=== PATIENT | female | born 1960 | race Caucasian/White ===

== ENCOUNTER → 2018-01-24 10:42 | Outpatient (CLI) | payer OTHER, SELFPAY ==
--- NOTE | 2018-01-24 10:53 | XR_ITS ---
XR foot wt bearing LT 3V HISTORY: ITS.REASON: LT FOOT PAIN ORDERING PHYSICIAN: Ioana Browne PATIENT AGE: 57 years COMPARISON: None FINDINGS: Weightbearing views are obtained No fracture or dislocation. No lytic or blastic change. There is normal mineralization.. The joint spaces are well-preserved. No significant degenerative/arthritic changes. No erosive changes evident. There is a small calcaneal spur. There is normal alignment. IMPRESSION: Small calcaneal spur otherwise negative left foot
== END ==
PROVIDERS: PCP Nurse Practitioner Family; Visit Provider Nurse Practitioner Family
DX: M79.672 Pain in left foot (principal); M81.0 Age-related osteoporosis without current pathological fracture
CPT/HCPCS: 73630

== ENCOUNTER → 2018-05-16 07:36 | Outpatient (CLI) | payer OTHER, SELFPAY ==
[2018-05-16 08:35] LABS: Basophils % 0.3 % (0.1-2.0); Eosinophils # 0.3 K/mm3 (0.0-0.4); Eosinophils % 5.2 % (0.1-12.0); Hematocrit 38.8 % (37.0-47.0); Hemoglobin 12.4 g/dL (12.2-16.2); Lymphocytes # 1.8 K/mm3 (0.7-4.5); Lymphocytes % 32.4 K/mm3 (10-50); Mean Corpuscular HGB Conc 31.9 g/dL (31.8-35.4); Mean Corpuscular Hemoglobin 30.2 pg (27.0-31.2); Mean Corpuscular Volume 94.7 fl (81-99); Mean Platelet Volume 7.5 fl (7.4-10.4); Monocytes # 0.3 K/mm3 (0.1-1.0); Monocytes % 5.7 % (1.7-9.3); Neutrophils # 3.1 K/mm3 (1.8-7.8); Neutrophils % 56.3 % (37.0-80.0); Platelet Count 933 K/mm3 (142-424); Red Cell Distribution Width 13.7 % (11.5-17.5); White Blood Count 5.5 K/mm3 (4.8-10.8)
[2018-05-16 11:01] LABS: Ferritin 58 ng/mL (8-388); Free T4 (Free Thyroxine) 0.98 ng/dl (0.76-1.46); Thyroid Stimulating Hormone 0.86 uIU/ml (0.358-3.740)
[2018-05-17 19:09] LABS: Vitamin B12 721 pg/mL (232-1245)
== END ==
PROVIDERS: PCP Internal Medicine Adolescent Medicine; Visit Provider Nurse Practitioner Family
DX: R00.2 Palpitations (principal); R53.81 Other malaise
CPT/HCPCS: 36415; 82607; 82728; 84439; 84443; 85025

== ENCOUNTER → 2018-12-14 10:36 | Outpatient (CLI) | payer OTHER, SELFPAY | PROVIDERS: Visit Provider Internal Medicine Nephrology | DX: M81.0 Age-related osteoporosis without current pathological fracture (principal) | CPT/HCPCS: 36415; 80069; 82523; 82652; 83937; 84080 ==

== ENCOUNTER → 2018-12-14 10:53 | Outpatient (CLI) | payer OTHER, SELFPAY ==
--- NOTE | 2018-12-14 10:59 | XR_ITS ---
XR DEXA axial skeleton COMPARISON: DEXA scan 09/21/2013 HISTORY: Patient postmenopausal and currently taking Fosamax TECHNIQUE: DEXA scanning lumbar spine and bilateral hips FINDINGS: Lumbar spine: The average BMD L1-L4 is 0.878 g centimeters square with T score -2.5. This is a 4.1% interval decline in BMD from the previous study 2013 Right hip: The total BMD right hip is 0.732 g centimeters square with T score -2.2 and the right femoral neck is 0.815 g centimeters square the T score -1.6. The total BMD left hip is 0.697 g centimeters square the T score -2.5 and left femoral neck is 0.731 g centimeters square with T score -2.2. The mean BMD for both hips represents a 11.8% interval decline in BMD from the previous study. IMPRESSION: T score is in the osteoporosis range for lumbar spine and bilateral hips, suggest a follow-up study in 2 years
[2018-12-14 11:44] LABS: Albumin Level 4.2 gm/dL (3.4-5.0); Anion Gap 13.9 mEq/L (5-15); Blood Urea Nitrogen 10 mg/dL (7-18); Carbon Dioxide 29 mmol/L (21.0-32.0); Chloride 105 mmol/L (98-107); Creatinine,Serum 0.64 mg/dL (0.55-1.02); Estimated Glomerular Filt Rate 95 ml/min (>60); GFR (African American) 115 ML/MIN (>60); Glucose 71 mg/dL (74-106); Phosphorous 5.2 mg/dL (2.4-4.9); Potassium 3.9 mmoL/L (3.5-5.1); Sodium 144 mmol/L (136-145)
[2018-12-15 07:02] LABS: Vitamin D 25 Hydroxy 34.1 ng/mL (30.0-100.0)
== END ==
PROVIDERS: PCP Internal Medicine Adolescent Medicine; Visit Provider Internal Medicine Nephrology
DX: M81.0 Age-related osteoporosis without current pathological fracture (principal)
CPT/HCPCS: 36415; 77080; 80069; 82523; 82652; 83937; 84080

== ENCOUNTER → 2018-12-28 15:27 | Outpatient (POV) | payer OTHER, SELFPAY | PROVIDERS: Visit Provider Internal Medicine Nephrology | DX: Z00.00 Encounter for general adult medical examination without abnormal findings (principal) ==

== ENCOUNTER → 2019-07-17 07:04 | Outpatient (CLI) | payer BC, SELFPAY ==
[2019-07-17 08:37] LABS: Albumin Level 3.8 gm/dL (3.4-5.0); Anion Gap 10.1 mEq/L (5-15); Blood Urea Nitrogen 14 mg/dL (7-18); Calcium 8.5 mg/dL (8.5-10.1); Carbon Dioxide 29 mmol/L (21.0-32.0); Chloride 107 mmol/L (98-107); Creatinine,Serum 0.59 mg/dL (0.55-1.02); Estimated Glomerular Filt Rate 104 ml/min (>60); GFR (African American) 126 ML/MIN (>60); Glucose 76 mg/dL (74-106); Phosphorous 3.5 mg/dL (2.4-4.9); Potassium 4.1 mmoL/L (3.5-5.1); Sodium 142 mmol/L (136-145)
[2019-07-20 09:27] LABS: Vitamin D 25 Hydroxy 42.2 ng/mL (30.0-100.0)
[2019-07-22 12:03] LABS: Tandem-R Ostase 7.8 ug/L (.)
== END ==
PROVIDERS: Visit Provider Internal Medicine Nephrology
DX: M81.0 Age-related osteoporosis without current pathological fracture (principal)
CPT/HCPCS: 36415; 80069; 82523; 82652; 84080

== ENCOUNTER → 2019-11-05 13:20 | Outpatient (CLI) | payer BC, SELFPAY ==
--- NOTE | 2019-11-05 13:26 | XR_ITS ---
PROCEDURE: XR FOOT LT MIN 3V CLINICAL INDICATION: LT FOOT PAIN COMPARISON: [id number] XR foot wt bearing LT 3V from 01/24/2018 FINDINGS: There is no acute fracture or dislocation. There is diffuse demineralization. 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 Degenerative plantar calcaneal spurring is noted. . IMPRESSION: No acute findings. Dictated by: Nael Hernandez 11/05/2019 13:54 Electronically signed by Nael Hernandez in [facility] 11/05/2019 13:54
== END ==
PROVIDERS: PCP Internal Medicine Adolescent Medicine; Visit Provider Nurse Practitioner Family
DX: M79.672 Pain in left foot (principal)
CPT/HCPCS: 73630

== ENCOUNTER → 2020-07-17 14:51 | Outpatient (CLI) | payer BC, SELFPAY ==
--- NOTE | 2020-07-17 14:54 | XR_ITS ---
PROCEDURE: XR DEXA AXIAL SKELETON CLINICAL HISTORY: OSTEOPOROSIS COMPARISON: CR DEXAAX XR DEXA axial skeleton from 12/14/2018 FINDINGS: The right hip BMD is 0.699 with a T-score of -2.0. The left hip BMD is 0.679 with a T-score of -2.2. The lumbar spine BMD is 0.745 with a T-score of -2.7. Previously the lowest bone density was in the spine with T-score -2.5. IMPRESSION: This patient is considered osteoporotic according to the World Health Organization criteria. Fracture risk is high. Treatment is advised. Based on these results a follow-up exam is recommended in 1 year. Dictated by: Amauri Ayon MD 07/18/2020 07:14 Amauri Ayon MD in [facility] 07/18/2020 07:14
[2020-07-17 16:23] LABS: Chloride 104 mmol/L (98-107); Sodium 139 mmol/L (136-145)
[2020-07-17 16:24] LABS: Albumin Level 4.1 g/dl (3.5-5.0); Potassium 4.3 mmoL/L (3.5-5.1)
[2020-07-17 16:26] LABS: Anion Gap 12.3 mEq/L (5-15); Blood Urea Nitrogen 13 mg/dl (7-17); Carbon Dioxide 27 mmol/L (22.0-30.0); Estimated Glomerular Filt Rate 85 ml/min (>60); GFR (African American) 103 ML/MIN (>60)
[2020-07-17 16:27] LABS: Calcium 9.2 mg/dl (8.4-10.2); Glucose 95 mg/dl (74-100); Phosphorous 4.1 mg/dl (2.5-4.5)
[2020-07-21 10:21] LABS: N-Telopeptide Cross-linked 14.5 nmol BCE/L (6.2-19.0)
[2020-07-21 15:20] LABS: Tandem-R Ostase 11.5 ug/L (.)
== END ==
PROVIDERS: PCP Internal Medicine Adolescent Medicine; Visit Provider Internal Medicine Nephrology
DX: M81.0 Age-related osteoporosis without current pathological fracture (principal); Z00.00 Encounter for general adult medical examination without abnormal findings; Z13.820 Encounter for screening for osteoporosis; Z78.0 Asymptomatic menopausal state
CPT/HCPCS: 36415; 77080; 80069; 82523; 84080

== ENCOUNTER → 2021-08-22 08:22 | Outpatient (CLI) | payer BC, SELFPAY ==
--- NOTE | 2021-08-22 08:35 | XR_ITS ---
PROCEDURE: XR DEXA AXIAL SKELETON CLINICAL HISTORY: OSTEOPOROSIS COMPARISON: CR DEXAAX XR DEXA axial skeleton from 12/14/2018 FINDINGS: The right hip BMD is 0.641 with a T-score of -1.9. The left hip BMD is 0.592 with a T-score of -2.3. The lumbar spine BMD is 0.836 with a T-score of -1.9. Previously the lowest density was in the lumbar spine with a T-score of -2.5 IMPRESSION: This patient is considered osteopenic according to the World Health Organization criteria. Bone density is between 10 and 25 percent below young normal. Fracture risk is moderate. Treatment is advised. Based on these results a follow-up exam is recommended in 2 year. Dictated by: Amauri Ayon MD 08/22/2021 16:32 Amauri Ayon MD in [facility] 08/22/2021 16:32
[2021-08-22 10:05] LABS: 25-OH Vitamin D, Total 51.2 ng/mL (30-100)
[2021-08-22 10:08] LABS: Albumin Level 3.9 g/dl (3.5-5.0); Anion Gap 8.3 mEq/L (5-15); Blood Urea Nitrogen 15 mg/dl (7-17); Calcium 8.7 mg/dl (8.4-10.2); Carbon Dioxide 29 mmol/L (22.0-30.0); Chloride 105 mmol/L (98-107); Estimated Glomerular Filt Rate 102 ml/min (>60); GFR (African American) 123 ML/MIN (>60); Glucose 69 mg/dl (74-100); Phosphorous 4.3 mg/dl (2.5-4.5); Potassium 4.3 mmoL/L (3.5-5.1); Sodium 138 mmol/L (136-145)
[2021-08-25 00:08] LABS: Tandem-R Ostase 8.8 ug/L (.)
[2021-08-26 14:08] LABS: C-Telopeptide Serum 92 pg/mL (.)
== END ==
PROVIDERS: PCP Internal Medicine Adolescent Medicine; Visit Provider Internal Medicine Nephrology
DX: M81.0 Age-related osteoporosis without current pathological fracture (principal); Z00.00 Encounter for general adult medical examination without abnormal findings; Z13.220 Encounter for screening for lipoid disorders; Z78.0 Asymptomatic menopausal state
CPT/HCPCS: 36415; 77080; 80069; 82306; 82523; 84080

== ENCOUNTER → 2021-09-17 12:56 | Outpatient (POV) | payer BC, SELFPAY | PROVIDERS: Visit Provider Internal Medicine Nephrology | DX: Z00.00 Encounter for general adult medical examination without abnormal findings (principal) ==

== ENCOUNTER 2021-12-19 19:45 | Emergency (ER) | payer BC, SELFPAY ==
[2021-12-19 19:47] VITALS: BP 160/99; PULSE 82; RESP 18; TEMP 36.7; O2SAT 98; BMI 25.8
[2021-12-19 19:54] VITALS: BP 167/99; PULSE 83; O2SAT 97
[2021-12-19 20:00] VITALS: BP 138/80; PULSE 78; O2SAT 98
[2021-12-19 20:30] VITALS: BP 132/73; PULSE 73; O2SAT 97
--- NOTE | 2021-12-19 20:55 | CT_ITS ---
PROCEDURE INFORMATION: Exam: CT Cervical Spine Without Contrast Exam date and time: 12/19/2021 9:08 PM Age: 61 years old Clinical indication: Neck pain; Additional info: Pain post chiro visit TECHNIQUE: Imaging protocol: Computed tomography images of the cervical spine without contrast. Radiation optimization: All CT scans at this facility use at least one of these dose optimization techniques: automated exposure control; mA and/or kV adjustment per patient size (includes targeted exams where dose is matched to clinical indication); or iterative reconstruction. COMPARISON: No relevant prior studies available. FINDINGS: Bones/joints: No acute fracture. Normal alignment. The spinolaminar line is intact. Discs/Spinal canal/Neural foramina: No significant disc protrusion. No spinal canal stenosis. No significant neural foraminal narrowing. Mild narrowing and hypertrophic changes noted between the anterior arch of C1 and the dens of C2. Lungs: Lung apices are normal. Soft tissues: Unremarkable. IMPRESSION: Mild degenerative changes between C1 and C2. No evidence of acute fracture or malalignment.
--- NOTE | 2021-12-19 20:55 | CT_ITS ---
PROCEDURE INFORMATION: Exam: CT Thoracic Spine Without Contrast Exam date and time: 12/19/2021 9:12 PM Age: 61 years old Clinical indication: Pain in thoracic spine; Additional info: Pain post chiro visit TECHNIQUE: Imaging protocol: Computed tomography images of the thoracic spine without contrast. Radiation optimization: All CT scans at this facility use at least one of these dose optimization techniques: automated exposure control; mA and/or kV adjustment per patient size (includes targeted exams where dose is matched to clinical indication); or iterative reconstruction. COMPARISON: CT CERVICAL SPINE WO CON 12/19/2021 9:08 PM FINDINGS: Vertebrae: No acute fracture. Normal alignment. Discs/Spinal canal/Neural foramina: No significant disc protrusion. Mild diffuse degenerative changes are noted within the thoracic spine. Prominent anterior osteophyte formation noted at T9-T10. No spinal canal stenosis. No significant neural foraminal narrowing. Soft tissues: There is a hiatal hernia above the gastroesophageal junction. There is a well-circumscribed 2.9 cm low-attenuation lesion present within the central liver. Hounsfield unit attenuation is compatible with water. It is felt to represent a hepatic cyst. This could be further evaluated with ultrasound. IMPRESSION: 1. There are degenerative changes noted within the thoracic spine. No evidence of acute fracture or malalignment. 2. There is a hiatal hernia above the gastroesophageal junction. 3. 2.9 cm well-circumscribed low-attenuation lesion within the central liver compatible with a cyst. This could be further evaluated with ultrasound.
--- NOTE | 2021-12-19 20:55 | CT_ITS ---
PROCEDURE INFORMATION: Exam: CT Chest Without Contrast; Diagnostic Exam date and time: 12/19/2021 9:15 PM Age: 61 years old Clinical indication: Pain; Right-sided; Additional info: Pain post chiro visit TECHNIQUE: Imaging protocol: Diagnostic computed tomography of the chest without contrast. Radiation optimization: All CT scans at this facility use at least one of these dose optimization techniques: automated exposure control; mA and/or kV adjustment per patient size (includes targeted exams where dose is matched to clinical indication); or iterative reconstruction. COMPARISON: CT THORACIC SPINE WO CON 12/19/2021 9:12 PM FINDINGS: Lungs: There is a calcified granuloma within the right upper lobe. Linear zones of scarring or atelectasis at the lung bases. No consolidation. No masses. Pleural spaces: Unremarkable. No pneumothorax. No pleural effusion. Heart: Unremarkable. No cardiomegaly. No pericardial effusion. Coronary arteries: No evidence of coronary artery calcification. Mediastinal space: No evidence of mediastinal or hilar mass. Calcifications, likely representing granulomatous calcifications, noted within the left hilus, right hilus, precarinal and subcarinal regions, and within the right paratracheal region. Aorta: Unremarkable. No aortic aneurysm. Lymph nodes: Unremarkable. No enlarged lymph nodes. Bones/joints: Degenerative changes are noted within the thoracic spine. No acute fracture. Soft tissues: There is a small hiatal hernia above the gastroesophageal junction. There is a 3.1 cm well-circumscribed low-attenuation lesion present within the central aspect of the right hepatic lobe. Findings are compatible with a benign hepatic cysts. This could be further evaluated with ultrasound. IMPRESSION: 1. There is no evidence of acute process within the chest. 2. Small hiatal hernia above the gastroesophageal junction. 3. There is a 3.1 cm well-circumscribed low-attenuation lesion within the central liver, compatible with a hepatic cyst. This could be further evaluated with ultrasound.
[2021-12-19 21:00] VITALS: BP 130/82; PULSE 70; O2SAT 96
--- NOTE | 2021-12-19 21:01 | ECG_ITS ---
APPROVED REPORT Exam: Resting ECG HR:69 bpm ECG Measurements Heart Rate 69 AXES KS 144 P 40 QRSd 84 QRS 47 QT 389 T 15 QTc 408 Conclusion SINUS RHYTHM NORMAL ECG UNCONFIRMED REPORT Electronically signed by : Dima Giles MD 12/21/2021 14:52:49
--- NOTE | 2021-12-19 21:21 | PC.NURSE ---
Pt back from RAD
--- NOTE | 2021-12-19 21:56 | [facility].EDGENADL ---
ED Disposition Clinical Impression: Muscle strain Disposition: Home, Self-Care Condition on Discharge: Good Prescriptions: Cyclobenzaprine HCl [Cyclobenzaprine 10mg Tab*] 10 mg PO PM PRN 5 Days #5 tab PRN Reason: Muscle Pain Transmission Status: Pending to [facility][id number] Referrals: Dima Giles MD [Primary Care Provider] - - Critical Care Critical Care Time: No Attestation: On 12/19/21, the high probability of a clinically significant, sudden or life threatening deterioration of the following system(s) required my full and direct attention, intervention and personal management. The time I documented below is in addition to time spent performing reported procedures but includes the following listed in this critical care notation. Medical Decision Making - Doc Inquiry Pt receiving controlled substance: No Vital Signs: 12/19/21 19:47 12/19/21 19:54 12/19/21 20:00 Temperature 98.0 F Temperature Source Oral Pulse Rate 83 78 Pulse Rate [Right] 82 Respiratory Rate 18 Blood Pressure 167/99 H 138/80 Blood Pressure [Right Arm] 160/99 H Blood Pressure Mean 118 102 Blood Pressure Mean [Right Arm] 119 02 Sat by Pulse Oximetry 98 97 98 Oxygen Delivery Method Room Air Room Air Room Air 12/19/21 20:30 12/19/21 21:00 Temperature Temperature Source Pulse Rate 73 70 Pulse Rate [Right] Respiratory Rate Blood Pressure 132/73 130/82 Blood Pressure [Right Arm] Blood Pressure Mean 98 94 Blood Pressure Mean [Right Arm] 02 Sat by Pulse Oximetry 97 96 Oxygen Delivery Method Room Air Room Air Medical Decision Narrative: 61-year-old female presents emergency department after thoracic and lateral right-sided neck pain after chiropractic manipulation yesterday. Patient has right anterior thoracic tenderness to palpation inferior and superior to the right breast as well as lateral thoracic pain that is precipitated with right arm abduction, though right upper extremity strength and range of motion are intact, with no neurovascular abnormalities. No C-spine or T-spine tenderness to palpation step-offs or deformities on physical examination, C-spine range of motion was intact. CTs of C and T-spine showed degenerative changes without any obvious fracture or dislocation. Liver lesion which radiology stated was compatible with hepatic cyst was identified on CT imaging, this was communicated to patient as well as need to follow-up. ECG performed in the emergency department which showed normal sinus rhythm without any ST changes or concern for acute coronary syndrome. Chest CT performed in the emergency department and showed no acute findings in the chest, without any evidence of rib fracture remarked upon. No hernia was also noted in CT imaging and this was verbalized to patient. Patient ultimately able to be discharged home with return precautions and instructions to follow-up with primary care physician for potential need for physical therapy and potential need for MRI imaging with etiology of pain likely muscle strain. Patient amenable to this plan. Given prescription for Flexeril. General Adult HPI - General Chief complaint: PAIN Stated complaint: LEFT RIBS, BACK AND NECK Time Seen by Provider: 12/19/21 20:05 Mode of Arrival: Family Vehicle Limitations: No Limitations Description of Symptoms (Recalled from ER Triage Doc. by RN): Pt c/o pain to R side of neck, under R breast, and R axilla. States she went to the Chiropractor yesterday and usually he uses his elevator adjuster but this time he actually adjusted me and right away I was in severe pain . She also reports He did xrays and thinks he tore cartilage . Pt has been taking Tylenol, Aleve, and heat to the painful areas but is concerned there is something else wrong. States she was in the shower when she felt something move from under my right arm . Denies any radiating pain down arms. Denies SOA. - History of Present Illness HPI gloria
[2021-12-19 22:17] VITALS: BP 126/76; PULSE 80; RESP 18; TEMP 36.7; O2SAT 18
== END 2021-12-19 22:24 | disposition home or self-care (01) ==
PROVIDERS: Emergency Provider Student in an Organized Health Care Education/Training Program; PCP Internal Medicine Adolescent Medicine
DX: M54.6 Pain in thoracic spine (principal); M54.2 Cervicalgia; R07.81 Pleurodynia; M79.621 Pain in right upper arm; K76.89 Other specified diseases of liver; K76.9 Liver disease, unspecified; M81.0 Age-related osteoporosis without current pathological fracture; F32.A Depression, unspecified; F41.9 Anxiety disorder, unspecified; Z88.0 Allergy status to penicillin; Z82.49 Family history of ischemic heart disease and other diseases of the circulatory system; Z83.49 Family history of other endocrine, nutritional and metabolic diseases
CPT/HCPCS: 71250; 72125; 72128; 93005; 99285

== ENCOUNTER → 2022-09-26 07:59 | Outpatient (CLI) | payer OTHER, SELFPAY ==
--- NOTE | 2022-09-26 08:17 | XR_ITS ---
FINAL REPORT TECHNIQUE: Bone densitometry calculations of the lumbar spine and left hip were obtained. CLINICAL HISTORY: screening FINDINGS: DEXA BONE DENSITY AXIAL SKELETON Using L1-4, the bone mineral density of the spine is 0.825 g/cm2, corresponding to T-score of -2.0. Using the left hip, the bone mineral density of the femoral neck is 0.575 g/cm2, corresponding to a T-score of -2.5. NOTE: T-score: Standard deviation compared with peak bone mass of young adult mean. *Following the recommendations of the International Society of Bone Densitometry, classification of hip BMD is based on the lower of two T-scores; total hip or femoral neck. IMPRESSION: Osteoporosis: Lowest T-score is at or below -2.5. This patient's T-score meets the World Health Organization criteria for osteoporosis. FRAX not reported because: Some T-score for Spine Total or hip Total or femoral neck at or below -2.5. Patient being treated for osteoporosis. Reviewed, Interpreted and Dictated by Giovanny Estrella III, MD Transcribed by Whitney Woodruff Authenticated and [facility]
[2022-09-26 09:52] LABS: Albumin Level 3.9 g/dl (3.5-5.0); Chloride 107 mmol/L (98-107); Potassium 4.4 mmoL/L (3.5-5.1); Sodium 140 mmol/L (136-145)
[2022-09-26 09:54] LABS: Blood Urea Nitrogen 14 mg/dl (7-17); Estimated Glomerular Filt Rate 85 ml/min (>60); GFR (African American) 103 ML/MIN (>60)
[2022-09-26 09:55] LABS: Anion Gap 10.4 mEq/L (5-15); Calcium 8.5 mg/dl (8.4-10.2); Carbon Dioxide 27 mmol/L (22.0-30.0); Glucose 73 mg/dl (74-100); Phosphorous 4.2 mg/dl (2.5-4.5)
[2022-09-30 00:05] LABS: C-Telopeptide Serum 284 pg/mL (.)
[2022-10-01 00:07] LABS: Tandem-R Ostase 11.2 ug/L (.)
== END ==
PROVIDERS: PCP Internal Medicine Adolescent Medicine; Visit Provider Internal Medicine Nephrology
DX: M81.0 Age-related osteoporosis without current pathological fracture (principal); Z13.820 Encounter for screening for osteoporosis
CPT/HCPCS: 36415; 77080; 80069; 82306; 82523; 84080

== ENCOUNTER → 2022-10-21 09:23 | Outpatient (POV) | payer OTHER, SELFPAY | PROVIDERS: Visit Provider Internal Medicine Nephrology | DX: Z00.00 Encounter for general adult medical examination without abnormal findings (principal) ==

== ENCOUNTER 2023-10-20 08:52 | Outpatient (CLI) | payer OTHER, SELFPAY ==
--- NOTE | 2023-10-20 08:57 | XR_ITS ---
FINAL REPORT CLINICAL HISTORY: Osteoporosis screening COMPARISON: 09/26/2022 FINDINGS: Using L1-4, the bone mineral density of the spine is 0.810 g/cm2, corresponding to T-score of -2.2 which is consistent with low bone density. Previously was 0.825 with a T-score of -2.0. Using the left hip, the bone mineral density of the femoral neck is 0.676 g/cm2, corresponding to a T-score of -2.2 which is consistent with low bone density. Previously was 0.575 with T-score of -2.5. Using the right hip, the bone mineral density of the femoral neck is 0.614 g/cm2, corresponding to a T-score of -2.1 which is consistent with low bone density. Previously 0.726 with a T-score of -1.8. FRAX not reported because patient being treated for osteoporosis NOTE: T-score: Standard deviation compared with peak bone mass of young adult mean. *Following the recommendations of the International Society of Bone densitometry, classification of hip BMD is based on the lower of two T-scores; total hip or femoral neck. IMPRESSION: Diminished bone mineral density consistent with low bone density. Reviewed, Interpreted and Dictated by Giovanny Estrella III, MD Transcribed by Edna Paz Authenticated and [facility]
[2023-10-20 10:35] LABS: Chloride 107 mmol/L (98-107)
[2023-10-20 10:36] LABS: Potassium 4.4 mmoL/L (3.5-5.1); Sodium 139 mmol/L (136-145)
[2023-10-20 10:38] LABS: Blood Urea Nitrogen 14 mg/dl (7-17); Estimated Glomerular Filt Rate 84 ml/min (>60); GFR (African American) 102 ML/MIN (>60)
[2023-10-20 10:39] LABS: Anion Gap 7.4 mEq/L (5-15); Calcium 8.8 mg/dl (8.4-10.2); Carbon Dioxide 29 mmol/L (22.0-30.0); Glucose 89 mg/dl (74-100)
[2023-10-20 10:58] LABS: 25-OH Vitamin D, Total 67.1 ng/mL (30-100)
[2023-10-22 21:06] LABS: C-Telopeptide Serum 76 pg/mL (.)
[2023-10-23 06:14] LABS: Tandem-R Ostase 8.2 ug/L (.)
[2023-10-24 10:50] LABS: Serial Monitoring PDF SCANNED IMAGE
== END 2023-10-20 23:59 ==
PROVIDERS: PCP Internal Medicine Adolescent Medicine; Visit Provider Internal Medicine Nephrology
DX: Z78.0 Asymptomatic menopausal state (principal); Z13.820 Encounter for screening for osteoporosis; M81.0 Age-related osteoporosis without current pathological fracture
CPT/HCPCS: 36415; 77080; 80069; 82306; 82523; 84080

== ENCOUNTER 2023-11-07 11:19 | Outpatient (POV) | payer OTHER, SELFPAY | END 2023-11-07 23:59 | disposition home or self-care (01) | LOC: SC 11:19 | PROVIDERS: Visit Provider Nurse Practitioner | DX: Z00.00 Encounter for general adult medical examination without abnormal findings (principal) ==

== ENCOUNTER 2024-05-25 07:53 | Outpatient (CLI) | payer OTHER, SELFPAY ==
[2024-05-25 08:14] LABS: Eosinophils # 0.1 K/mm3 (0.0-0.4); Hematocrit 41.4 % (37.0-47.0); Hemoglobin 13.4 g/dL (12.2-16.2); Lymphocytes # 1.6 K/mm3 (0.7-4.5); Lymphocytes % 41.1 % (10-50); Mean Corpuscular HGB Conc 32.4 g/dL (31.8-35.4); Mean Corpuscular Hemoglobin 31.6 pg (27.0-31.2); Mean Corpuscular Volume 97.7 fl (81-99); Mean Platelet Volume 8.8 fl (7.4-10.4); Monocytes # 0.4 K/mm3 (0.1-1.0); Monocytes % 9.1 % (1.7-9.3); Neutrophils # 1.9 K/mm3 (1.8-7.8); Platelet Count 332 K/mm3 (142-424); Red Blood Count 4.24 M/mm3 (4.20-5.40); Red Cell Distribution Width 13.9 % (11.5-17.5)
[2024-05-25 09:16] LABS: Alanine Aminotransferase 20 U/L (12-78); Albumin Level 3.9 g/dl (3.5-5.0); Albumin/Globulin Ratio 1.3 (1.1-1.8); Alkaline Phosphatase 73 U/L (38-126); Anion Gap 10.4 mEq/L (5-15); Aspartate Amino Transferase 27 U/L (14-36); Bilirubin,Total 0.5 mg/dl (0.2-1.3); Blood Urea Nitrogen 14 mg/dl (7-17); Calcium 9.3 mg/dl (8.4-10.2); Carbon Dioxide 28 mmol/L (22.0-30.0); Chloride 106 mmol/L (98-107); Chol/HDL Ratio 4.8 (1-3.5); Cholesterol 227 mg/dl (140-200); Estimated Glomerular Filt Rate 84 ml/min (>60); GFR (African American) 102 ML/MIN (>60); Globulin 2.9 g/dL (1.3-3.2); Glucose 88 mg/dl (74-100); HDL Cholesterol 47 mg/dl (40-60); Potassium 4.4 mmoL/L (3.5-5.1); Sodium 140 mmol/L (136-145); Total Protein,Serum 6.8 g/dl (6.3-8.2); Triglycerides 125 mg/dl (30-150); VLDL Cholesterol 25 mg/dL (0-40)
[2024-05-25 09:17] LABS: Albumin Level 3.8 g/dl (3.5-5.0); Anion Gap 8.4 mEq/L (5-15); Blood Urea Nitrogen 14 mg/dl (7-17); Calcium 9.3 mg/dl (8.4-10.2); Carbon Dioxide 29 mmol/L (22.0-30.0); Chloride 106 mmol/L (98-107); Estimated Glomerular Filt Rate 84 ml/min (>60); GFR (African American) 102 ML/MIN (>60); Glucose 90 mg/dl (74-100); Phosphorous 4.9 mg/dl (2.5-4.5); Potassium 4.4 mmoL/L (3.5-5.1); Sodium 139 mmol/L (136-145)
[2024-05-25 09:27] LABS: Direct LDL Cholesterol 133.76 mg/dL (100-129)
[2024-05-28 13:21] LABS: Tandem-R Ostase 10.5 ug/L (.)
[2024-06-03 16:11] LABS: Serial Monitoring PDF SCANNED IMAGE
[2024-06-04 21:12] LABS: C-Telopeptide Serum 156 pg/mL (.)
== END 2024-05-25 23:59 | disposition home or self-care (01) ==
LOC: LAB 07:55
PROVIDERS: PCP Internal Medicine Adolescent Medicine; Referring Provider Nurse Practitioner; Visit Provider Nurse Practitioner Family
DX: Z00.00 Encounter for general adult medical examination without abnormal findings (principal); Z29.9 Encounter for prophylactic measures, unspecified
CPT/HCPCS: 36415; 80053; 80061; 80069; 82523; 84080; 84100; 85025

== ENCOUNTER 2024-06-11 10:56 | Outpatient (POV) | payer OTHER, SELFPAY | END 2024-06-11 23:59 | disposition home or self-care (01) | LOC: SC 10:56 | PROVIDERS: Visit Provider Nurse Practitioner | DX: Z00.00 Encounter for general adult medical examination without abnormal findings (principal) ==

== ENCOUNTER 2024-11-22 08:19 | Outpatient (CLI) | payer MEDICARE, SELFPAY ==
--- NOTE | 2024-11-22 08:44 | XR_ITS ---
FINAL REPORT TECHNIQUE: Bone mineral density was calculated of the lumbar spine and hip. CLINICAL HISTORY: SCREENING COMPARISON: 10/20/2023 FINDINGS: Using L1-4, the bone mineral density of the spine is 0.8-6 g/cm2, corresponding to T-score of -2.0. Using the left hip, the bone mineral density of the femoral neck is 0.676 g/cm2, corresponding to a T-score of -2.2. Using the right hip, the bone mineral density of the femoral neck is 0.716 g/cm?, corresponding to a T-score of -1.8. NOTE: T-score: Standard deviation compared with peak bone mass of young adult mean. *Following the recommendations of the International Society of Bone densitometry, classification of hip BMD is based on the lower of two T-scores; total hip or femoral neck. IMPRESSION: Diminished bone mineral density of the lumbar spine and bilateral hips consistent with osteopenia. Reviewed, Interpreted and Dictated by Neville Honeycutt MD Transcribed by Daniela Tobar Authenticated and [facility]
[2024-11-22 09:12] LABS: Blood Urea Nitrogen 11 mg/dl (7-17); Estimated Glomerular Filt Rate 100 ml/min (>60); GFR (African American) 121 ML/MIN (>60)
[2024-11-22 09:38] LABS: Albumin Level 3.8 g/dl (3.5-5.0); Chloride 107 mmol/L (98-107); Potassium 4.6 mmoL/L (3.5-5.1); Sodium 140 mmol/L (136-145)
[2024-11-22 09:41] LABS: Anion Gap 9.6 mEq/L (5-15); Blood Urea Nitrogen 12 mg/dl (7-17); Carbon Dioxide 28 mmol/L (22.0-30.0); Estimated Glomerular Filt Rate 100 ml/min (>60); GFR (African American) 121 ML/MIN (>60)
[2024-11-22 09:42] LABS: Calcium 8.9 mg/dl (8.4-10.2); Glucose 88 mg/dl (74-100); Phosphorous 3.9 mg/dl (2.5-4.5)
[2024-11-25 23:22] LABS: C-Telopeptide Serum 84 pg/mL (.)
[2024-11-26 07:14] LABS: Osteocalcin 6.1 ng/mL (5.0-29.5)
[2024-11-26 17:14] LABS: Creatinine, Urine 116.2 mg/dL (Not Estab.); N-Telo/Creat. Ratio 19 (0-89); N-Telopeptide 196 nmol BCE (Not Estab.)
== END 2024-11-22 23:59 | disposition home or self-care (01) ==
LOC: RAD 08:23
PROVIDERS: Nurse Practitioner Family; PCP Internal Medicine Adolescent Medicine; Visit Provider Nurse Practitioner
DX: M81.0 Age-related osteoporosis without current pathological fracture (principal); Z13.820 Encounter for screening for osteoporosis
CPT/HCPCS: 36415; 77080; 80069; 82306; 82523; 82565; 82570; 83937; 84520

== ENCOUNTER 2024-11-25 01:25 | Emergency (ER) | payer MEDICARE, SELFPAY ==
[2024-11-25] VITALS (10 sets, daily range): BP systolic 142–165; BP diastolic 80–86; PULSE 101–121; RESP 16–24; TEMP 36.9–37.7; O2SAT 93–97; BMI 27.1
--- NOTE | 2024-11-25 03:22 | ED_ITS ---
Discharge Plan Disposition Patient Disposition: Xfer Short-Term Hosp Condition: Critical Prescriptions Prescriptions: No Action buspirone 5 mg tablet 5 mg PO BID cyclobenzaprine 10 MG tablet 10 mg PO PM PRN (Reason: Muscle Pain) 5 Days Qty: 5 0RF Rx Instructions: Take 1 tablet by mouth as needed at night for muscle pain Referrals Follow up/Referrals: Dima Giles MD [Primary Care Provider] - See instructions Clinical Impressions Clinical Impression: Acute cholangitis, Pancreatitis, Transaminitis, Hyperbilirubinemia Stand Alone Forms Stand Alone Forms: Transfer Record - ED Instructions Patient Instructions: DI for Acute Abdominal Pain Print Language Print Language: Bangladeshi Discharge ED Provider: Jordan Porras General Adult HPI General Chief complaint: Abdominal Pain Stated complaint: seen for liver, abd pain, shaky Time Seen by Provider: 11/25/24 01:25 Mode of Arrival: Wheelchair Source of Information: Patient Description of Symptoms (Recalled from ER Triage Doc. by RN): Patient complains of right lower quadrant pain ongoing for a few weeks but worsening tonight. Patient states she has had a CT at [facility], and it showed a spot on her liver. Patient is supposed to have a MRI in the morning. States she took tylenol at 10 pm History of Present Illness HPI narrative: 64-year-old female who has a known spot on the liver presents to the ER with shaking and abdominal pain.? Patient reports she has been having abdominal pain for more than a month.? She had a CT done at [facility] which reportedly showed a spot on the liver .? She reports she is supposed to have an MRI for this done this morning at 8:15 AM.? She reports her pain last night around bedtime was a little worse than normal so she took Tylenol.? She reports she woke up shaking but did not take her temperature.? She states her did not think she felt warm so she assumed she did not have a fever.? She states her pain has improved since earlier but she was worried about the shaking because her family member has seizures.? She was awake and is able to tell me what the shaking look like and felt like.? She had no episode of unconsciousness, no postictal period, she has no history of seizures.? On arrival in the ER she is borderline febrile.? She denies chest pain or difficulty breathing, she states she feels foggy but is not dizzy, no headaches, no vomiting or diarrhea, no constipation, cough, congestion, sore throat, dysuria, hematuria, or other associated symptoms. Related Data Home Medications ?Medication ?Instructions ?Recorded ?Confirmed buspirone 5 mg tablet 5 mg PO BID . 08/24/21 11/25/24 Previous Rx's ?Medication ?Instructions ?Recorded cyclobenzaprine 10 mg tablet 10 mg PO PM PRN Muscle Pain 5 days 12/19/21 #5 tabs Allergies Allergy/AdvReac Type Severity Reaction Status Date / Time Penicillins Allergy Mild Verified 08/24/21 09:00 [facility] Disclaimer: The information contained in this section may have been updated after the patient was seen, as this information can be updated by other users. Social History Smoking Status: Never smoker alcohol intake: never substance use type: denies use current occupational status: employed Travel in the last 8 weeks: None Have you lived/traveled outside US in past 30 days?: No Contact w/someone who lives/traveled outside US past 30 days?: No Exposure to someone with infectious disease in past 14 days?: No Do you have a fever (greater than 100.4 F or 38 C)?: No Have you tested positive for COVID-19: No Exposed to someone with COVID-19 in past 14 days?: No Do you have a sore throat?: No Do you have a cough?: No Do you have any weakness?: No Do you have any diarrhea?: No Are you experiencing any unusual bleeding?: No Do you have any muscle aches/pain?: No Do you have any abdominal pain?: Yes Are you experiencing loss of taste or smell?: No Other Medical History Have you received the Flu Vaccine for this season: No Have you received the Pneumonia Vaccine: No ROS Obtained: Yes Systems reviewed as appropriate & no additional complaints except as documented per HPI Physical Exam General General appearance: alert Comment: Ill-appearing but not in extremis, she is not actively diaphoretic but does appear as though she had been sweaty previously Head Head exam: atraumatic and normocephalic Eye Eye exam: Present PERRL and EOMI ENT ENT exam: Present mucous membranes moist Neck Neck exam: Present normal inspection and full ROM Chest Chest inspection: Present symmetric chest wall rise Respiratory Respiratory exam: Present normal lung sounds bilaterally; Absent respiratory distress, wheezes or stridor Cardiovascular Cardiovascular exam: Present normal rhythm and tachycardia Abdominal Exam Abdominal exam: Present soft, tenderness (Moderate right upper quadrant) and guarding (Voluntary); Absent distention or rebound Extremities Exam Extremities exam: Present full ROM and edema (Trace bilateral lower extremity) Neurological Exam Neurological exam: Present alert and oriented X3; Absent motor sensory deficit Psychiatric Psychiatric exam: Present normal affect and normal mood Skin Skin exam: Present warm, dry and other (Mild jaundice) Medical Decision Making Medical Records Medical records reviewed: Yes I reviewed the patient's medical records. Screening: Per USPSTF and CDC recommendations, given the prevalence of disease in our region, it is our hospital?s policy to screen for HIV and viral Hepatitis for all patients aged 18 and over and those with ongoing risk factors. MR Comment: Patient does not have significant records within our system recently. Labs from May demonstrate patient had no transaminitis at that time. Doc Inquiry Pt receiving controlled substance: No Vital Signs: 11/25/24 01:30 11/25/24 02:00 11/25/24 03:07 Temperature 100 F H Temperature Source Oral Pulse Rate 109 H 101 H Pulse Rate [Right Radial] 121 H Respiratory Rate 16 16 Blood Pressure 142/86 H Blood Pressure [Right Arm] 165/85 H Blood Pressure Mean [Right Arm] 111 Blood Pressure Source [Right Arm] Automatic Cuff Blood Pressure Position [Right Arm] Supine 02 Sat by Pulse Oximetry 94 L 93 L 95 Oxygen Delivery Method Room Air Room Air 11/25/24 03:16 11/25/24 03:30 11/25/24 04:11 Temperature 98.4 F Temperature Source Pulse Rate 110 H 116 H 105 H Pulse Rate [Right Radial] Respiratory Rate Blood Pressure 151/80 H Blood Pressure [Right Arm] Blood Pressure Mean [Right Arm] Blood Pressure Source [Right Arm] Blood Pressure Position [Right Arm] 02 Sat by Pulse Oximetry 96 96 94 L Oxygen Delivery Method 11/25/24 04:30 11/25/24 04:45 11/25/24 04:56 Temperature 98.6 F Temperature Source Pulse Rate 103 H 102 H 101 H Pulse Rate [Right Radial] Respiratory Rate 24 Blood Pressure 155/83 H 155/83 H 150/83 H Blood Pressure [Right Arm] Blood Pressure Mean [Right Arm] Blood Pressure Source [Right Arm] Blood Pressure Position [Right Arm] 02 Sat by Pulse Oximetry 95 97 Oxygen Delivery Method Room Air 03/13/25 05:00 Temperature Temperature Source Pulse Rate 104 H Pulse Rate [Right Radial] Respiratory Rate Blood Pressure 158/82 H Blood Pressure [Right Arm] Blood Pressure Mean [Right Arm] Blood Pressure Source [Right Arm] Blood Pressure Position [Right Arm] 02 Sat by Pulse Oximetry 97 Oxygen Delivery Method Lab Data Lab Results 11/25/24 01:45: WBC 6.8, RBC 4.24, Hgb 12.8, Hct 37.4, MCV 88.2, MCH 30.2, MCHC 34.2, RDW 13.2, Plt Count 366, MPV 10.5 H, Neut % (Auto) 90.3 H, Lymph % (Auto) 8.0 L, Parke % (Auto) 1.3 L, Eos % (Auto) 0.0 L, Baso % (Auto) 0.3, Neut # (Auto) 6.1, Lymph # (Auto) 0.5 L, Parke # (Auto) 0.1, Eos # (Auto) 0.0, Baso # (Auto) 0.0, Total Counted 100, Neutrophils % (Manual) 88 H, Lymphocytes % (Manual) 11, Basophils % (Manual) 1.0, Platelet Estimate Normal, RBC Morphology Normal, PT 10.7, INR 0.95, Sodium 136, Potassium 3.7, Chloride 105, Carbon Dioxide 25, Anion Gap 9.7, BUN 12, Creatinine 0.60, Estimated Creat Clear 67, Estimated GFR 100, Est GFR ( Amer) 121, Glucose 120 H, Lactate 1.5, Calcium 8.8, Total Bilirubin 2.8 H, AST 1332 H*, ALT 1064 H*, Alkaline Phosphatase 310 H, Total Protein 7.2, Albumin 4.2, Globulin 3.0, Albumin/Globulin Ratio 1.4, Lipase 65334 H, Urine Color Yellow, Urine Appearance Clear, Urine pH 7.0, Ur Specific [place] 1.015, Urine Protein Negative, Urine Glucose (UA) Negative, Urine Ketones Negative, Urine Blood Trace A, Urine Nitrate Negative, Urine Bilirubin Negative, Urine Urobilinogen 0.2, Ur Leukocyte Esterase Negative, Urine RBC Occasional, Urine WBC None, Ur Squamous Epith Cells Occasional, Urine Bacteria Trace, SARS-CoV-2 (PCR) Not detected, Influenza A Untype (PCR) Not detected, Influenza Type B (PCR) Not detected 11/25/24 01:45 11/25/24 01:45 Orders (Tests/Meds): ED MEDICATIONS Discontinued Medications Generic Name Dose Route Start Last Admin Trade Name Serge PRN Reason Stop Dose Admin Piperacillin Sod/Tazobactam 100 mls @ 200 mls/hr 11/25/24 03:15 11/25/24 03:37 Sod 4.5 gm/ Sodium Chloride IV 12/05/24 03:14 200 mls/hr Q8H EFREM Administration Lactated Ringer's 1,000 mls @ 999 mls/hr 11/25/24 03:31 11/25/24 03:33 Lactated Ringer's 1000 Ml Bag IV 11/25/24 04:31 999 mls/hr .Q1H1M ONE Administration Lactated Ringer's 1,000 mls @ 999 mls/hr 11/25/24 04:17 11/25/24 04:26 Lactated Ringer's 1000 Ml Bag IV 11/25/24 05:17 999 mls/hr .Q1H1M ONE Administration Ondansetron HCl 4 mg 11/25/24 04:38 11/25/24 05:11 Ondansetron 4mg/2ml Vial IV 11/25/24 04:39 4 mg ONCE ONE Administration ORDERS Category Date Time Status CT angio abdomen pelvis Stat Cat Scan 11/25/24 03:27 Ordered Complete Blood Count Auto Diff Stat Lab 11/25/24 01:45 Completed Comprehensive Metabolic Panel Stat Lab 11/25/24 01:45 Completed Lactic Acid Stat Lab 11/25/24 01:45 Completed Lipase Stat Lab 11/25/24 01:45 Completed Prothrombin Time INR Stat Lab 11/25/24 01:45 Completed Rapid PCR Covid and Flu A/B Stat Lab 11/25/24 01:45 Completed UA/RFX Microscopic Stat Lab 11/25/24 01:45 Completed Urine Microscopic Stat Lab 11/25/24 01:45 Completed Blood Culture Stat Micro 11/25/24 03:28 Received Medical Decision Narrative: In summary, this 64-year-old female with comorbidities described in the HPI not at goal therapy presents to the emergency department today with abdominal pain and tremulousness both of which have improved upon arrival to the ER. On initial evaluation patient is hemodynamically stable, borderline febrile, patient has tenderness to palpation of the right upper quadrant of the abdomen but no peritonitic findings, trace peripheral edema, mild jaundice, remainder of exam benign. Differential diagnosis includes but is not limited to viral syndrome, malignancy, vascular malformation, mesenteric ischemia, intra-abdominal infection, cholecystitis, cholelithiasis, choledocholithiasis, pancreatitis, cholangitis, urinary tract infection, among others. Based on these concerns, I ordered serum labs, CT imaging including angiography of the abdomen pelvis, urine studies, viral swab. Patient received IV fluids initially for treatment.? She refused pain medication at this time.? Labs personally reviewed demonstrate COVID and flu negative, CMP resulted with significant transaminitis, AST and ALT greater than 1000, alkaline phosphatase 310, lipase so elevated that is unable to be read on our machine at this time.? Lactic at 1.5.? CBC with WBC 6.7, hemoglobin 12.8, patient does have neutrophil predominance despite not having a leukocytosis.? Her bilirubin is elevated at 2.8.. Lipase eventually resulted at 30,109 U/L CT abdomen pelvis personally interpreted demonstrate inflammatory changes of the pancreas, gallbladder wall appears thickened, pericholecystic fluid present, I do not appreciate an obvious stone.? See radiology read for final interpretation, this is pending at this time. Radiology read in agreement. It does comment on 11 mm segment 8 hepatic hypodensity. Remainder of read in agreement with my interpretation. See read for full interpretation. Based on patient's labs and imaging findings, I immediately administered Zosyn after collecting blood cultures.? Also immediately reached out to [facility] for transfer for concerns of cholangitis. Awaiting callback at this time ([phone]). Patient has been made aware of findings and is agreeable to transfer. While awaiting a callback, we reached out to [employer] for weather check since all ambulances are occupied at this time and another transfer is pending. Patient has significant pathology that could be immediately life-threatening so I believe she is appropriate for flight transfer. [email or web address] has agreed and is on standby. 336 called back and I was supposed to speak with Dr. Valenzuela at that time but apparently as soon as I was on the phone she decided to take a different call instead and I have been unable to reach her since. [address] Valenzuela at . We reviewed labs and imaging for this patient as well as clinical status. She gave pushback on the patient asking us to get ultrasound and MRI which are not available at this facility overnight. I advocated for the patient explaining my significant concerns for her status regarding patient's labs, clinical findings, progressive tachycardia, and my concern that patient requires GI and surgery evaluation at a facility with liver center capabilities and if she continues to worsen she will likely require a closed ICU. After extensive conversation, Dr. Valenzuela eventually reached out to general surgery and I spoke with Dr. Schulz who after reviewing the case recommended the patient for ED to ED transfer at [facility]. Accepting physician is Dr. Valenzuela. [employer] contacted again and are having to recheck the weather due to the delay in transfer. [employer] [facility] accepted the patient. Her heart rate has improved since receiving an additional 1 L of IV fluids. She was transferred in serious but currently stable condition. Critical Care Critical Care Time Critical Care Time: Yes Attestation: On 11/25/24, the high probability of a clinically significant, sudden or life threatening deterioration of the following system(s) (GI, hemodynamic) required my full and direct attention, intervention and personal management. The time I documented below is in addition to time spent performing reported procedures but includes the following listed in this critical care notation. Total Time Total Critical Care Time: 35
--- NOTE | 2024-11-25 03:26 | PC.NURSE ---
Called [facility] for a transfer on pt
[2024-11-25] MEDS: IOPAMIDOL-370 (76%);100ML BOTTLE 80 ML IV (03:30)
[2024-11-25] MEDS: SODIUM CHLORIDE 0.9% 10ML SYR (RAD ONLY) 10 ML IV (03:30)
[2024-11-25] MEDS: 0.9 % SODIUM CHLORIDE 50 ML VIAL IV (03:30)
--- NOTE | 2024-11-25 03:30 | CT_ITS ---
PROCEDURE INFORMATION: Exam: CTA Abdomen and Pelvis With Contrast Exam date and time: 11/25/2024 2:49 AM Age: 64 years old Clinical indication: Abdominal pain; Other: Ruq pain; Additional info: Ruq pain, fever, known liver spot TECHNIQUE: Imaging protocol: Computed tomographic angiography of the abdomen and pelvis with contrast. Exam focused on the arteries. 3D rendering (Not supervised by radiologist): MIP and/or 3D reconstructed images were created by the technologist. Radiation optimization: All CT scans at this facility use at least one of these dose optimization techniques: automated exposure control; mA and/or kV adjustment per patient size (includes targeted exams where dose is matched to clinical indication); or iterative reconstruction. Contrast material: ISOVUE; Contrast volume: 80 ml; Contrast route: INTRAVENOUS (IV); COMPARISON: No relevant prior studies available. FINDINGS: Aorta: No aortic aneurysm. No aortic dissection. There are mild calcific atherosclerotic disease. Celiac trunk and mesenteric arteries: No occlusion or significant stenosis. Renal arteries: No occlusion or significant stenosis. Right iliac arteries: No occlusion or significant stenosis. Left iliac arteries: No occlusion or significant stenosis. Liver: There is an 11 mm circumscribed hypodensity within segment 8 with Hounsfield units less than 10. Gallbladder and biliary ducts: There is pericholecystic fluid present. No calcified gallstones. No biliary ductal dilation. Pancreas: There is stranding of the peripancreatic fat. No intrinsic pancreatic abnormality. No pancreatic ductal dilation. No surrounding fluid collection. Spleen: Unremarkable. No splenomegaly. Adrenal glands: Unremarkable. No mass. Kidneys and ureters: Unremarkable. No solid mass. No hydronephrosis. Stomach and bowel: There is a small diverticulum of the 2nd portion of the duodenum. No obstruction. No mucosal thickening. Appendix: No evidence of appendicitis. The appendix is not identified as a discrete structure however, there is no inflammatory process in the region of the cecum. Intraperitoneal space: Unremarkable. No free air. No significant fluid collection. Lymph nodes: Unremarkable. No enlarged lymph nodes. Urinary bladder: Unremarkable. No mass. Reproductive: Unremarkable as visualized. Bones/joints: There is a [id number] superior endplate compression deformity of L5 which is age indeterminate. Soft tissues: Unremarkable. Other findings: There is a small diverticulum 2nd portion of the. IMPRESSION: 1. Unremarkable CTA. 2. Findings consistent with pancreatitis. 3. Pericholecystic fluid may be related to the pancreatitis. Further evaluation with right upper quadrant ultrasound is recommended. 4. 11 mm segment 8 hepatic hypodensity. No further follow-up is recommended. (Reference: Fabio) REFERENCES: Fabio MOLINA, et al. Management of Incidental Liver Lesions on CT: A White Paper of the ACR Incidental Findings Committee. J Am Jose Radiol. 2017;14(11):9240-6847.
[2024-11-25 03:31] LABS: Coronavirus 19, PCR Not Detected (NotDetected); Influenza A, PCR Not Detected (NotDetected); Influenza B, PCR Not Detected (NotDetected)
[2024-11-25] MEDS: LACTATED RINGERS 1000ML 1,000 ML 999 ML IV ×2 (03:33→04:26)
[2024-11-25 03:35] LABS: Basophils % 0.3 % (0.1-2.0); Hematocrit 37.4 % (37.0-47.0); Hemoglobin 12.8 g/dL (12.2-16.2); INR 0.95 (0.9-1.1); Lymphocytes # 0.5 K/mm3 (0.7-4.5); MANUAL DIFFERENTIAL MANUAL DIFFERENTIAL (MANUAL DIFF); Mean Corpuscular HGB Conc 34.2 g/dL (31.8-35.4); Mean Corpuscular Hemoglobin 30.2 pg (27.0-31.2); Mean Corpuscular Volume 88.2 fl (81-99); Mean Platelet Volume 10.5 fl (7.4-10.4); Monocytes # 0.1 K/mm3 (0.1-1.0); Monocytes % 1.3 % (1.7-9.3); Neutrophils # 6.1 K/mm3 (1.8-7.8); Neutrophils % 90.3 % (37.0-80.0); Platelet Count 366 K/mm3 (142-424); Prothrombin Time 10.7 seconds (10.1-12.5); Red Blood Count 4.24 M/mm3 (4.20-5.40); Red Cell Distribution Width 13.2 % (11.5-17.5); White Blood Count 6.8 K/mm3 (4.8-10.8)
[2024-11-25 03:36] LABS: Albumin Level 4.2 g/dl (3.5-5.0); Albumin/Globulin Ratio 1.4 (1.1-1.8); Alkaline Phosphatase 310 U/L (38-126); Anion Gap 9.7 mEq/L (5-15); Bilirubin,Total 2.8 mg/dl (0.2-1.3); Blood Urea Nitrogen 12 mg/dl (7-17); Calcium 8.8 mg/dl (8.4-10.2); Carbon Dioxide 25 mmol/L (22.0-30.0); Chloride 105 mmol/L (98-107); Creatinine Clearance Estimated 67 mL/min (50-200); Estimated Glomerular Filt Rate 100 ml/min (>60); GFR (African American) 121 ML/MIN (>60); Glucose 120 mg/dl (74-100); Lactic Acid 1.5 mmol/L (0.7-2.1); Potassium 3.7 mmoL/L (3.5-5.1); Sodium 136 mmol/L (136-145); Total Protein,Serum 7.2 g/dl (6.3-8.2)
[2024-11-25 03:37] LABS: Alanine Aminotransferase 1064 U/L (12-78); Aspartate Amino Transferase 1332 U/L (14-36)
[2024-11-25] MEDS: PIPERACILLIN/TAZO 4.5 GM in 0.9 % SODIUM CHLORIDE 100 ML IV (03:37)
[2024-11-25 03:55] LABS: Appearance,Urine Clear (Clear); Bilirubin,Urine Negative (Negative); Blood, Urine Trace (Negative); Color,Urine Yellow (Yellow); Glucose,Urine (UA) Negative (Negative); Ketones,Urine Negative (Negative); Leukocyte Esterase,Urine Negative (Negative); Nitrate,Urine Negative (Negative); Protein,Urine Negative (Negative); Specific Gravity, Urine 1.015 (1.005-1.030); Urobilinogen,Urine 0.2 EU/dl (0.2)
[2024-11-25 03:56] LABS: Microscopic, Urine URINE MICROSCOPIC (MICROSCOPIC)
[2024-11-25 03:57] LABS: Bacteria,Urine Trace /lpf; RBC,Urine Occasional #/hpf (0-3); Squamous Epithelial Cell,Urine Occasional #/hpf (0-5)
[2024-11-25 04:47] LABS: Lymphocytes % 11 % (10-50); Neutrophils % 88 % (42-76); Platelet Estimate Normal; RBC Morphology Normal; Total Cells Counted 100
--- NOTE | 2024-11-25 05:10 | PC.NURSE ---
Helicopter arrived at hospital to transport patient
[2024-11-25] MEDS: ONDANSETRON 4MG/2ML VIAL 4 MG IV (05:11)
== END 2024-11-25 05:24 | disposition short-term general hospital (02) ==
PROVIDERS: Emergency Provider Emergency Medicine; PCP Internal Medicine Adolescent Medicine
DX: K83.09 Other cholangitis (principal); K85.90 Acute pancreatitis without necrosis or infection, unspecified; R74.01 Elevation of levels of liver transaminase levels; E80.6 Other disorders of bilirubin metabolism; R10.31 Right lower quadrant pain; K76.9 Liver disease, unspecified; R25.1 Tremor, unspecified
CPT/HCPCS: 74174; 80053; 81003; 81015; 83605; 83690; 85007; 85025; 85027; 85610; 87040; 87636; 96360; 96361; 96365; 96374; 99291; J2405; J2543; J7120; Q9967

== ENCOUNTER 2024-12-04 09:56 | Outpatient (CLI) | payer MEDICARE, SELFPAY ==
[2024-12-04 10:19] LABS: Basophils % 0.3 % (0.1-2.0); Eosinophils % 0.1 % (0.1-12.0); Hematocrit 38.8 % (37.0-47.0); Hemoglobin 12.7 g/dL (12.2-16.2); Lymphocytes # 1.4 K/mm3 (0.7-4.5); Lymphocytes % 14.6 % (10-50); Mean Corpuscular HGB Conc 32.7 g/dL (31.8-35.4); Mean Corpuscular Hemoglobin 29.5 pg (27.0-31.2); Mean Platelet Volume 9.8 fl (7.4-10.4); Monocytes # 0.7 K/mm3 (0.1-1.0); Monocytes % 7.4 % (1.7-9.3); Neutrophils # 7.2 K/mm3 (1.8-7.8); Neutrophils % 76.6 % (37.0-80.0); Platelet Count 533 K/mm3 (142-424); Red Blood Count 4.31 M/mm3 (4.20-5.40); Red Cell Distribution Width 13.3 % (11.5-17.5); White Blood Count 9.4 K/mm3 (4.8-10.8)
[2024-12-04 10:43] LABS: Erythrocyte Sedimentation Rate 69 mm/hr (0-30)
[2024-12-04 11:00] LABS: Alanine Aminotransferase 63 U/L (12-78); Albumin Level 4.1 g/dl (3.5-5.0); Albumin/Globulin Ratio 1.4 (1.1-1.8); Alkaline Phosphatase 138 U/L (38-126); Anion Gap 13.9 mEq/L (5-15); Aspartate Amino Transferase 26 U/L (14-36); Bilirubin,Total 0.6 mg/dl (0.2-1.3); Blood Urea Nitrogen 11 mg/dl (7-17); Calcium 9.2 mg/dl (8.4-10.2); Carbon Dioxide 26 mmol/L (22.0-30.0); Chloride 104 mmol/L (98-107); Estimated Glomerular Filt Rate 84 ml/min (>60); GFR (African American) 102 ML/MIN (>60); Globulin 2.9 g/dL (1.3-3.2); Glucose 105 mg/dl (74-100); Magnesium 2.2 mg/dl (1.6-2.3); Potassium 4.9 mmoL/L (3.5-5.1); Sodium 139 mmol/L (136-145); Uric Acid 3.1 mg/dl (2.5-6.2)
[2024-12-04 11:05] LABS: C-Reactive Protein 96.4 mg/L (0-4)
[2024-12-04 11:30] LABS: Thyroid Stimulating Hormone 0.57 uIU/mL (0.465-4.68)
[2024-12-05 10:36] LABS: RA Latex Turbid. 17.1 IU/mL (<14.0)
[2024-12-06 15:10] LABS: Antinuclear Antibodies, IFA Positive (.)
[2024-12-09 19:16] LABS: Anti-CCP Abs,IgG and IgA (RDL) < 20 Units (<20)
== END 2024-12-04 23:59 | disposition home or self-care (01) ==
LOC: LAB 09:58
PROVIDERS: PCP Nurse Practitioner Family; Visit Provider Nurse Practitioner Family
DX: R76.8 Other specified abnormal immunological findings in serum (principal); M25.50 Pain in unspecified joint
CPT/HCPCS: 36415; 80053; 83735; 84443; 84550; 85025; 85651; 86038; 86140; 86200; 86431

== ENCOUNTER 2025-03-28 07:05 | Outpatient (CLI) | payer MEDICARE, SELFPAY ==
--- OUTSIDE RECORDS SUMMARY | 2025-03-28 07:10 | XMS_ITS | Encounter Summary ---
Author Organization Healthcare Address [address] [place] [address] Care Team Providers Care Four Horse Hitch Driver Name Role Phone Dima Giles MD Primary Care Provider Reason for Visit * Reason Comments Med Refill Encounter Details Date Type Department Care Team (Late st Contact Info) Description 07/16/2021 Refill [facility] [id number] [place] [address] Tarik Early MD [address] [address] Social History Tobacco Use Types Packs/Day Years Used Date Smoking Tobacco: Never Alcohol Use Standard Drinks/Week Comments No 0 (1 standard drink = 0.6 oz pur e alcohol) Comments Unknown Sex and Gender Information Value Date Recorded Sex Assigned at Female 11/25/2024 7:17 AM EDT Legal Sex Female 6:28 PM EDT Gender Identity Not on file Sexual Orientation Not on file documented as of this encounter Plan of Treatment Upcoming Encounters Date Type Department Care Team (Late st Contact Info) Description 06/30/2025 9:00 AM EDT Office Visit [facility] [address] [place] [address] Alisson Zavala, TOM [address] [place] [address] documented as of this encounter Visit Diagnoses Not on filedocumented in this encounter Care Teams Four Horse Hitch Driver Relationship Specialty Start Date End Date Dima Giles MD [address] [place] [id number] PCP - General 01/26/21 documented as of this encounter
--- OUTSIDE RECORDS SUMMARY | 2025-03-28 07:10 | XMS_ITS | Encounter Summary ---
Author Organization Healthcare Address [address] [place] [address] Care Team Providers Care Whistle Punk Name Role Phone Dima Giles MD Primary Care Provider [phone] Encounter Details Date Type Department Care Team (Late st Contact Info) Description 12/28/2024 Telephone [facility] [address] [place] [address] Milla Godfrey, PharmD Social History Tobacco Use Types Packs/Day Years Used Date Smoking Tobacco: Never Smokeless Tobacco: Never Alcohol Use Standard Drinks/Week Comments No 0 (1 standard drink = 0.6 oz pur e alcohol) Humiliation, Afraid, Rape, and Kick questionnair e Answer Date Recorded Within the last year, have y ou been afraid of your partner or ex-partner? No 11/26/2024 Within the last year, have y ou been humiliated or emotionally abused in other ways by your partner or ex-partner? No Within the last year, have y ou been kicked, hit, slapped, or otherwise physically hurt by your partner or ex-partner? No 11/26/2024 Within the last year, have y ou been raped or forced to have any kind of sexual activity by your partner or ex-partner? No 11/26/2024 PHQ-2 Answer Date Recorded Patient Health Questionnaire-2 Score 0 01/05/2025 Hunger Vital Sign Answer Date Recorded Within the past 12 months, y ou worried that your food would run out before you got the money to buy more. Never true 11/27/19 25 Within the past 12 months, t he food you bought just didn't last and you didn't have money to get more. Never true 11/26/2024 PRAPARE - Transportation Answer Date Re corded In the past 12 months, has l ack of transportation kept you from medical appointments or from getting medications? No 11/13 In the past 12 months, has l ack of transportation kept you from meetings, work, or from getting things needed for daily living? No 11/26/2024 PHQ-9 Answer Date Recorded Patient Health Questionnaire-9 Score 2 01/05/2025 Housing Stability Vital Sign Answer Eulogio e Recorded In the last 12 months, was t here a time when you were not able to pay the mortgage or rent on time? No 11/26/2024 In the past 12 months, how m any times have you moved where you were living? 0 11/26/2024 At any time in the past 12 m [facility], were you homeless or living in a correction (including now)? No 11/26/2024 Utilities Answer Date Recorded In the past 12 months has th e [employer], gas, oil, or water company threatened to shut off services in your home? No 11/26/2024 Comments No Sex and Gender Information Value Date Recorded Sex Assigned at Female 11/25/2024 7:17 AM EDT Legal Sex Female 6:28 PM EDT Gender Identity Not on file Sexual Orientation Not on file documented as of this encounter Functional Status * Over the past 2 weeks, how often have you been bothered by any of the following problems? Question Answer Date of Assessment Author Little interest or pleasure in doing things Not at all 01/05/2025 7:13 AM Shirley Wright Feeling down, depressed, or hopeless Not at all 01/05/2025 7:13 AM EDT Shirley Hawkins Patient Health Questionnaire -2 Score 0 01/05/2025 7:13 AM Shirley Wright * Question Answer Date of Assessment Author Trouble falling or staying asleep, or sleeping too much Not at all 01/05/2025 7:13 AM MCKAYT Fadia Hubbard Feeling tired or having little energy Several days 01/05/2025 7:13 AM EDShirley Taylor Poor appetite or overeating Several days 01/05/2025 7: 13 AM MCKAYT Fadia Hawkins Feeling bad about yourself - or that you are a failure or have let yourself or your family down Not at all 01/05/2025 7:13 AM MCKAYT Shirley Hawkins Trouble concentrating on things, such as reading the newspaper or watching television Not at all 01/05/2025 7:13 AM EDT Shirley Hawkins Moving or speaking so slowly that other people could have noticed? Or the opposite - being so fidgety or restless that you have been moving around a lot more than usual. Not at all 01/05/2025 7:13 AM Shirley Wright Thoughts that you would be better off or hurting yourself in some way Not at all 01/05/2025 7:13 AM MCKAYT Barbara Hawkins R Patient Health Questionnaire-9 Score 2 01/05/2025 7:13 AM MCKAYT Katharine Hawkins * Calculated C-SSRS Risk Score (Lifetime/Recent) Answer Date of Assessment Author No Risk Indicated 01/04/2025 8:15 PM EDT Félix Franklin RN * If you checked off any problems on this questionnaire so far, Question Answer Date of Assessment Author How difficult have these problems made it for you to do your work, take care of things at home, or get along with other people? Not difficult at all 01/05/2025 7:13 AM EDT Barbara Hawkins R * Question Answer Date of Assessment Author 1. Wish to be (Past 1 Month) No 025 8:15 PM EDT Félix Salazar, RN 2. Non-Specific Active Suici magalis Thoughts (Past 1 Month) No 01/04/2025 8:15 PM EDT Lexi Salazar RN 6. Suicidal Behavior (Lifetime) No 8:15 PM EDT Félix Salazar, RN documented as of this encounter Miscellaneous Notes * Telephone Encounter - Milla Godfrey, PharmD - 03/22/2025 11:52 AM EDT Patient has been approved to receive infusion treatment at outside facility. [facility] will follow up with facility to make sure patient has been scheduled and received first dose. Specialty Medication: Prolia Filling Pharmacy/SOC: [facility] * Telephone Encounter - Milla Padilla CPhT - 03/21/2025 3:16 PM EDT Medicare B/Advantage Plan Authorization Information Specialty Medication: Prolia Diagnosis Code: M81.0 J-code/CPT code/S code: J0897 Covered by Medicare B: Yes Does the diagnosis, dose, and frequency match an FDA approved dosing schedule? Yes, list prescribeddose/frequency: every 180 days Site of Care: [facility] Does patient have an Advantage Plan? No. Will review in 12 months. * Telephone Encounter - Milla Godfrey PharmD - 12/28/2024 1:27 PM EDT [facility] has received therapy plan for medication Prolia. [facility] has contacted the patient and is initiating authorization for preferred site of care. [facility] Specialty Education Summary Patient was assessed via phone for initiation of drug therapy Prolia for diagnosis Osteoporosis. Plan for administration of therapy in infusion center and planned date of initiation: ~04/15/25. Anticipated filling pharmacy is [facility]. Education and Counseling Medication specific education provided: Patient was offered counseling of their specialty medication and declined education. Patient specific/therapeutic goal(s) of therapy: Tolerate therapy and prevent fractures. Summary/Plan Pharmacist reviewed patient chart for allergies and current medication list, comorbidities, relevant medical history, potential barriers to care and mitigation of those barriers, if applicable. Therapy is clinically appropriate given patient's condition. Any available financial resources were discussed with patient and utilized if appropriate. Patient has no other identified problems or needs at this time as it pertains to this specialty medication. Milla Godfrey PharmD 12/28/24 1:28 PM documented in this encounter Plan of Treatment Upcoming Encounters Date Type Department Care Team (Late st Contact Info) Description 06/30/2025 9:00 AM EDT Office Visit [facility] [address], [address] [place] [address] Alisson Zavala, MBBS [address] [place] [address] documented as of this encounter Visit Diagnoses Not on filedocumented in this encounter Additional Health Concerns Assessment Noted Time A fall risk assessment has been complete d for the patient 11/07/2023 11:33 AM EST A Body Mass Index follow-up plan has been documented for the patient 12/10/2024 11:39 AM EDT documented as of this encounter Care Teams Whistle Punk Relationship Specialty Start Date End Date Dima Giles MD [address] [place] [address] PCP - General 01/26/21 documented as of this encounter
--- OUTSIDE RECORDS SUMMARY | 2025-03-28 07:10 | XMS_ITS | Encounter Summary ---
Author Organization Healthcare Address [address] [place] [address] Care Team Providers Care Telecommunications Project Manager Name Role Phone Dima Giles MD Primary Care Provider [phone] Encounter Details Date Type Department Care Team (Late st Contact Info) Description 12/30/2024 Results Follow-Up [facility] Medicine Specialties [address] [place] [id number] Tanja Boss MD [address] [phone] Social History Tobacco Use Types Packs/Day Years [...] any time in the past 12 m [facility], were you homeless or living in a alf (including now)? No 11/26/2024 Utilities Answer Date Recorded In the past 12 months has th e electric, gas, oil, or water company threatened to [...] things Not at all 01/05/2025 7:13 AM EDT Shirley Hawkins Feeling down, depressed, or hopeless Not at all 01/05/2025 7:13 AM EDT Shirley Hawkins Patient Health Questionnaire -2 Score 0 01/05/2025 7:13 AM EDT Shirley Hawkins * Question Answer Date of Assessment Author Trouble falling or staying asleep, or sleeping too much Not at all 01/05/2025 7:13 AM Fadia Foster Feeling tired or having little energy Several days 01/05/2025 7:13 AM Shirley Wright Poor appetite or overeating Several days 01/05/2025 7: 13 AM Fadia Wright Feeling bad about yourself - or that you are a failure or have let yourself or your family down Not at all 01/05/2025 7:13 AM MCKAYT Shirley Hawkins Trouble concentrating on things, such as reading the newspaper or watching television Not at all 01/05/2025 7:13 AM MCKAYT Shirley Hawkins Moving or speaking so slowly that other people could have noticed? Or the opposite - being so fidgety or restless that you have been moving around a lot more than usual. Not at all 01/05/2025 7:13 AM Shirley Wright Thoughts that you would be better off or hurting yourself in some way Not at all 01/05/2025 7:13 AM Barbara Wright R Patient Health Questionnaire-9 Score 2 01/05/2025 7:13 AM Katharine Wright * Calculated C-SSRS Risk Score (Lifetime/Recent) Answer [...] Not difficult at all 01/05/2025 7:13 AM Barbara Wright R * Question Answer Date of Assessment Author 1. Wish to be (Past 1 Month) No 025 8:15 PM EDT Félix Salazar RN 2. Non-Specific Active Suici magalis Thoughts (Past 1 Month) No 01/04/2025 8:15 PM EDT Lexi Salazar RN 6. Suicidal Behavior (Lifetime) No 8:15 PM EDT Félix Salazar, RN documented as of this encounter Plan of Treatment Upcoming Encounters Date Type Department Care Team (Late st Contact Info) Description 06/30/2025 9:00 AM EDT Office Visit [facility] [address] [place] [address] Alisson Zavala, MBBS [address] [place], [place] [phone] documented as of this encounter Visit Diagnoses Not on filedocumented in this encounter Additional Health Concerns Assessment Noted Time A fall risk assessment has been complete d for the patient 12/30/2024 9:45 AM EDT A Body Mass Index follow-up plan has been documented for the patient 01/04/2025 2:50 PM EDT documented as of this encounter Care Teams Telecommunications Project Manager Relationship Specialty Start Date End Date Dima Giles MD [address] [place] [address] PCP - General 01/26/21 documented as of this encounter
--- OUTSIDE RECORDS SUMMARY | 2025-03-28 07:10 | XMS_ITS | Encounter Summary ---
Author Organization Healthcare Address [address] [place] [address] Care Team Providers Care Visual Coordinator Name Role Phone Dima Giles MD Primary Care Provider [phone] Encounter Details Date Type Department Care Team (Late st Contact Info) Description 01/10/2025 Results Follow-Up [facility] Medicine Specialties [address], [address] [place] [address] Alisson Zavala, [facility] [address] [id number] Social History Tobacco Use Types Packs/Day Years [...] money to buy more. Never true 11/27/19 Within the past 12 months, t he [...] any time in the past 12 m [facility], were you homeless or living in a intermediate (including now)? No 11/26/2024 Utilities Answer Date [...] Description 06/30/2025 9:00 AM EDT Office Visit [facility] Medicine Specialties [address] [place] [address] Alisson Zavala, TOM [address] [place] [address] documented as of this encounter Visit Diagnoses Not on filedocumented in this encounter Additional Health Concerns Assessment Noted Time PHQ-9 Depression Total Score: 2 01/06/20 7:13 AM EDT A fall risk assessment has been complete d for the patient 01/05/2025 7:13 AM EDT A Body Mass Index follow-up plan has been documented for the patient 01/05/2025 8:42 AM EDT documented as of this encounter Care Teams Visual Coordinator Relationship Specialty Start Date End Date Dima Giles MD [address] [place] [address] PCP - General 01/26/21 documented as of this encounter
--- OUTSIDE RECORDS SUMMARY | 2025-03-28 07:10 | XMS_ITS | Encounter Summary ---
Author Organization [facility] Address [address] [place] [address] Care Team Providers Care Accredited Legal Secretary Name Role Phone Dima Giles MD Primary Care Provider [phone] Reason for Referral * Consultation (Routine) - Closed Specialty Diagnoses / Procedures Referred By Contsegun t Referred To Contact Rheumatology Diagnoses Positive SERINA (antinuclear antibody) Elevated sed rate Elevated C-reactive protein (CRP) Ioana Browne APRN [address] [address] Phone: tel: fax: Referral ID Status Reason Start Date Expiration Date V isits Requested Visits Authorized [id number] Closed Specialty Services Required 12/07/2024 06/08/2026 1 1 Encounter Details Date Type Department Care Team (Late st Contact Info) Description 12/07/2024 Community [facility] [address] [place] [address] Ioana Browne APRN [address] [address] Positive SERINA (antinuclear antibody) (Primary Dx); Elevated sed rate; Elevated C-reactive protein (CRP) Social History Tobacco Use Types Packs/Day Years [...] by your partner or ex-partner? No 11/26/2024 Hunger Vital Sign Answer Date Recorded Within [...] things needed for daily living? No 11/26/2024 Housing Stability Vital Sign Answer Eulogio e Recorded In the last 12 months, was t here a time when you were not able to pay the mortgage or rent on time? No 11/26/2024 In the past 12 months, how m any times have you moved where you were living? 0 11/26/2024 At any time in the past 12 m [facility], were you homeless or living in a care home (including now)? No 11/26/2024 Utilities Answer Date [...] Description 06/30/2025 9:00 AM EDT Office Visit [facility] Medicine Specialties [address] [place] [address] Alisson Zavala MBBS [address] [place] [address] Scheduled Referrals Name Type Priority Associated Diagnoses Order Schedule Ambulatory referral to Rheumatology Outpatient Referral Routine Positive SERINA (antinuclear antibody) Elevated sed rate Elevated C-reactive protein (CRP) Ordered: 12/07/2024 documented as of this encounter Visit Diagnoses Diagnosis Positive SERINA (antinuclear antibody)- Primary Other and unspecified nonspecific immunological findings Elevated sed rate Elevated sedimentation rate Elevated C-reactive protein (CRP) documented in this encounter Additional Health Concerns Assessment Noted Time A fall risk assessment has been complete d for the patient 11/07/2023 11:33 AM EST A Body Mass Index follow-up plan has been documented for the patient 11/29/2024 1:40 PM EDT documented as of this encounter Care Teams Accredited Legal Secretary Relationship Specialty Start Date End Date Dima Giles MD [address] [place] [address] PCP - General 01/26/21 documented as of this encounter
--- OUTSIDE RECORDS SUMMARY | 2025-03-28 07:10 | XMS_ITS | Encounter Summary ---
Author Organization Healthcare Address [address] [place] [address] Care Team Providers Care Inspector Balance Bridge Name Role Phone Dima Giles MD Primary Care Provider Reason for Visit * Reason Comments Med Refill Encounter Details Date Type Department Care Team (Late st Contact Info) Description 07/10/2021 [address] [address] [place] [address] Tarik Early MD [address] [address] Social History Tobacco Use Types [...] Description 06/30/2025 9:00 AM EDT Office Visit [facility] [address] [place] [address] Alisson Zavala, TOM [address] [place] [address] documented as of this encounter Visit Diagnoses Not on filedocumented in this encounter Care Teams Inspector Balance Bridge Relationship Specialty Start Date End Date Dima Giles MD [address] [place] [address] PCP - General 01/26/21 documented as of this encounter
--- OUTSIDE RECORDS SUMMARY | 2025-03-28 07:10 | XMS_ITS | Encounter Summary ---
Author Organization Healthcare Address [address] [place] [address] Care Team Providers Care Redevelopment Specialist Name Role Phone Dima Giles MD Primary Care Provider [phone] Encounter Details Date Type Department Care Team (Late st Contact Info) Description 01/17/2025 Results Follow-Up [facility] Medicine Specialties [address] [place] [address] Alisson Zavala, [facility] [address] [place] [address] Social History Tobacco Use Types Packs/Day Years [...] any time in the past 12 m [facility], were you homeless or living in a senior living (including now)? No 11/26/2024 Utilities Answer Date [...] Description 06/30/2025 9:00 AM EDT Office Visit [facility] Medicine Specialties [address] [place] [address] Alisson Zavala, TOM [address] [place] [address] documented as of this encounter [...] documented as of this encounter Care Teams Redevelopment Specialist Relationship Specialty Start Date End Date Dima Giles MD [address] [place] [address] PCP - General 01/26/21 documented as of this encounter
--- OUTSIDE RECORDS SUMMARY | 2025-03-28 07:10 | XMS_ITS | Clinical Summary ---
Author Organization [facility] Address [address] [place] [address] Care Team Providers Care Critical Care Cns Name Role Phone Dima Giles MD Primary Care Provider [phone] Allergies Active Allergy Reactions Criticality Noted Date Comments Penicillins Hives Medium 11/16/2013 Medications Multiple Vitamin (MULTI-VITAMIN DAILY PO) 12/12/19 16 Active busPIRone (Buspar) 5 MG tablet Take 2 tablets (10 mg) by mouth in the morning and 2 tablets (10 mg) before bedtime. 07/10/20 21 Active CALCIUM-VITAMIN D-VITAMIN K PO Take 1 tablet by mouth daily. 12/27/19 17 Active Cholecalciferol 25 MCG (1000 UT) chewable tablet Chew 1 tablet daily. 09/03/20 18 Active omeprazole (PriLOSEC) [address] capsule Take 1 capsule (20 mg) by mouth in the morning and 1 capsule (20 mg) before bedtime. 10/19/19 24 Active alendronate (Fosamax) 70 MG tabletIndications: Age related osteoporosis, unspecified pathological fracture presence Take 1 tablet (70 mg) by mouth every 7 (seven) days. Take in the morning with a full glass of water, on an empty stomach, and do not take anything else by mouth or lie down for the next 30 min. 13 tablet 3 10/18/19 25 026 Active Additional Information Patient not taking.Reported on 01/05/2025 polyethylene glycol (Miralax) 17 GM/SCOOP powder Take 17 g by mouth daily. Active senna-docusate (Maddie-Colace) 8.6-50 MG tablet Take 1 tablet by mouth in the morning and 1 tablet before bedtime. 20 tablet 11/30/19 25 Active Additional Information Patient not taking.Reported on 01/05/2025 ondansetron ODT (Zofran-ODT) 4 MG disintegrating tablet Dissolve 1 tablet on the tongue every 8 hours as needed for nausea or vomiting. 20 tablet 12/15/19 25 Active fexofenadine (Candis) 60 MG tablet Take 1 tablet by mouth daily. Active Active Problems Problem Noted Date Diagnosed Date Acute pancreatitis, unspecif ied complication status, unspecified pancreatitis type 11/25/2024 Cholecystitis 11/25/2024 Age related osteoporosis 10/21/2022 Osteoporosis 11/16/2013 Encounters Date Type Department Care Team Description 01/17/2025 Results Follow-Up [facility] Medicine [facility]ties [address] [place] [address] Alisson Zavala MBBS 01/12/2025 Travel 01/11/2025 Orders Only [facility] [address] [place] [address] Alisson Zavala MBBS Elevated liver enzymes (Primary Dx) 01/10/2025 Results Follow-Up [facility] [address], [address] [place] [phone] Alisson Zavala MBBS 01/05/2025 9:02 AM EDT - 01/05/2025 11:59 PM EDT Hospital Encounter [facility] Radiology [address] [place] [address] Inflammatory arthritis Discharge Disposition: Home or Self Care 01/05/2025 7:40 AM EDT Consult [facility] [address] [place] [address] Alisson Zavala MBBS Inflammatory arthritis (Primary Dx); Elevated C-reactive protein (CRP); Elevated erythrocyte sedimentation rate; Rheumatoid factor positive 01/05/2025 Travel 01/04/2025 8:11 PM EDT - 01/04/2025 10:42 PM EDT Emergency [facility] [address] [place] [address] Beni Diaz MD Abdominal pain, generalized (Primary Dx); Constipation, unspecified constipation type Discharge Disposition: Home or Self Care 01/04/2025 Travel 01/04/2025 Telephone [facility] [address] [facility] [place] [phone] Adriana Narvaez Abdominal Pain; Nausea; Returning call (Returning call about pain and nausea ) 01/03/2025 Telephone [facility] SCH[facility] [address] [place] [address] Meera Butt APRN 12/30/2024 9:20 AM EDT Office Visit [facility] [address] [place] [address], [address] [place] [phone] Tanja Boss MD Acute pancreatitis, unspecified complication status, unspecified pancreatitis type 12/30/2024 Results Follow-Up [facility] [address] [place] [address], [address] [place] [phone] Tanja Boss MD 12/30/2024 Travel 12/28/2024 Telephone [facility] [address] [place] [address] Milla Godfrey, PharmD from Last 3 Months Immunizations Immunization Administration Dates Next Due Hep A, Adult 01/05/2019 Influenza, injectable, MDCK, preservative free, quadrivalent 06/02/2023,06/06/2022 Influenza, injectable, quadrivalent 08/15/2016 Influenza, injectable, quadr ivalent, preservative free 05/13/2020,05/21/2019,06/29/2017 Influenza, seasonal, injectable 06/02/2021 Influenza, seasonal, injecta ble, preservative free 06/23/2024 Moderna COVID-19 Vaccine Bivalent 6months+ 07/14 Rsvpref, Recombinant, Protei n Subunit, Adjuvent 06/02/2023 Zoster, Recombinant 05/21/2019,01/05/2019 Family History Medical History Relation Name Comments Stroke Brother 1 Hypertension Brother 2 Chester santacruz Cardiac disorder Father Hip fracture Father Osteoporosis Father Stroke Father Hip fracture Maternal Grandmother Osteoporosis Maternal Grandmother Hyperlipidemia Mother Paz santacruz Hypertension Mother Paz santacruz Osteoporosis Mother Paz santacruz Stroke Mother Paz santacruz Stroke Sister 1 Hypertension Sister 2 Lynette cornejo Relation Name Status Comments Brother 1 Brother 2 Chester santacruz Father Maternal Grandmother Mother Paz santacruz Sister 1 Sister 2 Lynette cornejo Social History Tobacco Use Types Packs/Day Years Used Date Smoking Tobacco: Never Smokeless Tobacco: Never Tobacco Cessation:Counseling Given: Not Answered Alcohol Use Standard Drinks/Week Comments No 0 [...] in the past 12 m [facility], were you homeless or living in a prison (including now)? No 11/26/2024 Utilities Answer Date Recorded In the past 12 months has [employer], gas, oil, or water [employer] threatened to shut off services in your home? No 11/26/2024 Comments No Sex and Gender Information Value Date Recorded Sex Assigned at Female 11/25/2024 7:17 AM EDT Legal Sex Female 6:28 PM EDT Gender Identity Not on file Sexual Orientation Not on file Last Filed Vital Signs Vital Sign Reading Time Taken Comments Blood Pressure 101/64 01/05/2025 7:09 AM EDT Pulse 72 01/05/2025 7:09 AM EDT Temperature 36.8 C (98.2 F) 01/04/2025 10:27 PM EDT Respiratory Rate 14 01/04/2025 10:27 PM EDT Oxygen Saturation 98% 01/05/2025 7:09 AM EDT Inhaled Oxygen Concentration - - Weight 73.1 kg (161 lb 2.5 oz) 01/05/2025 7:09 A M EDT Height 167.6 cm (5' 6 ) 01/05/2025 7:09 AM EDT Body Mass Index 26.01 01/05/2025 7:09 AM EDT Plan of Treatment Upcoming Encounters Date Type Department Care Team (Late st Contact Info) Description 06/30/2025 9:00 AM EDT Office Visit [facility] [address] [place] [phone] Alisson Zavala, TOM [address] [place] [address] Health Maintenance Due Date Last Done Comments [facility]-Bone Density Scan 1959 [facility]-Medicare Annual Wellness (AWV) 1959 [facility]-Infant/Child/Adol SDOH Screenings 1959 [facility]-DTaP,Tdap,and Td Vaccines (1 - Tdap) 1978 [facility]-Pap Smear 1980 [facility]-Cervical Cancer Screening 1989 [facility]-HPV/Cotest 1989 CT Colonography 2004 Colonoscopy 2004 FIT-DNA 2004 FIT 2004 FOBT 2004 Sigmoidoscopy 2004 [facility]-Colorectal Cancer Screening 2004 [facility]-Breast Cancer Screening 2009 [facility]-Pneumococcal Vaccine: 50+ Years (1 of 1 - PCV) 2009 [facility]-Hepatitis A Vaccines (2 of 2 - Risk 2-dose series) 07/07/2019 01/05/2019 [id number] Vaccine ( season) 2025 07/10/2024, 05/31/2023, 07/14/2022, Additional history exists [facility]-Influenza Vaccine (#1) 05/16/202506/23, 06/02/2023, 06/06/2022, Additional history exists [facility]- SDOH Screenings 05/29/2025 [facility]-Adult SDOH Screenings 05/29/2025 11/26/2024 [facility]-Depression Screening 01/05/2026 01/05/2025, 12/15 [facility]-Zoster Vaccines Completed 05/21/2019, 9 [facility]-RSV Vaccine: 60+ Years or Completed 06/02/2023 [facility]-Hepatitis C Screening Completed 01/05/2025, [facility]-Obesity Intervention Completed 025, 12/30/2024, 12/10/2024, Additional history exists HPV Vaccines Aged Out No longer eligi ble based on patient's age to complete this topic [facility]-HIB Vaccines Aged Out No longer e ligible based on patient's age to complete this topic [facility]-IPV Vaccines Aged Out No longer e ligible based on patient's age to complete this topic [facility]-Rotavirus Vaccines Aged Out No lo nger eligible based on patient's age to complete this topic Procedures Procedure Name Priority Date/Time Associated Diagnosis Comments SMOOTH MUSCLE ANTIBODY, IGG TITER (SO) Routine 01/12/2025 8:10 AM EDT Elevated liver enzymes LIVER-KIDNEY MICROSOME ANTIBODY, IGG (SO) Routine 01/12/2025 8:10 AM EDT Elevated liver enzymes MITOCHONDRIAL M2 ANTIBODY, IGG (GANESH)(SO) Routine 01/12/2025 8:10 AM EDT Elevated liver enzymes SOLUBLE LIVER ANTIGEN ANTIBODY, IGG (SO) Routine 01/12/2025 8:10 AM EDT Elevated liver enzymes XR FOOT LEFT 3+ VIEWS Routine 01/05/2025 9:21 AM EDT Inflammatory arthritis XR HAND WRIST BILATERAL 2 VIEWS Routine 01/05/2025 9:21 AM EDT Inflammatory arthritis XR FOOT RIGHT 3+ VIEWS Routine 9:21 AM EDT Inflammatory arthritis SERINA SINGLE PATTERN (REFLEX ONLY) (SO) Routine 01/05/2025 9:00 AM EDT Inflammatory arthritis HEPATITIS B CORE TOTAL AB (IGG AND IGM) Routine 01/05/2025 9:00 AM EDT Inflammatory arthritis HEPATITIS B SURFACE ANTIGEN Routine 01/05/2025 9:00 AM EDT Inflammatory arthritis HEPATITIS C ANTIBODY W/REFLEX TO HCV QUANT PCR Routine 01/05/2025 9:00 AM EDT Inflammatory arthritis QUANTIFERON TB GOLD PLUS Routine 01/05/2025 9:00 AM EDT Inflammatory arthritis IMMUNOGLOBULIN G SUBCLASS 4 (SO) Routine 01/05/2025 9:00 AM EDT Inflammatory arthritis C-REACTIVE PROTEIN, PLASMA Routine 01/05/2025 9:00 AM EDT Inflammatory arthritis SEDIMENTATION RATE, AUTOMATED Routine 01/05/2025 9:00 AM EDT Inflammatory arthritis DOUBLE-STRANDED DNA (DSDNA) ANTIBODY, IGG BY IFA (SO) Routine 01/05/2025 9:00 AM EDT Inflammatory arthritis EXTRACTABLE NUCLEAR ANTIGEN ANTIBODIES (SSA 52, SSA 60, AND SSB) (SO) Routine 01/05/2025 9:00 AM EDT Inflammatory arthritis CARDONA/DEMO SPECIALIST (ONEYDA) ANTIBODY, IGG (SO) Routine 01/05/2025 9:00 AM EDT Inflammatory arthritis ANTINUCLEAR ANTIBODY (SERINA) WITH HEP-2 SUBSTRATE, IGG BY IFA (SO) Routine 01/05/2025 9:00 AM EDT Inflammatory arthritis CYCLIC CITRUL PEPTIDE ANTIBODY IGG Routine 01/05/2025 9:00 AM EDT Inflammatory arthritis RHEUMATOID FACTOR, PLASMA Routine 01/05/2025 9:00 AM EDT Inflammatory arthritis URINALYSIS MICROSCOPIC FOR UA REFLEX STAT 01/04/2025 9:25 PM EDT URINALYSIS WITH REFLEX MICROSCOPIC STAT 01/04/2025 9:25 PM EDT URINE REBOLLEDO PANEL STAT 01/04/2025 9:10 PM EDT URINALYSIS WITH REFLEX MICROSCOPIC AND CULTURE STAT 01/04/2025 9:[address] ABDOMEN PELVIS W IV CONTRAST STAT 01/04/2025 9:06 PM EDT CBC WITH AUTO DIFFERENTIAL STAT 01/04/2025 7:38 PM EDT LIPASE, PLASMA STAT 01/04/2025 7:38 PM EDT COMPREHENSIVE METABOLIC PANEL, PLASMA STAT 01/04/2025 7:38 PM EDT PHOSPHORUS, PLASMA Routine 12/30/2024 10 :27 AM EDT Osteoporosis screening OSTEOCALCIN BY ECIA (SO) Routine 12/30/2024 10:27 AM EDT Age related osteoporosis, unspecified pathological fracture presence VITAMIN D 25 HYDROXY Routine 12/30/2024 10:27 AM EDT Age related osteoporosis, unspecified pathological fracture presence COMPREHENSIVE METABOLIC PANEL, PLASMA Routine 12/30/2024 10:27 AM EDT Acute pancreatitis, unspecified complication status, unspecified pancreatitis type CBC WITH AUTO DIFFERENTIAL Routine 12/30/2024 10:27 AM EDT Acute pancreatitis, unspecified complication status, unspecified pancreatitis type BONE SPECIFIC ALKALINE PHOSPHATASE Routine 12/30/2024 10:27 AM EDT Age related osteoporosis, unspecified pathological fracture presence C-TELOPEPTIDE Routine 12/30/2024 10:27 AM EDT Age related osteoporosis, unspecified pathological fracture presence N TELOPEPTIDE, CROSS-LINKED, SERUM (SO) Routine 12/30/2024 10:27 AM EDT Age related osteoporosis, unspecified pathological fracture presence from Last 3 Months Results * Soluble Liver Antigen Antibody (01/12/2025 8:10 AM EDT) Soluble Liver Antigen Antibody, IgG 1.6 0.0 - 24.9 U 01/14/2025 7:39 PM EDT [employer] Blood Venous blood specimen / Unknown Venipuncture / Unknown 01/12/2025 8:10 AM EDT 01/12/2025 8:10 AM EDT Narrative [employer] - 01/14/2025 7:39 PM EDT REFERENCE INTERVAL: Soluble Liver Antigen Antibody, IgG 0.0 - 20.0 U ........... Negative 20.1 - 24.9 U ........... Equivocal 25.0 U or greater ....... Positive The presence of SLA antibodies has almost 100% specificity for autoimmune hepatitis, although only 12-30% have these antibodies. Thus, a negative SLA IgG test does not rule out autoimmune hepatitis. Performed By: [facility] [address] [place] [address] Countersinker: Tarik Ball MD, PhD CLIA Number: [id number] Adriana Mueller MD LAB BLOOD ORDERABLES Final Re sult [facility] [address] [place] [address] * Liver Kidney Microsome Antibodies (01/12/2025 8:10 AM EDT) Crlwd-Srlzjz-C icrosome Abs, IgG by IFA <1:20 <1:20 01/14/2025 12:08 PM EDT [facility] Blood Venous blood specimen / Unknown Venipuncture / Unknown 01/12/2025 8:10 AM EDT 01/12/2025 8:10 AM EDT Narrative [facility] - 01/14/2025 12:08 PM EDT INTERPRETIVE INFORMATION: Comjr-Mnhxds-Rehnwrrbp Abs, IgG Liver-Kidney Microsome IgG antibody (anti-LKM), as detected by indirect immunofluorescent antibody (IFA) techniques, may be observed in patients with autoimmune hepatitis type 2 (AIH-2), AIH-2 associated with autoimmune uaopucljetjgsswqlt-xegbgcjqhzh-jzscoptnge dystrophy (APECED), viral hepatitis C or D, and some forms of drug-induced hepatitis. This IFA does not differentiate among the four types of LKM antibodies (LKM-1, LKM-2, LKM-3, and a fourth type that recognizes CY and CY antigens). Of these, anti-LKM-1 (cytochrome [id number]) IgG antibodies are considered specific for AIH-2. This test was developed and its performance characteristics determined by [facility]. It has not been cleared or approved by the [place] Food and Drug Administration. This test was performed in a CLIA certified laboratory and is intended for clinical purposes. Performed By: [facility] [address] [place] [address] Countersinker: Tarik Ball MD, PhD CLIA Number: [id number] Adriana Mueller MD LAB BLOOD ORDERABLES Final Re sult Performing Organization Address [facility] Co de Phone Number [employer] [address] [place] [phone] * Anti-smooth muscle antibody, IgG (01/12/2025 8:10 AM EDT) Smooth Muscle Ab, IgG Titer <1:20 <1:20 01/14/2025 10:38 PM EDT [employer] Blood Venous blood specimen / Unknown Venipuncture / Unknown 01/12/2025 8:10 AM EDT 01/12/2025 8:10 AM EDT Narrative [employer]) - 01/14/2025 10:38 PM EDT INTERPRETIVE INFORMATION: Smooth Muscle Ab, IgG Titer Less than 1:20 ........ Negative - No antibody detected. 1:20 - 1:80 .......... Weak Positive - Suggest repeat in two to three weeks with fresh specimen. 1:160 or greater ...... Positive - Suggestive of autoimmune hepatitis or chronic active hepatitis. Performed By: [facility] [address] [place], [place] [id number] Countersinker: Tarik Ball MD, PhD CLIA Number: [id number] Adriana Mueller MD LAB BLOOD ORDERABLES Final Re sult Performing Organization Address [facility] Co de Phone Number [employer] [address] [place] [address] * Mitochondrial antibodies, M2 (01/12/2025 8:10 AM EDT) MITOCHONDRIA M2 AB IGG 9.3 0.0 - 24.9 Units 01/14/2025 4:57 PM EDT [employer] Serum Venous blood specimen / Unknown 01/12/2025 8:10 AM EDT 01/12/2025 8:10 AM EDT Narrative [employer]) - 01/14/2025 4:57 PM EDT REFERENCE INTERVAL: Mitochondrial (M2) Antibody, IgG 20.0 Units or less ......... Negative 20.1 - 24.9 Units........... Equivocal 25.0 Units or greater....... Positive Anti-mitochondrial antibodies (AMA) are thought to be present in 90-95% of patients with primary biliary cholangitis (PBC). However, the frequency of detected antibodies may be cohort or assay dependent, as lower sensitivities have been reported. Not all PBC patients are positive for AMA; some patients may be positive for SP100 and/or GP210 antibodies. A negative result does not rule out PBC. Performed By: [facility] [address] [place] [address] Countersinker: Tarik Ball MD, PhD CLIA Number: [id number] us Adriana Mueller MD LAB BLOOD ORDERABLES Final Re sult [facility] [address] [place] [address] * XR Hand and Wrist Bilateral 2 Views (01/05/2025 9:21 AM EDT) Anatomical Region Laterality Modality Hand, Wrist Bilateral Digital Radiogra phy Impressions 01/05/2025 9:39 AM EDT No erosive changes. Mild first MTP joint degenerative changes bilaterally. CRITICAL RESULT: No. COMMUNICATION: Per this written report. Drafted by Tyler Cardona MD on 01/05/2025 9:37 AM Final report signed by Tyler Cardona MD on 01/05/2025 9:39 AM Narrative 01/05/2025 9:39 AM EDT CLINICAL INDICATION: erosions? TECHNIQUE: XR HAND WRIST BILATERAL 2 VIEWS, XR FOOT LEFT 3+ VIEWS, XR FOOT RIGHT 3+ VIEWS COMPARISON: None. FINDINGS: Right hand and wrist: Distal radius and ulna and the carpal bones are unremarkable. No metacarpal erosions. No erosive changes involving the phalanges. Left hand and wrist: No fracture or dislocation. Distal radius and ulna are intact. No carpal or metacarpal bone erosions. No phalangeal erosions. Right foot: Small calcaneal enthesophytes. Osseous mineralization of the foot is appropriate. Os peroneum. Fifth metatarsal base enthesopathy. No acute fracture or dislocation. Mild degenerative changes of the first MTP joint. Accessory navicular. No erosive changes. Left foot: Calcaneal enthesopathy. Accessory navicular. Mild first MTP joint space narrowing with osteophytosis. No erosive changes. Os peroneum. Procedure Note Tyler Cardona MD - 01/05/2025 CLINICAL INDICATION: erosions? TECHNIQUE: XR HAND WRIST BILATERAL 2 VIEWS, XR FOOT LEFT 3+ VIEWS, XR FOOT RIGHT 3+VIEWS COMPARISON: None. FINDINGS: Right hand and wrist: Distal radius and ulna and the carpal bones areunremarkable. No metacarpal erosions. No erosive changes involving thephalanges. Left hand and wrist: No fracture or dislocation. Distal radius and ulnaare intact. No carpal or metacarpal bone erosions. No phalangealerosions. Right foot: Small calcaneal enthesophytes. Osseous mineralization of thefoot is appropriate. Os peroneum. Fifth metatarsal base enthesopathy. Noacute fracture or dislocation. Mild degenerative changes of the first MTPjoint. Accessory navicular. No erosive changes. Left foot: Calcaneal enthesopathy. Accessory navicular. Mild first MTPjoint space narrowing with osteophytosis. No erosive changes. Osperoneum. IMPRESSION: No erosive changes. Mild first MTP joint degenerative changes bilaterally. CRITICAL RESULT: No. COMMUNICATION: Per this written report. Drafted by Tyler Cardona MD on 01/05/2025 9:37 AM Final report signed by Tyler Cardona MD on 01/05/2025 9:39 AM us Adriana Mueller MD IMG XR PROCEDURES Final Resul t * XR Foot Right 3+ Views (01/05/2025 9:21 AM EDT) Anatomical Region Laterality Modality Lower Extremities, Foot Right Digital Radiography Impressions 01/05/2025 9:39 AM EDT No erosive changes. Mild first MTP joint degenerative changes bilaterally. CRITICAL RESULT: No. COMMUNICATION: Per this written report. Drafted by Tyler Cardona MD on 01/05/2025 9:37 AM Final report signed by Tyler Cardona MD on 01/05/2025 9:39 AM Narrative 01/05/2025 9:39 AM EDT CLINICAL INDICATION: erosions? TECHNIQUE: XR HAND WRIST BILATERAL 2 VIEWS, XR FOOT LEFT 3+ VIEWS, XR FOOT RIGHT 3+ VIEWS COMPARISON: None. FINDINGS: Right hand and wrist: Distal radius and ulna and the carpal bones are unremarkable. No metacarpal erosions. No erosive changes involving the phalanges. Left hand and wrist: No fracture or dislocation. Distal radius and ulna are intact. No carpal or metacarpal bone erosions. No phalangeal erosions. Right foot: Small calcaneal enthesophytes. Osseous mineralization of the foot is appropriate. Os peroneum. Fifth metatarsal base enthesopathy. No acute fracture or dislocation. Mild degenerative changes of the first MTP joint. Accessory navicular. No erosive changes. Left foot: Calcaneal enthesopathy. Accessory navicular. Mild first MTP joint space narrowing with osteophytosis. No erosive changes. Os peroneum. Procedure Note Tyler Cardona MD - 01/05/2025 CLINICAL INDICATION: erosions? TECHNIQUE: XR HAND WRIST BILATERAL 2 VIEWS, XR FOOT LEFT 3+ VIEWS, XR FOOT RIGHT 3+VIEWS COMPARISON: None. FINDINGS: Right hand and wrist: Distal radius and ulna and the carpal bones areunremarkable. No metacarpal erosions. No erosive changes involving thephalanges. Left hand and wrist: No fracture or dislocation. Distal radius and ulnaare intact. No carpal or metacarpal bone erosions. No phalangealerosions. Right foot: Small calcaneal enthesophytes. Osseous mineralization of thefoot is appropriate. Os peroneum. Fifth metatarsal base enthesopathy. Noacute fracture or dislocation. Mild degenerative changes of the first MTPjoint. Accessory navicular. No erosive changes. Left foot: Calcaneal enthesopathy. Accessory navicular. Mild first MTPjoint space narrowing with osteophytosis. No erosive changes. Osperoneum. IMPRESSION: No erosive changes. Mild first MTP joint degenerative changes bilaterally. CRITICAL RESULT: No. COMMUNICATION: Per this written report. Drafted by Tyler Cardona MD on 01/05/2025 9:37 AM Final report signed by Tyler Cardona MD on 01/05/2025 9:39 AM us Adriana Mueller MD IMG XR PROCEDURES Final Resul t * XR Foot Left 3+ Views (01/05/2025 9:21 AM EDT) Anatomical Region Laterality Modality Lower Extremities, Foot Left Digital Radiography Impressions 01/05/2025 9:39 AM EDT No erosive changes. Mild first MTP joint degenerative changes bilaterally. CRITICAL RESULT: No. COMMUNICATION: Per this written report. Drafted by Tyler Cardona MD on 01/05/2025 9:37 AM Final report signed by Tyler Cardona MD on 01/05/2025 9:39 AM Narrative 01/05/2025 9:39 AM EDT CLINICAL INDICATION: erosions? TECHNIQUE: XR HAND WRIST BILATERAL 2 VIEWS, XR FOOT LEFT 3+ VIEWS, XR FOOT RIGHT 3+ VIEWS COMPARISON: None. FINDINGS: Right hand and wrist: Distal radius and ulna and the carpal bones are unremarkable. No metacarpal erosions. No erosive changes involving the phalanges. Left hand and wrist: No fracture or dislocation. Distal radius and ulna are intact. No carpal or metacarpal bone erosions. No phalangeal erosions. Right foot: Small calcaneal enthesophytes. Osseous mineralization of the foot is appropriate. Os peroneum. Fifth metatarsal base enthesopathy. No acute fracture or dislocation. Mild degenerative changes of the first MTP joint. Accessory navicular. No erosive changes. Left foot: Calcaneal enthesopathy. Accessory navicular. Mild first MTP joint space narrowing with osteophytosis. No erosive changes. Os peroneum. Procedure Note Tyler Cardona MD - 01/05/2025 CLINICAL INDICATION: erosions? TECHNIQUE: XR HAND WRIST BILATERAL 2 VIEWS, XR FOOT LEFT 3+ VIEWS, XR FOOT RIGHT 3+VIEWS COMPARISON: None. FINDINGS: Right hand and wrist: Distal radius and ulna and the carpal bones areunremarkable. No metacarpal erosions. No erosive changes involving thephalanges. Left hand and wrist: No fracture or dislocation. Distal radius and ulnaare intact. No carpal or metacarpal bone erosions. No phalangealerosions. Right foot: Small calcaneal enthesophytes. Osseous mineralization of thefoot is appropriate. Os peroneum. Fifth metatarsal base enthesopathy. Noacute fracture or dislocation. Mild degenerative changes of the first MTPjoint. Accessory navicular. No erosive changes. Left foot: Calcaneal enthesopathy. Accessory navicular. Mild first MTPjoint space narrowing with osteophytosis. No erosive changes. Osperoneum. IMPRESSION: No erosive changes. Mild first MTP joint degenerative changes bilaterally. CRITICAL RESULT: No. COMMUNICATION: Per this written report. Drafted by Tyler Cardona MD on 01/05/2025 9:37 AM Final report signed by Tyler Cardona MD on 01/05/2025 9:39 AM Adriana Mueller MD IMG XR PROCEDURES Final Resul t * Immunoglobulin G Subclass 4 (SO) (01/05/2025 9:00 AM EDT) IMMUNOGLOBULIN G SUBCLASS 4 7 1 - 123 mg/dL 01/06/2025 11:05 PM EDT [facility] [employer] [facility] ([employer]) Blood Venous blood specimen / Unknown Venipuncture / Unknown 01/05/2025 9:00 AM EDT 01/05/2025 9:01 AM EDT Narrative [employer] [facility] ([facility]) - 01/06/2025 11:05 PM EDT REFERENCE INTERVAL: Immunoglobulin G Subclass 4 Access complete set of age- and/or gender-specific reference intervals for this test in the [facility] ([employer]). Performed By: [facility] [address] [place] [id number] Countersinker: Tarik Ball MD, PhD CLIA Number: [id number] us Adriana Mueller MD LAB REF LAB BLOOD AND FLUID O RD Final Result [facility] ([employer] [address] [place] [address] * (ABNORMAL) SERINA Single Pattern (Reflex only) (01/05/2025 9:00 AM EDT) SERINA Pattern Homogeneou s(A) 01/07/2025 3:18 PM EDT [facility] ([employer] SERINA Titer 1:80(A) 01/07/2025 3:18 PM EDT [facility] ([employer] Blood Venous blood specimen / Unknown Venipuncture / Unknown 01/05/2025 9:00 AM EDT 01/05/2025 9:01 AM EDT Narrative [facility] ([employer] - 01/07/2025 3:18 PM EDT Performed By: [facility] [address] [place] [address] Countersinker: Tarik Ball MD, PhD CLIA Number: [id number] Adriana Mueller MD LAB BLOOD ORDERABLES Final Re sult Performing Organization Address City/[facility] Co de Phone Number [facility] ([facility] [address] [place] [address] * ENAII (01/05/2025 9:00 AM EDT) SSA-52 (RO52) (ONEYDA) Antibody, IgG 4 0 - 40 AU/mL 01/06/2025 11:20 PM EDT [facility] ([employer] SSA-60 (RO60) (ONEYDA) Antibody, IgG 1 0 - 40 AU/mL 01/06/2025 11:20 PM EDT [facility] ([employer] SSB (LA) (ONEYDA) Antibody, IgG 1 0 - 40 AU/mL 01/06/2025 11:20 PM EDT [facility] ([employer] Blood Venous blood specimen / Unknown Venipuncture / Unknown 01/05/2025 9:00 AM EDT 01/05/2025 9:01 AM EDT Narrative [facility] ([employer] - 01/06/2025 11:20 PM EDT INTERPRETIVE INFORMATION: SSA-52 (Ro52) (ONEYDA) Antibody, IgG 29 AU/mL or Less ............. Negative 30 - 40 AU/mL ................ Equivocal 41 AU/mL or Greater .......... Positive SSA-52 (Ro52) and/or SSA-60 (Ro60) antibodies are associated with a diagnosis of Sjogren syndrome, systemic lupus erythematosus (SLE), and systemic sclerosis. SSA-52 antibody overlaps significantly with the major SSc-related antibodies. SSA-52 (Ro52) antibody occurs frequently in patients with inflammatory myopathies, often in the presence of interstitial lung disease. REFERENCE INTERVAL: SSA-60 (Ro60) (ONEYDA) Antibody, IgG 29 AU/mL or Less ............. Negative 30 - 40 AU/mL ................ Equivocal 41 AU/mL or Greater .......... Positive INTERPRETIVE INFORMATION: SSB (La) (ONEYDA) Ab, IgG 29 AU/mL or Less ............. Negative 30 - 40 AU/mL ................ Equivocal 41 AU/mL or Greater .......... Positive SSB (La) antibody is seen in 50-60% of Sjogren syndrome cases and is specific if it is the only ONEYDA antibody present. 15-25% of patients with systemic lupus erythematosus (SLE) and 5-10% of patients with progressive systemic sclerosis (PSS) also have this antibody. Performed By: [facility] [address] [place] [address] Countersinker: Tarik Ball MD, PhD CLIA Number: [id number] Adriana Mueller MD LAB BLOOD ORDERABLES Final Re sult [facility] [employer] [facility] ([employer] [address] [place] [id number] * ENAI (01/05/2025 9:00 AM EDT) Cardona/DEMO SPECIALIST (ONEYDA) Ab, IgG 19 0 - 19 Units 01/06/2025 11:55 PM EDT [facility] ([facility]) Blood Venous blood specimen / Unknown Venipuncture / Unknown 01/05/2025 9:00 AM EDT 01/05/2025 9:01 AM EDT Narrative [facility] CATIA TRUONG) - 01/06/2025 11:55 PM EDT INTERPRETIVE INFORMATION: Cardona/DEMO SPECIALIST (ONEYDA) Antibody, IgG 19 Units or Less ............. Negative 20 to 39 Units ............... Weak Positive 40 to 80 Units ............... Moderate Positive 81 Units or greater .......... Strong Positive Cardona/DEMO SPECIALIST antibodies are frequently seen in patients with mixed connective tissue disease (MCTD) and are also associated with other systemic autoimmune rheumatic diseases (SARDs) such as systemic lupus erythematosus (SLE), systemic sclerosis, and myositis. Antibodies targeting the Cardona/DEMO SPECIALIST antigenic complex also recognize Cardona antigens, therefore, the Cardona antibody response must be considered when interpreting these results. Performed By: [facility] [address] [place] [address] Countersinker: Tarik Ball MD, PhD CLIA Number: [id number] Adriana Mueller MD LAB BLOOD ORDERABLES Final Re sult Performing Organization Address City/[facility]/ZIP Co de Phone Number [facility] ([facility]) [address] [place] [address] * Hepatitis C Antibody (01/05/2025 9:00 AM EDT) Hepatitis C Antibody Negative Negative 01/05/2025 11:[address] [facility] Blood Venous blood specimen / Unknown Venipuncture / Unknown 01/05/2025 9:00 AM EDT 01/05/2025 9:01 AM EDT Adriana Mueller MD LAB BLOOD ORDERABLES Final Re sult [facility] [address] [place] [address] * Cyclic Citrul Peptide Antibody IgG (01/05/2025 9:00 AM EDT) Pathologist [facility] Cyclic Citrul Peptide Antibody IgG <5.0 <=5.0 U/mL 01/05/2025 12:[address] [facility] Blood Venous blood specimen / Unknown Venipuncture / Unknown 01/05/2025 9:00 AM EDT 01/05/2025 9:01 AM EDT us Adriana Mueller MD LAB BLOOD ORDERABLES Final Re sult [facility] [address] [place] [address] * (ABNORMAL) Anti-DNA antibody, double-stranded (01/05/2025 9:00 AM EDT) Pathologist [facility] Double-Strande d DNA (dsDNA) Ab IgG IFA 1:80(H) <1:10 01/08/2025 9:45 PM EDT [facility] ([facility]) Blood Venous blood specimen / Unknown Venipuncture / Unknown 01/05/2025 9:00 AM EDT 01/05/2025 9:01 AM EDT Narrative [facility] ([facility]) - 01/08/2025 9:45 PM EDT INTERPRETIVE INFORMATION: Double-Stranded DNA (dsDNA) Antibody, IgG by IFA (using Crithidia luciliae) Positivity for anti-double stranded DNA (anti-dsDNA) IgG antibody is a diagnostic criterion of systemic lupus erythematosus (SLE). The presence of the anti-dsDNA IgG antibody is identified by IFA titer (Crithidia luciliae indirect fluorescent test [CLAUDIA]). CLAUDIA is highly specific for SLE with a sensitivity of 50-60 percent. Some patients with early or inactive SLE may be positive for anti-dsDNA IgG by GANESH but negative by CLAUDIA. If the CLAUDIA result is negative but the patient has a positive GANESH and clinical suspicion remains, consider antinuclear antibody (SERINA) testing by IFA. Additional information and recommendations for testing may be found at [email or web address]. Performed By: [facility] [address] [place] [address] Countersinker: Tarik Ball MD, PhD CLIA Number: [id number] us Adriana Mueller MD LAB BLOOD ORDERABLES Final Re sult Performing Organization Address [facility]/ZIP Co de Phone Number [facility] ([facility]) [address] [place] [address] * Hepatitis B Core Total Antibody IgG,IgM (01/05/2025 9:00 AM EDT) Hepatitis B Core Total Antibody IgG,IgM Negative Negative 01/05/2025 12:54 PM EDT [facility] Blood Venous blood specimen / Unknown Venipuncture / Unknown 01/05/2025 9:00 AM EDT 01/05/2025 9:01 AM EDT us Adriana Mueller MD LAB BLOOD ORDERABLES Final Re sult Performing Organization Address City/[facility]/ZIP Co de Phone Number [facility] [address] [place] [address] * Quantiferon TB Gold (01/05/2025 9:00 AM EDT) Pathologist [facility] Quantiferon TB Gold Plus Result Negative Negative 01/06/2025 5:38 PM EDT [facility] TB Nill Value 0.0673 IU/mL 01/06/2025 5:38 PM EDT [facility] TB Antigen 1 -0.0178 IU/mL 01/06/2025 5:38 PM EDT [facility] TB Antigen 2 -0.0088 IU/mL 01/06/2025 5:38 PM EDT [facility] TB Mitogen 9.9327 IU/mL 01/06/2025 5:38 PM EDT [facility] Blood Venous blood specimen / Unknown Venipuncture / Unknown 01/05/2025 9:00 AM EDT 01/05/2025 9:01 AM EDT Narrative [facility] - 01/06/2025 5:38 PM EDT Responses to the Mitogen positive control and occasionally to TB antigen can be above the assay range. For calculation purposes: IFN-gamma values > 10 IU/mL are handled as 10 IU/mL. us Adriana Mueller MD LAB BLOOD ORDERABLES Final Re sult Performing Organization Address [facility] [place] [address] * Hepatitis B Surface Antigen (01/05/2025 9:00 AM EDT) Pathologist [facility] Hepatitis B Surf Antigen Negative Negative 01/05/2025 12:54 PM EDT [facility] Blood Venous blood specimen / Unknown Venipuncture / Unknown 01/05/2025 9:00 AM EDT 01/05/2025 9:01 AM EDT us Adriana Mueller MD LAB BLOOD ORDERABLES Final Re sult Performing Organization Address [facility] [place] [address] * (ABNORMAL) Sedimentation Rate, Automated (01/05/2025 9:00 AM EDT) [facility] Sedimentation Rate 79(H) <30 mm/hr 2024 10:19 AM EDT [facility] Blood Venous blood specimen / Unknown Venipuncture / Unknown 01/05/2025 9:00 AM EDT 01/05/2025 9:01 AM EDT us Adriana Mueller MD LAB BLOOD ORDERABLES Final Re sult Performing Organization Address [facility] Co de Phone Number [facility] [address] [place] [address] * (ABNORMAL) Rheumatoid Factor, Plasma (01/05/2025 9:00 AM EDT) [facility] Rheumatoid Factor, Plasma 19(H) <14 IU/mL 01/05/2025 10:31 AM EDT [facility] Blood Venous blood specimen / Unknown Venipuncture / Unknown 01/05/2025 9:00 AM EDT 01/05/2025 9:01 AM EDT us Adriana Mueller MD LAB BLOOD ORDERABLES Final Re sult Performing Organization Address [facility]/ZIP Co de Phone Number [facility] [address] [place] [address] * (ABNORMAL) C-reactive protein (01/05/2025 9:00 AM EDT) Pathologist [facility] CRP, Plasma 33.5(H) <=8.0 mg/L 01/05/2025 10:31 AM EDT [facility] Blood Venous blood specimen / Unknown Venipuncture / Unknown 01/05/2025 9:00 AM EDT 01/05/2025 9:01 AM EDT Narrative [facility] - 01/05/2025 10:31 AM EDT This CRP test is appropriate for assessment of infection, systemic inflammation and/or tissue injury. To assess cardiovascular disease risk order high sensitivity CRP (CRPH). us Adriana Mueller MD LAB BLOOD ORDERABLES Final Re sult Performing Organization Address [facility] Co de Phone Number [facility] [address] [place] [address] * (ABNORMAL) ANTI NUCLEAR AB (01/05/2025 9:00 AM EDT) [facility] SERINA INTERPRETIVE COMMENT See Note 01/07/2025 3:18 PM EDT [facility] ([employer] Anti Nuc Ab Screen Detected( H) <1:80 01/07/2025 3:18 PM EDT [facility] ([employer] Blood Venous blood specimen / Unknown Venipuncture / Unknown 01/05/2025 9:00 AM EDT 01/05/2025 9:01 AM EDT Narrative [facility] ([employer] - 01/07/2025 3:18 PM EDT Homogeneous Pattern Clinical associations: SLE, drug-induced SLE or ELO. Main autoantibodies: Anti-dsDNA, anti-histones or anti-chromatin (anti-nucleosome) List of Abbreviations Antimitochondrial antibodies (AMA), Antisynthetase syndrome (ARS), chronic active hepatitis (CAH), inflammatory myopathies (IM) [dermatomyositis (DM), polymyositis (PM), necrotizing autoimmune myopathy (NAM)], interstitial lung disease (ILD), juvenile idiopathic arthritis (ELO), mixed connective tissue disease (MCTD), primary biliary cholangitis (PBC), rheumatoid arthritis (RA), systemic autoimmune rheumatic diseases (SARD), Sjogren syndrome (SjS), systemic lupus erythematosus (SLE), systemic sclerosis (SSc), undifferentiated connective tissue disease (UCTD). INTERPRETIVE INFORMATION: SERINA Interpretive Comment Presence of antinuclear antibodies (SERINA) is a hallmark feature of systemic autoimmune rheumatic diseases (SARD). However, SERINA lacks diagnostic specificity and is associated with a variety of diseases (cancers, autoimmune, infectious, and inflammatory conditions) and may also occur in healthy individuals in varying prevalence. The lack of diagnostic specificity requires confirmation of positive SERINA by more specific serologic tests. SERINA (nuclear reactivity) positive patterns reported include centromere, homogeneous, nuclear dots, nucleolar, or speckled. SERINA (cytoplasmic reactivity) positive patterns reported include reticular/AMA, discrete/GW body-like, polar/golgi-like, cytoplasmic speckled or rods and rings. All positive patterns are reported to endpoint titers (1:2560). Reported patterns may help guide differential diagnosis, although they may not be specific for individual antibodies or diseases. Mitotic staining patterns not reported. Negative results do not necessarily rule out SARD. Performed By: [facility] [address] [place] [address] Countersinker: Tarik Ball MD, PhD CLIA Number: [id number] us Adriana Mueller MD LAB BLOOD ORDERABLES Final Re sult [facility] [employer] [facility] ([employer] [address] [place] [address] * Urinalysis Microscopic Examination (01/04/2025 9:25 PM EDT) Urine Urine specimen obtained by clean catch procedure / Unknown Non-blood Collection / Unknown 01/04/2025 9:25 PM EDT 01/04/2025 9:25 PM EDT Beni Diaz MD LAB URINE ORDERABLES Final Result [facility] [address] [place] [address] * (ABNORMAL) Urinalysis with reflex microscopic (Culture NOT Included) (01/04/2025 9:25 PM EDT) Color, Urine Dark Yellow LAB URINALYSIS - AUTOMATED METHOD 01/04/2025 9:51 PM EDT [facility] Clarity, Urine Clear LAB URINALYSIS - AUTOMATED METHOD 01/04/2025 9:51 PM EDT [facility] Spec [place], Urine >1.030(H) 1.005 - 1.030 LAB URINALYSIS - AUTOMATED METHOD 01/04/2025 9:51 PM EDT [facility] pH, Urine 5.5 5.0 - 8.0 LAB URINALYSIS - AUTOMATED METHOD 01/04/2025 9:51 PM EDT [facility] Protein, Urine Trace(A) Negative mg/dL LAB URINALYSIS - AUTOMATED METHOD 01/04/2025 9:51 PM EDT [facility] Glucose, Urine Negative Negative mg/dL LAB URINALYSIS - AUTOMATED METHOD 01/04/2025 9:51 PM EDT [facility] Ketones, Urine Trace(A) Negative mg/dL LAB URINALYSIS - AUTOMATED METHOD 01/04/2025 9:51 PM EDT [facility] Blood, Urine Negative Negative LAB URINALYSIS - AUTOMATED METHOD 01/04/2025 9:51 PM EDT [facility] Bilirubin, Urine Negative Negative LAB URINALYSIS - AUTOMATED METHOD 01/04/2025 9:51 PM EDT [facility] Urobilinogen, Urine 1.0 0.2 to 1.0 mg/dL LAB URINALYSIS - AUTOMATED METHOD 01/04/2025 9:51 PM EDT [facility] Leukocytes, Urine Trace(A) Negative LAB URINALYSIS - AUTOMATED METHOD 01/04/2025 9:51 PM EDT [facility] Nitrite, Urine Negative Negative LAB URINALYSIS - AUTOMATED METHOD 01/04/2025 9:51 PM EDT [facility] RBC, Urine 2 0 to 3 /HPF LAB URINALYSIS - AUTOMATED METHOD 01/04/2025 9:51 PM EDT [facility] Comment:This result was prev iously suppressed from the chart. WBC, Urine 0 - 5 0 to 5 /HPF LAB URINALYSIS - AUTOMATED METHOD 01/04/2025 9:51 PM EDT [facility] Comment:This result was prev iously suppressed from the chart. Squamous Epithelial Cells 0 - 2 0 to 5 /HPF LAB URINALYSIS - AUTOMATED METHOD 01/04/2025 9:51 PM EDT [facility] Comment:This result was prev iously suppressed from the chart. Hyaline Casts 0 - 2 0 to 5 /LPF LAB URINALYSIS - AUTOMATED METHOD 01/04/2025 9:51 PM EDT [facility] Comment:This result was prev iously suppressed from the chart. Bacteria, Urine Negative Negative LAB URINALYSIS - AUTOMATED METHOD 01/04/2025 9:51 PM EDT [facility] Comment:This result was prev iously suppressed from the chart. Urine Urine specimen obtained by clean catch procedure / Unknown Non-blood Collection / Unknown 01/04/2025 9:25 PM EDT 01/04/2025 9:25 PM EDT us Beni Diaz MD LAB URINE ORDERABLES Final Result Performing Organization Address City/[facility]/ZIP Co de Phone Number [facility] [address] [place] [address] * Urine Rebolledo Panel (01/04/2025 9:10 PM EDT) Extra Reflex urine culture not indicated 01/04/2025 11:02 PM EDT [facility] Urine Urine specimen obtained by clean catch procedure / Unknown Non-blood Collection / Unknown 01/04/2025 9:10 PM EDT 01/04/2025 9:35 PM EDT Beni Diaz MD LAB URINE ORDERABLES Final Result Performing Organization Address City/[facility]/ZIP Co de Phone Number [facility] [address] [place] [address] * CT Abdomen Pelvis w IV Contrast (01/04/2025 9:06 PM EDT) Anatomical Region Laterality Modality Abdomen, Pelvis Computed Tomogra phy Impressions 01/04/2025 10:16 PM EDT 1. Interval cholecystectomy. Small amount fluid in the gallbladder fossa may be postsurgical. No biliary dilatation. No acute abdominal or pelvic findings. 2. Moderate amount retained colonic feces CRITICAL RESULT: No. COMMUNICATION: Per this written report. Drafted by Amauri Ayon MD on 01/04/2025 10:06 PM Final report signed by Amauri Ayon MD on 01/04/2025 10:16 PM Narrative 01/04/2025 10:16 PM EDT CLINICAL INDICATION: Abdominal pain, post-op TECHNIQUE: Imaging of the abdomen and pelvis was performed, from lung bases through pubic symphysis, using spiral technique, following administration of IV contrast, Omnipaque 300, 100 mL. Delayed (excretory phase) images were performed through the kidneys. Reformatted images in the coronal and sagittal planes were generated from the axial data set to facilitate diagnostic accuracy. Total DLP (Dose-Length Product): 528.20 mGy.cm. Please note: The reported value represents the total of one or more individual components during the CT acquisition on this date and at this time, and as such, the same value may appear in more than one CT report depending on the interpreting/reporting physicians. COMPARISON: 11/25/2024 FINDINGS: Lung Bases: The lung bases are clear. Liver/Gallbladder/Biliary system: Small hypodensity once again noted in the central aspect of the liver. Interval cholecystectomy. Small fluid collection in the gallbladder fossa at approximately 1.9 cm. No biliary dilatation. Spleen: The spleen enhances homogeneously. Pancreas: The pancreas enhances homogeneously. Adrenals: The adrenals are morphologically unremarkable. Kidneys: The kidneys demonstrate symmetric nephrogram and excretion. No renal or ureteral calculi. No hydronephrosis. Bowel/Mesentery: The small bowel loops are not dilated. Mild amount retained colonic feces throughout the colon . Nonvisualization of the appendix. Small hiatal hernia. Small duodenal diverticula along the descending portion of the duodenum as before Vessels/Lymph Nodes: The abdominal aorta is unremarkable. No lymphadenopathy within the abdomen or pelvis. Fluid Survey: No free fluid in the abdomen. No free fluid in the pelvis. Pelvis: The pelvic viscera are unremarkable. Body Wall: Normal. Bones: No acute fracture. Procedure Note Amauri Ayon MD - 01/04/2025 CLINICAL INDICATION: Abdominal pain, post-op TECHNIQUE: Imaging of the abdomen and pelvis was performed, from lung bases throughpubic symphysis, using spiral technique, following administration of IVcontrast, Omnipaque 300, 100 mL. Delayed (excretory phase) images wereperformed through the kidneys. Reformatted images in the coronal andsagittal planes were generated from the axial data set to facilitatediagnostic accuracy. Total DLP (Dose-Length Product): 528.20 mGy.cm. Please note: The reportedvalue represents the total of one or more individual components during theCT acquisition on this date and at this time, and as such, the same valuemay appear in more than one CT report depending on theinterpreting/reporting physicians. COMPARISON: 11/25/2024 FINDINGS: Lung Bases: The lung bases are clear. Liver/Gallbladder/Biliary system: Small hypodensity once again noted inthe central aspect of the liver. Interval cholecystectomy. Small fluidcollection in the gallbladder fossa at approximately 1.9 cm. No biliarydilatation. Spleen: The spleen enhances homogeneously. Pancreas: The pancreas enhances homogeneously. Adrenals: The adrenals are morphologically unremarkable. Kidneys: The kidneys demonstrate symmetric nephrogram and excretion. Norenal or ureteral calculi. No hydronephrosis. Bowel/Mesentery: The small bowel loops are not dilated. Mild amountretained colonic feces throughout the colon . Nonvisualization of theappendix. Small hiatal hernia. Small duodenal diverticula along thedescending portion of the duodenum as before Vessels/Lymph Nodes: The abdominal aorta is unremarkable. Nolymphadenopathy within the abdomen or pelvis. Fluid Survey: No free fluid in the abdomen. No free fluid in the pelvis. Pelvis: The pelvic viscera are unremarkable. Body Wall: Normal. Bones: No acute fracture. IMPRESSION: 1. Interval cholecystectomy. Small amount fluid in the gallbladder fossamay be postsurgical. No biliary dilatation. No acute abdominal or pelvicfindings. 2. Moderate amount retained colonic feces CRITICAL RESULT: No. COMMUNICATION: Per this written report. Drafted by Amauri Ayon MD on 01/04/2025 10:06 PM Final report signed by Amauri Ayon MD on 01/04/2025 10:16 PM us Tony Stahl MD IMG CT PROCEDURES Final Result * (ABNORMAL) CBC w/diff (01/04/2025 7:38 PM EDT) Only the most recent of2 resultswithin the time period is included. [facility] WBC Count 5.83 3.70 - 10.30 10*3/uL LAB HEMATOLOGY METHOD 01/04/2025 7:45 PM EDT [facility] RBC Count 4.23 3.90 - 5.20 10*6/uL LAB HEMATOLOGY METHOD 01/04/2025 7:45 PM EDT [facility] HGB 12.0 11.2 - 15.7 g/dL LAB HEMATOLOGY METHOD 01/04/2025 7:45 PM EDT [facility] HCT 36.2 34.0 - 45.0 % LAB HEMATOLOGY METHOD 01/04/2025 7:45 PM EDT [facility] Platelet Count 517(H) 155 - 369 10*3/uL LAB HEMATOLOGY METHOD 01/04/2025 7:45 PM EDT [facility] MCV 86 79 - 98 fL LAB HEMATOLOGY METHOD 01/04/2025 7:45 PM EDT [facility] MCH 28.4 26.0 - 32.0 pg LAB HEMATOLOGY METHOD 01/04/2025 7:45 PM EDT [facility] MCHC 33.1 30.7 - 35.5 g/dL LAB HEMATOLOGY METHOD 01/04/2025 7:45 PM EDT [facility] RDW 13.5 11.5 - 14.5 % LAB HEMATOLOGY METHOD 01/04/2025 7:45 PM EDT [facility] MPV 10.0 8.8 - 12.5 fL LAB HEMATOLOGY METHOD 01/04/2025 7:45 PM EDT [facility] nRBC 0.0 <=0.0 per 100 WBCs LAB HEMATOLOGY METHOD 01/04/2025 7:45 PM EDT [facility] Differential Type Automated LAB HEMATOLOGY METHOD 01/04/2025 7:45 PM EDT [facility] Neutrophils % 57 % LAB HEMATOLOGY METHOD 01/04/2025 7:45 PM EDT [facility] Lymphocytes % 33 % LAB HEMATOLOGY METHOD 01/04/2025 7:45 PM EDT [facility] Monocytes % 9 % LAB HEMATOLOGY METHOD 01/04/2025 7:45 PM EDT [facility] Eosinophils % 0 % LAB HEMATOLOGY METHOD 01/04/2025 7:45 PM EDT [facility] Basophils % 1 % LAB HEMATOLOGY METHOD 01/04/2025 7:45 PM EDT [facility] Immature Granulocytes % 0 % LAB HEMATOLOGY METHOD 01/04/2025 7:45 PM EDT [facility] Neutrophils Absolute 3.32 1.60 - 6.10 10*3/uL LAB HEMATOLOGY METHOD 01/04/2025 7:45 PM EDT [facility] Lymphocytes Absolute 1.94 1.20 - 3.90 10*3/uL LAB HEMATOLOGY METHOD 01/04/2025 7:45 PM EDT [facility] Monocytes Absolute 0.50 0.30 - 0.90 10*3/uL LAB HEMATOLOGY METHOD 01/04/2025 7:45 PM EDT [facility] Eosinophils Absolute 0.02 0.00 - 0.50 10*3/uL LAB HEMATOLOGY METHOD 01/04/2025 7:45 PM EDT [facility] Basophils Absolute 0.03 0.00 - 0.10 10*3/uL LAB HEMATOLOGY METHOD 01/04/2025 7:45 PM EDT [facility] Immature Granulocytes Absolute 0.02 0.00 - 0.06 10*3/uL LAB HEMATOLOGY METHOD 01/04/2025 7:45 PM EDT [facility] Blood Venous blood specimen / Unknown Venipuncture / Unknown 01/04/2025 7:38 PM EDT 01/04/2025 7:43 PM EDT Narrative [facility] - 01/04/2025 7:45 PM EDT Therapeutic decision making should be based on absolute values, rather than percentages. us Tony Stahl MD LAB BLOOD ORDERABLES Fin al Result [facility] [address] [place] [address] * Lipase (01/04/2025 7:38 PM EDT) Lipase, Plasma 28 19 - 63 U/L 01/04/2025 8:08 PM EDT [facility] Blood Venous blood specimen / Unknown Venipuncture / Unknown 01/04/2025 7:38 PM EDT 01/04/2025 7:43 PM EDT us Tony Stahl MD LAB BLOOD ORDERABLES Fin al Result [facility] [address] [place] [address] * (ABNORMAL) CMP (01/04/2025 7:38 PM EDT) Only the most recent of2 resultswithin the time period is included. Glucose, Plasma 100(H) 74 - 99 mg/dL 01/04/2025 8:08 PM EDT [facility] BUN, Plasma 15 8 - 23 mg/dL 01/04/2025 8:08 PM EDT [facility] Creatinine, Plasma 0.62 0.60 - 1.10 mg/dL 01/04/2025 8:08 PM EDT [facility] BUN/Creatinine Ratio 24 01/04/2025 8:08 PM EDT [facility] Sodium, Plasma 140 136 - 145 mmol/L 01/04/2025 8:08 PM EDT [facility] Potassium, Plasma 4.3 3.6 - 4.9 mmol/L 01/04/2025 8:08 PM EDT [facility] Chloride, Plasma 103 97 - 107 mmol/L 01/04/2025 8:08 PM EDT [facility] CO2, Plasma 24 22 - 29 mmol/L 01/04/2025 8:08 PM EDT [facility] Anion Gap 13 6 - 16 mmol/L 01/04/2025 8:08 PM EDT [facility] Total Calcium, Plasma 9.4 8.9 - 10.2 mg/dL 01/04/2025 8:08 PM EDT [facility] Total Protein 7.4 6.3 - 7.9 g/dL 01/04/2025 8:08 PM EDT [facility] Albumin, Plasma 3.9 3.5 - 5.2 g/dL 01/04/2025 8:08 PM EDT [facility] AST, Plasma 19 10 - 35 U/L 01/04/2025 8:08 PM EDT [facility] ALT, Plasma 14 10 - 35 U/L 01/04/2025 8:08 PM EDT [facility] Alkaline Phosphatase, Plasma 110 46 - 142 U/L 01/04/2025 8:08 PM EDT [facility] Total Bilirubin, Plasma 0.2 0.2 - 1.1 mg/dL 01/04/2025 8:08 PM EDT [facility] eGFRcr 99.0 mL/min/1.7 3m*2 01/04/2025 8:08 PM EDT [facility] Comment:Reported eGFRcr in m L/min/1.73m2 is based the CKD-EPI 2020 equation that does not use a race coefficient. Blood Venous blood specimen / Unknown Venipuncture / Unknown 01/04/2025 7:38 PM EDT 01/04/2025 7:43 PM EDT Tony Stahl MD LAB BLOOD ORDERABLES Fin al Result Performing Organization Address City/[facility]/ZIP Co de Phone Number [facility] [address] [place] [address] * Bone Specific Alkaline Phosphatase (12/30/2024 10:27 AM EDT) Bone Specific Alkaline Phosphatase 6.9 ug/L 12/30/2024 12:34 PM EDT [facility] Comment: BSAP (Ostase) Reference Values, Female, age 18 years and up: Premenopausal: 4.5 to 16.9 ug/L Postmenopausal: 7.0 to 22.4 ug/L Blood Venous blood specimen / Unknown Venipuncture / Unknown 12/30/2024 10:27 AM EDT 12/30/2024 10:27 AM EDT Meera Butt APRN LAB REF LAB BLOOD AND FLUID ORD Final Result [facility] [address] [address] * C-Telopeptide (12/30/2024 10:27 AM EDT) Pathologist [facility] C Telopeptide Beta Cross Linked Serum Result 151 pg/mL 01/01/2025 4:48 PM EDT [email or web address] Blood Venous blood specimen / Unknown Venipuncture / Unknown 12/30/2024 10:27 AM EDT 12/30/2024 10:27 AM EDT Narrative [email or web address]) - 01/01/2025 4:48 PM EDT Premenopausal Females: 136-689 pg/mL Postmenopausal Females: 177-1015 pg/mL REFERENCE INTERVAL: C-Telopeptide, Krfq-Zntix-Omluxv, Serum Access complete set of age- and/or gender-specific reference intervals for this test in the [facility] Test Directory (Links[employer]). Performed By: [facility] [address] [place] [id number] Countersinker: Tarki Ball MD, PhD CLIA Number: [id number] Meera Butt TACK WELDER LAB BLOOD ORDERABLES Final R esult [email or web address]) [address] [place] [address] * N telopeptide, cross-linked, serum (12/30/2024 10:27 AM EDT) Pathologist [facility] N-Telopeptide, Cross-Linked, Serum 11.6 nM BCE 01/07/2025 5:21 PM EDT [facility]) Blood Venous blood specimen / Unknown Venipuncture / Unknown 12/30/2024 10:27 AM EDT 12/30/2024 10:27 AM EDT Narrative [facility]) - 01/07/2025 5:21 PM EDT INTERPRETIVE INFORMATION: N-Telopeptide, Cross-Linked, Serum Adult Male.......................5.4 - 24.2 nM BCE Premenopausal Adult Female.......6.2 - 19.0 nM BCE The target value for treated post-menopausal adult females is the same as the premenopausal reference interval. BCE = Bone Collagen Equivalent Performed By: [facility] [address] [place] [address] Countersinker: Tarik Ball MD, PhD CLIA Number: [id number] Meeraleigh ann Btut TACK WELDER LAB BLOOD ORDERABLES Final R esult Performing Organization Address City/[facility]/ZIP Co de Phone Number [email or web address]) [address] [place] [address] * (ABNORMAL) Osteocalcin by ECIA (12/30/2024 10:27 AM EDT) OSTEOCALCIN BY ECIA 7(L) 8 - 36 ng/mL 01/01/2025 4:25 PM EDT [facility] Harir (AIDAN) Blood Venous blood specimen / Unknown Venipuncture / Unknown 12/30/2024 10:27 AM EDT 12/30/2024 10:27 AM EDT Narrative [facility]) - 01/01/2025 4:25 PM EDT INTERPRETIVE INFORMATION: Osteocalcin by ECIA In patients with renal failure, the osteocalcin result may be directly elevated, due to impaired clearance, and/or indirectly elevated due to renal osteodystrophy. Access complete set of age- and/or gender-specific reference intervals for this test in the [facility] Test Directory (Links[employer]). Performed By: [facility] [address] [place] [address] Countersinker: Tarik Ball MD, PhD CLIA Number: [id number] Meera uBtt TACK WELDER LAB BLOOD ORDERABLES Final R esult Performing Organization Address City/[facility] Co de Phone Number [facility] Tel[facility]AN) [address] [place] [address] * (ABNORMAL) Vitamin D 25 Hydroxy (12/30/2024 10:27 AM EDT) Vitamin D 25 Hydroxy 88.9(H) 20.0 - 80.0 ng/mL 12/30/2024 12:41 PM EDT [facility] Blood Venous blood specimen / Unknown Venipuncture / Unknown 12/30/2024 10:27 AM EDT 12/30/2024 10:27 AM EDT Narrative [facility] - 12/30/2024 12:41 PM EDT Testing performed on [employer], standardized against NIST SRM 2972. When testing samples from patients whose predominant form of vitamin D is vitamin D2, such as patients receiving vitamin D2 supplementation, results that are subtherapeutic should be confirmed with another method, such as LC-MS/MS, before being used for patient management. Vitamin D, 25-Hydroxy reference range, age 18 years and up: Deficiency: <12 ng/mL Insufficiency: 12 to 19 ng/mL Sufficiency: 20 to 80 ng/mL Possible toxicity: >100 ng/mL Meera Butt TACK WELDER LAB BLOOD ORDERABLES Final R esult Performing Organization Address City/[facility]/ZIP Co de Phone Number [facility] [address] [place] [address] * Phosphorus, Plasma (12/30/2024 10:27 AM EDT) Phosphorus, Plasma 3.9 2.5 - 4.5 mg/dL 12/30/2024 11:59 AM EDT [facility] Blood Venous blood specimen / Unknown Venipuncture / Unknown 12/30/2024 10:27 AM EDT 12/30/2024 10:27 AM EDT Meera Butt TACK WELDER LAB BLOOD ORDERABLES Final R esult [facility] [address] [place] [address] from Last 3 Months [place] [address] A[employer] Advance Directives * Full Code (Latest Code Status on File) Date Activated Date Inactivated Comments 11/25/2024 11:42 AM 11/29/2024 4:20 PM Care Teams Critical Care Cns Relationship Specialty Start Date End Date Dima Giles MD [address] [place] [address] PCP - General 01/26/21
[2025-03-28 08:46] LABS: Albumin Level 4.2 g/dl (3.5-5.0); Anion Gap 16.7 mEq/L (5-15); Blood Urea Nitrogen 15 mg/dl (7-17); Calcium 9.5 mg/dl (8.4-10.2); Carbon Dioxide 26 mmol/L (22.0-30.0); Chloride 102 mmol/L (98-107); Creatinine,Serum 0.60 mg/dl (0.52-1.04); Estimated Glomerular Filt Rate 100 ml/min (>60); GFR (African American) 121 ML/MIN (>60); Glucose 124 mg/dl (74-100); Phosphorous 3.8 mg/dl (2.5-4.5); Potassium 4.7 mmoL/L (3.5-5.1); Sodium 140 mmol/L (136-145)
== END 2025-03-28 23:59 | disposition home or self-care (01) ==
LOC: LAB 07:08
PROVIDERS: PCP Internal Medicine Adolescent Medicine; Visit Provider Nurse Practitioner
DX: M81.0 Age-related osteoporosis without current pathological fracture (principal)
CPT/HCPCS: 36415; 80069

== ENCOUNTER 2025-04-12 12:13 | Outpatient (CLI) | payer MEDICARE, SELFPAY ==
--- OUTSIDE RECORDS SUMMARY | 2025-04-12 12:16 | XMS_ITS | Encounter Summary ---
Author Organization Healthcare Address [address] [id number] Care Team Providers Care Machine Heddle Cleaner Name Role Phone Dima Giles MD Primary Care Provider [phone] Encounter Details Date Type Department Care Team (Late st Contact Info) Description 04/11/2025 Telephone [facility] [address], [address] [place] [address] Alisson Zavala, [facility] [address] [id number] Social History Tobacco Use Types Packs/Day Years [...] time in the past 12 m [facility], were you homeless or living in [...] on file documented as of this encounter Miscellaneous Notes * Telephone Encounter - Phuong Og - 04/11/2025 10:59 AM EDT Clinical Concern/Question Reason for Call: Pt has increase in symptoms, asking for sooner apt. Please call. Best contact number: [phone] (mobile) Optimal time of day to reach caller: ANYTIME Additional comments/information from caller: None Note: Please do not reply to this message. Follow-up communication and further actions as a result of this message need to be communicated with the patient directly, if the patient is not active onMyChart. If the patient is active on MyChart, they will receive notification of the communication/outcome via MyChart. documented in this encounter Plan of Treatment Upcoming Encounters Date Type Department Care Team (Late st Contact Info) Description 04/13/2025 10:10 AM EDT Office Visit [facility] Medicine Specialties [address] [place] [address] Brock Chilel, [facility] [address] [place] [address] 06/30/2025 9:00 AM EDT Office Visit [facility] Medicine Specialties [address] [place] [address] Alisson Zavala, [facility] [address] [place], [place] [id number] documented as of this encounter Visit Diagnoses Not on filedocumented in this encounter Additional Health Concerns Assessment Noted Time PHQ-9 Depression Total Score: 2 01/06/20 25 7:13 AM EDT A fall risk assessment has been complete d for the patient 01/05/2025 7:13 AM EDT A Body Mass Index follow-up plan has been documented for the patient 01/05/2025 8:42 AM EDT documented as of this encounter Care Teams Machine Heddle Cleaner Relationship Specialty Start Date End Date Dima Giles MD [address] [place] [address] PCP - General 01/26/21 documented as of this encounter
--- OUTSIDE RECORDS SUMMARY | 2025-04-12 12:16 | XMS_ITS | Encounter Summary ---
Author Organization Healthcare Address [address] [place] [address] Care Team Providers Care Tool Machinist Name Role Phone Dima Giles MD Primary Care Provider Reason for Visit * Reason Comments Med Refill Encounter Details Date Type Department Care Team (Late st Contact Info) Description 07/16/2021 Refill [id number] [place] [address] Tarik Early MD [address] [address] Social History Tobacco Use Types [...] Description 04/13/2025 10:10 AM EDT Office Visit [facility] Medicine Specialties [address] [place] [address] Brock Chilel, TOM [address] [place] [address] 06/30/2025 9:00 AM EDT Office Visit [facility]ties [address] [place] [address] Alisson Zavala, TOM [address] [place] [address] documented as of this encounter Visit Diagnoses Not on filedocumented in this encounter Care Teams Tool Machinist Relationship Specialty Start Date End Date Dima Giles MD [address] [place] [address] PCP - General 01/26/21 documented as of this encounter
--- OUTSIDE RECORDS SUMMARY | 2025-04-12 12:16 | XMS_ITS | Encounter Summary ---
Author Organization Healthcare Address [address] [place] [address] Care Team Providers Care Industrial Sales Engineer Name Role Phone Dmia Giles MD Primary Care Provider [phone] Encounter Details Date Type Department Care Team (Late st Contact Info) Description 01/17/2025 Results Follow-Up [facility] Medicine Specialties [address], [address] [place] [address] Alisson Zavala, [facility] [address] [place] [address] Social History Tobacco Use Types Packs/Day Years [...] any time in the past 12 m [facility], were you homeless or living in a fdc (including now)? No 11/26/2024 Utilities Answer Date [...] Description 04/13/2025 10:10 AM EDT Office Visit [facility] Medicine Specialties [address] [place] [address] Brock Chilel, TOM [address] [place] [address] 06/30/2025 9:00 AM EDT Office Visit [facility] Medicine Specialties [address] [place] [address] Alisson Zavala, TOM [address] [place] [address] documented as of this encounter Visit Diagnoses [...] documented as of this encounter Care Teams Industrial Sales Engineer Relationship Specialty Start Date End Date Dima Giles MD [address] [facility] [address] [place] [address] PCP - General 01/26/21 documented as of this encounter
--- OUTSIDE RECORDS SUMMARY | 2025-04-12 12:16 | XMS_ITS | Encounter Summary ---
Author Organization Healthcare Address [address] [place] [address] Care Team Providers Care Software Design Analyst Name Role Phone Dima Giles MD Primary Care Provider [phone] Reason for Visit * Reason Comments Med Refill Encounter Details Date Type Department Care Team (Late st Contact Info) Description 07/10/2021 [address] [place] [address] Tarik Early MD [address] [address] Social History Tobacco Use Types [...] Description 04/13/2025 10:10 AM EDT Office Visit [facility] Medicine Specialties [address] [place] [address] Brock Chilel, TOM [address] [place] [address] 06/30/2025 9:00 AM EDT Office Visit [facility] Medicine Specialties [address] [place] [address] Alisson Zavala, TOM [address] [place] [address] documented as of this encounter Visit Diagnoses Not on filedocumented in this encounter Care Teams Software Design Analyst Relationship Specialty Start Date End Date Dima Giles MD [address] [place] [address] PCP - General 01/26/21 documented as of this encounter
--- OUTSIDE RECORDS SUMMARY | 2025-04-12 12:16 | XMS_ITS | Clinical Summary ---
Author Organization [facility] Address [address] [place] [address] Care Team Providers Care Uppers Edge Burnisher Name Role Phone Dima Giles MD Primary Care Provider [phone] Allergies Active Allergy Reactions Criticality Noted Date Comments Penicillins Hives 05/14/2016 Medications fexofenadine (MARTÍN) 180 MG tablet Take 180 mg by mouth daily. Active Multiple Vitamins-Minera ls (CENTRUM ADULTS PO) Take 1 tablet by mouth Daily. Active Calcium-Vitamin D-Vitamin K (VIACTIV PO) Take 1 tablet by mouth Daily. Active Homeopathic Products (ZICAM COLD REMEDY PO) Take 1 tablet by mouth As Needed (congestion). Active Cholecalciferol (VITAMIN D) 1000 units tablet Take 1,000 Units by mouth Daily. Active alendronate (FOSAMAX) 70 MG tablet TAKE 1 TABLET BY MOUTH EVERY WEEK 30-60 MINS PRIOR TO BREAKFAST ON AN EMPTY STOMACH DONT LIE DOWN AFTER TAKING MEDICATION 1 Active busPIRone (BUSPAR) 5 MG tablet Take 5 mg by mouth 2 (Two) Times a Day As Needed. for anxiety 1 Active Active Problems Problem Noted Date Diagnosed Date Sesamoiditis 08/24/2018 Tachycardia 08/19/2018 Palpitations 08/19/2018 SVT (supraventricular tachycardia) 10/15/2016 Paroxysmal SVT (supraventricular tachycardia) Family History Medical History Relation Name Comments Supraventricular tachycardia Mother Coronary artery disease Neg Hx Relation Name Status Comments Mother Social History Tobacco Use Types Packs/Day Years Used Date Smoking Tobacco: Never Smokeless Tobacco: Never Alcohol Use Standard Drinks/Week Comments No 0 (1 standard drink = 0.6 oz pur e alcohol) Abuse Screen Answer Date Recorded Unsafe at Home or Work/School Not on file Feels Threatened by Someone? Not on file 07/2023 Does Anyone Keep You from Co ntacting Others or Doint Things Outside the Home? Not on file 06/25/2023 Physical Sign of Abuse Present Not on file 1 Housing Stability Answer Date Recorded Current Living Arrangements Not on file 06/15 Potentially Unsafe Housing Conditions Not on tone e 06/25/2023 Family and Community Support Answer Eulogio e Recorded Help with Day-to-Day Activities Not on file 06/25/2023 Lonely or Isolated Not on file 06/25/2023 Employment Answer Date Recorded Do you want help finding or keeping work or a kayla b? Not on file 06/25/2023 Disabilities Answer Date Recorded Concentrating, Remembering, or Making Decisions Difficulty Not on file 06/25/2023 Doing Errands Independently Difficulty Not on fi le 06/25/2023 Education Answer Date Recorded Help with school or training? Not on file Preferred Language Not on file 06/25/2023 Comments Unknown Sex and Gender Information Value Date Recorded Sex Assigned at Not on file Legal Sex Female 9:05 AM EDT Gender Identity Not on file Sexual Orientation Not on file Last Filed Vital Signs Vital Sign Reading Time Taken Comments Blood Pressure 125/70 12/15/2020 8:29 AM EDT Pulse 98 04/05/2020 3:50 PM EDT Temperature 37.1 C (98.8 F) 10/15/2016 9:00 PM EST Respiratory Rate 11 10/15/2016 3:35 PM EST Oxygen Saturation 98% 04/05/2020 3:50 PM EDT Inhaled Oxygen Concentration - - Weight 77.6 kg (171 lb) 12/15/2020 8:29 AM EDT Height 167.6 cm (5' 5.98 ) 12/15/2020 8:29 AM ED T Body Mass Index 27.61 12/15/2020 8:29 AM EDT Plan of Treatment Health Maintenance Due Date Last Done Comments DXA SCAN 1959 TDAP/TD VACCINES (1 - Tdap) 1978 MAMMOGRAM 1999 COLOGUARD 2004 COLON CANCER SCREENING 5 YEA R SIGMOIDOSCOPY 2004 COLONOSCOPY 2004 [address] CANCER SCREENING 2004 CT COLONOGRAPHY 2004 FECAL OCCULT BLOOD TEST 2004 FIT Testing (1 year) 2004 Pneumococcal Vaccine 50+ (1 of 1 - PCV) 2009 ANNUAL PHYSICAL 01/27/2017 COVID-19 Vaccine ( season) 2024, 09/18/2020 INFLUENZA VACCINE 06/15/2025 ZOSTER VACCINE Completed 05/21/2019, 01/05/2019 HEPATITIS C SCREENING Completed 11/25/2024 [place] [address] [facility] PPO Member Subscriber Plan / Payer (Ef fective 2019-Present) Name:Brittany Hayes Relation to Subscriber:Self Name:Brittany Hayes Payer ID:[id number] (IC) Type:Not on file Address: [facility] [id number] [id number] Care Teams Uppers Edge Burnisher Relationship Specialty Start Date End Date Dima Giles MD [address] [facility] [address] [place] [address] PCP - General Adolescent Medicine 05/13/16
--- OUTSIDE RECORDS SUMMARY | 2025-04-12 12:16 | XMS_ITS | Encounter Summary ---
Author Organization [facility] Address [address] [place] [address] Care Team Providers Care Vending Technician Name Role Phone Dima Giles MD Primary Care Provider [phone] Reason for Referral * Consultation (Routine) - Closed Specialty Diagnoses / Procedures Referred By Contsegun t Referred To Contact Rheumatology Diagnoses Positive SERINA (antinuclear antibody) Elevated sed rate Elevated C-reactive protein (CRP) Ioana Browne APRN [address] [address] Phone: tel: fax: Referral ID Status Reason Start Date Expiration Date V isits Requested Visits Authorized [id number] Closed Specialty Services Required 12/07/2024 06/08/2026 1 1 Encounter Details Date Type Department Care Team (Late st Contact Info) Description 12/07/2024 Community [facility] [address] [place] [address] Ioana Browne APRN [address] [address] Positive SERINA (antinuclear antibody) (Primary [...] any time in the past 12 m [facility], were you homeless or living in a jail (including now)? No 11/26/2024 Utilities Answer Date [...] Description 04/13/2025 10:10 AM EDT Office Visit [facility] Medicine Specialties [address] [place] [address] Brock Chilel, MB [address] [place] [address] 06/30/2025 9:00 AM EDT Office Visit [facility] Medicine Specialties [address], [address] [place] [address] Alisson Zavala, TOM [address] [place], [place] [id number] Scheduled Referrals Name Type Priority Associated Diagnoses [...] documented as of this encounter Care Teams Vending Technician Relationship Specialty Start Date End Date Dima Giles MD [address] [place] [address] PCP - General 01/26/21 documented as of this encounter
--- OUTSIDE RECORDS SUMMARY | 2025-04-12 12:16 | XMS_ITS | Clinical Summary ---
Author Organization [facility] Address [address] [place] [address] Care Team Providers Care Material Handler Floorperson Name Role Phone Dima Giles MD Primary Care Provider [phone] Allergies Active Allergy Reactions Criticality Noted Date [...] Encounters Date Type Department Care Team Description 04/12/2025 Telephone [facility] Medicine Specialties [address], [address]nd [place] [phone] Ailyn Romero RN 04/11/2025 Telephone [facility] Medicine Specialties [address], [facility] [place] [phone] Alisson Zavala MBBS 01/17/2025 Results Follow-Up [facility] Medicine Specialties [address], [address] [place] [phone] Alisson Zavala MBBS 01/12/2025 Travel 01/11/2025 Orders Only [facility] Medicine Specialties [address], [address] [place] [phone] Alisson Zavala MBBS Elevated liver enzymes (Primary Dx) from Last 3 Months Immunizations Immunization Administration [...] Name Status Comments Brother 1 Brother 2 hCester santacruz Father Maternal Grandmother Mother Paz santacruz [...] Visit [facility] [address], [address]nd [place] [address] Brock Chilel, TOM [address] [place] [address] 06/30/2025 9:00 AM EDT Office [facility] [address], [address]nd [place] [address] Alisson Zavala, TOM [address] [place] [address] Health Maintenance Due Date Last Done Comments [facility]-Bone Density Scan 1959 [facility]-Medicare Annual Wellness (AWV) 1959 [facility]-/Child/Adol SDOH Screenings 1959 [facility]-DTaP,Tdap,and Td Vaccines (1 - Tdap) 1978 [facility]-Pap Smear 1980 [facility]-Cervical Cancer Screening 1989 [facility]-HPV/Cotest 1989 CT Colonography 2004 Colonoscopy 2004 FIT-DNA 2004 FIT 2004 FOBT 2004 Sigmoidoscopy 2004 [facility]-Colorectal Cancer Screening 2004 [facility]-Breast Cancer Screening 2009 [facility]-Pneumococcal Vaccine: 50+ Years (1 of 1 - PCV) 2009 [facility]-Hepatitis A Vaccines (2 of 2 - Risk 2-dose series) 07/07/2019 01/05/2019 [id number] Vaccine (2023- season) 2025 07/10/2024, 05/31/2023, 07/14/2022, Additional history [...] 01/12/2025 8:10 AM EDT Elevated liver enzymes HEPATITIS C ANTIBODY W/REFLEX TO HCV QUANT PCR Routine 01/05/2025 9:00 AM EDT Inflammatory arthritis from Last 3 Months or Most Recently Relevant to Health Maintenance Results * Soluble Liver Antigen Antibody (01/12/2025 8:10 AM EDT) Soluble Liver Antigen Antibody, IgG 1.6 0.0 - 24.9 U 01/14/2025 7:39 PM EDT [facility] ([facility]) Blood Venous blood specimen / Unknown Venipuncture / Unknown 01/12/2025 8:10 AM EDT 01/12/2025 8:10 AM EDT Narrative [facility] ([facility]) - 01/14/2025 7:39 PM EDT REFERENCE INTERVAL: Soluble Liver Antigen Antibody, IgG 0.0 - 20.0 U ........... Negative 20.1 - 24.9 U ........... Equivocal 25.0 U or greater ....... Positive The presence of SLA antibodies has almost 100% specificity for autoimmune hepatitis, although only 12-30% have these antibodies. Thus, a negative SLA IgG test does not rule out autoimmune hepatitis. Performed By: [facility] [address] [place] [address] Provider Relations Manager: Tarik Ball MD, PhD CLIA Number: [id number] Adriana Mueller MD LAB BLOOD ORDERABLES Final Re sult [facility] ([facility]) [address] [place] [address] * Liver Kidney Microsome Antibodies (01/12/2025 8:10 AM EDT) Mzcsb-Vkedno-O icrosome Abs, IgG by IFA <1:20 <1:20 01/14/2025 12:08 PM EDT [facility] ([facility]) Blood Venous blood specimen / Unknown Venipuncture / Unknown 01/12/2025 8:10 AM EDT 01/12/2025 8:10 AM EDT Narrative [facility] ([facility]) - 01/14/2025 12:08 PM EDT INTERPRETIVE INFORMATION: Adiod-Gdbqbd-Kqafteake Abs, IgG Liver-Kidney Microsome IgG antibody (anti-LKM), as detected by indirect immunofluorescent antibody (IFA) techniques, may be observed in patients with autoimmune hepatitis type 2 (AIH-2), AIH-2 associated with autoimmune nmlqzujjjmbghciiry-yhcmgncigwh-chpubcmpps dystrophy (APECED), viral hepatitis C or D, and some forms of drug-induced hepatitis. This IFA does not differentiate among the four types of LKM antibodies (LKM-1, LKM-2, LKM-3, and a fourth type that recognizes CY and CY antigens). Of these, anti-LKM-1 (cytochrome [id number]) IgG antibodies are considered specific for AIH-2. This test was developed and its performance characteristics determined by [facility]. It has not been cleared or approved by the [place] Food and Drug Administration. This test was performed in a CLIA certified laboratory and is intended for clinical purposes. Performed By: [facility] [address] [place] [address] Provider Relations Manager: Tarik Ball MD, PhD CLIA Number: [id number] Adriana Mueller MD LAB BLOOD ORDERABLES Final Re sult Performing Organization Address [facility] de Phone Number [address] [address] * Anti-smooth muscle antibody, IgG (01/12/2025 8:10 AM EDT) Smooth Muscle Ab, IgG Titer <1:20 <1:20 01/14/2025 10:38 PM EDT [facility] Blood Venous blood specimen / Unknown Venipuncture / Unknown 01/12/2025 8:10 AM EDT 01/12/2025 8:10 AM EDT Narrative [facility] - 01/14/2025 10:38 PM EDT INTERPRETIVE INFORMATION: Smooth Muscle Ab, IgG Titer Less than 1:20 ........ Negative - No antibody detected. 1:20 - 1:80 .......... Weak Positive - Suggest repeat in two to three weeks with fresh specimen. 1:160 or greater ...... Positive - Suggestive of autoimmune hepatitis or chronic active hepatitis. Performed By: [facility] [address] [place] [address] Provider Relations Manager: Tarik Ball MD, PhD CLIA Number: [id number] Adriana Mueller MD LAB BLOOD ORDERABLES Final Re sult Performing Organization Address [facility] Co de Phone Number [facility] ([facility]) [address] [place] [address] * Mitochondrial antibodies, M2 (01/12/2025 8:10 AM EDT) MITOCHONDRIA M2 AB IGG 9.3 0.0 - 24.9 Units 01/14/2025 4:57 PM EDT [facility] ([facility]) Serum Venous blood specimen / Unknown 01/12/2025 8:10 AM EDT 01/12/2025 8:10 AM EDT Narrative [facility] ([facility]) - 01/14/2025 4:57 PM EDT REFERENCE INTERVAL: [...] does not rule out PBC. Performed By: [facility] [address] [place] [address] Provider Relations Manager: Tarik Ball MD, PhD CLIA Number: [id number] Adriana Mueller MD LAB BLOOD ORDERABLES Final Re sult Performing Organization Address City/[facility]/ZIP Co de Phone Number [facility] ([facility]) [address] [place] [address] * Hepatitis C Antibody (01/05/2025 9:00 AM EDT) Hepatitis C Antibody Negative Negative 01/05/2025 11:05 AM EDT [facility] Blood Venous blood specimen / Unknown Venipuncture / Unknown 01/05/2025 9:00 AM EDT 01/05/2025 9:01 AM EDT Adriana Mueller MD LAB BLOOD ORDERABLES Final Re sult [facility] [address] [place] [address] from Last 3 Months or Most Recently Relevant to Health Maintenance Insurance MEDICARE [facility] Advance Directives * Full Code (Latest Code Status on File) Date Activated Date Inactivated Comments 11/25/2024 11:42 AM 11/29/2024 4:20 PM Care Teams Material Handler Floorperson Relationship Specialty Start Date End Date Dima Giles MD [address] [place] [address] PCP - General 01/26/21
--- OUTSIDE RECORDS SUMMARY | 2025-04-12 12:16 | XMS_ITS | Encounter Summary ---
Author Organization Healthcare Address [address] [place] [address] Care Team Providers Care Crab Catcher Name Role Phone Dima Giles MD Primary Care Provider [phone] Encounter Details Date Type Department Care Team (Late st Contact Info) Description 12/28/2024 Telephone [facility] [address] [place] [address] Milla Godfrey, PharmD Social History [...] you homeless or living in a senior care (including now)? No 11/26/2024 Utilities Answer Date Recorded In the past 12 months has th e [employer], gas, oil, or water company threatened to [...] to receive infusion treatment at outside facility. [facility] will follow up with facility to make sure patient has been scheduled and received first dose. Specialty Medication: Prolia Filling Pharmacy/SOC: [facility] * Telephone Encounter - Milla Padilla CPhT - 03/21/2025 3:16 PM EDT Medicare B/Advantage Plan Authorization Information Specialty Medication: Prolia Diagnosis Code: M81.0 J-code/CPT code/S code: J0897 Covered by Medicare B: Yes Does the diagnosis, dose, and frequency match an FDA approved dosing schedule? Yes, list prescribeddose/frequency: every 180 days Site of Care: [facility] Does patient have an Advantage Plan? No. Will review in 12 months. * Telephone Encounter - Milla Godfrey PharmD - 12/28/2024 1:27 PM EDT [facility] has received therapy plan for medication Prolia. [facility] has contacted the patient and is initiating authorization for preferred site of care. [facility] Specialty Education Summary Patient was assessed via phone for initiation of drug therapy Prolia for diagnosis Osteoporosis. Plan for administration of therapy in infusion center and planned date of initiation: ~04/15/25. Anticipated filling pharmacy is [facility]. Education and Counseling Medication specific education provided: [...] Description 04/13/2025 10:10 AM EDT Office Visit [facility] Medicine Specialties [address], [address]nd [place] [address] Brock Chilel, [facility] [address] [place] [address] 06/30/2025 9:00 AM EDT Office Visit [facility] Medicine Specialties [address], [address]nd [place] [address] Alisson Zavala, [facility] [address] [place] [address] documented as of this encounter Visit Diagnoses Not on filedocumented in this encounter Additional Health Concerns Assessment Noted Time A fall risk assessment has been complete d for the patient 11/07/2023 11:33 AM EST A Body Mass Index follow-up plan has been documented for the patient 12/10/2024 11:39 AM EDT documented as of this encounter Care Teams Crab Catcher Relationship Specialty Start Date End Date Dima Giles MD [address] [place] [address] PCP - General 01/26/21 documented as of this encounter
--- OUTSIDE RECORDS SUMMARY | 2025-04-12 12:17 | XMS_ITS | Encounter Summary ---
Author Organization Healthcare Address [address] [place] [address] Care Team Providers Care Lead Cook Name Role Phone Dima Giles MD Primary Care Provider [phone] Encounter Details Date Type Department Care Team (Late st Contact Info) Description 04/12/2025 Telephone [facility] Medicine Specialties [address], [address] [place] [address] Ailyn Romero RN [facility] Social History Tobacco Use Types Packs/Day Years [...] any time in the past 12 m onths, were you homeless or living in a [place] care facility (including now)? No 11/26/2024 Utilities Answer Date Recorded In the past 12 months has th e [employer], gas, oil, or water company threatened to shut off services in your home? No 11/26/2024 Comments No Sex and Gender Information Value Date Recorded Sex Assigned at Female 11/25/2024 7:17 AM EDT Legal Sex Female 6:28 PM EDT Gender Identity Not on file Sexual Orientation Not on file documented as of this encounter Miscellaneous Notes * Telephone Encounter - Ailyn Romero RN - 04/12/2025 9:38 AM EDT I spoke with the patient and scheduled a sooner appointment for her. documented in this encounter Plan of Treatment Upcoming Encounters Date Type Department Care Team (Late st Contact Info) Description 04/13/2025 10:10 AM EDT Office Visit [facility] Medicine Specialties [address], [address] [place] [address] Brock Chilel, TOM [address] [place] [address] 06/30/2025 9:00 AM EDT Office Visit [facility] [address], [address] [place] [address] Alisson Zavala, MBBS [address] [place] [address] documented as of this encounter [...] documented as of this encounter Care Teams Lead Cook Relationship Specialty Start Date End Date Dima Giles MD [address] [place] [address] PCP - General 01/26/21 documented as of this encounter
--- OUTSIDE RECORDS SUMMARY | 2025-04-12 12:17 | XMS_ITS | Encounter Summary ---
Author Organization Healthcare Address [address] [place] [address] Care Team Providers Care Pediatric Clinical Dietician Name Role Phone Dima Giles MD Primary Care Provider [phone] Encounter Details Date Type Department Care Team (Late st Contact Info) Description 12/30/2024 Results Follow-Up [facility] Medicine Specialties [address], [address] [place] [phone] Tanja Boss MD [address] [phone] Social History Tobacco Use Types Packs/Day Years [...] any time in the past 12 m [facility], were you homeless or living in [...] Behavior (Lifetime) No 8:15 PM EDT Félix Salazar RN documented as of this encounter Plan of Treatment Upcoming Encounters Date Type Department Care Team (Late st Contact Info) Description 04/13/2025 10:10 AM EDT Office Visit [facility] Medicine Specialties [address], [address]nd [place] [address] Brock Chilel, [facility] [address] [place] [address] 06/30/2025 9:00 AM EDT Office Visit [facility] Medicine Specialties [address], [address] [place] [address] Alisson Zavala, [facility] [address] [place], [place] [phone] documented as of this encounter Visit Diagnoses Not on filedocumented in this encounter Additional Health Concerns Assessment Noted Time A fall risk assessment has been complete d for the patient 12/30/2024 9:45 AM EDT A Body Mass Index follow-up plan has been documented for the patient 01/04/2025 2:50 PM EDT documented as of this encounter Care Teams Pediatric Clinical Dietician Relationship Specialty Start Date End Date Dima Giles MD [address] [place] [address] PCP - General 01/26/21 documented as of this encounter
--- OUTSIDE RECORDS SUMMARY | 2025-04-12 12:17 | XMS_ITS | Data Portability ---
Author Organization [facility],, Main Office Address [address] [place] [address] Assessment Encounter Date Assessment Date Assessment LastModified by Organization Details LastModified Time 05/13/2017 05/13/2017 Patient evaluated for sexual dysfunction. History and exam indicate: INSERT TEXT HERE. Patient educated on treatment and goals of therapy. Discussed follow up and orders indicated below. [email or web address] Not available 05/13/2017 09:41:13 04/21/2020 04/21/2020 Annual gynecological exam performed. Patient will come back in a year unless there are new symptoms. [email or web address] Not available 04/21/2020 08:39:37 Plan of Treatment Reminders Order Date Submit Date Provider Last Modified By Organization Details Last Modified Time Details Appointments None recorded. Lab urinalysis , dipstick 2016 017 clifford Main Office, [address], [place], [address], 7 08:05:14 pap, LB + HR HPV 2016 017 GALILEO Not available 7 14:18:23 fecal occult blood, stool 2016 017 GALILEO Main Office, [address], [place], [address], 7 10:00:40 Referral None recorded. Procedures None recorded. Surgeries None recorded. Imaging MAMMO, screening, bilateral 2016 017 [facility] (Radiology), [address] , [place], [address], 7 12:55:27 Medication Orders clotrimazo le-betamet hasone 1 %-0.05 % topical cream 2019 020 [id number], [address] [place], [place], [id number], 0 10:19:51 Osphena 60 mg tablet 2016 017 [email or web address] Not available 0 08:40:14 clotrimazo le-betamet hasone 1 %-0.05 % topical cream 2016 017 [email or web address] 4 [id number] [address] [place] [place], [id number], 0 08:40:10 Patient TargetsNo targets recorded. Patient Instructions Encounter Date Encounter Id Patient Instructions Last Modified By Organization Details Last Modified Time 05/13/2017 [id number] atrophic vaginitis: care instructions [email or web address] Not available 05/13/2017 13:08:12 lichen sclerosus : care instructions [email or web address] Not available 05/13/2017 13:08:39 04/21/2020 [id number] Distinct and separate issues addressed beyond annual gynecology exam. Added 35-45 minutes on to visit. Patient's questions answered, concerns addressed. [email or web address] Not available 07/12/2020 10:37:49 Reason for Referral None Reported. Results Created Date Observation Date Name Description Value Unit Range Abnormal Flag Note LastModifiedBy Organization Detail LastModifiedTime 05/13/2005/13/2017 urina lysis , dipst ick Leukocytes - Not Available Main Of fice [address], [place], [address], 05/13/2017 09:59:30 05/13/20 17 05/13/2017 urina lysis , dipst ick Nitrite negati ve Not Available Main Office [address], [place], [address], 05/13/2017 09:59:30 05/13/20 17 05/13/2017 urina lysis , dipst ick Urobilinogen - Not Available Main Office [address], [place], [address], 05/13/2017 09:59:30 05/13/20 17 05/13/2017 urina lysis , dipst ick Protein - Not Available Main Offic e [address], [place], [address], 05/13/2017 09:59:30 05/13/20 17 05/13/2017 urina lysis , dipst ick pH 7.5 Not Available Main Offic e [address], [place], [address], 05/13/2017 09:59:30 05/13/20 17 05/13/2017 urina lysis , dipst ick Blood - Not Available Main Offic e [address], [place], [address], 05/13/2017 09:59:30 05/13/20 17 05/13/2017 urina lysis , dipst ick Specific Jones 1.010 Not Available Main O ffice [address], [place], [address], 05/13/2017 09:59:30 05/13/20 17 05/13/2017 urina lysis , dipst ick Ketone - Not Available Main Offic e [address], [place], [address], 05/13/2017 09:59:30 05/13/20 17 05/13/2017 urina lysis , dipst ick Bilirubin - Not Available Main Off ice [address], [place], [address], 05/13/2017 09:59:30 05/13/20 17 05/13/2017 urina lysis , dipst ick Glucose - Not Available Main Offic e [address], [place], [address], 05/13/2017 09:59:30 05/13/20 17 05/13/2017 fecal occul t blood , stool Occult Blood negati ve Not Available Main Office [address], [place], [address], 05/13/2017 09:45:43 05/13/20 17 05/14/2017 pap, LB Pap test thin prep Negati ve for Intrae pithel ial Lesion or Malign josh normal ACCES BETTINA #: [id number] Sourc e: Cervi radha/E ndoce rvica l LMP: ablat ion Date Taken : 05/13 Speci men Type: ThinP rep Vial Date Repor zulay: 05/14 Clini radha Data: LMP: ablat ion Hormo emma: osphe na Last Pap: wnl (310 2014) Cytot ech: Lia Gaxiola CT( CP) Speci men Adequ acy: Satis facto ry for evalu ation Gener al Categ oriza tion: NEGAT KRYSTINA FOR INTRA EPITH ELIAL LESIO N OR MALIG EWA Inter preta tion/ Resul t: Atrop hy Study for HPV testi ng not indic ated. This speci men has been artur zed by the ThinP rep Imagi ng Syste m, an inter activ e compu ter syste m which anisha ts the lab in the scree nanette of ThinP rep Pap Test slide s. Follo wing imagi ng, the slide was revie wed by a Cytot echno logis t and/o r Patho logis t. Techn ical servi lyndon provi ded by: Assoc iated Patho logis ts, [facility] d/b/a PathG roup [address], [address] [place] [address] [place] gray M.D., [facility] Case revie wed and diagn osis rende red at: Assoc iated Patho logis ts [address], [address] [place] [address] Brooklyn gray M.D., [facility] ----- ----- ----- ----- ----- ----- ----- ----- ----- ----- ----- ----- Not Available [facility]) [address], [place], [address], 05/14/2017 14:18:23 04/21/20 20 04/24/2020 pap, LB Pap test thin prep Negati ve for Intrae pithel ial Lesion or Malign josh normal ACCES BETTINA #: [id number] Sourc e: Cervi radha/E ndoce rvica l LMP: menop ausal Date Taken : 04/21 Speci men Type: ThinP rep Vial Date Repor zulay: 2019 Clini radha Data: Last Pap: wnl (05/17 017) Cytot ech: Anna romano CT( CP) Date Repor zulay: 2019 Speci men Adequ acy: Satis facto ry for evalu ation Gener al Categ oriza tion: NEGAT KRYSTINA FOR INTRA EPITH ELIAL LESIO N OR MALIG EWA Inter preta tion/ Resul t: Atrop hy This speci men has been artur zed by the ThinP rep Imagi ng Syste m, an inter activ e compu ter syste m which anisha ts the lab in the scree nan[place] of ThinP rep Pap Test slide s. Follo wing imagi ng, the slide was revie wed by a Cytot echno logis t and/o r Patho logis t. End of Repor t Techn ical servi lyndon provi ded by [facility] [email or web address] Patho logis [employer], d/b/a Avel chester, [address] [place] [address] Damien Weinstein MD, Labor atory [facility]. Case revie wed and diagn osis rende red at [facility] iated Patho logis [employer], d/b/a Avel chester, [address] [place] [address] Damien Weinstein MD, Labor [facility] tor. CONFI DENTI AL Not Available [facility] ([facility]) [address], [place], [address], 04/24/2020 19:52:58 06/13/20 17 06/12/2017 MAMMO , scree nanette, bilat eral No observ ation record ed. [facility] (Radiology) [address] [place] [address] , [place], [address], 06/14/2017 12:34:15 Result Notes None recorded. Problems No Known Problems Procedures Surgical History Date Name Laterality Status Provider Name and Address Organization Details Recorded Time 0 Date of Last Pap Smear completed Crys Bah [facility], 04/21/2020 08:41:21 7 Most Recent Bone Density completed Crys Bah [facility], 05/13/2017 09:34:06 5 Most Recent Mammogram completed Crys Bah [facility], 05/13/2017 09:33:14 5 Date of Last Mammogram completed Crys Bah [facility], 05/13/2017 09:33:50 Endometrial Ablation completed Crys [facility], 05/13/2017 09:36:32 Tubal Ligation completed Crys Bah [facility], 05/13/2017 09:36:44 Unlisted px cardiac surgery completed Crys Bah [facility], 05/13/2017 09:37:00 Imaging Results None recorded. Procedure Notes None recorded. Medical Equipment None Reported. Allergies Allergen ID Allergen Name Allergen Category Reaction Reaction Severity Criticality Documentation Date Start Date Code Code System Note Provider Name and Address Organization Details Recorded Time 365 penicilli n G Not available Not available Not available Not available 05/13/2017 7980 RxNorm Crys Bah [facility], 7 09:31:19 Medications Name Sig Start Date Stop Date Status Note LastModified by Organization Details LastModified Time buspirone 5 mg tablet 2019 active Not Available Not Available Not Avai lable alendronate 35 mg tablet 04/21 completed Not Available Not Available Not Available clotrimazol e-betametha sone 1 %-0.05 % topical cream APPLY EXTERNALL Y TO THE AFFECTED AND SURROUNDI NG AREAS TWICE DAILY IN THE MORNING AND IN THE EVENING FOR 2 WEEKS active Not Available Not Available No t Available Vitamin D2 active Not Available Not Av ailable Not Available Osphena 60 mg tablet Take 1 tablet every day by oral route in the morning. 04/21 completed Not Available Not Available Not Available Vitals Date Recorded Body height Body mass index (BMI) Body weight Respiratory rate Heart rate Body temperature Systolic And Diastolic Provider Name and Address Organization Details Last Updated DateTime 0 167.64 cm 27.1 kg/m2 63103.5 2 g 16 /min 74 /min 98 [degF] 126/78 mm[Hg] Crys [facility], 0 08:39:57 Date Recorded Body height Body mass index (BMI) Body weight Heart rate Systolic And Diastolic Provider Name and Address Organization Details Last Updated DateTime 05/13/2017 167.64 cm 25 kg/m2 60993.82 g 75 /min 128/82 mm[Hg] Crys [facility], 05/13/2017 09:30:56 Social History Question Answer Notes LastModified by Organizat ion Details LastModified Time Tobacco Smoking Status Never Smoker Not Available [facility] 07/11/2020 03:20:23 Do You Have An Advance Directive? No [id number] Information not available 07/11/2020 Are You Blind Or Do You Have Difficulty Seeing? No [id number] Information not available 07/11/2020 What Is Your Level Of Caffeine Consumption? None [id number] Information not available 07/11/2020 Are You Deaf Or Do You Have Serious Difficulty Hearing? No [id number] Information not available 07/11/2020 What Type Of Diet Are You Following? REGULAR [id number] Information not available 07/11/2020 Education 12 [email or web address] Information n ot available 05/13/2017 Are There Any Guns Present In Your Home? No [id number] Information not available 07/11/2020 Hard Of Hearing Or Deaf In One Or Both Ears? No Information not available 05/13/2017 Legally Blind In One Or Both Eyes? No [email or web address] Information not available 05/13/2017 Live Alone Or With Others? With Others [email or web address] Information not available 05/13/2017 What Was The Date Of Your Most Recent Tobacco Screening? 05/13/2017 [id number] Information not available 07/11/2020 How Many Children Do You Have? 2 [id number] Information not available 07/11/2020 Performs Monthly Self-breast Exam? No [email or web address] Information not available 05/13/2017 Seat Belts Used Routinely Yes [email or web address] Information not available 05/13/2017 Are You Sexually Active? Yes [id number] Information not available 07/11/2020 Smoke Alarm In Home Yes [email or web address] Information not available 05/13/2017 Are You Passively Exposed To Smoke? No [email or web address] Information not available 05/13/2017 General Stress Level Medium [email or web address] Information not available 05/13/2017 Do You Use Sunscreen Routinely? Yes [id number] Information not available 07/11/2020 Do You Have Difficulty Walking Or Climbing Stairs? No [id number] Information not available 07/11/2020 Sex: Unknown Functional Status Question Answer Note LastModified by Organizat ion Details LastModified Time What is your level of alcohol consumption? None [id number] Information not available 07/11/2020 Are you currently employed? Yes [id number] Information not available 07/11/2020 Are you able to walk? YESWOREST [id number] Information not available 07/11/2020 Do you have difficulty doing errands alone? No [id number] Information not available 07/11/2020 Are you able to care for yourself independently? 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 No [id number] Information not available 07/11/2020 What is your exercise level? Moderate [id number] Information not available 07/11/2020 Mental Status Question Answer Note LastModified by Organization D etails LastModified Time Do you have difficulty concentrating, remembering or making decisions? No [id number] Information no t available 07/11/2020 Family History Relationship Description Onset Age of this Age Resolved Age Notes LastModified by Organization Details LastModified Time Father No current problems or disability [email or web address] Not available 09:35:08 Mother No current problems or disability [email or web address] Not available 09:35:08 Medical History Condition Response Coronary Artery Disease N Other N Gout N Kidney Stones N Blood Diseases N Hyperthyroidism N Enlarged Prostate N Blood Transfusion N COPD N Depression N Dermatologic Disorders N Gestational Diabetes N Anxiety Disorder N Autoimmune disease N Muscle, Joint, or Bone Problems N Obesity N Vision or Eye Problems N Arthritis N Infertility N Polyps N Mental Disorder N Cancer N Stroke N Varicosities N Neurologic/Epilepsy N Fibromyalgia N Headaches N Kidney Disease N Heart Problems Y Ear or Hearing Problems N Hospitalizations N Acne N Skin Problems N Eating Disorder N MRSA exposure N Heartburn N Constipation N Art (IVF or FET) N Bladder Problems N Bleeding Disorder N Tuberculosis N AIDS/HIV N G.E.R.D N Asthma N Trauma/Violence N Hepatitis N Pulmonary Embolism N Chronic Ear Infections N Chicken Pox Y Autism Spectrum Disorder (ASD) N Thrombophilias N Allergies (Food, seasonal, environmental ) N Colon Cancer N Breast Cancer N Drug/Latex Allergies/Reactions N Hypothyroidism N Lung Disease N Defects or Inherited Disease N Developmental or Behavioral Disorders N Breast Problem N Difficulty Swallowing N Hematologic disorders N Anesthesia Complications N History of STI N Deep Vein Thrombosis N Polycystic ovary syndrome N Meniere's disease N History of abnormal pap N Endometriosis N High Cholesterol N Liver Disease N Allergies/Hayfever N Kidney Problems N Thyroid Problems N GI Problems N ADD/ADHD N Anemia N Mental Illness N Psychiatric Illness N Diabetes N Ovarian Cancer N Pulmonary (TB, Asthma) N Seizures/Epilepsy N Congestive Heart Failure (CHF) N Hyperlipidemia N Eczema N Abuse/Domestic Violence N Diverticulitis N Depression/ depression N Heart Disease N Pre-Eclampsia N Hypertension N Osteoporosis Y Gynecological History Statement/Question Response Abnormal Pap N Date of Last Mammogram 11/23/2014 On BCP's at Conception? N STIs/STDs N HPV Vaccine N Most Recent Mammogram 11/23/2014 Age at Menarche 15 Age at First Child 16 If Post Menopausal, Age at Menopause 47 Most Recent Bone Density 11/23/2016 Sexually Active? Y Menses Monthly N Date of Last Pap Smear 04/21/2020 Sexual Problems? N Obstetrics History GPAL:G 2 P 2 0 0 2 Type Value Full Term 2 Living 2 Total 2 Immunizations Vaccine Type Date Status Note Provider Nam e and Address Organization Details Recorded Time Influenza, split virus, quadrivalent, preservative 6 completed Crys wagner [place] [facility], 05/13/2017 09:31:55 Past Encounters Encounter ID Performer Location Encounter Start Date Encounter Closed Date Diagnosis/Indication Diagnosis SNOMED-CT Code Diagnosis ICD10 Code Diagnosis Note [id number] Noé Torres DO Main Office [address] [place] [address] 05/13/2017 08:50:30 05/13/2017 13:09:36 Atrophic vaginitis 29090786 N95.2 Gynecologi c examination 31361926 Z01.411 Screening for malignant neoplasm of colon 750619851 Z12.11 Screening mammography 24 730281 Z12.31 Osteopenia 391662532 M85 .80 Dyspareunia 80269805 N94 .10 [id number] Noé Torres DO Main Office [address] [place] [address] 04/21/2020 08:31:51 04/21/2020 11:12:43 Gynecologic examination 80094897 Z01.411 pap. given phone number to schedule mammogram. will order cologuard Atrophic vaginitis 73240 000 N95.2 controlled Menopausal symptom 70231 002 N95.1 Health Concerns Section Related Observation LastModified by Organization Detai ls LastModified Time None Recorded Concern Status LastModified by Organization Details LastModified Time None Recorded Advance Directives Directive N: Payers Insurance Date Sequence Insurance Name Policy Number Policy Charles Covered Member ID Charles Member ID Guarantor Name 04/21/2020 1 [place] [id number] Brittany Hayes [id number] 23 04/21/2020 1 [employer] (PPO) [id number] Brittany [place] [id number] OBGyn Episode Ob Episode Information Episode Created Date Number of Fetuses Patient Bloodtype Patient rh Status Prepregnancy Weight lbs Domestic Partner Domestic Partner Phone Father Name Remote Advisor Status 05/13/20 17 1 CLOSED Fetus Data First Name Last Name Admitted to NICU Weight (g) Sex Living Outcome Pediatric Complications Fetus ID Race Codes Race Delivery Type F Full Term 743 vaginal Willis Calculation Initial Willis Date Initial Exam Date Initial Exam Provider Initial Ultrasound Date Last Menstrual Period Date Ultra Sound Weeks Gestation 0 Eighteen To Twenty Week Willis Update Ultra Sound Date Fundal Height At Umbil Quickening Date Ultra Sound Latest Weeks Gestation Final Willis Confirmed By Final Willis Confirmed Date Final Willis Date Ultra Sound Latest Days Gestation 0 0 Menstrual History Last Menstrual Date Menses Monthly On Bcp Conception Prior Menses Frequency Hcg Plus Date Menarche Onset Age Delivery Information Delivery Date Delivery Type Labor Anesthesia Weeks Gestation Incision Type Labor Labor Length Hrs Delivered By Post Complications Tubal Sterilization Discharge Date Comments 7 Discharge Information Feeding Method Contraceptive Method Maternal HG B and HCT Levels Ob Episode Information Episode Created Date Number of Fetuses Patient Bloodtype Patient rh Status Prepregnancy Weight lbs Domestic Partner Domestic Partner Phone Father Name Remote Advisor Status 05/13/20 17 1 CLOSED Fetus Data First Name Last Name Admitted to NICU Weight (g) Sex Living Outcome Pediatric Complications Fetus ID Race Codes Race Delivery Type M Full Term 744 vaginal Willis Calculation Initial Willis Date Initial Exam Date Initial Exam Provider Initial Ultrasound Date Last Menstrual Period Date Ultra Sound Weeks Gestation 0 Eighteen To Twenty Week Willis Update Ultra Sound Date Fundal Height At Umbil Quickening Date Ultra Sound Latest Weeks Gestation Final Willis Confirmed By Final Willis Confirmed Date Final Willis Date Ultra Sound Latest Days Gestation 0 0 Menstrual History Last Menstrual Date Menses Monthly On Bcp Conception Prior Menses Frequency Hcg Plus Date Menarche Onset Age Delivery Information Delivery Date Delivery Type Labor Anesthesia Weeks Gestation Incision Type Labor Labor Length Hrs Delivered By Post Complications Tubal Sterilization Discharge Date Comments 1 Discharge Information Feeding Method Contraceptive Method Maternal HG B and HCT Levels
--- OUTSIDE RECORDS SUMMARY | 2025-04-12 12:17 | XMS_ITS | Encounter Summary ---
Author Organization Healthcare Address [address] [place] [address] Care Team Providers Care Cafeteria Clerk Name Role Phone Dima Giles MD Primary Care Provider [phone] Encounter Details Date Type Department Care Team (Late st Contact Info) Description 01/10/2025 Results Follow-Up [facility] Medicine Specialties [address] [place] [address] Alisson Zavala, [facility] [address] [place] [address] Social History Tobacco Use Types Packs/Day Years [...] any time in the past 12 m [facility], were you homeless or living in a custodial (including now)? No 11/26/2024 Utilities Answer Date [...] Description 04/13/2025 10:10 AM EDT Office Visit [facility] [address] [place] [address] Brock Chilel, TOM [address] [place] [address] 06/30/2025 9:00 AM EDT Office Visit [facility] Medicine Specialties [address] [place] [address] Alisson Zavala, TOM [address] [place] [address] documented as of this encounter Visit Diagnoses [...] documented as of this encounter Care Teams Cafeteria Clerk Relationship Specialty Start Date End Date Dima Giles MD [address] [facility] [address] [place] [address] PCP - General 01/26/21 documented as of this encounter
--- NOTE | 2025-04-12 12:18 | XR_ITS ---
FINAL REPORT CLINICAL HISTORY: PAIN IN NECK, RT UPPER ARM/RT ARM PARESTHESIA FINDINGS: RIGHT SHOULDER Three views were obtained. There is no fracture or dislocation. There is degenerative joint disease. No soft tissue abnormality is identified. IMPRESSION: No acute process. Reviewed, Interpreted and Dictated by Odessa Campbell MD Transcribed by Lisha Miller Authenticated and [facility]
--- NOTE | 2025-04-12 12:18 | XR_ITS ---
FINAL REPORT CLINICAL HISTORY: .neck pain FINDINGS: CERVICAL SPINE Six views were obtained. There is no acute fracture. The disc spaces are well-preserved. There is no malalignment. The precervical soft tissues are unremarkable. IMPRESSION: No acute process. Reviewed, Interpreted and Dictated by Odessa Campbell MD Transcribed by Lisha Miller Authenticated and [facility]
--- NOTE | 2025-04-12 12:18 | XR_ITS ---
FINAL REPORT CLINICAL HISTORY: .shoulder pain FINDINGS: LEFT SHOULDER Three views were obtained. There is no fracture or dislocation. There is degenerative joint disease. There is a nodule in the left midlung measuring 13 mm which is not calcified. No soft tissue abnormality is identified. IMPRESSION: Left mid lung nodule. Recommend chest CT. Reviewed, Interpreted and Dictated by Odessa Campbell MD Transcribed by Lisha Miller Authenticated and [facility]
== END 2025-04-12 23:59 | disposition home or self-care (01) ==
LOC: RAD 12:15
PROVIDERS: PCP Nurse Practitioner Family; Visit Provider Nurse Practitioner Family
DX: R91.1 Solitary pulmonary nodule (principal); M79.601 Pain in right arm; M54.2 Cervicalgia; R20.2 Paresthesia of skin
CPT/HCPCS: 72050; 73030

== ENCOUNTER 2025-04-21 08:45 | Outpatient (CLI) | payer MEDICARE, SELFPAY ==
--- OUTSIDE RECORDS SUMMARY | 2025-04-13 10:10 | XMS_ITS | Encounter Summary ---
Author Organization [facility] Address [address] [place] [address] Care Team Providers Care Semi Driver Name Role Phone Dima Giles MD Primary Care Provider [phone] Reason for Referral * Consultation (Routine) - Authorized Specialty Diagnoses / Procedures Referred By Contsegun t Referred To Contact Ophthalmology Diagnoses Inflammatory arthropathy High risk medication use Jane Chávez MD [address] [facility] [address] [place] [address] Phone: tel: fax: [facility] [address] [place] [address] Phone: tel: fax: Referral ID Status Reason Start Date Expiration Date Visits Requested Visits Authorized [id number] Authorized Specialty Services Required 04/13/2025 10/13/2026 1 1 Reason for Visit * Reason Comments Joint Swelling Swelling, neck hurts , jaw issues, arm hurting, Trouble sleeping due to these issues Encounter Details Date Type Department Care Team (Late st Contact Info) Description 04/13/2025 10:10 AM EDT Office Visit [facility] [address] [place] [address] Brock Chilel, MBBS [address] [place] [address] Sarcoid (Primary Dx); Positive SERINA (antinuclear antibody); [...] any time in the past 12 m [facility], were you homeless or living in a jail (including now)? No 11/26/2024 Utilities Answer Date Recorded In the past 12 months has [employer] electric, gas, oil, or water company threatened [...] file Social Connections: Unknown (06/25/2023) Received from [facility] Family and Community Support Help with Day-to-Day [...] time. 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 Grossly strength appears normal) [...] Urine: Dark Yellow Clarity, Urine: Clear Specific [place], Urine: >1.030 (H) pH, Urine: 5.5 Glucose, [...] COMMENT: See Note Rheumatoid Factor: 19 (H) Cardona/ARTS AND HUMANITIES COUNCIL DIRECTOR (ONEYDA) Ab, Ig SSA-52 (RO52) (ONEYDA) Antibody, Ig SSA-60 (RO60) (ONEYDA) Antibody, Ig ONEYDA SSB (LA) Ab: 1 IMMUNOGLOBULIN G SUBCLASS 4: 7 Double-Stranded DNA (dsDNA) Ab IgG IFA: 1:80 (H) Cyclic Citrul Peptide Antibody IgG: <5.0 Sed Rate: 79 (H) 01/12/25 08:10 Soluble Liver Antigen Antibody, Ig.6 MITOCHONDRIA M2 AB IG.3 Heagw-Vvusps-Ptiewuokv Abs, IgG by IFA: <1:20 Smooth Muscle [...] Division of Rheumatology Department of Internal Medicine [facility] Please note: This dictation was prepared using [employer] Direct voice recognition software. As a result errors may occur. While every attempt is made to correct the mistakes during dictation, errors may still exist. When identified, these director of contracts errors have been updated. [1] Past Medical [...] Grandmother Osteoporosis Maternal Grandmother Hypertension Sister Lynette cornejo Hypertension Brother Chester santacruz Cosigned by Jane Chávez MD at 04/20/2025 9:58 AM EDT Associated attestation - Jane Chávez MD - 04/20/2025 9:58 AM EDT I saw and evaluated the patient with the resident/fellow. I discussed the case with the resident/fellow and agree with the findings and plan as documented. Pmhx SVT s/p ablation 2016, OP on fosamax since 2015. Here as follow up for inflammatory arthritis.She was hisptalized in november, abdominal pain, had pancreatitis 2/d gallstones s/p cholecystectomy, she strated having painswelling in her hand and wrists . Had elevated SERINA and dsDNA 1:180 while hospitalzied. Continueds to have swelling and pain in her hands knees, wrists, shoulders and wrists. Shehas been on prednisone taper over a month, she improved. March started having symptoms again. She also has tingling and weakness. Repeat dsDNA. Cardona AB, c4, c4, inflammatory markers. Do US. Eval for sarcoid . On MSKUS she has synovitis and synovial hypertrophy. Ddx : seronegative ra, sle, sarcoid. Start hcq 400 mg daily for now, optho [...] evaluation, counseling and documentation. Jane Chávez MD. Laser Operator Division of Rheumatology Department of Internal Medicine [facility] documented in this encounter Plan of Treatment Upcoming Encounters Date Type Department Care Team (Late st Contact Info) Description 06/30/2025 9:00 AM EDT Office Visit [facility] Medicine Specialties [address] [place] [address] Alisson Zavala, [facility] [address] [phone] Scheduled Referrals Name Type Priority Associated Diagnoses [...] PM EDT 04/13/2025 12:44 PM EDT Narrative [facility] CATIA AlemanAIDAN) - 04/15/2025 8:00 PM EDT [...] other antibodies associated with SSc, including Scl-70, U3-ARTS AND HUMANITIES COUNCIL DIRECTOR, PM/Scl, or Th/To. Performed By: [facility] [address] [place] [address] Extrusion Line Operator: Tarik Ball MD, PhD CLIA Number: [id number] us Jane Chávez MD LAB BLOOD ORDERABLES Final Re sult [facility] 4-TellAIDAN) [address] [phone] * Anti-scleroderma antibody (04/13/2025 12:44 PM EDT) SCLERODERMA (SCL-70) (ONEYDA) ANTIBODY, IGG 2 0 - 40 AU/mL 04/15/2025 8:00 PM EDT [facility] LoveAIDAN) Blood Venous blood specimen / Unknown Venipuncture / Unknown 04/13/2025 12:44 PM EDT 04/13/2025 12:44 PM EDT Narrative [facility] (AIDAN) - 04/15/2025 8:00 PM EDT INTERPRETIVE INFORMATION: [...] testing for centromere, RNA polymerase III and U3-ARTS AND HUMANITIES COUNCIL DIRECTOR, PM/Scl, or Th/To antibodies. Performed By: [facility] [address] [place] [address] Extrusion Line Operator: Tarik Ball MD, PhD CLIA Number: [id number] us Jane Chávez MD LAB BLOOD ORDERABLES Final Re sult [facility] (AIDAN) [address] [place] [address] * Cyclic Citrul Peptide Antibody IgG (04/13/2025 12:44 PM EDT) Cyclic Citrul Peptide Antibody IgG <5.0 <=5.0 U/mL 04/13/2025 4:00 PM EDT [facility] Blood Venous blood specimen / Unknown Venipuncture / Unknown 04/13/2025 12:44 PM EDT 04/13/2025 12:44 PM EDT us Jane Chávez MD LAB BLOOD ORDERABLES Final Re sult [facility] [address] [place] [address] * ENAII (04/13/2025 12:44 PM EDT) SSA-52 (RO52) (ONEYDA) Antibody, IgG 4 0 - 40 AU/mL 04/15/2025 8:00 PM EDT [facility] (iSoccer) SSA-60 (RO60) (ONEYDA) Antibody, IgG 1 0 - 40 AU/mL 04/15/2025 8:00 PM EDT [facility] ([facility]) SSB (LA) (ONEYDA) Antibody, IgG 1 0 - 40 AU/mL 04/15/2025 8:00 PM EDT [facility] (iSoccer) Blood Venous blood specimen / Unknown Venipuncture / Unknown 04/13/2025 12:44 PM EDT 04/13/2025 12:44 PM EDT Narrative [facility] (iSoccer) - 04/15/2025 8:00 PM EDT INTERPRETIVE INFORMATION: [...] (PSS) also have this antibody. Performed By: [facility] [address] [place] [address] Extrusion Line Operator: Tarik Ball MD, PhD CLIA Number: [id number] Jane Chávez MD LAB BLOOD ORDERABLES Final Re sult [facility] (iSoccer) [address] [place] [address] * ENAI (04/13/2025 12:44 PM EDT) Cardona/ARTS AND HUMANITIES COUNCIL DIRECTOR (ONEYDA) Ab, IgG 13 0 - 19 Units 04/15/2025 4:55 AM EDT [facility] (iSoccer) Blood Venous blood specimen / Unknown Venipuncture / Unknown 04/13/2025 12:44 PM EDT 04/13/2025 12:44 PM EDT Narrative [facility] (iSoccer) - 04/15/2025 4:55 AM EDT INTERPRETIVE INFORMATION: Cardona/ARTS AND HUMANITIES COUNCIL DIRECTOR (ONEYDA) Antibody, IgG 19 Units or Less ............. Negative 20 to 39 Units ............... Weak Positive 40 to 80 Units ............... Moderate Positive 81 Units or greater .......... Strong Positive Cardona/ARTS AND HUMANITIES COUNCIL DIRECTOR antibodies are frequently seen in patients with mixed connective tissue disease (MCTD) and are also associated with other systemic autoimmune rheumatic diseases (SARDs) such as systemic lupus erythematosus (SLE), systemic sclerosis, and myositis. Antibodies targeting the Cardona/ARTS AND HUMANITIES COUNCIL DIRECTOR antigenic complex also recognize Cardona antigens, therefore, the Cardona antibody response must be considered when interpreting these results. Performed By: [facility] [address] [place] [address] Extrusion Line Operator: Tarik Ball MD, PhD CLIA Number: [id number] us Jane Chávez MD LAB BLOOD ORDERABLES Final Re sult [facility] 4-TellAIDAN) [address] [place] [address] * (ABNORMAL) Anti-DNA antibody, double-stranded (04/13/2025 12:44 PM EDT) Double-Strande d DNA (dsDNA) Ab IgG IFA 1:80(H) <1:10 04/15/2025 10:47 AM EDT [facility]per (AIDAN) Blood Venous blood specimen / Unknown Venipuncture / Unknown 04/13/2025 12:44 PM EDT 04/13/2025 12:44 PM EDT Narrative [facility] DIONNE) - 04/15/2025 10:47 AM EDT INTERPRETIVE [...] recommendations for testing may be found at [email or web address]. Performed By: [facility] [address] [place] [address] Extrusion Line Operator: Tarik Ball MD, PhD CLIA Number: [id number] Jane Chávez MD LAB BLOOD ORDERABLES Final Re sult Performing Organization Address City/[facility]/ZIP Co de Phone Number [facility] (AIDAN) [address] [place] [address] * (ABNORMAL) C-reactive protein (04/13/2025 12:44 PM EDT) CRP, Plasma 44.2(H) <=8.0 mg/L 04/13/2025 3:06 PM EDT [facility] Blood Venous blood specimen / Unknown Venipuncture / Unknown 04/13/2025 12:44 PM EDT 04/13/2025 12:44 PM EDT Narrative [facility] - 04/13/2025 3:06 PM EDT This CRP test is appropriate for assessment of infection, systemic inflammation and/or tissue injury. To assess cardiovascular disease risk order high sensitivity CRP (CRPH). us Jane Chávez MD LAB BLOOD ORDERABLES Final Re sult Performing Organization Address [facility]/ZIP Co de Phone Number [facility] [address] [place] [address] * (ABNORMAL) Sedimentation Rate, Automated (04/13/2025 12:44 PM EDT) Sedimentation Rate 31(H) <30 mm/hr 2024 3:23 PM EDT [facility] Blood Venous blood specimen / Unknown Venipuncture / Unknown 04/13/2025 12:44 PM EDT 04/13/2025 12:44 PM EDT us Jane Chávez MD LAB BLOOD ORDERABLES Final Re sult Performing Organization Address City/[facility]/ZIP Co de Phone Number [facility] [address] [place] [address] * Comprehensive metabolic panel (04/13/2025 12:44 PM EDT) Glucose, Plasma 90 74 - 99 mg/dL 04/13/2025 3:06 PM EDT [facility] BUN, Plasma 19 8 - 23 mg/dL 04/13/2025 3:06 PM EDT [facility] Creatinine, Plasma 0.60 0.60 - 1.10 mg/dL 04/13/2025 3:06 PM EDT [facility] BUN/Creatinine Ratio 32 04/13/2025 3:06 PM EDT [facility] Sodium, Plasma 141 136 - 145 mmol/L 04/13/2025 3:06 PM EDT [facility] Potassium, Plasma 4.3 3.6 - 4.9 mmol/L 04/13/2025 3:06 PM EDT [facility] Chloride, Plasma 105 97 - 107 mmol/L 04/13/2025 3:06 PM EDT [facility] CO2, Plasma 25 22 - 29 mmol/L 04/13/2025 3:06 PM EDT [facility] Anion Gap 11 6 - 16 mmol/L 04/13/2025 3:06 PM EDT [facility] Total Calcium, Plasma 8.9 8.9 - 10.2 mg/dL 04/13/2025 3:06 PM EDT [facility] Total Protein 6.9 6.3 - 7.9 g/dL 04/13/2025 3:06 PM EDT [facility] Albumin, Plasma 3.8 3.5 - 5.2 g/dL 04/13/2025 3:06 PM EDT [facility] AST, Plasma 28 10 - 35 U/L 04/13/2025 3:06 PM EDT [facility] ALT, Plasma 27 10 - 35 U/L 04/13/2025 3:06 PM EDT [facility] Alkaline Phosphatase, Plasma 109 46 - 142 U/L 04/13/2025 3:06 PM EDT [facility] Total Bilirubin, Plasma 0.2 0.2 - 1.1 mg/dL 04/13/2025 3:06 PM EDT [facility] eGFRcr 99.8 mL/min/1.7 3m*2 04/13/2025 3:06 PM EDT [facility] Comment:Reported eGFRcr in m L/min/1.73m2 is based the CKD-EPI 2020 equation that does not use a race coefficient. Blood Venous blood specimen / Unknown Venipuncture / Unknown 04/13/2025 12:44 PM EDT 04/13/2025 12:44 PM EDT us Jane Chávez MD LAB BLOOD ORDERABLES Final Re sult [facility] [address] [place] [address] * (ABNORMAL) CBC and differential (04/13/2025 12:44 PM EDT) WBC Count 4.12 3.70 - 10.30 10*3/uL LAB HEMATOLOGY METHOD 04/13/2025 3:04 PM EDT [facility] RBC Count 4.38 3.90 - 5.20 10*6/uL LAB HEMATOLOGY METHOD 04/13/2025 3:04 PM EDT [facility] HGB 13.0 11.2 - 15.7 g/dL LAB HEMATOLOGY METHOD 04/13/2025 3:04 PM EDT [facility] HCT 39.6 34.0 - 45.0 % LAB HEMATOLOGY METHOD 04/13/2025 3:04 PM EDT [facility] Platelet Count 329 155 - 369 10*3/uL LAB HEMATOLOGY METHOD 04/13/2025 3:04 PM EDT [facility] MCV 90 79 - 98 fL LAB HEMATOLOGY METHOD 04/13/2025 3:04 PM EDT [facility] MCH 29.7 26.0 - 32.0 pg LAB HEMATOLOGY METHOD 04/13/2025 3:04 PM EDT [facility] MCHC 32.8 30.7 - 35.5 g/dL LAB HEMATOLOGY METHOD 04/13/2025 3:04 PM EDT [facility] RDW 15.7(H) 11.5 - 14.5 % LAB HEMATOLOGY METHOD 04/13/2025 3:04 PM EDT [facility] MPV 10.6 8.8 - 12.5 fL LAB HEMATOLOGY METHOD 04/13/2025 3:04 PM EDT [facility] nRBC 0.0 <=0.0 per 100 WBCs LAB HEMATOLOGY METHOD 04/13/2025 3:04 PM EDT [facility] Differential Type Automated LAB HEMATOLOGY METHOD 04/13/2025 3:04 PM EDT [facility] Neutrophils % 64 % LAB HEMATOLOGY METHOD 04/13/2025 3:04 PM EDT [facility] Lymphocytes % 24 % LAB HEMATOLOGY METHOD 04/13/2025 3:04 PM EDT [facility] Monocytes % 10 % LAB HEMATOLOGY METHOD 04/13/2025 3:04 PM EDT [facility] Eosinophils % 0 % LAB HEMATOLOGY METHOD 04/13/2025 3:04 PM EDT [facility] Basophils % 1 % LAB HEMATOLOGY METHOD 04/13/2025 3:04 PM EDT [facility] Immature Granulocytes % 1 % LAB HEMATOLOGY METHOD 04/13/2025 3:04 PM EDT [facility] Neutrophils Absolute 2.67 1.60 - 6.10 10*3/uL LAB HEMATOLOGY METHOD 04/13/2025 3:04 PM EDT [facility] Lymphocytes Absolute 1.00(L) 1.20 - 3.90 10*3/uL LAB HEMATOLOGY METHOD 04/13/2025 3:04 PM EDT [facility] Monocytes Absolute 0.39 0.30 - 0.90 10*3/uL LAB HEMATOLOGY METHOD 04/13/2025 3:04 PM EDT [facility] Eosinophils Absolute 0.01 0.00 - 0.50 10*3/uL LAB HEMATOLOGY METHOD 04/13/2025 3:04 PM EDT [facility] Basophils Absolute 0.02 0.00 - 0.10 10*3/uL LAB HEMATOLOGY METHOD 04/13/2025 3:04 PM EDT [facility] Immature Granulocytes Absolute 0.03 0.00 - 0.06 10*3/uL LAB HEMATOLOGY METHOD 04/13/2025 3:04 PM EDT [facility] Blood Venous blood specimen / Unknown Venipuncture / Unknown 04/13/2025 12:44 PM EDT 04/13/2025 12:44 PM EDT [facility] - 04/13/2025 3:04 PM EDT Therapeutic decision making should be based on absolute values, rather than percentages. us Jane Chávez MD LAB BLOOD ORDERABLES Final Re sult Performing Organization Address [facility]/[place] [address] * (ABNORMAL) Rheumatoid Factor, Plasma (04/13/2025 12:44 PM EDT) Rheumatoid Factor, Plasma 20(H) <14 IU/mL 04/13/2025 3:06 PM EDT [facility] Blood Venous blood specimen / Unknown Venipuncture / Unknown 04/13/2025 12:44 PM EDT 04/13/2025 12:44 PM EDT us Jane Chávez MD LAB BLOOD ORDERABLES Final Re sult Performing Organization Address [facility] [place] [address] * C4 complement (04/13/2025 12:44 PM EDT) C4 Complement 17 13 - 36 mg/dL 04/13/2025 3:14 PM EDT [facility] Blood Venous blood specimen / Unknown Venipuncture / Unknown 04/13/2025 12:44 PM EDT 04/13/2025 12:44 PM EDT us Jane Chávez MD LAB BLOOD ORDERABLES Final Re sult Performing Organization Address [facility] Co de Phone Number [facility] [address] [place] [address] * C3 complement (04/13/2025 12:44 PM EDT) C3 Complement 142 84 - 166 mg/dL 04/13/2025 3:14 PM EDT [facility] Blood Venous blood specimen / Unknown Venipuncture / Unknown 04/13/2025 12:44 PM EDT 04/13/2025 12:44 PM EDT us Jane Chávez MD LAB BLOOD ORDERABLES Final Re sult [facility] [address] [place] [address] * (ABNORMAL) ANTI NUCLEAR AB (04/13/2025 12:44 PM EDT) SERINA INTERPRETIVE COMMENT See Note 04/16/2025 2:58 PM EDT [facility] (iSoccer) Anti Nuc Ab Screen Detected( H) <1:80 04/16/2025 2:58 PM EDT [facility] ([facility]) Blood Venous blood specimen / Unknown Venipuncture / Unknown 04/13/2025 12:44 PM EDT 04/13/2025 12:44 PM EDT Narrative [facility] ([facility]) - 04/16/2025 2:58 PM EDT Clinical Interpretation: [...] not necessarily rule out SARD. Performed By: [facility] [address] [place] [address] Extrusion Line Operator: Tarik Ball MD, PhD CLIA Number: [id number] us Jane Chávez MD LAB BLOOD ORDERABLES Final Re sult [facility] (BEAKER) [address] [place] [place] [address] * XR Chest 2 Views (04/13/2025 12:37 [...] Denisse Elias MD on 04/13/2025 12:44 PM Jane Chávez MD IMG XR PROCEDURES Final [...] documented as of this encounter Care Teams Semi Driver Relationship Specialty Start Date End Date Dima Giles MD [address] [place] [address] PCP - General 01/26/21 documented as of this encounter
--- OUTSIDE RECORDS SUMMARY | 2025-04-13 12:15 | XMS_ITS | Encounter Summary ---
Author Organization Healthcare Address [address] [place] [address] Care Team Providers Care Administrative Support Assistant Name Role Phone Dima Giles MD Primary Care Provider [phone] Encounter Details Date Type Department Care Team (Latest Contact Info) Description 04/13/2025 12:15 PM EDT - 04/13/2025 11:59 PM EDT Hospital Encounter [place] [facility] [address], [address] [place] [phone] Sarcoid Discharge Disposition: Home or Self Care [...] time in the past 12 m [facility], were you homeless or living in a detention (including now)? No 11/26/2024 Utilities Answer Date [...] powder Take 17 g by mouth daily. predniSONE (Deltasone) 10 MG tablet Take 2 tablets by mouth daily for 5 days, THEN 1 tablet daily for 5 days. 15 tablet 04/13/2025 senna-docusate (Maddie-Colace) 8.6-50 MG tablet Take 1 tablet by mouth in the morning and 1 tablet before bedtime. 20 tablet 11/29/2024 documented as of this encounter Plan of Treatment Upcoming Encounters Date Type Department Care Team (Late st Contact Info) Description 06/30/2025 9:00 AM EDT Office Visit [facility] Medicine Specialties [address] [place] [address] Alisson Zavala, TOM [address] [place] [phone] documented as of this encounter Procedures Procedure [...] documented as of this encounter Care Teams Administrative Support Assistant Relationship Specialty Start Date End Date Dima Giles MD [address] [place] [address] PCP - General 01/26/21 documented as of this encounter
--- OUTSIDE RECORDS SUMMARY | 2025-04-21 08:51 | XMS_ITS | Encounter Summary ---
Author Organization Healthcare Address [address] [place] [address] Care Team Providers Care Advertising Sales Associate Name Role Phone Dima Giles MD Primary Care Provider Reason for Visit * Reason Comments Med Refill Encounter Details Date Type Department Care Team (Late st Contact Info) Description 07/10/2021 Refill [facility] [address] [place] [address] Tarik Early MD [address] [address] Social History Tobacco Use Types [...] Description 06/30/2025 9:00 AM EDT Office Visit [facility]ties [address], [address]nd [place] [address] Alisson Zavala, TOM [address] [place] [address] documented as of this encounter Visit Diagnoses Not on filedocumented in this encounter Care Teams Advertising Sales Associate Relationship Specialty Start Date End Date Dima Giles MD [address] [place], [place] [address] PCP - General 01/26/21 documented as of this encounter
--- OUTSIDE RECORDS SUMMARY | 2025-04-21 08:51 | XMS_ITS | Clinical Summary ---
Author Organization [facility] Address [address] [place] [address] Care Team Providers Care Youth Pastor Name Role Phone Dima Giles MD Primary Care Provider [phone] Allergies Active Allergy Reactions Criticality Noted Date [...] C SCREENING Completed 11/25/2024 [place] [address] [facility] PPO Member Subscriber Plan / Payer (Ef fective 2019-Present) Name:Brittany Hayes Relation to Subscriber:Self Name:Brittany Hayes Payer ID:[id number] (IC) Type:Not on file Address: [facility] [id number] [place] [id number] Care Teams Youth Pastor Relationship Specialty Start Date End Date Dima Giles MD [address] [facility] [address] [place] [address] PCP - General Adolescent Medicine 05/13/16
--- OUTSIDE RECORDS SUMMARY | 2025-04-21 08:51 | XMS_ITS | Encounter Summary ---
Author Organization Healthcare Address [address] [place] [address] Care Team Providers Care Pulping Machine Operator Name Role Phone Dima Giles MD Primary Care Provider [phone] Encounter Details Date Type Department Care Team (Late st Contact Info) Description 04/18/2025 Results Follow-Up [facility] Medicine Specialties [address], 2nd [place] [phone] Brock Chilel, TOM [address] [place] [address] Social History Tobacco Use Types Packs/Day Years [...] any time in the past 12 m [facility], were you homeless or living [...] Description 06/30/2025 9:00 AM EDT Office Visit [facility] Medicine Specialties [address], [address] [place] [address] Alisson Zavala, TOM [address] [place] [address] documented as of this encounter [...] documented as of this encounter Care Teams Pulping Machine Operator Relationship Specialty Start Date End Date Dima Giles MD [address] [place] [address] PCP - General 01/26/21 documented as of this encounter
--- OUTSIDE RECORDS SUMMARY | 2025-04-21 08:51 | XMS_ITS | Encounter Summary ---
Author Organization Healthcare Address [address] [place] [address] Care Team Providers Care French Folder Name Role Phone Dima Giles MD Primary Care Provider [phone] Encounter Details Date Type Department Care Team (Late st Contact Info) Description 01/17/2025 Results Follow-Up [facility] Medicine Specialties [address], [address]nd [place] [address] Alisson Zavala, TOM [address] [place] [id number] Social History Tobacco Use Types Packs/Day Years [...] time in the past 12 m [facility], were you homeless [...] Description 06/30/2025 9:00 AM EDT Office Visit [facility] Medicine Specialties [address], [address] [place] [address] Alisson Zavala, TOM [address] [place] [address] documented as of this encounter Visit Diagnoses [...] documented as of this encounter Care Teams French Folder Relationship Specialty Start Date End Date Dima Giles MD [address] [place] [address] PCP - General 01/26/21 documented as of this encounter
--- OUTSIDE RECORDS SUMMARY | 2025-04-21 08:51 | XMS_ITS | Encounter Summary ---
Author Organization Healthcare Address [address] [place] [id number] Care Team Providers Care Nicker And Breaker Name Role Phone Dima Giles MD Primary Care Provider [phone] Encounter Details Date Type Department Care Team (Late st Contact Info) Description 04/11/2025 Telephone [facility] Specialties [address], [address] [place] [address] Alisson Zavala, [place] [id number] Social History Tobacco Use Types Packs/Day Years [...] Ioana Alcantar documented as of this encounter Miscellaneous Notes * Telephone Encounter - Phuong Og - 04/11/2025 10:59 AM EDT Clinical Concern/Question Reason for Call: Pt has increase in symptoms, asking for sooner apt. Please call. Best contact number: [phone] (mobile) Optimal time of day to reach [...] Description 06/30/2025 9:00 AM EDT Office Visit [facility] Medicine Specialties [address], [address] [place] [address] Alisson Zavala, MBBS [address] [place] [address] documented as of this encounter [...] documented as of this encounter Care Teams Nicker And Breaker Relationship Specialty Start Date End Date Dima Giles MD [address] [place] [id number] PCP - General 01/26/21 documented as of this encounter
--- OUTSIDE RECORDS SUMMARY | 2025-04-21 08:51 | XMS_ITS | Encounter Summary ---
Author Organization Healthcare Address [address] [place] [address] Care Team Providers Care Manager Information Name Role Phone Dima Giles MD Primary Care Provider [phone] Encounter Details Date Type Department Care Team ([facility] st Contact Info) Description 04/13/2025 Orders Only External Location [address] [place] [address] Provider, External Social History Tobacco Use Types Packs/Day Years [...] any time in the past 12 m [facility], were you homeless or living in [...] television Not at all 04/13/2025 10:03 AM EDT Ioana Rubio Moving or speaking so slowly that other people could have noticed? Or the opposite - being so fidgety or restless that you have been moving around a lot more than usual. Not at all 04/13/2025 10:03 AM EDT Ioana Rubio Thoughts that you would be better off or hurting yourself in some way Not at all 04/13/2025 10:03 AM EDT Ioana Rubio Patient Health Questionnaire-9 Score 6 04/13/2025 10:03 AM EDT Ioana Rubio * If you checked off any problems [...] Ioana Cat documented as of this encounter Plan of Treatment Upcoming Encounters Date Type Department Care Team (Late st Contact Info) Description 06/30/2025 9:00 AM EDT Office Visit [facility] Medicine Specialties [address], [address]nd [place] [address] Alisson Zavala, TOM [address] [place] [address] documented as of this encounter Procedures Procedure Name Priority Date/Time Associated Diagnosis Comments POC ULTRASOUND 04/13/2025 documented in this encounter Results * POC Imaging (04/13/2025) Anatomical Region Laterality Modality Pelvis Other 04/13/2025 us External Provider IMG POINT OF CARE ULTRASOUND F inal Result documented in this encounter Visit Diagnoses Not on filedocumented [...] documented as of this encounter Care Teams Manager Information Relationship Specialty Start Date End Date Dima Giles MD [address] [place] [address] PCP - General 01/26/21 documented as of this encounter
--- OUTSIDE RECORDS SUMMARY | 2025-04-21 08:51 | XMS_ITS | Encounter Summary ---
Author Organization Healthcare Address [address] [place] [address] Care Team Providers Care Facing Cutting Machine Operator Name Role Phone Dima Giles MD Primary Care Provider [phone] Encounter Details Date Type Department Care Team (Late st Contact Info) Description 04/12/2025 Telephone [place] [facility] Medicine Specialties [address], [address] [place] [address] Ailyn Romero RN CH-VASCULAR & [...] any time in the past [address] [facility], were you homeless or living in a fdc (including now)? No 11/26/2024 Utilities Answer Date Recorded In the past 12 months has th e [employer], gas, oil, or water company threatened to [...] Description 06/30/2025 9:00 AM EDT Office Visit [facility] Medicine Specialties [address], [address] [place] [address] Alisson Zavala, TOM [address] [place] [address] documented as of this encounter [...] documented as of this encounter Care Teams Facing Cutting Machine Operator Relationship Specialty Start Date End Date Dima Giles MD [address] [place] [address] PCP - General 01/26/21 documented as of this encounter
--- OUTSIDE RECORDS SUMMARY | 2025-04-21 08:51 | XMS_ITS | Encounter Summary ---
Author Organization Healthcare Address [address] [place] [address] Care Team Providers Care Flight Operations Inspector Name Role Phone Dima Giles MD Primary Care Provider [phone] Reason for Visit * Reason Comments Med Refill Encounter Details Date Type Department Care Team (Late st Contact Info) Description 07/16/2021 Refill [facility] [address] [place] [address] Tarik Early MD [address] [address] Social History Tobacco Use Types [...] Description 06/30/2025 9:00 AM EDT Office Visit [place] [facility] Medicine Specialties [address], [address] [place] [address] Alisson Zavala, TOM [address] [place] [address] documented as of this encounter Visit Diagnoses Not on filedocumented in this encounter Care Teams Flight Operations Inspector Relationship Specialty Start Date End Date Dima Giles MD [address] [place], [place] [address] PCP - General 01/26/21 documented as of this encounter
--- OUTSIDE RECORDS SUMMARY | 2025-04-21 08:51 | XMS_ITS | Encounter Summary ---
Author Organization [facility] Address [address] [place] [address] Care Team Providers Care Director Of Land Name Role Phone Dima Giles MD Primary Care Provider [phone] Encounter Details Date Type Department Care Team (Late st Contact Info) Description 12/28/2024 Telephone [facility] Emergency Department Infusion [address] [place] [address] Milla Godfrey, PharmD Social History Tobacco Use [...] any time in the past 12 m [facility], were you homeless or living in a intermediate (including now)? No 11/26/2024 Utilities Answer Date Recorded In the past 12 months has th e [employer], gas, oil, or water company threatened to [...] Not at all 01/05/2025 7:13 AM Shirley Wrihgt Feeling down, depressed, or hopeless Not at all 01/05/2025 7:13 AM EDT Shirley Hawkins Patient Health Questionnaire -2 Score 0 01/05/2025 7:13 AM Shirley Wright * Question Answer Date of Assessment Author Trouble falling or staying asleep, or sleeping too much Not at all 01/05/2025 7:13 AM Fadia Foster Feeling tired or having little energy Several days 01/05/2025 7:13 AM EDT Shruthi, Kaitli n R Poor appetite or overeating Several days 01/05/2025 7: 13 AM EDT Fadia Hawkins Feeling bad about yourself - or that you are a failure or have let yourself or your family down Not at all 01/05/2025 7:13 AM EDT Shirley Hawkins Trouble concentrating on things, such as reading the newspaper or watching television Not at all 01/05/2025 7:13 AM EDT Shirley Hawkins Moving or speaking so slowly that other people could have noticed? Or the opposite - being so fidgety or restless that you have been moving around a lot more than usual. Not at all 01/05/2025 7:13 AM EDT Shirley Hawkins Thoughts that you would be better off or hurting yourself in some way Not at all 01/05/2025 7:13 AM EDT Barbara Hawkins R Patient Health Questionnaire-9 Score 2 01/05/2025 7:13 AM EDT Katharine Hawkins R * Calculated C-SSRS Risk Score (Lifetime/Recent) Answer [...] to receive infusion treatment at outside facility. [facility] will follow up with facility to make sure patient has been scheduled and received first dose. Specialty Medication: Prolia Filling Pharmacy/SOC: [facility] * Telephone Encounter - Milla Padilla CPhT - 03/21/2025 3:16 PM EDT Medicare B/Advantage Plan Authorization Information Specialty Medication: Prolia Diagnosis Code: M81.0 J-code/CPT code/S code: J0897 Covered by Medicare B: Yes Does the diagnosis, dose, and frequency match an FDA approved dosing schedule? Yes, list prescribeddose/frequency: every 180 days Site of Care: [facility] Does patient have an Advantage Plan? No. Will review in 12 months. * Telephone Encounter - Milla Godfrey PharmD - 12/28/2024 1:27 PM EDT [facility] has received therapy plan for medication Prolia. [facility] has contacted the patient and is initiating authorization for preferred site of care. [facility] Specialty Education Summary Patient was assessed via phone for initiation of drug therapy Prolia for diagnosis Osteoporosis. Plan for administration of therapy in infusion center and planned date of initiation: ~04/15/25. Anticipated filling pharmacy is [facility]. Education and Counseling Medication specific education [...] Description 06/30/2025 9:00 AM EDT Office Visit [place] [facility] Medicine Specialties [address], [address] [place] [address] Alisson Zavala, TOM [address] [place] [address] documented as of this encounter Visit Diagnoses Not on filedocumented in this encounter Additional Health Concerns Assessment Noted Time A fall risk assessment has been complete d for the patient 11/07/2023 11:33 AM EST A Body Mass Index follow-up plan has been documented for the patient 12/10/2024 11:39 AM EDT documented as of this encounter Care Teams Director Of Land Relationship Specialty Start Date End Date Dima Giles MD [address] [place] [address] PCP - General 01/26/21 documented as of this encounter
--- OUTSIDE RECORDS SUMMARY | 2025-04-21 08:51 | XMS_ITS | Encounter Summary ---
Author Organization [facility] Address [address] [place] [address] Care Team Providers Care Armor Reconnaissance Vehicle Crewman Name Role Phone Dima Giles MD Primary Care Provider [phone] Encounter Details Date Type Department Care Team (Latest Contact Info) Description 04/13/2025 Travel Social History Tobacco Use Types Packs/Day Years [...] any time in the past 12 m [facility], were you homeless or living in [...] Author Somewhat difficult 04/13/2025 10:03 AM EDT oIana Cat documented as of this encounter Plan of Treatment Upcoming Encounters Date Type Department Care Team (Late st Contact Info) Description 06/30/2025 9:00 AM EDT Office Visit [facility] Medicine Specialties [address], [address]nd [place] [address] Alisson Zavala, TOM [address] [place] [address] documented as of this encounter Visit Diagnoses [...] documented as of this encounter Care Teams Armor Reconnaissance Vehicle Crewman Relationship Specialty Start Date End Date Dima Giles MD [address] [place] [address] PCP - General 01/26/21 documented as of this encounter
--- OUTSIDE RECORDS SUMMARY | 2025-04-21 08:51 | XMS_ITS | Encounter Summary ---
Author Organization Healthcare Address [address] [place] [address] Care Team Providers Care Schedule Clerk Name Role Phone Dima Giles MD Primary Care Provider [phone] Encounter Details Date Type Department Care Team (Late st Contact Info) Description 12/30/2024 Results Follow-Up [facility] Medicine Specialties [address], [address] [place] [address] Tanja Boss MD [address] [place], [place] [id number] Social History Tobacco Use Types Packs/Day Years [...] any time in the past 12 m [facility], were you homeless or living in a fci (including now)? No 11/26/2024 Utilities Answer Date [...] hopeless Not at all 01/05/2025 7:13 AM Shirley Wright Patient Health Questionnaire -2 Score 0 01/05/2025 7:13 AM MCKAYT Shirley Hawkins * Question Answer Date of Assessment Author Trouble falling or staying asleep, or sleeping too much Not at all 01/05/2025 7:13 AM Fadia Foster Feeling tired or having little energy Several days 01/05/2025 7:13 AM EDT Shirley Hawkins Poor appetite or overeating Several days 01/05/2025 [...] Suicidal Behavior (Lifetime) No 8:15 PM EDT Salazar, Félix R, RN documented as of this encounter Plan of Treatment Upcoming Encounters Date Type Department Care Team (Late st Contact Info) Description 06/30/2025 9:00 AM EDT Office Visit [facility] Medicine Specialties [address], [address] [place] [address] Alisson Zavala, TOM [address] [place] [address] documented as of this encounter Visit Diagnoses Not on filedocumented in this encounter Additional Health Concerns Assessment Noted Time A fall risk assessment has been complete d for the patient 12/30/2024 9:45 AM EDT A Body Mass Index follow-up plan has been documented for the patient 01/04/2025 2:50 PM EDT documented as of this encounter Care Teams Schedule Clerk Relationship Specialty Start Date End Date Dima Giles MD [address] [place] [address] PCP - General 01/26/21 documented as of this encounter
--- OUTSIDE RECORDS SUMMARY | 2025-04-21 08:51 | XMS_ITS | Clinical Summary ---
Author Organization [facility] Address [address] [place] [address] Care Team Providers Care Sorting Machine Operator Name Role Phone Dima Giles MD Primary Care Provider [phone] Allergies Active Allergy Reactions Criticality Noted Date [...] Active Additional Information Patient not taking.Reported on 04/13/2025 polyethylene glycol (Miralax) 17 GM/SCOOP powder Take [...] or vomiting. 20 tablet 12/15/19 25 Active Additional Information Patient not taking.Reported on 04/13/2025 fexofenadine (Candis) 60 MG tablet Take 1 tablet by mouth daily. Active predniSONE (Deltasone) 10 MG tablet Take 2 tablets by mouth daily for 5 days, THEN 1 tablet daily for 5 days. 15 tablet 04/13/20 25 025 Active hydroxychloroquine (Plaquenil) 200 MG tabletIndications: Positive SERINA (antinuclear antibody),Inflamma tory arthropathy Take 2 tablets by mouth daily. 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 Medicine Specialties [address] [place] [address] Brock Chilel MBBS Lung nodule seen on imaging study (Primary Dx) 04/18/2025 Results Follow-Up [facility] Medicine Specialties [address], [address] [place] [address] Brock Chilel MBBS 04/13/2025 12:15 PM EDT - 04/13/2025 11:59 PM EDT Hospital Encounter [facility] Radiology [address], [address] [place] [address] Sarcoid Discharge Disposition: Home or Self Care 04/13/2025 10:10 AM EDT Office Visit [facility] Medicine Specialties [address], [address] [place] [address] Brock Chilel MBBS Sarcoid (Primary Dx); Positive SERINA (antinuclear antibody); Inflammatory arthropathy; Therapeutic drug monitoring; High risk medication use; Arthralgia of both hands; Joint swelling 04/13/2025 Orders Only External Location [address] [place] [id number] Provider, External 04/13/2025 Travel 04/12/[address] [facility] Medicine Specialties [address] [place] [address] Ailyn Romero RN 04/11/[address] [facility] Medicine Specialties [address] [place] [address] Alisson Zavala MBBS from Last 3 Months Immunizations Immunization Administration [...] Comments Stroke Brother 1 Hypertension Brother 2 Chestersalina santacruz Cardiac disorder Father Hip fracture Father Osteoporosis Father Stroke Father Hip fracture Maternal Grandmother Osteoporosis Maternal Grandmother Hyperlipidemia Mother [place] santacruz Hypertension Mother [place] Osteoporosis Mother [place] Stroke Mother Paz santacruz Stroke Sister 1 [...] the past 12 months has th e [employer], gas, oil, or water [employer] threatened to shut off services in your [...] F) 04/13/2025 10:09 AM EDT Respiratory Rate 14 01/04/2025 10:27 PM EDT Oxygen Saturation 100% 04/13/2025 10:09 AM EDT Inhaled Oxygen Concentration - - Weight 75 kg (165 lb 5.5 oz) 04/13/2025 10:09 AM EDT Height 167.6 cm (5' 6 ) 04/13/2025 10:09 AM EDT Body Mass Index 26.69 04/13/2025 10:09 AM EDT Plan of Treatment Upcoming Encounters Date Type Department Care Team (Late st Contact Info) Description 06/30/2025 9:00 AM EDT Office Visit [facility] Medicine Specialties [address] [place] [address] Alisson Zavala, [facility] [address] [id number] Health Maintenance Due Date Last Done Comments [facility]-Bone Density Scan 1959 [facility]-Medicare Annual Wellness (AWV) 1959 [facility]-/Child/Adol SDOH Screenings 1959 [facility]-DTaP,Tdap,and Td Vaccines (1 - Tdap) 1978 [facility]-Pneumococcal Vaccine: 50+ Years (1 of 2 - PCV) 1978 [facility]-Pap Smear 1980 [facility]-Cervical Cancer Screening 1989 [facility]-HPV/Cotest 1989 CT Colonography 2004 Colonoscopy 2004 FIT 2004 FOBT 2004 Sigmoidoscopy 2004 [facility]-Breast Cancer Screening 2009 [facility]-Hepatitis A Vaccines (2 of 2 - Risk 2-dose series) 07/07/2019 01/05/2019 [id number] Vaccine (8 - Pfizer risk season) 2025 07/10/2024, 05/31/2023, 07/14/2022, Additional history exists [facility]-Influenza Vaccine (#1) 05/16/202506/23, 06/02/2023, 06/06/2022, Additional history exists [facility]- SDOH Screenings 05/29/2025 [facility]-Adult SDOH Screenings 05/29/2025 11/26/2024 [facility]-Depression Screening 04/13/2026 04/13/2025, 03/17 FIT-DNA 05/05/2027 05/05/2024 [facility]-Colorectal Cancer Screening 05/05/2027 [facility]-Zoster Vaccines Completed 05/21/2019, 9 [facility]-RSV Vaccine: 60+ Years or Completed 06/02/2023 [facility]-Hepatitis C Screening Completed 01/05/2025, [facility]-Obesity Intervention Completed 025, 01/05/2025, 12/30/2024, Additional history exists HPV Vaccines Aged Out [...] Procedure Name Priority Date/Time Associated Diagnosis Comments SERINA SINGLE PATTERN (REFLEX ONLY) (SO) Routine 04/13/2025 12:44 PM EDT Sarcoid Positive SERINA (antinuclear antibody) ANTINUCLEAR ANTIBODY (SERINA) WITH HEP-2 SUBSTRATE, IGG BY IFA (SO) Routine 04/13/2025 12:44 PM EDT Sarcoid Positive SERINA (antinuclear antibody) C3 COMPLEMENT Routine 04/13/2025 12:44 PM EDT Sarcoid Positive SERINA (antinuclear antibody) C4 COMPLEMENT Routine 04/13/2025 12:44 PM EDT Sarcoid Positive SERINA (antinuclear antibody) RHEUMATOID FACTOR, PLASMA Routine 04/13/2025 12:44 PM EDT Sarcoid Positive SERINA (antinuclear antibody) CBC WITH AUTO DIFFERENTIAL Routine 04/13/2025 12:44 PM EDT Sarcoid Positive SERINA (antinuclear antibody) COMPREHENSIVE METABOLIC PANEL, PLASMA Routine 04/13/2025 12:44 PM EDT Sarcoid Positive SERINA (antinuclear antibody) SEDIMENTATION RATE, AUTOMATED Routine 04/13/2025 12:44 PM EDT Sarcoid Positive SERINA (antinuclear antibody) C-REACTIVE PROTEIN, PLASMA Routine 04/13/2025 12:44 PM EDT Sarcoid Positive SERINA (antinuclear antibody) DOUBLE-STRANDED DNA (DSDNA) ANTIBODY, IGG BY IFA (SO) Routine 04/13/2025 12:44 PM EDT Sarcoid Positive SERINA (antinuclear antibody) CARDONA/CHEMICAL RADIATION TECHNICIAN (ONEYDA) ANTIBODY, IGG (SO) Routine 04/13/2025 12:44 PM EDT Sarcoid Positive SERINA (antinuclear antibody) EXTRACTABLE NUCLEAR ANTIGEN ANTIBODIES (SSA 52, SSA 60, AND SSB) (SO) Routine 04/13/2025 12:44 PM EDT Sarcoid Positive SERINA (antinuclear antibody) CYCLIC CITRUL PEPTIDE ANTIBODY IGG Routine 04/13/2025 12:44 PM EDT Sarcoid Positive SERINA (antinuclear antibody) SCLERODERMA (SCL-70) (ONEYDA) ANTIBODY, IGG (SO) Routine 04/13/2025 12:44 PM EDT Positive SERINA (antinuclear antibody) Inflammatory arthropathy CENTROMERE ANTIBODY, IGG (SO) Routine 04/13/2025 12:44 PM EDT Positive SERINA (antinuclear antibody) Inflammatory arthropathy XR CHEST 2 VIEWS Routine 04/13/2025 12:3 7 PM EDT Sarcoid POC ULTRASOUND 04/13/2025 HEPATITIS C ANTIBODY W/REFLEX TO HCV QUANT PCR Routine 01/05/2025 9:00 AM EDT Inflammatory arthritis from Last 3 Months or Most Recently Relevant to Health Maintenance Results * Centromere Antibody, IgG (04/13/2025 12:44 PM EDT) Centromere Ab, IgG 2 0 - 40 AU/mL 04/15/2025 8:00 PM EDT [employer] ([facility]) Blood Venous blood specimen / Unknown Venipuncture / Unknown 04/13/2025 12:44 PM EDT 04/13/2025 12:44 PM EDT Narrative [employer] [facility]) - 04/15/2025 8:00 PM EDT INTERPRETIVE INFORMATION: [...] other antibodies associated with SSc, including Scl-70, U3-CHEMICAL RADIATION TECHNICIAN, PM/Scl, or Th/To. Performed By: [employer] [address] [place] [id number] Graduating Machine Operator: Tarik Ball MD, PhD CLIA Number: [id number] us Jane Chávez MD LAB BLOOD ORDERABLES Final Re sult Performing Organization Address [facility] de Phone Number [facility] ([facility]) [address] [place] [address] * (ABNORMAL) SERINA Single Pattern (Reflex only) (04/13/2025 12:44 PM EDT) SERINA Pattern Homogeneou s(A) 04/16/2025 2:58 PM EDT [facility] ([facility]) SERINA Titer 1:320(A) 04/16/2025 2:58 PM EDT [facility] ([employer]) Blood Venous blood specimen / Unknown Venipuncture / Unknown 04/13/2025 12:44 PM EDT 04/13/2025 12:44 PM EDT Narrative [facility] ([facility]) - 04/16/2025 2:58 PM EDT Performed By: [employer] [address] [place] [address] Graduating Machine Operator: Tarik Ball MD, PhD CLIA Number: [id number] us Jane Chávez MD LAB BLOOD ORDERABLES Final Re sult Performing Organization Address [facility] de Phone Number [facility] ([facility]) [address] [place] [address] * ENAII (04/13/2025 12:44 PM EDT) SSA-52 (RO52) (ONEYDA) Antibody, IgG 4 0 - 40 AU/mL 04/15/2025 8:00 PM EDT [facility] ([employer]) SSA-60 (RO60) (ONEYDA) Antibody, IgG 1 0 - 40 AU/mL 04/15/2025 8:00 PM EDT [facility] ([email or web address]) SSB (LA) (ONEYDA) Antibody, IgG 1 0 - 40 AU/mL 04/15/2025 8:00 PM EDT [facility] ([employer]) Blood Venous blood specimen / Unknown Venipuncture / Unknown 04/13/2025 12:44 PM EDT 04/13/2025 12:44 PM EDT Narrative [facility] ([facility]) - 04/15/2025 8:00 PM EDT [...] (PSS) also have this antibody. Performed By: [employer] [address] [place] [id number] Graduating Machine Operator: Tarik Ball MD, PhD CLIA Number: [id number] us Jane Chávez MD LAB BLOOD ORDERABLES Final Re sult [facility] ([facility]) [address] [place] [address] * ENAI (04/13/2025 12:44 PM EDT) Pathologist [facility] Cardona/CHEMICAL RADIATION TECHNICIAN (ONEYDA) Ab, IgG 13 0 - 19 Units 04/15/2025 4:55 AM EDT [facility] ([facility]) Blood Venous blood specimen / Unknown Venipuncture / Unknown 04/13/2025 12:44 PM EDT 04/13/2025 12:44 PM EDT Narrative [facility] ([facility]) - 04/15/2025 4:55 AM EDT INTERPRETIVE INFORMATION: Cardona/CHEMICAL RADIATION TECHNICIAN (ONEYDA) Antibody, IgG 19 Units or Less ............. Negative 20 to 39 Units ............... Weak Positive 40 to 80 Units ............... Moderate Positive 81 Units or greater .......... Strong Positive Cardona/CHEMICAL RADIATION TECHNICIAN antibodies are frequently seen in patients with mixed connective tissue disease (MCTD) and are also associated with other systemic autoimmune rheumatic diseases (SARDs) such as systemic lupus erythematosus (SLE), systemic sclerosis, and myositis. Antibodies targeting the Cardona/CHEMICAL RADIATION TECHNICIAN antigenic complex also recognize Cardona antigens, therefore, the Cardona antibody response must be considered when interpreting these results. Performed By: [employer] [address] [place], [place] [id number] Graduating Machine Operator: Tarik Ball MD, PhD CLIA Number: [id number] us Jane Chávez MD LAB BLOOD ORDERABLES Final Re sult [facility] ([facility]) [address] [place] [address] * Cyclic Citrul Peptide Antibody IgG (04/13/2025 12:44 PM EDT) Pathologist [facility] Cyclic Citrul Peptide Antibody IgG <5.0 <=5.0 U/mL 04/13/2025 4:00 PM EDT [facility] Blood Venous blood specimen / Unknown Venipuncture / Unknown 04/13/2025 12:44 PM EDT 04/13/2025 12:44 PM EDT us Jane Chávez MD LAB BLOOD ORDERABLES Final Re sult [facility] [address] [place] [address] * Anti-scleroderma antibody (04/13/2025 12:44 PM EDT) SCLERODERMA (SCL-70) (ONEYDA) ANTIBODY, IGG 2 0 - 40 AU/mL 04/15/2025 8:00 PM EDT [facility] ([employer]) Blood Venous blood specimen / Unknown Venipuncture [...] testing for centromere, RNA polymerase III and U3-CHEMICAL RADIATION TECHNICIAN, PM/Scl, or Th/To antibodies. Performed By: [employer] [address] [place] [address] Graduating Machine Operator: Tarik Ball MD, PhD CLIA Number: [id number] Jane Chávez MD LAB BLOOD ORDERABLES Final Re sult [facility]) [address] [place] [address] * (ABNORMAL) Anti-DNA antibody, double-stranded (04/13/2025 12:44 PM EDT) Double-Strande d DNA (dsDNA) Ab IgG IFA 1:80(H) <1:10 04/15/2025 10:47 AM EDT [facility]) Blood Venous blood specimen / Unknown Venipuncture / Unknown 04/13/2025 12:44 PM EDT 04/13/2025 12:44 PM EDT Narrative [facility]) - 04/15/2025 10:47 AM EDT INTERPRETIVE [...] recommendations for testing may be found at [email or web address]. Performed By: [employer] [address] [place] [address] Graduating Machine Operator: Tarik Ball MD, PhD CLIA Number: [id number] Jane Chávez MD LAB BLOOD ORDERABLES Final Re sult [facility] ([facility]) [address] [place] [address] * (ABNORMAL) Sedimentation Rate, Automated (04/13/2025 12:44 PM EDT) Sedimentation Rate 31(H) <30 mm/hr 2024 3:23 PM EDT [facility] Blood Venous blood specimen / Unknown Venipuncture / Unknown 04/13/2025 12:44 PM EDT 04/13/2025 12:44 PM EDT Jane Chávez MD LAB BLOOD ORDERABLES Final Re sult [facility] [address] [place] [address] * (ABNORMAL) CBC and differential (04/13/2025 12:44 PM EDT) WBC Count 4.12 3.70 - 10.30 10*3/uL LAB HEMATOLOGY METHOD 04/13/2025 3:04 PM EDT [facility] RBC Count 4.38 3.90 - 5.20 10*6/uL LAB HEMATOLOGY METHOD 04/13/2025 3:04 PM EDT [facility] HGB 13.0 11.2 - 15.7 g/dL LAB HEMATOLOGY METHOD 04/13/2025 3:04 PM EDT [facility] HCT 39.6 34.0 - 45.0 % LAB HEMATOLOGY METHOD 04/13/2025 3:04 PM EDT [facility] Platelet Count 329 155 - 369 10*3/uL LAB HEMATOLOGY METHOD 04/13/2025 3:04 PM EDT [facility] MCV 90 79 - 98 fL LAB HEMATOLOGY METHOD 04/13/2025 3:04 PM EDT [facility] MCH 29.7 26.0 - 32.0 pg LAB HEMATOLOGY METHOD 04/13/2025 3:04 PM EDT [facility] MCHC 32.8 30.7 - 35.5 g/dL LAB HEMATOLOGY METHOD 04/13/2025 3:04 PM EDT [facility] RDW 15.7(H) 11.5 - 14.5 % LAB HEMATOLOGY METHOD 04/13/2025 3:04 PM EDT [facility] MPV 10.6 8.8 - 12.5 fL LAB HEMATOLOGY METHOD 04/13/2025 3:04 PM EDT [facility] nRBC 0.0 <=0.0 per 100 WBCs LAB HEMATOLOGY METHOD 04/13/2025 3:04 PM EDT [facility] Differential Type Automated LAB HEMATOLOGY METHOD 04/13/2025 3:04 PM EDT [facility] Neutrophils % 64 % LAB HEMATOLOGY METHOD 04/13/2025 3:04 PM EDT [facility] Lymphocytes % 24 % LAB HEMATOLOGY METHOD 04/13/2025 3:04 PM EDT [facility] Monocytes % 10 % LAB HEMATOLOGY METHOD 04/13/2025 3:04 PM EDT [facility] Eosinophils % 0 % LAB HEMATOLOGY METHOD 04/13/2025 3:04 PM EDT [facility] Basophils % 1 % LAB HEMATOLOGY METHOD 04/13/2025 3:04 PM EDT [facility] Immature Granulocytes % 1 % LAB HEMATOLOGY METHOD 04/13/2025 3:04 PM EDT [facility] Neutrophils Absolute 2.67 1.60 - 6.10 10*3/uL LAB HEMATOLOGY METHOD 04/13/2025 3:04 PM EDT [facility] Lymphocytes Absolute 1.00(L) 1.20 - 3.90 10*3/uL LAB HEMATOLOGY METHOD 04/13/2025 3:04 PM EDT [facility] Monocytes Absolute 0.39 0.30 - 0.90 10*3/uL LAB HEMATOLOGY METHOD 04/13/2025 3:04 PM EDT [facility] Eosinophils Absolute 0.01 0.00 - 0.50 10*3/uL LAB HEMATOLOGY METHOD 04/13/2025 3:04 PM EDT [facility] Basophils Absolute 0.02 0.00 - 0.10 10*3/uL LAB HEMATOLOGY METHOD 04/13/2025 3:04 PM EDT [facility] Immature Granulocytes Absolute 0.03 0.00 - 0.06 10*3/uL LAB HEMATOLOGY METHOD 04/13/2025 3:04 PM EDT [facility] Blood Venous blood specimen / Unknown Venipuncture / Unknown 04/13/2025 12:44 PM EDT 04/13/2025 12:44 PM EDT Narrative [facility] - 04/13/2025 3:04 PM EDT Therapeutic decision making should be based on absolute values, rather than percentages. us Jane Chávez MD LAB BLOOD ORDERABLES Final Re sult Performing Organization Address City/[facility]/[place] [address] * (ABNORMAL) Rheumatoid Factor, Plasma (04/13/2025 12:44 PM EDT) Rheumatoid Factor, Plasma 20(H) <14 IU/mL 04/13/2025 3:06 PM EDT [facility] Blood Venous blood specimen / Unknown Venipuncture / Unknown 04/13/2025 12:44 PM EDT 04/13/2025 12:44 PM EDT us Jane Chávez MD LAB BLOOD ORDERABLES Final Re sult Performing Organization Address [facility] [place] [address] * C3 complement (04/13/2025 12:44 PM EDT) C3 Complement 142 84 - 166 mg/dL 04/13/2025 3:14 PM EDT [facility] Blood Venous blood specimen / Unknown Venipuncture / Unknown 04/13/2025 12:44 PM EDT 04/13/2025 12:44 PM EDT us Jane Chávez MD LAB BLOOD ORDERABLES Final Re sult Performing Organization Address City/[facility] [place] [address] * C4 complement (04/13/2025 12:44 PM EDT) C4 Complement 17 13 - 36 mg/dL 04/13/2025 3:14 PM EDT [facility] Blood Venous blood specimen / Unknown Venipuncture / Unknown 04/13/2025 12:44 PM EDT 04/13/2025 12:44 PM EDT us Jane Chávez MD LAB BLOOD ORDERABLES Final Re sult Performing Organization Address [facility] [place] [address] * (ABNORMAL) C-reactive protein (04/13/2025 12:44 PM EDT) Pathologist [facility] CRP, Plasma 44.2(H) <=8.0 mg/L 04/13/2025 3:06 PM EDT [facility] Blood Venous blood specimen / Unknown Venipuncture / Unknown 04/13/2025 12:44 PM EDT 04/13/2025 12:44 PM EDT Narrative [facility] - 04/13/2025 3:06 PM EDT This CRP test is appropriate for assessment of infection, systemic inflammation and/or tissue injury. To assess cardiovascular disease risk order high sensitivity CRP (CRPH). us Jane Chávez MD LAB BLOOD ORDERABLES Final Re sult Performing Organization Address [facility] [place] [address] * (ABNORMAL) ANTI NUCLEAR AB (04/13/2025 12:44 PM EDT) Pathologist [facility] SERINA INTERPRETIVE COMMENT See Note 04/16/2025 2:58 PM EDT [facility] ([email or web address]) Anti Nuc Ab Screen Detected( H) <1:80 04/16/2025 2:58 PM EDT [facility] ([employer]) Blood Venous blood specimen / Unknown Venipuncture / Unknown 04/13/2025 12:44 PM EDT 04/13/2025 12:44 PM EDT Narrative [facility] ([facility]) - 04/16/2025 2:58 PM EDT Clinical Interpretation: [...] not necessarily rule out SARD. Performed By: [employer] [address] [id number] Graduating Machine Operator: Tarik Ball MD, PhD CLIA Number: [id number] us Jane Chávez MD LAB BLOOD ORDERABLES Final Re sult [employer] ([facility]) [address] [place] [address] * Comprehensive metabolic panel (04/13/2025 12:44 PM EDT) [facility] Glucose, Plasma 90 74 - 99 mg/dL 04/13/2025 3:06 PM EDT [facility] BUN, Plasma 19 8 - 23 mg/dL 04/13/2025 3:06 PM EDT [facility] Creatinine, Plasma 0.60 0.60 - 1.10 mg/dL 04/13/2025 3:06 PM EDT [facility] BUN/Creatinine Ratio 32 04/13/2025 3:06 PM EDT [facility] Sodium, Plasma 141 136 - 145 mmol/L 04/13/2025 3:06 PM EDT [facility] Potassium, Plasma 4.3 3.6 - 4.9 mmol/L 04/13/2025 3:06 PM EDT [facility] Chloride, Plasma 105 97 - 107 mmol/L 04/13/2025 3:06 PM EDT [facility] CO2, Plasma 25 22 - 29 mmol/L 04/13/2025 3:06 PM EDT [facility] Anion Gap 11 6 - 16 mmol/L 04/13/2025 3:06 PM EDT [facility] Total Calcium, Plasma 8.9 8.9 - 10.2 mg/dL 04/13/2025 3:06 PM EDT [facility] Total Protein 6.9 6.3 - 7.9 g/dL 04/13/2025 3:06 PM EDT [facility] Albumin, Plasma 3.8 3.5 - 5.2 g/dL 04/13/2025 3:06 PM EDT [facility] AST, Plasma 28 10 - 35 U/L 04/13/2025 3:06 PM EDT [facility] ALT, Plasma 27 10 - 35 U/L 04/13/2025 3:06 PM EDT [facility] Alkaline Phosphatase, Plasma 109 46 - 142 U/L 04/13/2025 3:06 PM EDT [facility] Total Bilirubin, Plasma 0.2 0.2 - 1.1 mg/dL 04/13/2025 3:06 PM EDT [facility] eGFRcr 99.8 mL/min/1.7 3m*2 04/13/2025 3:06 PM EDT [facility] Comment:Reported eGFRcr in m L/min/1.73m2 is based the CKD-EPI 2021 equation that does not use a race coefficient. Blood Venous blood specimen / Unknown Venipuncture / Unknown 04/13/2025 12:44 PM EDT 04/13/2025 12:44 PM EDT us Jane Chávez MD LAB BLOOD ORDERABLES Final Re sult [facility] [address] [place] [address] * XR Chest 2 Views (04/13/2025 12:37 [...] IMG XR PROCEDURES Final Resul t * POC Imaging (04/13/2025) Anatomical Region Laterality Modality Pelvis Other 04/13/2025 us External Provider IMG POINT OF CARE ULTRASOUND F inal Result * Hepatitis C Antibody (01/05/2025 9:00 AM EDT) Hepatitis C Antibody Negative Negative 01/05/2025 11:05 AM EDT [facility] Blood Venous blood specimen / Unknown Venipuncture / Unknown 01/05/2025 9:00 AM EDT 01/05/2025 9:01 AM EDT us Adriana Mueller MD LAB BLOOD ORDERABLES Final Re sult [facility] [address] [place] [address] from Last 3 Months or Most Recently Relevant to Health Maintenance Insurance MEDICARE [facility] Advance Directives * Full Code (Latest Code Status on File) Date Activated Date Inactivated Comments 11/25/2024 11:42 AM 11/29/2024 4:20 PM Care Teams Sorting Machine Operator Relationship Specialty Start Date End Date Dima Giles MD [address] [place] [address] PCP - General 01/26/21
--- OUTSIDE RECORDS SUMMARY | 2025-04-21 08:51 | XMS_ITS | Encounter Summary ---
Author Organization Healthcare Address [address] [place] [address] Care Team Providers Care Senior Quality Engineer Name Role Phone Dima Giles MD Primary Care Provider [phone] Encounter Details Date Type Department Care Team (Late st Contact Info) Description 01/10/2025 Results Follow-Up [facility] Medicine Specialties [address], [address] [place] [address] Alisson Zavala, TOM [address] [id number] Social History Tobacco Use Types Packs/Day Years [...] any time in the past 12 m [facility], were you homeless or living in a residential (including now)? No 11/26/2024 Utilities Answer Date [...] Description 06/30/2025 9:00 AM EDT Office Visit [facility] Medicine Specialties [address] [place] [address] Alisson Zavala, TOM [address] [place] [address] documented as of this encounter Visit Diagnoses [...] documented as of this encounter Care Teams Senior Quality Engineer Relationship Specialty Start Date End Date Dima Giles MD [address] [place] [address] PCP - General 01/26/21 documented as of this encounter
--- OUTSIDE RECORDS SUMMARY | 2025-04-21 08:51 | XMS_ITS | Encounter Summary ---
Author Organization [facility] Address [address] [place] [address] Care Team Providers Care Afternoon Babysitter Name Role Phone Dima Giles MD Primary Care Provider [phone] Reason for Referral * Consultation (Routine) - Closed Specialty Diagnoses / Procedures Referred By Contac t Referred To Contact Rheumatology Diagnoses Positive SERINA (antinuclear antibody) Elevated sed rate Elevated C-reactive protein (CRP) Ioana Browne APRN [address] [address] Phone: tel: fax: Referral ID Status Reason Start Date Expiration Date V isits Requested Visits Authorized [id number] Closed Specialty Services Required 12/07/2024 06/08/2026 1 1 Encounter Details Date Type Department Care Team (Late st Contact Info) Description 12/07/2024 Community [facility] [address] [place] [address] Ioana Browne APRN [address] [address] Positive SERINA (antinuclear antibody) (Primary [...] any time in the past 12 m [facility], were you homeless or living in [...] [facility] [address] [place] [id number] Alisson Zavala, TOM [address] [place] [address] Scheduled Referrals Name Type Priority Associated Diagnoses [...] documented as of this encounter Care Teams Afternoon Babysitter Relationship Specialty Start Date End Date Dima Giles MD [address] [place] [address] PCP - General 01/26/21 documented as of this encounter
--- OUTSIDE RECORDS SUMMARY | 2025-04-21 08:51 | XMS_ITS | Encounter Summary ---
Author Organization [facility] Address [address] [place] [address] Care Team Providers Care Ibm Websphere Commerce Consultant Name Role Phone Dima Giles MD Primary Care Provider [phone] Reason for Referral * Imaging (Routine) - Pending Review Specialty Diagnoses / Procedures Referred By Contac t Referred To Contact Radiology Diagnoses Lung nodule seen on imaging study Procedures CT Chest wo IV Contrast Jane Chávez MD [address] [place] [address] Phone: tel: fax: Referral ID Status Reason Start Date Expiration Date V isits Requested Visits Authorized [id number] Pending Review 04/18/2025 10/18/2026 1 1 Encounter Details Date Type Department Care Team (Late st Contact Info) Description 04/18/2025 Orders Only [facility] Specialties [address] [place] [address] Brock Chliel, TOM [address] [place] [address] Lung nodule seen on imaging study (Primary Dx) Social History Tobacco Use Types Packs/Day Years [...] time in the past 12 m [facility], were you homeless or living in a assisted (including now)? No 11/26/2024 Utilities Answer Date Recorded In the past 12 months has th e [employer], gas, oil, or water company threatened to [...] Description 06/30/2025 9:00 AM EDT Office Visit [facility] [address] [place] [address] Alisson Zavala, MBBS [address] [place] [address] Scheduled Orders Name Type Priority Associated Diagnoses Orde r Schedule CT Chest wo IV Contrast Imaging Routine Lung nodule seen on imaging study Expected: 04/18/2025 (Approximate), Expires: 10/20/2026 documented as of this encounter Visit Diagnoses Diagnosis Lung nodule seen on imaging study- Primary documented in this encounter Additional Health Concerns Assessment Noted Time PHQ-9 Depression Total Score: 6 04/13/20 25 10:03 AM EDT A fall risk assessment has been complete d for the patient 04/13/2025 10:02 AM EDT A Body Mass Index follow-up plan has been documented for the patient 04/13/2025 12:14 PM EDT documented as of this encounter Care Teams Ibm Websphere Commerce Consultant Relationship Specialty Start Date End Date Dima Giles MD [address] [place] [address] PCP - General 01/26/21 documented as of this encounter
--- OUTSIDE RECORDS SUMMARY | 2025-04-21 08:51 | XMS_ITS | Encounter Summary ---
Author Organization Healthcare Address [address] [place] [address] Care Team Providers Care Data Warehousing Architect Name Role Phone Dima Giles MD Primary Care Provider [phone] Encounter Details Date Type Department Care Team (Latest Contact Info) Description 04/19/2025 Lab Requisition [facility] [address] [place] [address] Evangelina Tapia MD [address] [facility] [address] [place] [address] Calculus of gallbladder with chronic cholecystitis without obstruction Social History Tobacco Use Types Packs/Day Years [...] any time in the past 12 m [facility], were you homeless or living in a half-way (including now)? No 11/26/2024 Utilities Answer Date [...] Description 06/30/2025 9:00 AM EDT Office Visit [facility] Medicine Specialties [address] [place] [address] Alisson Zavala, TOM [address] [place] [address] Pending Results Name Type Priority Associated Diagnoses Date /Time Historical Surgical Pathology Addendum Pathology and Cytology Routine Calculus of gallbladder with chronic cholecystitis without obstruction 04/18/2025 documented as of this encounter Visit Diagnoses Diagnosis Calculus of gallbladder with chronic cholecystitis without obstruction documented in this encounter Additional Health Concerns Assessment Noted Time PHQ-9 Depression Total Score: 6 04/13/20 25 10:03 AM EDT A fall risk assessment has been complete d for the patient 04/13/2025 10:02 AM EDT A Body Mass Index follow-up plan has been documented for the patient 04/13/2025 12:14 PM EDT documented as of this encounter Care Teams Data Warehousing Architect Relationship Specialty Start Date End Date Dima Giles MD [address] [place] [address] PCP - General 01/26/21 documented as of this encounter
[2025-04-21 09:01] VITALS: BP 118/59; PULSE 74; RESP 18; TEMP 36.7; O2SAT 99
[2025-04-21] MEDS: DENOSUMAB 60 MG/ML SYRINGE SUBCUT (09:01)
== END 2025-04-21 09:25 | disposition home or self-care (01) ==
LOC: INF 08:46
PROVIDERS: PCP Nurse Practitioner Family; Visit Provider Nurse Practitioner
DX: M81.0 Age-related osteoporosis without current pathological fracture (principal)
CPT/HCPCS: 96372; J0897

== ENCOUNTER 2025-04-27 13:07 | Outpatient (CLI) | payer MEDICARE, SELFPAY ==
--- OUTSIDE RECORDS SUMMARY | 2025-04-13 10:10 | XMS_ITS | Encounter Summary ---
Author Organization [facility] Address [address] [place] [address] Care Team Providers Care Car Clerk Pullman Name Role Phone Dima Giles MD Primary Care Provider [phone] Reason for Referral * Consultation (Routine) - Authorized Specialty Diagnoses / Procedures Referred By Contsegun t Referred To Contact Ophthalmology Diagnoses Inflammatory arthropathy High risk medication use Jane Chávez MD [address] [facility] [address] [place] [address] Phone: tel: fax: [facility] [address] [place] [address] Phone: tel: fax: Referral ID Status Reason Start Date Expiration Date Visits Requested Visits Authorized [id number] Authorized Specialty Services Required 04/13/2025 10/13/2026 1 1 Reason for Visit * Reason Comments Joint Swelling Swelling, neck hurts , jaw issues, arm hurting, Trouble sleeping due to these issues Encounter Details Date Type Department Care Team (Late st Contact Info) Description 04/13/2025 10:10 AM EDT Office Visit [facility] [address] [place] [address] Brock Chilel, MBBS [address] [place] [address] Sarcoid (Primary Dx); Positive SERINA (antinuclear antibody); [...] in the past 12 m [facility], were you homeless or living in a chcf (including now)? No 11/26/2024 Utilities Answer Date Recorded In the past 12 months has [employer], gas, oil, or water company threatened [...] file Social Connections: Unknown (06/25/2023) Received from [facility] Family and Community Support Help with Day-to-Day [...] time. 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 Grossly strength appears normal) [...] Urine: Dark Yellow Clarity, Urine: Clear Specific [place], Urine: >1.030 (H) pH, Urine: 5.5 Glucose, [...] COMMENT: See Note Rheumatoid Factor: 19 (H) Cardona/FILM PROCESSING SHIFT SUPERVISOR (ONEYDA) Ab, Ig SSA-52 (RO52) (ONEYDA) Antibody, Ig SSA-60 (RO60) (ONEYDA) Antibody, Ig ONEYDA SSB (LA) Ab: 1 IMMUNOGLOBULIN G SUBCLASS 4: 7 Double-Stranded DNA (dsDNA) Ab IgG IFA: 1:80 (H) Cyclic Citrul Peptide Antibody IgG: <5.0 Sed Rate: 79 (H) 01/12/25 08:10 Soluble Liver Antigen Antibody, Ig.6 MITOCHONDRIA M2 AB IG.3 Rmamk-Qrsjmy-Kbrocikmc Abs, IgG by IFA: <1:20 Smooth Muscle [...] Division of Rheumatology Department of Internal Medicine [facility] Please note: This dictation was prepared using [employer] Direct voice recognition software. As a result errors may occur. While every attempt is made to correct the mistakes during dictation, errors may still exist. When identified, these infrastructure engineer errors have been updated. [1] Past Medical [...] evaluation, counseling and documentation. Jane Chávez MD. Mine Supervisor Division of Rheumatology Department of Internal Medicine [facility] documented in this encounter Plan of Treatment Upcoming Encounters Date Type Department Care Team (Late st Contact Info) Description 06/30/2025 9:00 AM EDT Office Visit [facility] Medicine Specialties [address] [place] [address] Alisson Zavala, [facility] [address] [place] [address] Scheduled Referrals Name Type Priority [...] PM EDT 04/13/2025 12:44 PM EDT Narrative [facility] CATIA AlemanAIDAN) - 04/15/2025 8:00 PM EDT [...] other antibodies associated with SSc, including Scl-70, U3-FILM PROCESSING SHIFT SUPERVISOR, PM/Scl, or Th/To. Performed By: [facility] [address] [place] [address] Central Sterile Supply Technician: Tarik Ball MD, PhD CLIA Number: [id number] us Jane Chávez MD LAB BLOOD ORDERABLES Final Re sult [facility] WatchFrogAIDAN) [address] [place], [place] [id number] * Anti-scleroderma antibody (04/13/2025 12:44 PM EDT) SCLERODERMA (SCL-70) (ONEYDA) ANTIBODY, IGG 2 0 - 40 AU/mL 04/15/2025 8:00 PM EDT [facility] (AIDAN) Blood Venous blood specimen / Unknown Venipuncture / Unknown 04/13/2025 12:44 PM EDT 04/13/2025 12:44 PM EDT Narrative [facility] LoveAIDAN) - 04/15/2025 8:00 PM EDT [...] testing for centromere, RNA polymerase III and U3-FILM PROCESSING SHIFT SUPERVISOR, PM/Scl, or Th/To antibodies. Performed By: [facility] [address] [place], [place] [id number] Central Sterile Supply Technician: Tarik Ball MD, PhD CLIA Number: [id number] us Jane Chávez MD LAB BLOOD ORDERABLES Final Re sult [facility] (AIDAN) [address] [place] [address] * Cyclic Citrul Peptide Antibody IgG (04/13/2025 12:44 PM EDT) Cyclic Citrul Peptide Antibody IgG <5.0 <=5.0 U/mL 04/13/2025 4:00 PM EDT [facility] Blood Venous blood specimen / Unknown Venipuncture / Unknown 04/13/2025 12:44 PM EDT 04/13/2025 12:44 PM EDT us Jane Chávez MD LAB BLOOD ORDERABLES Final Re sult [facility] [address] [place] [address] * ENAII (04/13/2025 12:44 PM EDT) SSA-52 (RO52) (ONEYDA) Antibody, IgG 4 0 - 40 AU/mL 04/15/2025 8:00 PM EDT [facility] (Identropy) SSA-60 (RO60) (ONEYDA) Antibody, IgG 1 0 - 40 AU/mL 04/15/2025 8:00 PM EDT [facility] ([facility]) SSB (LA) (ONEYDA) Antibody, IgG 1 0 - 40 AU/mL 04/15/2025 8:00 PM EDT [facility] ([facility]) Blood Venous blood specimen / Unknown Venipuncture [...] (PSS) also have this antibody. Performed By: [facility] [address] [place] [address] Central Sterile Supply Technician: Tarik Ball MD, PhD CLIA Number: [id number] Jane Chávez MD LAB BLOOD ORDERABLES Final Re sult [facility] ([facility]) [address] [place] [id number] * ENAI (04/13/2025 12:44 PM EDT) Cardona/FILM PROCESSING SHIFT SUPERVISOR (ONEYDA) Ab, IgG 13 0 - 19 Units 04/15/2025 4:55 AM EDT [facility] ([facility]) Blood Venous blood specimen / Unknown Venipuncture / Unknown 04/13/2025 12:44 PM EDT 04/13/2025 12:44 PM EDT Narrative [facility] ([facility]) - 04/15/2025 4:55 AM EDT INTERPRETIVE INFORMATION: Cardona/FILM PROCESSING SHIFT SUPERVISOR (ONEYDA) Antibody, IgG 19 Units or Less ............. Negative 20 to 39 Units ............... Weak Positive 40 to 80 Units ............... Moderate Positive 81 Units or greater .......... Strong Positive Cardona/FILM PROCESSING SHIFT SUPERVISOR antibodies are frequently seen in patients with mixed connective tissue disease (MCTD) and are also associated with other systemic autoimmune rheumatic diseases (SARDs) such as systemic lupus erythematosus (SLE), systemic sclerosis, and myositis. Antibodies targeting the Cardona/FILM PROCESSING SHIFT SUPERVISOR antigenic complex also recognize Cardona antigens, therefore, the Cardona antibody response must be considered when interpreting these results. Performed By: [facility] [address] [place] [address] Central Sterile Supply Technician: Tarik Ball MD, PhD CLIA Number: [id number] Jane Chávez MD LAB BLOOD ORDERABLES Final Re sult [facility] DIONNE) [address] [place] [address] * (ABNORMAL) Anti-DNA antibody, double-stranded (04/13/2025 12:44 PM EDT) Double-Strande d DNA (dsDNA) Ab IgG IFA 1:80(H) <1:10 04/15/2025 10:47 AM EDT [facility] DIONNE) Blood Venous blood specimen / Unknown Venipuncture / Unknown 04/13/2025 12:44 PM EDT 04/13/2025 12:44 PM EDT Narrative [facility] Ossia DIONNE) - 04/15/2025 10:47 AM EDT INTERPRETIVE [...] recommendations for testing may be found at [email or web address].[email or web address] [email or web address]. Performed By: [facility] [address] [place] [address] [place] [address] Central Sterile Supply Technician: Tarik Ball MD, PhD CLIA Number: [id number] Jane Chávez MD LAB BLOOD ORDERABLES Final Re sult Performing Organization Address City/[facility]/ZIP Co de Phone Number [facility] (AIDAN) [address] [place] [address] * (ABNORMAL) C-reactive protein (04/13/2025 12:44 PM EDT) CRP, Plasma 44.2(H) <=8.0 mg/L 04/13/2025 3:06 PM EDT [facility] Blood Venous blood specimen / Unknown Venipuncture / Unknown 04/13/2025 12:44 PM EDT 04/13/2025 12:44 PM EDT Narrative [facility] - 04/13/2025 3:06 PM EDT This CRP test is appropriate for assessment of infection, systemic inflammation and/or tissue injury. To assess cardiovascular disease risk order high sensitivity CRP (CRPH). us Jane Chávez MD LAB BLOOD ORDERABLES Final Re sult Performing Organization Address [facility]/ZIP Co de Phone Number [facility] [address] [place] [address] * (ABNORMAL) Sedimentation Rate, Automated (04/13/2025 12:44 PM EDT) Sedimentation Rate 31(H) <30 mm/hr 2024 3:23 PM EDT [facility] Blood Venous blood specimen / Unknown Venipuncture / Unknown 04/13/2025 12:44 PM EDT 04/13/2025 12:44 PM EDT us Jane Chávez MD LAB BLOOD ORDERABLES Final Re sult [facility] [address] [place] [address] * Comprehensive metabolic panel (04/13/2025 12:44 PM EDT) Glucose, Plasma 90 74 - 99 mg/dL 04/13/2025 3:06 PM EDT [facility] BUN, Plasma 19 8 - 23 mg/dL 04/13/2025 3:06 PM EDT [facility] Creatinine, Plasma 0.60 0.60 - 1.10 mg/dL 04/13/2025 3:06 PM EDT [facility] BUN/Creatinine Ratio 32 04/13/2025 3:06 PM EDT [facility] Sodium, Plasma 141 136 - 145 mmol/L 04/13/2025 3:06 PM EDT [facility] Potassium, Plasma 4.3 3.6 - 4.9 mmol/L 04/13/2025 3:06 PM EDT [facility] Chloride, Plasma 105 97 - 107 mmol/L 04/13/2025 3:06 PM EDT [facility] CO2, Plasma 25 22 - 29 mmol/L 04/13/2025 3:06 PM EDT [facility] Anion Gap 11 6 - 16 mmol/L 04/13/2025 3:06 PM EDT [facility] Total Calcium, Plasma 8.9 8.9 - 10.2 mg/dL 04/13/2025 3:06 PM EDT [facility] Total Protein 6.9 6.3 - 7.9 g/dL 04/13/2025 3:06 PM EDT [facility] Albumin, Plasma 3.8 3.5 - 5.2 g/dL 04/13/2025 3:06 PM EDT [facility] AST, Plasma 28 10 - 35 U/L 04/13/2025 3:06 PM EDT [facility] ALT, Plasma 27 10 - 35 U/L 04/13/2025 3:06 PM EDT [facility] Alkaline Phosphatase, Plasma 109 46 - 142 U/L 04/13/2025 3:06 PM EDT [facility] Total Bilirubin, Plasma 0.2 0.2 - 1.1 mg/dL 04/13/2025 3:06 PM EDT [facility] eGFRcr 99.8 mL/min/1.7 3m*2 04/13/2025 3:06 PM EDT [facility] Comment:Reported eGFRcr in m L/min/1.73m2 is based the CKD-EPI 2020 equation that does not use a race coefficient. Blood Venous blood specimen / Unknown Venipuncture / Unknown 04/13/2025 12:44 PM EDT 04/13/2025 12:44 PM EDT us Jane Chávez MD LAB BLOOD ORDERABLES Final Re sult [facility] [address] [place] [address] * (ABNORMAL) CBC and differential (04/13/2025 12:44 PM EDT) WBC Count 4.12 3.70 - 10.30 10*3/uL LAB HEMATOLOGY METHOD 04/13/2025 3:04 PM EDT [facility] RBC Count 4.38 3.90 - 5.20 10*6/uL LAB HEMATOLOGY METHOD 04/13/2025 3:04 PM EDT [facility] HGB 13.0 11.2 - 15.7 g/dL LAB HEMATOLOGY METHOD 04/13/2025 3:04 PM EDT [facility] HCT 39.6 34.0 - 45.0 % LAB HEMATOLOGY METHOD 04/13/2025 3:04 PM EDT [facility] Platelet Count 329 155 - 369 10*3/uL LAB HEMATOLOGY METHOD 04/13/2025 3:04 PM EDT [facility] MCV 90 79 - 98 fL LAB HEMATOLOGY METHOD 04/13/2025 3:04 PM EDT [facility] MCH 29.7 26.0 - 32.0 pg LAB HEMATOLOGY METHOD 04/13/2025 3:04 PM EDT [facility] MCHC 32.8 30.7 - 35.5 g/dL LAB HEMATOLOGY METHOD 04/13/2025 3:04 PM EDT [facility] RDW 15.7(H) 11.5 - 14.5 % LAB HEMATOLOGY METHOD 04/13/2025 3:04 PM EDT [facility] MPV 10.6 8.8 - 12.5 fL LAB HEMATOLOGY METHOD 04/13/2025 3:04 PM EDT [facility] nRBC 0.0 <=0.0 per 100 WBCs LAB HEMATOLOGY METHOD 04/13/2025 3:04 PM EDT [facility] Differential Type Automated LAB HEMATOLOGY METHOD 04/13/2025 3:04 PM EDT [facility] Neutrophils % 64 % LAB HEMATOLOGY METHOD 04/13/2025 3:04 PM EDT [facility] Lymphocytes % 24 % LAB HEMATOLOGY METHOD 04/13/2025 3:04 PM EDT [facility] Monocytes % 10 % LAB HEMATOLOGY METHOD 04/13/2025 3:04 PM EDT [facility] Eosinophils % 0 % LAB HEMATOLOGY METHOD 04/13/2025 3:04 PM EDT [facility] Basophils % 1 % LAB HEMATOLOGY METHOD 04/13/2025 3:04 PM EDT [facility] Immature Granulocytes % 1 % LAB HEMATOLOGY METHOD 04/13/2025 3:04 PM EDT [facility] Neutrophils Absolute 2.67 1.60 - 6.10 10*3/uL LAB HEMATOLOGY METHOD 04/13/2025 3:04 PM EDT [facility] Lymphocytes Absolute 1.00(L) 1.20 - 3.90 10*3/uL LAB HEMATOLOGY METHOD 04/13/2025 3:04 PM EDT [facility] Monocytes Absolute 0.39 0.30 - 0.90 10*3/uL LAB HEMATOLOGY METHOD 04/13/2025 3:04 PM EDT [facility] Eosinophils Absolute 0.01 0.00 - 0.50 10*3/uL LAB HEMATOLOGY METHOD 04/13/2025 3:04 PM EDT [facility] Basophils Absolute 0.02 0.00 - 0.10 10*3/uL LAB HEMATOLOGY METHOD 04/13/2025 3:04 PM EDT [facility] Immature Granulocytes Absolute 0.03 0.00 - 0.06 10*3/uL LAB HEMATOLOGY METHOD 04/13/2025 3:04 PM EDT [facility] Blood Venous blood specimen / Unknown Venipuncture / Unknown 04/13/2025 12:44 PM EDT 04/13/2025 12:44 PM EDT Narrative [facility] - 04/13/2025 3:04 PM EDT Therapeutic decision making should be based on absolute values, rather than percentages. us Jane Chávez MD LAB BLOOD ORDERABLES Final Re sult Performing Organization Address City/[facility] [place] [address] * (ABNORMAL) Rheumatoid Factor, Plasma (04/13/2025 12:44 PM EDT) Rheumatoid Factor, Plasma 20(H) <14 IU/mL 04/13/2025 3:06 PM EDT [facility] Blood Venous blood specimen / Unknown Venipuncture / Unknown 04/13/2025 12:44 PM EDT 04/13/2025 12:44 PM EDT Result Regi Chávez MD LAB BLOOD ORDERABLES Final Re sult Performing Organization Address [facility] [place] [address] * C4 complement (04/13/2025 12:44 PM EDT) C4 Complement 17 13 - 36 mg/dL 04/13/2025 3:14 PM EDT [facility] Blood Venous blood specimen / Unknown Venipuncture / Unknown 04/13/2025 12:44 PM EDT 04/13/2025 12:44 PM EDT Result Regi Chávez MD LAB BLOOD ORDERABLES Final Re sult Performing Organization Address City/[facility] Co de Phone Number [facility] [address] [place] [address] * C3 complement (04/13/2025 12:44 PM EDT) C3 Complement 142 84 - 166 mg/dL 04/13/2025 3:14 PM EDT [facility] Blood Venous blood specimen / Unknown Venipuncture / Unknown 04/13/2025 12:44 PM EDT 04/13/2025 12:44 PM EDT us Jane Chávez MD LAB BLOOD ORDERABLES Final Re sult [facility] [address] [place] [id number] * (ABNORMAL) ANTI NUCLEAR AB (04/13/2025 12:44 [...] not necessarily rule out SARD. Performed By: [facility] [address] [place] [address] Central Sterile Supply Technician: Tarik Ball MD, PhD CLIA Number: [id number] us Jane Chávez MD LAB BLOOD ORDERABLES Final Re sult [facility] (BEAKER) [address] [place] [address] * XR Chest 2 Views (04/13/2025 12:37 [...] documented as of this encounter Care Teams Car Clerk Pullman Relationship Specialty Start Date End Date Dima Giles MD [address] [place] [address] PCP - General 01/26/21 documented as of this encounter
--- OUTSIDE RECORDS SUMMARY | 2025-04-13 12:15 | XMS_ITS | Encounter Summary ---
Author Organization Healthcare Address [address] [place] [address] Care Team Providers Care Application Infrastructure Engineer Name Role Phone Dima Giles MD Primary Care Provider [phone] Encounter Details Date Type Department Care Team (Latest Contact Info) Description 04/13/2025 12:15 PM EDT - 04/13/2025 11:59 PM EDT Hospital Encounter [facility] [address], [address] [place] [address] Sarcoid Discharge Disposition: Home or Self Care Social History Tobacco Use Types Packs/Day Years [...] the money to buy more. Never true 03/14/20 25 Within the past 12 months, t [...] time in the past 12 m [facility], were you homeless or living in a long-term (including now)? No 11/26/2024 Utilities Answer Date [...] things Not at all 04/13/2025 10:03 AM Ioana Jaimes Feeling down, depressed, or hopeless Not at all 04/13/2025 10:03 AM Ioana Jaimes Patient Health Questionnaire -2 Score 0 04/13/2025 10:03 AM Ioana Jaimes * Question Answer Date of Assessment Author Trouble falling or staying asleep, or sleeping too much Nearly every day 04/13/2025 10:03 AM Ioana Jaimes Feeling tired or having little energy Nearly every day 04/13/2025 10:03 AM Ioana Jaimes Poor appetite or overeating Not at all 04/13/2025 10 :03 AM Ioana Jaimes Feeling bad about yourself - or that you are a failure or have let yourself or your family down Not at all 04/13/2025 10:03 AM Ioana Jaimes Trouble concentrating on things, such as reading [...] other people? Somewhat difficult 04/13/2025 10:03 AM Ioana Jaimes * How difficult have these problems made it for you to do your work, take care of things at home, or get along with other people? Answer Date of Assessment Author Somewhat difficult 04/13/2025 10:03 AM Ioana Alcantar documented as of this encounter Medications at Time of Discharge alendronate (Fosamax) 70 MG tabletIndications:Ag e related osteoporosis, unspecified pathological fracture presence Take 1 tablet (70 mg) by mouth every 7 (seven) days. Take in the morning with a full glass of water, on an empty stomach, and do not take anything else by mouth or lie down for the next 30 min. 13 tablet 3 10/18/2024 busPIRone (Buspar) 5 MG tablet Take 2 tablets (10 mg) by mouth in the morning and 2 tablets (10 mg) before bedtime. 07/10/2021 CALCIUM-VITAMIN D-VITAMIN K PO Take 1 tablet by mouth daily. 12/26/2016 Cholecalciferol 25 MCG (1000 UT) chewable tablet Chew 1 tablet daily. 09/03/2018 fexofenadine (Candis) 60 MG tablet Take 1 tablet by mouth daily. hydroxychloroquine (Plaquenil) 200 MG tabletIndications:Po sitive SERINA (antinuclear antibody),Inflammato ry arthropathy Take 2 tablets by mouth daily. 180 tablet 1 04/13/2025 Multiple Vitamin (MULTI-VITAMIN DAILY PO) 12/12/2015 omeprazole (PriLOSEC) [address] capsule Take 1 capsule (20 mg) by mouth in the morning and 1 capsule (20 mg) before bedtime. 10/19/2023 ondansetron ODT (Zofran-ODT) 4 MG disintegrating tablet Dissolve 1 tablet on the tongue every 8 hours as needed for nausea or vomiting. 20 tablet 12/14/2024 polyethylene glycol (Miralax) 17 GM/SCOOP powder Take 17 g by mouth daily. senna-docusate (Maddie-Colace) 8.6-50 MG tablet Take 1 tablet by mouth in the morning and 1 tablet before bedtime. 20 tablet 11/29/2024 predniSONE (Deltasone) 10 MG tablet Take 2 tablets by mouth daily for 5 days, THEN 1 tablet daily for 5 days. 15 tablet 04/13/2025 documented as of this encounter Plan of Treatment Upcoming Encounters Date Type Department Care Team (Late st Contact Info) Description 06/30/2025 9:00 AM EDT Office Visit [facility] Medicine Specialties [address], [address] [place] [address] Alisson Zavala, TOM [address] [place] [address] documented as of this encounter Procedures Procedure Name Priority Date/Time Associated Diagnosis Comments XR CHEST 2 VIEWS Routine 04/13/2025 12:3 7 PM EDT Sarcoid documented in this encounter Results * XR Chest 2 Views (04/13/2025 12:37 [...] documented in this encounter Visit Diagnoses Diagnosis Sarcoid Sarcoidosis documented in this encounter Additional Health Concerns Assessment Noted Time PHQ-9 Depression Total Score: 6 04/13/20 25 10:03 AM EDT A fall risk assessment has been complete d for the patient 04/13/2025 10:02 AM EDT A Body Mass Index follow-up plan has been documented for the patient 04/13/2025 12:14 PM EDT documented as of this encounter Care Teams Application Infrastructure Engineer Relationship Specialty Start Date End Date Dima Giles MD [address] [place] [address] PCP - General 01/26/21 documented as of this encounter
--- NOTE | 2025-04-27 13:11 | CT_ITS ---
FINAL REPORT TECHNIQUE: Thin section axial images were obtained from the thoracic inlet through the upper abdomen after intravenous contrast injection. Reconstruction images were obtained from the axial data. Exam was performed using dose reduction technique. This study was performed with techniques to keep radiation doses as low as reasonably achievable (ALARA). Individualized dose reduction techniques using automated exposure control or adjustment of mA and/or kV according to the patient's size were employed. CLINICAL HISTORY: LUNG MASS, ABNORMAL FINDINGS CHEST xray COMPARISON: None FINDINGS: There is no mediastinal, hilar, or axillary lymphadenopathy. There is no pleural or pericardial effusion. There is a 4 mm left lower lobe nodule, best seen on image #31 of series 2. There is evidence of prior granulomatous disease. A small hiatal hernia is present. 2 small hypodense liver lesions are noted, likely cysts. No acute osseous abnormality. Note is made of a remote anterior left third rib fracture. No acute fractures are identified. IMPRESSION: No nodule is identified to account for the abnormality identified on the left shoulder exam. 4 mm left lower lobe nodule, noncalcified. Suggest follow-up after risk stratification for Fleischner criteria. Reviewed, Interpreted and Dictated by Odessa Campbell MD Transcribed by Daniela Tobar Authenticated and . [facility]
--- OUTSIDE RECORDS SUMMARY | 2025-04-27 13:13 | XMS_ITS | Clinical Summary ---
Author Organization [facility] Address [address] [place] [address] Care Team Providers Care Mammography Supervisor Name Role Phone Dima Giles MD Primary Care Provider [phone] Allergies Active Allergy Reactions Criticality Noted Date [...] Take 1 tablet by mouth daily. Active hydroxychloroquine (Plaquenil) 200 MG tabletIndications: Positive SERINA (antinuclear antibody),Inflamma tory arthropathy Take 2 tablets by mouth daily. 180 tablet 1 04/13/20 25 Active predniSONE (Deltasone) 10 MG tablet Take 2 tablets by mouth daily for 5 days, THEN 1 tablet daily for 5 days. 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 Osteoporosis 11/16/2013 Encounters Date Type Department Care Team Description 04/19/2025 Lab Requisition [facility] Lab [address] [place] [address] Evangelina Tapia MD Calculus of gallbladder with chronic cholecystitis without obstruction 04/18/2025 Orders Only [facility] Medicine Specialties [address], [address] [place] [address] Brock Chilel MBBS Lung nodule seen on imaging study (Primary Dx) 04/18/2025 Results Follow-Up [facility] Medicine Specialties [address], [address] [place] [address] Brock Chilel MBBS 04/13/2025 12:15 PM EDT - 04/13/2025 11:59 PM EDT Hospital Encounter [facility] Radiology [address], [address] [place] [address] Sarcoid Discharge Disposition: Home or Self Care 04/13/2025 10:10 AM EDT Office Visit [facility] Medicine Specialties [address] [place] [address] Brock Chilel MBBS Sarcoid (Primary Dx); Positive SERINA (antinuclear antibody); Inflammatory arthropathy; Therapeutic drug monitoring; High risk medication use; Arthralgia of both hands; Joint swelling 04/13/2025 Orders Only External Location [address] [place] [address] Provider, External 04/13/2025 Travel 04/12/2025 Telephone [facility] Medicine Specialties [address] [place] [address] Ailyn Romero RN 04/11/2025 Telephone [facility] Medicine Specialties [address] [place] [address] Alisson Zavala MBBS from Last [...] Grandmother Osteoporosis Maternal Grandmother Hyperlipidemia Mother Paz neeta Hypertension Mother Paz neeta Osteoporosis Mother Paz santacruz Stroke Mother Paz [...] time in the past [address] [facility], were you homeless or living in a halfway (including now)? No 11/26/2024 Utilities Answer Date Recorded In the past 12 months has th e [employer], oil, or water company threatened to shut [...] Description 06/30/2025 9:00 AM EDT Office Visit [facility] Medicine Specialties [address] [place] [address] Alisson Zavala, [facility] [address] [place] [address] Health Maintenance Due Date Last Done Comments [...] 2 - Risk 2-dose series) 07/07/2019 01/05/2019 [id number] Vaccine ( season) 2025 07/10/2024, 05/31/2023, 07/14/2022, [...] Procedure Name Priority Date/Time Associated Diagnosis Comments HISTORICAL SURGICAL PATHOLOGY ADDENDUM Routine 04/18/2025 Calculus of gallbladder with chronic cholecystitis without obstruction SERINA SINGLE PATTERN (REFLEX ONLY) (SO) Routine [...] PM EDT Sarcoid Positive SERINA (antinuclear antibody) CARDONA/LONGWALL HEADGATE OPERATOR (ONEYDA) ANTIBODY, IGG (SO) Routine 04/13/2025 12:44 [...] Recently Relevant to Health Maintenance Results * Historical Surgical Pathology Addendum (04/18/2025) Historical Case Information This case was collected on 11/28/2024 was originally reported as case [id number]. The entire surgical pathology report can be viewed as a scanned document attached to this report. 04/22/2025 1:17 PM EDT [facility] Case Report Historical Case Addendum/Amend ment Case: [id number] Authorizing Provider: Evangelina Tapia MD Collected: 04/18/2025 Ordering Location: [facility] Received: 04/19/2025 0847 Pathologist: Macy Saucedo MD Specimen: [id number] 04/22/2025 1:17 PM EDT [facility] Addendum 04/22/2025 1:17 PM EDT [facility] Addendum 2 04/22/2025 1:17 PM EDT [facility] Addendum 3 04/22/2025 1:17 PM EDT [facility] Addendum 4 04/22/2025 1:17 PM EDT [facility] Addendum 5 04/22/2025 1:17 PM EDT [facility] Tissue 04/18/2025 04/19/2025 8:4 7 AM EDT us Evangelina Tapia MD LAB PATHOLOGY ORDERABLES F inal Result [facility] [address] [place] [address] * Centromere Antibody, IgG (04/13/2025 12:44 PM EDT) Centromere Ab, IgG 2 0 - 40 AU/mL 04/15/2025 8:00 PM EDT [facility] ([facility]) Blood Venous blood specimen / Unknown Venipuncture / Unknown 04/13/2025 12:44 PM EDT 04/13/2025 12:44 PM EDT Narrative [facility] ([facility]) - 04/15/2025 8:00 PM EDT [...] other antibodies associated with SSc, including Scl-70, U3-LONGWALL HEADGATE OPERATOR, PM/Scl, or Th/To. Performed By: [facility] [address] [place] [address] Resident Services Coordinator: Tarik Ball MD, PhD CLIA Number: [id number] us Jane Chávez MD LAB BLOOD ORDERABLES Final Re sult [facility] ([facility]) [address] [place] [address] * (ABNORMAL) SERINA Single Pattern (Reflex only) (04/13/2025 12:44 PM EDT) SERINA Pattern Homogeneou s(A) 04/16/2025 2:58 PM EDT [facility] ([facility]) SERINA Titer 1:320(A) 04/16/2025 2:58 PM EDT [facility] ([facility]) Blood Venous blood specimen / Unknown Venipuncture / Unknown 04/13/2025 12:44 PM EDT 04/13/2025 12:44 PM EDT Narrative [facility] ([facility]) - 04/16/2025 2:58 PM EDT Performed By: [facility] [address] [place] [address] Resident Services Coordinator: Tarik Ball MD, PhD CLIA Number: [id number] us Jane Chávez MD LAB BLOOD ORDERABLES Final Re sult [facility] ([facility]) [address] [place] [address] * ENAII (04/13/2025 12:44 PM EDT) Pathologist [facility] SSA-52 (RO52) (ONEYDA) Antibody, IgG 4 0 - 40 AU/mL 04/15/2025 8:00 PM EDT [facility] ([facility]) SSA-60 (RO60) (ONEYDA) Antibody, IgG 1 0 - 40 AU/mL 04/15/2025 8:00 PM EDT [facility]) SSB (LA) (ONEYDA) Antibody, IgG 1 0 - 40 AU/mL 04/15/2025 8:00 PM EDT [facility] ([facility]) Blood Venous blood specimen / Unknown Venipuncture / Unknown 04/13/2025 12:44 PM EDT 04/13/2025 12:44 PM EDT Narrative [facility] ([facility]) - 04/15/2025 8:00 PM EDT INTERPRETIVE INFORMATION: [...] (PSS) also have this antibody. Performed By: [facility] [address] [place] [id number] Resident Services Coordinator: Tarik Ball MD, PhD CLIA Number: [id number] us Jane Chávez MD LAB BLOOD ORDERABLES Final Re sult [facility]) [address] [place] [address] * ENAI (04/13/2025 12:44 PM EDT) Cardona/LONGWALL HEADGATE OPERATOR (ONEYDA) Ab, IgG 13 0 - 19 Units 04/15/2025 4:55 AM EDT [facility]) Blood Venous blood specimen / Unknown Venipuncture / Unknown 04/13/2025 12:44 PM EDT 04/13/2025 12:44 PM EDT Narrative [facility]) - 04/15/2025 4:55 AM EDT INTERPRETIVE INFORMATION: Cardona/LONGWALL HEADGATE OPERATOR (ONEYDA) Antibody, IgG 19 Units or Less ............. Negative 20 to 39 Units ............... Weak Positive 40 to 80 Units ............... Moderate Positive 81 Units or greater .......... Strong Positive Cardona/LONGWALL HEADGATE OPERATOR antibodies are frequently seen in patients with mixed connective tissue disease (MCTD) and are also associated with other systemic autoimmune rheumatic diseases (SARDs) such as systemic lupus erythematosus (SLE), systemic sclerosis, and myositis. Antibodies targeting the Cardona/LONGWALL HEADGATE OPERATOR antigenic complex also recognize Cardona antigens, therefore, the Cardona antibody response must be considered when interpreting these results. Performed By: [facility] [address] [place] [address] Resident Services Coordinator: Tarik Ball MD, PhD CLIA Number: [id number] Jane Chávez MD LAB BLOOD ORDERABLES Final Re sult Performing Organization Address City/[facility]/ZIP Co de Phone Number [facility] ([facility]) [address] [place] [address] * Cyclic Citrul Peptide Antibody IgG (04/13/2025 12:44 PM EDT) Cyclic Citrul Peptide Antibody IgG <5.0 <=5.0 U/mL 04/13/2025 4:00 PM EDT [facility] Blood Venous blood specimen / Unknown Venipuncture / Unknown 04/13/2025 12:44 PM EDT 04/13/2025 12:44 PM EDT Jane Chávez MD LAB BLOOD ORDERABLES Final Re sult [facility] [address] [place] [address] * Anti-scleroderma antibody (04/13/2025 12:44 PM EDT) SCLERODERMA (SCL-70) (ONEYDA) ANTIBODY, IGG 2 0 - 40 AU/mL 04/15/2025 8:00 PM EDT [facility] ([facility]) Blood Venous blood specimen / Unknown Venipuncture / Unknown 04/13/2025 12:44 PM EDT 04/13/2025 12:44 PM EDT Narrative [facility] ([facility]) - 04/15/2025 8:00 PM EDT INTERPRETIVE [...] testing for centromere, RNA polymerase III and U3-LONGWALL HEADGATE OPERATOR, PM/Scl, or Th/To antibodies. Performed By: [facility] [address] [place] [address] Resident Services Coordinator: Tarik Ball MD, PhD CLIA Number: [id number] us Jane Chávez MD LAB BLOOD ORDERABLES Final Re sult [facility]) [address] [place] [address] * (ABNORMAL) Anti-DNA antibody, double-stranded (04/13/2025 12:44 PM EDT) Double-Strande d DNA (dsDNA) Ab IgG IFA 1:80(H) <1:10 04/15/2025 10:47 AM EDT [facility]) Blood Venous blood specimen / Unknown Venipuncture / Unknown 04/13/2025 12:44 PM EDT 04/13/2025 12:44 PM EDT Narrative [facility]) - 04/15/2025 10:47 AM EDT [...] recommendations for testing may be found at [email or web address]. Performed By: [facility] [address] [place] [address] Resident Services Coordinator: Tarik Ball MD, PhD CLIA Number: [id number] us Jane Chávez MD LAB BLOOD ORDERABLES Final Re sult [facility] [facility]) [address] [place] [id number] * (ABNORMAL) Sedimentation Rate, Automated (04/13/2025 12:44 PM EDT) Sedimentation Rate 31(H) <30 mm/hr 07/30/ 2025 3:23 PM EDT [facility] Blood Venous blood specimen / Unknown Venipuncture / Unknown 04/13/2025 12:44 PM EDT 04/13/2025 12:44 PM EDT us Jane Chávez MD LAB BLOOD ORDERABLES Final Re sult [facility] [address] [place] [address] * (ABNORMAL) CBC and differential (04/13/2025 12:44 PM EDT) WBC Count 4.12 3.70 - 10.30 10*3/uL LAB HEMATOLOGY METHOD 04/13/2025 3:04 PM EDT [facility] RBC Count 4.38 3.90 - 5.20 10*6/uL LAB HEMATOLOGY METHOD 04/13/2025 3:04 PM EDT [facility] HGB 13.0 11.2 - 15.7 g/dL LAB HEMATOLOGY METHOD 04/13/2025 3:04 PM EDT [facility] HCT 39.6 34.0 - 45.0 % LAB HEMATOLOGY METHOD 04/13/2025 3:04 PM EDT [facility] Platelet Count 329 155 - 369 10*3/uL LAB HEMATOLOGY METHOD 04/13/2025 3:04 PM EDT [facility] MCV 90 79 - 98 fL LAB HEMATOLOGY METHOD 04/13/2025 3:04 PM EDT [facility] MCH 29.7 26.0 - 32.0 pg LAB HEMATOLOGY METHOD 04/13/2025 3:04 PM EDT [facility] MCHC 32.8 30.7 - 35.5 g/dL LAB HEMATOLOGY METHOD 04/13/2025 3:04 PM EDT [facility] RDW 15.7(H) 11.5 - 14.5 % LAB HEMATOLOGY METHOD 04/13/2025 3:04 PM EDT [facility] MPV 10.6 8.8 - 12.5 fL LAB HEMATOLOGY METHOD 04/13/2025 3:04 PM EDT [facility] nRBC 0.0 <=0.0 per 100 WBCs LAB HEMATOLOGY METHOD 04/13/2025 3:04 PM EDT [facility] Differential Type Automated LAB HEMATOLOGY METHOD 04/13/2025 3:04 PM EDT [facility] Neutrophils % 64 % LAB HEMATOLOGY METHOD 04/13/2025 3:04 PM EDT [facility] Lymphocytes % 24 % LAB HEMATOLOGY METHOD 04/13/2025 3:04 PM EDT [facility] Monocytes % 10 % LAB HEMATOLOGY METHOD 04/13/2025 3:04 PM EDT [facility] Eosinophils % 0 % LAB HEMATOLOGY METHOD 04/13/2025 3:04 PM EDT [facility] Basophils % 1 % LAB HEMATOLOGY METHOD 04/13/2025 3:04 PM EDT [facility] Immature Granulocytes % 1 % LAB HEMATOLOGY METHOD 04/13/2025 3:04 PM EDT [facility] Neutrophils Absolute 2.67 1.60 - 6.10 10*3/uL LAB HEMATOLOGY METHOD 04/13/2025 3:04 PM EDT [facility] Lymphocytes Absolute 1.00(L) 1.20 - 3.90 10*3/uL LAB HEMATOLOGY METHOD 04/13/2025 3:04 PM EDT [facility] Monocytes Absolute 0.39 0.30 - 0.90 10*3/uL LAB HEMATOLOGY METHOD 04/13/2025 3:04 PM EDT [facility] Eosinophils Absolute 0.01 0.00 - 0.50 10*3/uL LAB HEMATOLOGY METHOD 04/13/2025 3:04 PM EDT [facility] Basophils Absolute 0.02 0.00 - 0.10 10*3/uL LAB HEMATOLOGY METHOD 04/13/2025 3:04 PM EDT [facility] Immature Granulocytes Absolute 0.03 0.00 - 0.06 10*3/uL LAB HEMATOLOGY METHOD 04/13/2025 3:04 PM EDT [facility] Blood Venous blood specimen / Unknown Venipuncture / Unknown 04/13/2025 12:44 PM EDT 04/13/2025 12:44 PM EDT [facility] - 04/13/2025 3:04 PM EDT Therapeutic decision making should be based on absolute values, rather than percentages. us Jane Chávez MD LAB BLOOD ORDERABLES Final Re sult Performing Organization Address [facility]/ZIP Co de Phone Number [facility] [address] [place] [address] * (ABNORMAL) Rheumatoid Factor, Plasma (04/13/2025 12:44 PM EDT) Rheumatoid Factor, Plasma 20(H) <14 IU/mL 04/13/2025 3:06 PM EDT [facility] Blood Venous blood specimen / Unknown Venipuncture / Unknown 04/13/2025 12:44 PM EDT 04/13/2025 12:44 PM EDT us Jane Chávez MD LAB BLOOD ORDERABLES Final Re sult Performing Organization Address [facility] Co de Phone Number [facility] [address] [place] [address] * C3 complement (04/13/2025 12:44 PM EDT) C3 Complement 142 84 - 166 mg/dL 04/13/2025 3:14 PM EDT [facility] Blood Venous blood specimen / Unknown Venipuncture / Unknown 04/13/2025 12:44 PM EDT 04/13/2025 12:44 PM EDT us Jane Chávez MD LAB BLOOD ORDERABLES Final Re sult Performing Organization Address [facility]/ZIP Co de Phone Number [facility] [address] [place] [address] * C4 complement (04/13/2025 12:44 PM EDT) C4 Complement 17 13 - 36 mg/dL 04/13/2025 3:14 PM EDT [facility] Blood Venous blood specimen / Unknown Venipuncture / Unknown 04/13/2025 12:44 PM EDT 04/13/2025 12:44 PM EDT us Jane Chávez MD LAB BLOOD ORDERABLES Final Re sult Performing Organization Address City/[facility]/ZIP Co de Phone Number [facility] [address] [place] [address] * (ABNORMAL) C-reactive protein (04/13/2025 12:44 PM EDT) Pathologist [facility] CRP, Plasma 44.2(H) <=8.0 mg/L 04/13/2025 3:06 PM EDT [facility] Blood Venous blood specimen / Unknown Venipuncture / Unknown 04/13/2025 12:44 PM EDT 04/13/2025 12:44 PM EDT Narrative [facility] - 04/13/2025 3:06 PM EDT This CRP test is appropriate for assessment of infection, systemic inflammation and/or tissue injury. To assess cardiovascular disease risk order high sensitivity CRP (CRPH). us Jane Chávez MD LAB BLOOD ORDERABLES Final Re sult [facility] [address] [place] [address] * (ABNORMAL) ANTI NUCLEAR AB (04/13/2025 12:44 PM EDT) [facility] SERINA INTERPRETIVE COMMENT See Note 04/16/2025 2:58 PM EDT [facility] ([facility]) Anti Nuc Ab Screen Detected( H) <1:80 04/16/2025 2:58 PM EDT [facility] ([facility]) Blood Venous blood specimen / Unknown Venipuncture / Unknown 04/13/2025 12:44 PM EDT 04/13/2025 12:44 PM EDT Narrative [facility] ([facility]) - 04/16/2025 2:58 PM EDT Clinical Interpretation: [...] not necessarily rule out SARD. Performed By: [facility] [address] [place] [address] Resident Services Coordinator: Tarik Ball MD, PhD CLIA Number: [id number] us Jane Chávez MD LAB BLOOD ORDERABLES Final Re sult [facility]) [address] [place] [address] * Comprehensive metabolic panel (04/13/2025 12:44 PM EDT) Glucose, Plasma 90 74 - 99 mg/dL 04/13/2025 3:06 PM EDT [facility] BUN, Plasma 19 8 - 23 mg/dL 04/13/2025 3:06 PM EDT [facility] Creatinine, Plasma 0.60 0.60 - 1.10 mg/dL 04/13/2025 3:06 PM EDT [facility] BUN/Creatinine Ratio 32 04/13/2025 3:06 PM EDT [facility] Sodium, Plasma 141 136 - 145 mmol/L 04/13/2025 3:06 PM EDT [facility] Potassium, Plasma 4.3 3.6 - 4.9 mmol/L 04/13/2025 3:06 PM EDT [facility] Chloride, Plasma 105 97 - 107 mmol/L 04/13/2025 3:06 PM EDT [facility] CO2, Plasma 25 22 - 29 mmol/L 04/13/2025 3:06 PM EDT [facility] Anion Gap 11 6 - 16 mmol/L 04/13/2025 3:06 PM EDT [facility] Total Calcium, Plasma 8.9 8.9 - 10.2 mg/dL 04/13/2025 3:06 PM EDT [facility] Total Protein 6.9 6.3 - 7.9 g/dL 04/13/2025 3:06 PM EDT [facility] Albumin, Plasma 3.8 3.5 - 5.2 g/dL 04/13/2025 3:06 PM EDT [facility] AST, Plasma 28 10 - 35 U/L 04/13/2025 3:06 PM EDT [facility] ALT, Plasma 27 10 - 35 U/L 04/13/2025 3:06 PM EDT [facility] Alkaline Phosphatase, Plasma 109 46 - 142 U/L 04/13/2025 3:06 PM EDT [facility] Total Bilirubin, Plasma 0.2 0.2 - 1.1 mg/dL 04/13/2025 3:06 PM EDT [facility] eGFRcr 99.8 mL/min/1.7 3m*2 04/13/2025 3:06 PM EDT [facility] Comment:Reported eGFRcr in m L/min/1.73m2 is based the CKD-EPI 2020 equation that does not use a race coefficient. Blood Venous blood specimen / Unknown Venipuncture / Unknown 04/13/2025 12:44 PM EDT 04/13/2025 12:44 PM EDT us Jane Chávez MD LAB BLOOD ORDERABLES Final Re sult [facility] [address] [place] [address] * XR Chest 2 Views (04/13/2025 12:37 [...] Antibody Negative Negative 01/05/2025 11:05 AM EDT [facility] Blood Venous blood specimen / Unknown Venipuncture / Unknown 01/05/2025 9:00 AM EDT 01/05/2025 9:01 AM EDT us Adriana Mueller MD LAB BLOOD ORDERABLES Final Re sult [facility] [address] [place] [address] from Last 3 Months or Most Recently Relevant to Health Maintenance Insurance MEDICARE [facility] Advance Directives * Full Code (Latest Code Status on File) Date Activated Date Inactivated Comments 11/25/2024 11:42 AM 11/29/2024 4:20 PM Care Teams Mammography Supervisor Relationship Specialty Start Date End Date Dima Giles MD [address] [place] [address] [facility] - General 01/26/21
--- OUTSIDE RECORDS SUMMARY | 2025-04-27 13:13 | XMS_ITS | Encounter Summary ---
Author Organization Healthcare Address [address] [place] [address] Care Team Providers Care Surveillance Manager Name Role Phone Dima Giles MD Primary Care Provider [phone] Encounter Details Date Type Department Care Team ([facility] st Contact Info) Description 04/13/2025 Orders Only External Location [address] [place] [address] Provider, External Social History Tobacco Use Types [...] the past 12 m [facility], were you homeless or living [...] Description 06/30/2025 9:00 AM EDT Office Visit [facility] Medicine Specialties [address], [address] [place] [address] Alisson Zavala, TOM [address] [place] [address] documented as of this encounter [...] documented as of this encounter Care Teams Surveillance Manager Relationship Specialty Start Date End Date Dima Giles MD [address] [place] [address] PCP - General 01/26/21 documented as of this encounter
--- OUTSIDE RECORDS SUMMARY | 2025-04-27 13:13 | XMS_ITS | Encounter Summary ---
Author Organization Healthcare Address [address] [place] [address] Care Team Providers Care Bleach Supervisor Name Role Phone Dima Giles MD Primary Care Provider [phone] Encounter Details Date Type Department Care Team (Late st Contact Info) Description 04/12/2025 Telephone [facility] Specialties [address] [place] [address] Ailyn Romero RN CH-VASCULAR & [...] any time in the past 12 m [facility], were you homeless or living in a detention (including now)? No 11/26/2024 Utilities Answer Date Recorded In the past 12 months has th e [employer], gas, oil, or water company threatened to [...] 9:00 AM EDT Office Visit [facility] Medicine Specialties [address] [place] [id number] Alisson Zavala, TOM [address] [place] [address] documented as of this encounter [...] documented as of this encounter Care Teams Bleach Supervisor Relationship Specialty Start Date End Date Dima Giles MD [address] [place] [address] PCP - General 01/26/21 documented as of this encounter
--- OUTSIDE RECORDS SUMMARY | 2025-04-27 13:13 | XMS_ITS | Encounter Summary ---
Author Organization [facility] Address [address] [place] [address] Care Team Providers Care Medical Device Sales Consultant Name Role Phone Dima Giles MD Primary Care Provider [phone] Reason for Referral * Consultation (Routine) - Closed Specialty Diagnoses / Procedures Referred By Contac t Referred To Contact Rheumatology Diagnoses Positive SERINA (antinuclear antibody) Elevated sed rate Elevated C-reactive protein (CRP) Ioana Browne APRN [address] [address] Phone: tel: fax: Referral ID Status Reason Start Date Expiration Date V isits Requested Visits Authorized [id number] Closed Specialty Services Required 12/07/2024 06/08/2026 1 1 Encounter Details Date Type Department Care Team (Late st Contact Info) Description 12/07/2024 Community [facility] [address] [place] [address] Ioana Browne APRN [address] [address] Positive SERINA (antinuclear antibody) (Primary [...] any time in the past 12 m [facility], were you homeless or living in a snf (including now)? No 11/26/2024 Utilities Answer Date [...] [facility] [address] [place] [phone] Alisson Zavala, TOM [address] [place] [address] Scheduled Referrals Name Type Priority Associated Diagnoses [...] documented as of this encounter Care Teams Medical Device Sales Consultant Relationship Specialty Start Date End Date Dima Giles MD [address] [place] [address] PCP - General 01/26/21 documented as of this encounter
--- OUTSIDE RECORDS SUMMARY | 2025-04-27 13:13 | XMS_ITS | Encounter Summary ---
Author Organization Healthcare Address [address] [place] [address] Care Team Providers Care Pre Coder Name Role Phone Dima Giles MD Primary Care Provider [phone] Encounter Details Date Type Department Care Team (Late st Contact Info) Description 01/10/2025 Results Follow-Up [facility] Medicine Specialties [address] [place] [address] Alisson Zavala, TOM [address] [place] [phone] Social History Tobacco Use Types Packs/Day Years [...] time in the past 12 m [facility], were you homeless or living in a [facility] (including now)? No 11/26/2024 Utilities Answer Date [...] [facility] Medicine Specialties [address] [place] [address] Alisson Zavala, TOM [address] [place] [address] documented as of this encounter Visit Diagnoses [...] documented as of this encounter Care Teams Pre Coder Relationship Specialty Start Date End Date Dima Giles MD [address] [place] [address] PCP - General 01/26/21 documented as of this encounter
--- OUTSIDE RECORDS SUMMARY | 2025-04-27 13:13 | XMS_ITS | Encounter Summary ---
Author Organization [facility] Address [address] [place] [address] Care Team Providers Care Title Processor Name Role Phone Dima Giles MD Primary Care Provider [phone] Reason for Referral * Imaging (Routine) - Pending Review Specialty Diagnoses / Procedures Referred By Contac t Referred To Contact Radiology Diagnoses Lung nodule seen on imaging study Procedures CT Chest wo IV Contrast Jane Chávez MD [address] [place] [address] Phone: tel: fax: Referral ID Status Reason Start Date Expiration Date V isits Requested Visits Authorized [id number] Pending Review 04/18/2025 10/18/2026 1 1 Encounter Details Date Type Department Care Team (Late st Contact Info) Description 04/18/2025 Orders Only [place] [facility] [address], [address] [place] [address] Brock Chilel, TOM [address] [place] [address] Lung nodule seen on imaging study (Primary [...] time in the past 12 m [facility], were you homeless or living in a intermediate (including now)? No 11/26/2024 Utilities Answer Date Recorded In the past 12 months has th e [employer], gas, oil, or water company threatened to [...] Description 06/30/2025 9:00 AM EDT Office Visit [place] [facility] [address], 2nd [place] [address] Alisson Zavala, MBBS [address] [place] [address] Scheduled Orders Name Type Priority Associated Diagnoses [...] documented as of this encounter Care Teams Title Processor Relationship Specialty Start Date End Date Dima Giles MD [address] [place] [address] PCP - General 01/26/21 documented as of this encounter
--- OUTSIDE RECORDS SUMMARY | 2025-04-27 13:13 | XMS_ITS | Encounter Summary ---
Author Organization Healthcare Address [address] [place] [id number] Care Team Providers Care Melter Clerk Name Role Phone Dima Giles MD Primary Care Provider [phone] Encounter Details Date Type Department Care Team (Late st Contact Info) Description 04/11/2025 Telephone [place] [facility] [address], 2[address] [place] [address] Alisson Zavala, [place] [id number] Social History Tobacco Use Types Packs/Day Years [...] sooner apt. Please call. Best contact number: [phone] (mobile) Optimal time of day to reach [...] 06/30/2025 9:00 AM EDT Office Visit [facility] Medicine Specialties [address], [address] [place] [address] Alisson Zavala, MBBS [address] [place] [address] documented as of this encounter [...] documented as of this encounter Care Teams Melter Clerk Relationship Specialty Start Date End Date Dima Giles MD [address] [place] [address] PCP - General 01/26/21 documented as of this encounter
--- OUTSIDE RECORDS SUMMARY | 2025-04-27 13:13 | XMS_ITS | Encounter Summary ---
Author Organization Healthcare Address [address] [place] [address] Care Team Providers Care Shipping Support Name Role Phone Dima Giles MD Primary Care Provider [phone] Encounter Details Date Type Department Care Team (Late st Contact Info) Description 04/18/2025 Results Follow-Up [facility] Medicine Specialties [address], 2nd [place] [address] Brock Chilel, TOM [address] [place] [address] Social History Tobacco Use Types Packs/Day Years [...] Description 06/30/2025 9:00 AM EDT Office Visit [facility] Medicine Specialties [address], [address] [place] [address] Alisson Zavala, TOM [address] [place] [address] documented as of this encounter [...] documented as of this encounter Care Teams Shipping Support Relationship Specialty Start Date End Date Dima Giles MD [address] [place] [address] PCP - General 01/26/21 documented as of this encounter
--- OUTSIDE RECORDS SUMMARY | 2025-04-27 13:13 | XMS_ITS | Encounter Summary ---
Author Organization Healthcare Address [address] [place] [address] Care Team Providers Care Hand Tool Filer Name Role Phone Dima Giles MD Primary Care Provider [phone] Encounter Details Date Type Department Care Team (Late st Contact Info) Description 01/17/2025 Results Follow-Up [facility] Medicine Specialties [address], 2[address] [place] [address] Alisson Zavala, TOM [address] [id number] Social History Tobacco Use Types Packs/Day Years [...] in the past 12 m [facility], were you homeless or living in a retirement (including now)? No 11/26/2024 Utilities Answer Date [...] [facility] Medicine Specialties [address], [address] [place] [address] Alisson Zavala, TOM [address] [place] [address] documented as of this encounter Visit Diagnoses [...] documented as of this encounter Care Teams Hand Tool Filer Relationship Specialty Start Date End Date Dima Giles MD [address] [place] [address] PCP - General 01/26/21 documented as of this encounter
--- OUTSIDE RECORDS SUMMARY | 2025-04-27 13:13 | XMS_ITS | Clinical Summary ---
Author Organization [facility] Address [address] [place] [address] Care Team Providers Care Cell Coverer Name Role Phone Dima Giles MD Primary Care Provider [phone] Allergies Active Allergy Reactions Criticality Noted Date [...] C SCREENING Completed 11/25/2024 [place] [address] [facility] PPO Member Subscriber Plan / Payer (Ef fective 2019-Present) Name:Brittany Hayes Relation to Subscriber:Self Name:Brittany Hayes Payer ID:[id number] (IC) Type:Not on file Address: [facility] [id number] [place] [id number] Care Teams Cell Coverer Relationship Specialty Start Date End Date Dima Giles MD [address] [facility] [address] [place] [address] PCP - General Adolescent Medicine 05/13/16
--- OUTSIDE RECORDS SUMMARY | 2025-04-27 13:13 | XMS_ITS | Encounter Summary ---
Author Organization Healthcare Address [address] [place] [address] Care Team Providers Care Concession Supervisor Name Role Phone Dima Giles MD Primary Care Provider [phone] Reason for Visit * Reason Comments Med Refill Encounter Details Date Type Department Care Team (Late st Contact Info) Description 07/16/2021 Refill [facility] [address] [place] [address] aTrik Early MD [address] [address] Social History Tobacco Use Types [...] Description 06/30/2025 9:00 AM EDT Office Visit [place] [facility] Medicine Specialties [address], [address] [place] [address] Alisson Zavala, TOM [address] [place] [address] documented as of this encounter Visit Diagnoses Not on filedocumented in this encounter Care Teams Concession Supervisor Relationship Specialty Start Date End Date Dima Giles MD [address] [place], [place] [address] PCP - General 01/26/21 documented as of this encounter
--- OUTSIDE RECORDS SUMMARY | 2025-04-27 13:13 | XMS_ITS | Encounter Summary ---
Author Organization [facility] Address [address] [place] [address] Care Team Providers Care Prosthetic Makeup Designer Name Role Phone Dima Giles MD Primary Care Provider [phone] Encounter Details Date Type Department Care Team (Late st Contact Info) Description 12/28/2024 Telephone [facility] [address] [place] [address] Milla Godfrey, PharmD Social History Tobacco Use [...] the past 12 months has th e [employer], gas, oil, or water company threatened to [...] to receive infusion treatment at outside facility. [facility] will follow up with facility to make sure patient has been scheduled and received first dose. Specialty Medication: Prolia Filling Pharmacy/SOC: [facility] * Telephone Encounter - Milla Padilla CPhT - 03/21/2025 3:16 PM EDT Medicare B/Advantage Plan Authorization Information Specialty Medication: Prolia Diagnosis Code: M81.0 J-code/CPT code/S code: J0897 Covered by Medicare B: Yes Does the diagnosis, dose, and frequency match an FDA approved dosing schedule? Yes, list prescribeddose/frequency: every 180 days Site of Care: [facility] Does patient have an Advantage Plan? No. Will review in 12 months. * Telephone Encounter - Milla Godfrey PharmD - 12/28/2024 1:27 PM EDT [facility] has received therapy plan for medication Prolia. [facility] has contacted the patient and is initiating authorization for preferred site of care. [facility] Specialty Education Summary Patient was assessed via phone for initiation of drug therapy Prolia for diagnosis Osteoporosis. Plan for administration of therapy in infusion center and planned date of initiation: ~04/15/25. Anticipated filling pharmacy [facility]. Education and Counseling Medication specific education provided: [...] as it pertains to this specialty medication. Milal Godfrey PharmD 12/28/24 1:28 PM documented in this encounter Plan of Treatment Upcoming Encounters Date Type Department Care Team (Late st Contact Info) Description 06/30/2025 9:00 AM EDT Office Visit [place] [facility] Medicine Specialties [address], 2nd [place] [address] Alisson Zavala, TOM [address] [place] [address] documented as of this encounter Visit Diagnoses Not on filedocumented in this encounter Additional Health Concerns Assessment Noted Time A fall risk assessment has been complete d for the patient 11/07/2023 11:33 AM EST A Body Mass Index follow-up plan has been documented for the patient 12/10/2024 11:39 AM EDT documented as of this encounter Care Teams Prosthetic Makeup Designer Relationship Specialty Start Date End Date Dima Giles MD [address] [place] [address] PCP - General 01/26/21 documented as of this encounter
--- OUTSIDE RECORDS SUMMARY | 2025-04-27 13:13 | XMS_ITS | Encounter Summary ---
Author Organization Healthcare Address [address] [place] [address] Care Team Providers Care Retail Representative Name Role Phone Dima Giles MD Primary Care Provider Reason for Visit * Reason Comments Med Refill Encounter Details Date Type Department Care Team (Late st Contact Info) Description 07/10/2021 Refill [facility] [address] [place] [address] Tarik Early MD [address] [address] Social History Tobacco Use Types [...] Description 06/30/2025 9:00 AM EDT Office Visit [place] [facility] Medicine Specialties [address], [address]nd [place] [address] Alisson Zavala, TOM [address] [place] [address] documented as of this encounter Visit Diagnoses Not on filedocumented in this encounter Care Teams Retail Representative Relationship Specialty Start Date End Date Dima Giles MD [address] [place], [place] [address] PCP - General 01/26/21 documented as of this encounter
--- OUTSIDE RECORDS SUMMARY | 2025-04-27 13:13 | XMS_ITS | Encounter Summary ---
Author Organization Healthcare Address [address] [place] [address] Care Team Providers Care Auto Camp Attendant Name Role Phone Dima Giles MD Primary Care Provider [phone] Encounter Details Date Type Department Care Team (Latest Contact Info) Description 04/19/2025 Lab Requisition [facility] [address] [place] [address] Evangelina Tapia MD [address] [facility] [address] [place] [address] Calculus of gallbladder with chronic [...] [facility] Medicine Specialties [address], [address] [place] [address] Alisson Zavala, TOM [address] [place] [address] documented as of this encounter Procedures Procedure Name Priority Date/Time Associated Diagnosis Comments HISTORICAL SURGICAL PATHOLOGY ADDENDUM Routine 04/18/2025 Calculus of gallbladder with chronic cholecystitis without obstruction documented in this encounter Results * Historical Surgical Pathology Addendum (04/18/2025) Historical Case Information This case was collected on 11/28/2024 was originally reported as case [id number]. The entire surgical pathology report can be viewed as a scanned document attached to this report. 04/22/2025 1:17 PM EDT [facility] Case Report Historical Case Addendum/Amend ment Case: [id number] Authorizing Provider: Evangelina Tapia MD Collected: 04/18/2025 Ordering Location: [facility] Lab Received: 04/19/2025 0847 Pathologist: Macy Saucedo MD Specimen: [id number] 04/22/2025 1:17 PM EDT [facility] Addendum 04/22/2025 1:17 PM EDT [facility] Addendum 2 04/22/2025 1:17 PM EDT [facility] Addendum 3 04/22/2025 1:17 PM EDT [facility] Addendum 4 04/22/2025 1:17 PM EDT [facility] Addendum 5 04/22/2025 1:17 PM EDT [facility] Tissue 04/18/2025 04/19/2025 8:4 7 AM EDT us Evangelina Tapia MD LAB PATHOLOGY ORDERABLES F inal Result [facility] [address] [place] [address] documented in this encounter Visit Diagnoses Diagnosis Calculus of [...] documented as of this encounter Care Teams Auto Camp Attendant Relationship Specialty Start Date End Date Dima Giles MD [address] [place], [place] [address] PCP - General 01/26/21 documented as of this encounter
--- OUTSIDE RECORDS SUMMARY | 2025-04-27 13:13 | XMS_ITS | Encounter Summary ---
Author Organization Healthcare Address [address] [place] [address] Care Team Providers Care Oxyacetylene Welder Name Role Phone Dima Giles MD Primary Care Provider [phone] Encounter Details Date Type Department Care Team (Late st Contact Info) Description 12/30/2024 Results Follow-Up [facility] Medicine Specialties [address], [address]nd [place] [address] Tanja Boss MD [address] [place], [place] [phone] Social History Tobacco Use Types Packs/Day Years [...] Description 06/30/2025 9:00 AM EDT Office Visit [facility] Medicine Specialties [address], [address]nd [place] [address] Alisson Zavala, TOM [address] [place] [address] documented as of this encounter Visit Diagnoses Not on filedocumented in this encounter Additional Health Concerns Assessment Noted Time A fall risk assessment has been complete d for the patient 12/30/2024 9:45 AM EDT A Body Mass Index follow-up plan has been documented for the patient 01/04/2025 2:50 PM EDT documented as of this encounter Care Teams Oxyacetylene Welder Relationship Specialty Start Date End Date Dima Giles MD [address] [place] [address] PCP - General 01/26/21 documented as of this encounter
--- OUTSIDE RECORDS SUMMARY | 2025-04-27 13:13 | XMS_ITS | Encounter Summary ---
Author Organization [facility] Address [address] [place] [address] Care Team Providers Care Core Filer Name Role Phone Dima Giles MD Primary Care Provider [phone] Encounter Details Date Type Department Care Team [...] any time in the past 12 m [facility], were you homeless or living in a [...] Description 06/30/2025 9:00 AM EDT Office Visit [facility] Medicine Specialties [address], 2nd [place] [address] Alisson Zavala, TOM [address] [place] [address] documented as of this encounter Visit Diagnoses [...] documented as of this encounter Care Teams Core Filer Relationship Specialty Start Date End Date Dima Giles MD [address] [place] [address] PCP - General 01/26/21 documented as of this encounter
[2025-04-27] MEDS: SODIUM CHLORIDE 0.9% 10ML SYR (RAD ONLY) 10 ML IV (13:29)
[2025-04-27] MEDS: IOPAMIDOL-370 (76%);100ML BOTTLE 75 ML IV (13:29)
== END 2025-04-27 23:59 | disposition home or self-care (01) ==
LOC: RAD 13:08
PROVIDERS: PCP Nurse Practitioner Family; Visit Provider Nurse Practitioner Family
DX: R91.1 Solitary pulmonary nodule (principal); R91.8 Other nonspecific abnormal finding of lung field; R93.89 Abnormal findings on diagnostic imaging of other specified body structures
CPT/HCPCS: 71260; Q9967

== ENCOUNTER 2025-05-02 08:31 | Outpatient (CLI) | payer MEDICARE, SELFPAY ==
--- OUTSIDE RECORDS SUMMARY | 2025-04-13 10:10 | XMS_ITS | Encounter Summary ---
Author Organization [facility] Address [address] [place] [address] Care Team Providers Care Clothespin Drier Operator Name Role Phone Dima Giles MD Primary Care Provider [phone] Reason for Referral * Consultation (Routine) - Authorized Specialty Diagnoses / Procedures Referred By Contsegun t Referred To Contact Ophthalmology Diagnoses Inflammatory arthropathy High risk medication use Jane Chávez MD [address] [facility] [address] [place] [address] Phone: tel: fax: [facility] [address] [place] [address] Phone: tel: fax: Referral ID Status Reason Start Date Expiration Date Visits Requested Visits Authorized [id number] Authorized Specialty Services Required 04/13/2025 10/13/2026 1 1 Reason for Visit * Reason Comments Joint Swelling Swelling, neck hurts , jaw issues, arm hurting, Trouble sleeping due to these issues Encounter Details Date Type Department Care Team (Late st Contact Info) Description 04/13/2025 10:10 AM EDT Office Visit [facility] [address] [place] [address] Brock Chilel, MBBS [address] [place] [address] Sarcoid (Primary Dx); Positive SERINA (antinuclear antibody); [...] time in the past 12 m [facility], were you homeless or living in a longterm (including now)? No 11/26/2024 Utilities Answer Date Recorded In the past 12 months has [employer], gas, oil, or water company threatened [...] file Social Connections: Unknown (06/25/2023) Received from [facility] Community [facility] Help with Day-to-Day [...] time. 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 Grossly strength appears [...] Urine: Dark Yellow Clarity, Urine: Clear Specific [place], Urine: >1.030 (H) pH, Urine: 5.5 Glucose, [...] COMMENT: See Note Rheumatoid Factor: 19 (H) Cardona/MRI MANAGER (ONEYDA) Ab, Ig SSA-52 (RO52) (ONEYDA) Antibody, Ig SSA-60 (RO60) (ONEYDA) Antibody, Ig ONEYDA SSB (LA) Ab: 1 IMMUNOGLOBULIN G SUBCLASS 4: 7 Double-Stranded DNA (dsDNA) Ab IgG IFA: 1:80 (H) Cyclic Citrul Peptide Antibody IgG: <5.0 Sed Rate: 79 (H) 01/12/25 08:10 Soluble Liver Antigen Antibody, Ig.6 MITOCHONDRIA M2 AB IG.3 Xkmgk-Qxncnj-Xavlruzvt Abs, IgG by IFA: <1:20 Smooth Muscle [...] Division of Rheumatology Department of Internal Medicine [facility] Please note: This dictation was prepared using [employer] Direct voice recognition software. As a result errors may occur. While every attempt is made to correct the mistakes during dictation, errors may still exist. When identified, these director payment errors have been updated. [1] Past Medical [...] evaluation, counseling and documentation. Jane Chávez MD. Photogrammetric Surveyor Division of Rheumatology Department of Internal Medicine [facility] documented in this encounter Plan of Treatment Upcoming Encounters Date Type Department Care Team (Late st Contact Info) Description 06/30/2025 9:00 AM EDT Office Visit [facility] Medicine Specialties [address] [place] [address] Alisson Zavala, [facility] [address] [place] [address] Scheduled Referrals Name Type Priority [...] PM EDT 04/13/2025 12:44 PM EDT Narrative [facility] CATIA AlemanAIDAN) - 04/15/2025 8:00 PM [...] other antibodies associated with SSc, including Scl-70, U3-MRI MANAGER, PM/Scl, or Th/To. Performed By: [facility] [address] [place] [address] Administrative Supervisor: Tarik Ball MD, PhD CLIA Number: [id number] us Jane Chávez MD LAB BLOOD ORDERABLES Final Re sult [facility] MLW SquaredAIDAN) [address] [place], [place] [id number] * Anti-scleroderma antibody (04/13/2025 12:44 PM EDT) SCLERODERMA (SCL-70) (ONEYDA) ANTIBODY, IGG 2 0 - 40 AU/mL 04/15/2025 8:00 PM EDT [facility] (AIDAN) Blood Venous blood specimen / Unknown Venipuncture / Unknown 04/13/2025 12:44 PM EDT 04/13/2025 12:44 PM EDT Narrative [facility] LvoeAIDAN) - 04/15/2025 8:00 PM EDT INTERPRETIVE INFORMATION: [...] testing for centromere, RNA polymerase III and U3-MRI MANAGER, PM/Scl, or Th/To antibodies. Performed By: [facility] [address] [place], [place] [id number] Administrative Supervisor: Tarik Ball MD, PhD CLIA Number: [id number] us Jane Chávez MD LAB BLOOD ORDERABLES Final Re sult [facility] (AIDAN) [address] [place] [address] * Cyclic Citrul Peptide Antibody IgG (04/13/2025 12:44 PM EDT) Cyclic Citrul Peptide Antibody IgG <5.0 <=5.0 U/mL 04/13/2025 4:00 PM EDT [facility] Blood Venous blood specimen / Unknown Venipuncture / Unknown 04/13/2025 12:44 PM EDT 04/13/2025 12:44 PM EDT us Jane Chávez MD LAB BLOOD ORDERABLES Final Re sult [facility] [address] [place] [address] * ENAII (04/13/2025 12:44 PM EDT) SSA-52 (RO52) (ONEYDA) Antibody, IgG 4 0 - 40 AU/mL 04/15/2025 8:00 PM EDT [facility] ([place]) SSA-60 (RO60) (ONEYDA) Antibody, IgG 1 0 - 40 AU/mL 04/15/2025 8:00 PM EDT [facility] ([place]) SSB (LA) (ONEYDA) Antibody, IgG 1 0 - 40 AU/mL 04/15/2025 8:00 PM EDT [facility] ([place]) Blood Venous blood specimen / Unknown Venipuncture [...] (PSS) also have this antibody. Performed By: [facility] [address] [place] [address] Administrative Supervisor: Tarik Ball MD, PhD CLIA Number: [id number] Jane Chávez MD LAB BLOOD ORDERABLES Final Re sult [facility] ([facility]) [address] [place] [id number] * ENAI (04/13/2025 12:44 PM EDT) Cardona/MRI MANAGER (ONEYDA) Ab, IgG 13 0 - 19 Units 04/15/2025 4:55 AM EDT [facility] ([place]) Blood Venous blood specimen / Unknown Venipuncture / Unknown 04/13/2025 12:44 PM EDT 04/13/2025 12:44 PM EDT Narrative [facility] ([place]) - 04/15/2025 4:55 AM EDT INTERPRETIVE INFORMATION: Cardona/MRI MANAGER (ONEYDA) Antibody, IgG 19 Units or Less ............. Negative 20 to 39 Units ............... Weak Positive 40 to 80 Units ............... Moderate Positive 81 Units or greater .......... Strong Positive Cardona/MRI MANAGER antibodies are frequently seen in patients with mixed connective tissue disease (MCTD) and are also associated with other systemic autoimmune rheumatic diseases (SARDs) such as systemic lupus erythematosus (SLE), systemic sclerosis, and myositis. Antibodies targeting the Cardona/MRI MANAGER antigenic complex also recognize Cardona antigens, therefore, the Cardona antibody response must be considered when interpreting these results. Performed By: [facility] [address] [place] [id number] Administrative Supervisor: Tarik Ball MD, PhD CLIA Number: [id number] Jane Chávez MD LAB BLOOD ORDERABLES Final Re sult [facility] DIONNE) [address] [place] [id number] * (ABNORMAL) Anti-DNA antibody, double-stranded (04/13/2025 12:44 PM EDT) Double-Strande d DNA (dsDNA) Ab IgG IFA 1:80(H) <1:10 04/15/2025 10:47 AM EDT [facility] DIONNE) Blood Venous blood specimen / Unknown Venipuncture / Unknown 04/13/2025 12:44 PM EDT 04/13/2025 12:44 PM EDT Narrative [facility] [employer] DIONNE) - 04/15/2025 10:47 AM EDT INTERPRETIVE [...] recommendations for testing may be found at https://AppSheet.Novariant/content/npijgotpyl-hwveur-nofaerlt. Performed By: [facility] [address] [place] [address] [place] [address] Administrative Supervisor: Tarik Ball MD, PhD CLIA Number: [id number] Jane Chávez MD LAB BLOOD ORDERABLES Final Re sult Performing Organization Address City/[facility]/ZIP Co de Phone Number [facility] (AIDAN) [address] [place] [address] * (ABNORMAL) C-reactive protein (04/13/2025 12:44 PM EDT) CRP, Plasma 44.2(H) <=8.0 mg/L 04/13/2025 3:06 PM EDT [facility] Blood Venous blood specimen / Unknown Venipuncture / Unknown 04/13/2025 12:44 PM EDT 04/13/2025 12:44 PM EDT Narrative [facility] - 04/13/2025 3:06 PM EDT This CRP test is appropriate for assessment of infection, systemic inflammation and/or tissue injury. To assess cardiovascular disease risk order high sensitivity CRP (CRPH). us Jane Chávez MD LAB BLOOD ORDERABLES Final Re sult Performing Organization Address [facility]/ZIP Co de Phone Number [facility] [address] [place] [address] * (ABNORMAL) Sedimentation Rate, Automated (04/13/2025 12:44 PM EDT) Sedimentation Rate 31(H) <30 mm/hr 2024 3:23 PM EDT [facility] Blood Venous blood specimen / Unknown Venipuncture / Unknown 04/13/2025 12:44 PM EDT 04/13/2025 12:44 PM EDT us Jane Chávez MD LAB BLOOD ORDERABLES Final Re sult [facility] [address] [place] [address] * Comprehensive metabolic panel (04/13/2025 12:44 PM EDT) Glucose, Plasma 90 74 - 99 mg/dL 04/13/2025 3:06 PM EDT [facility] BUN, Plasma 19 8 - 23 mg/dL 04/13/2025 3:06 PM EDT [facility] Creatinine, Plasma 0.60 0.60 - 1.10 mg/dL 04/13/2025 3:06 PM EDT [facility] BUN/Creatinine Ratio 32 04/13/2025 3:06 PM EDT [facility] Sodium, Plasma 141 136 - 145 mmol/L 04/13/2025 3:06 PM EDT [facility] Potassium, Plasma 4.3 3.6 - 4.9 mmol/L 04/13/2025 3:06 PM EDT [facility] Chloride, Plasma 105 97 - 107 mmol/L 04/13/2025 3:06 PM EDT [facility] CO2, Plasma 25 22 - 29 mmol/L 04/13/2025 3:06 PM EDT [facility] Anion Gap 11 6 - 16 mmol/L 04/13/2025 3:06 PM EDT [facility] Total Calcium, Plasma 8.9 8.9 - 10.2 mg/dL 04/13/2025 3:06 PM EDT [facility] Total Protein 6.9 6.3 - 7.9 g/dL 04/13/2025 3:06 PM EDT [facility] Albumin, Plasma 3.8 3.5 - 5.2 g/dL 04/13/2025 3:06 PM EDT [facility] AST, Plasma 28 10 - 35 U/L 04/13/2025 3:06 PM EDT [facility] ALT, Plasma 27 10 - 35 U/L 04/13/2025 3:06 PM EDT [facility] Alkaline Phosphatase, Plasma 109 46 - 142 U/L 04/13/2025 3:06 PM EDT [facility] Total Bilirubin, Plasma 0.2 0.2 - 1.1 mg/dL 04/13/2025 3:06 PM EDT [facility] eGFRcr 99.8 mL/min/1.7 3m*2 04/13/2025 3:06 PM EDT [facility] Comment:Reported eGFRcr in m L/min/1.73m2 is based the CKD-EPI 2020 equation that does not use a race coefficient. Blood Venous blood specimen / Unknown Venipuncture / Unknown 04/13/2025 12:44 PM EDT 04/13/2025 12:44 PM EDT us Jane Chávez MD LAB BLOOD ORDERABLES Final Re sult [facility] [address] [place] [address] * (ABNORMAL) CBC and differential (04/13/2025 12:44 PM EDT) WBC Count 4.12 3.70 - 10.30 10*3/uL LAB HEMATOLOGY METHOD 04/13/2025 3:04 PM EDT [facility] RBC Count 4.38 3.90 - 5.20 10*6/uL LAB HEMATOLOGY METHOD 04/13/2025 3:04 PM EDT [facility] HGB 13.0 11.2 - 15.7 g/dL LAB HEMATOLOGY METHOD 04/13/2025 3:04 PM EDT [facility] HCT 39.6 34.0 - 45.0 % LAB HEMATOLOGY METHOD 04/13/2025 3:04 PM EDT [facility] Platelet Count 329 155 - 369 10*3/uL LAB HEMATOLOGY METHOD 04/13/2025 3:04 PM EDT [facility] MCV 90 79 - 98 fL LAB HEMATOLOGY METHOD 04/13/2025 3:04 PM EDT [facility] MCH 29.7 26.0 - 32.0 pg LAB HEMATOLOGY METHOD 04/13/2025 3:04 PM EDT [facility] MCHC 32.8 30.7 - 35.5 g/dL LAB HEMATOLOGY METHOD 04/13/2025 3:04 PM EDT [facility] RDW 15.7(H) 11.5 - 14.5 % LAB HEMATOLOGY METHOD 04/13/2025 3:04 PM EDT [facility] MPV 10.6 8.8 - 12.5 fL LAB HEMATOLOGY METHOD 04/13/2025 3:04 PM EDT [facility] nRBC 0.0 <=0.0 per 100 WBCs LAB HEMATOLOGY METHOD 04/13/2025 3:04 PM EDT [facility] Differential Type Automated LAB HEMATOLOGY METHOD 04/13/2025 3:04 PM EDT [facility] Neutrophils % 64 % LAB HEMATOLOGY METHOD 04/13/2025 3:04 PM EDT [facility] Lymphocytes % 24 % LAB HEMATOLOGY METHOD 04/13/2025 3:04 PM EDT [facility] Monocytes % 10 % LAB HEMATOLOGY METHOD 04/13/2025 3:04 PM EDT [facility] Eosinophils % 0 % LAB HEMATOLOGY METHOD 04/13/2025 3:04 PM EDT [facility] Basophils % 1 % LAB HEMATOLOGY METHOD 04/13/2025 3:04 PM EDT [facility] Immature Granulocytes % 1 % LAB HEMATOLOGY METHOD 04/13/2025 3:04 PM EDT [facility] Neutrophils Absolute 2.67 1.60 - 6.10 10*3/uL LAB HEMATOLOGY METHOD 04/13/2025 3:04 PM EDT [facility] Lymphocytes Absolute 1.00(L) 1.20 - 3.90 10*3/uL LAB HEMATOLOGY METHOD 04/13/2025 3:04 PM EDT [facility] Monocytes Absolute 0.39 0.30 - 0.90 10*3/uL LAB HEMATOLOGY METHOD 04/13/2025 3:04 PM EDT [facility] Eosinophils Absolute 0.01 0.00 - 0.50 10*3/uL LAB HEMATOLOGY METHOD 04/13/2025 3:04 PM EDT [facility] Basophils Absolute 0.02 0.00 - 0.10 10*3/uL LAB HEMATOLOGY METHOD 04/13/2025 3:04 PM EDT [facility] Immature Granulocytes Absolute 0.03 0.00 - 0.06 10*3/uL LAB HEMATOLOGY METHOD 04/13/2025 3:04 PM EDT [facility] Blood Venous blood specimen / Unknown Venipuncture / Unknown 04/13/2025 12:44 PM EDT 04/13/2025 12:44 PM EDT Narrative [facility] - 04/13/2025 3:04 PM EDT Therapeutic decision making should be based on absolute values, rather than percentages. us Jane Chávez MD LAB BLOOD ORDERABLES Final Re sult Performing Organization Address City/[facility] [place] [address] * (ABNORMAL) Rheumatoid Factor, Plasma (04/13/2025 12:44 PM EDT) Rheumatoid Factor, Plasma 20(H) <14 IU/mL 04/13/2025 3:06 PM EDT [facility] Blood Venous blood specimen / Unknown Venipuncture / Unknown 04/13/2025 12:44 PM EDT 04/13/2025 12:44 PM EDT Result Regi Chávez MD LAB BLOOD ORDERABLES Final Re sult Performing Organization Address [facility] [place] [address] * C4 complement (04/13/2025 12:44 PM EDT) C4 Complement 17 13 - 36 mg/dL 04/13/2025 3:14 PM EDT [facility] Blood Venous blood specimen / Unknown Venipuncture / Unknown 04/13/2025 12:44 PM EDT 04/13/2025 12:44 PM EDT Result Regi Chávez MD LAB BLOOD ORDERABLES Final Re sult Performing Organization Address City/[facility] Co de Phone Number [facility] [address] [place] [address] * C3 complement (04/13/2025 12:44 PM EDT) C3 Complement 142 84 - 166 mg/dL 04/13/2025 3:14 PM EDT [facility] Blood Venous blood specimen / Unknown Venipuncture / Unknown 04/13/2025 12:44 PM EDT 04/13/2025 12:44 PM EDT us Jane Chávez MD LAB BLOOD ORDERABLES Final Re sult [facility] [address] [place] [id number] * (ABNORMAL) ANTI NUCLEAR AB (04/13/2025 12:44 [...] not necessarily rule out SARD. Performed By: [facility] [address] [place] [address] Administrative Supervisor: Tarik Ball MD, PhD CLIA Number: [id number] us Jane Chávez MD LAB BLOOD ORDERABLES Final Re sult [facility] ([facility]) [address] [place] [address] * XR Chest 2 Views (04/13/2025 12:37 [...] documented as of this encounter Care Teams Clothespin Drier Operator Relationship Specialty Start Date End Date Dima Giles MD [address] [place] [address] PCP - General 01/26/21 documented as of this encounter
--- OUTSIDE RECORDS SUMMARY | 2025-04-13 12:15 | XMS_ITS | Encounter Summary ---
Author Organization Healthcare Address [address] [place] [address] Care Team Providers Care Pellet Post Inspector Name Role Phone Dima Giles MD Primary Care Provider [phone] Encounter Details Date Type Department Care Team (Latest Contact Info) Description 04/13/2025 12:15 PM EDT - 04/13/2025 11:59 PM EDT Hospital Encounter [facility] [address], 1st [place] [address] Sarcoid Discharge Disposition: Home or Self Care [...] any time in the past 12 m [facility], were you homeless or living in a usp (including now)? No 11/26/2024 Utilities Answer Date [...] Description 06/30/2025 9:00 AM EDT Office Visit [facility] Medicine Specialties [address], [address] [place] [address] Alisson Zavala, TOM [address] [place] [address] documented as of this encounter [...] documented as of this encounter Care Teams Pellet Post Inspector Relationship Specialty Start Date End Date Dima Giles MD [address] [place] [address] PCP - General 01/26/21 documented as of this encounter
--- OUTSIDE RECORDS SUMMARY | 2025-05-02 08:36 | XMS_ITS | Encounter Summary ---
Author Organization [facility] Address [address] [place] [address] Care Team Providers Care Aluminum Fabrication Supervisor Name Role Phone Dima Giles MD Primary Care Provider [phone] Encounter Details Date Type Department Care Team (Late st Contact Info) Description 12/28/2024 Telephone [facility] [address] [place] [address] Milla Godfrey, PharmD Social History [...] any time in the past 12 m [facility], were you homeless or living in a prison (including now)? No 11/26/2024 Utilities Answer Date Recorded In the past 12 months has th e [employer], gas, oil, or water company threatened to [...] to receive infusion treatment at outside facility. [facility] will follow up with facility to make sure patient has been scheduled and received first dose. Specialty Medication: Prolia Filling Pharmacy/SOC: [facility] * Telephone Encounter - Milla Padilla CPhT - 03/21/2025 3:16 PM EDT Medicare B/Advantage Plan Authorization Information Specialty Medication: Prolia Diagnosis Code: M81.0 J-code/CPT code/S code: J0897 Covered by Medicare B: Yes Does the diagnosis, dose, and frequency match an FDA approved dosing schedule? Yes, list prescribeddose/frequency: every 180 days Site of Care: [facility] Does patient have an Advantage Plan? No. Will review in 12 months. * Telephone Encounter - Milla Godfrey PharmD - 12/28/2024 1:27 PM EDT [facility] has received therapy plan for medication Prolia. [facility] has contacted the patient and is initiating authorization for preferred site of care. [facility] Specialty Education Summary Patient was assessed via phone for initiation of drug therapy Prolia for diagnosis Osteoporosis. Plan for administration of therapy in infusion center and planned date of initiation: ~04/15/25. Anticipated filling pharmacy is [facility]. Education and Counseling Medication specific education [...] Visit [place] [facility] Medicine Specialties [address], [address]nd [place] [address] Alisson Zavala, TOM [address] [place] [address] documented as of this encounter Visit Diagnoses Not on filedocumented in this encounter Additional Health Concerns Assessment Noted Time A fall risk assessment has been complete d for the patient 11/07/2023 11:33 AM EST A Body Mass Index follow-up plan has been documented for the patient 12/10/2024 11:39 AM EDT documented as of this encounter Care Teams Aluminum Fabrication Supervisor Relationship Specialty Start Date End Date Dima Giles MD [address] [place] [address] PCP - General 01/26/21 documented as of this encounter
--- OUTSIDE RECORDS SUMMARY | 2025-05-02 08:36 | XMS_ITS | Encounter Summary ---
Author Organization [facility] Address [address] [place] [address] Care Team Providers Care Taping Machine Operator Name Role Phone Dima Giles MD Primary Care Provider [phone] Encounter Details Date Type Department Care Team [...] 06/30/2025 9:00 AM EDT Office Visit [facility] Medicine Specialties [address], [address]nd [place] [address] Alisson Zavaal, TOM [address] [place] [address] documented as of this encounter Visit Diagnoses [...] documented as of this encounter Care Teams Taping Machine Operator Relationship Specialty Start Date End Date Dima Giles MD [address] [place] [address] PCP - General 01/26/21 documented as of this encounter
--- OUTSIDE RECORDS SUMMARY | 2025-05-02 08:36 | XMS_ITS | Encounter Summary ---
Author Organization Healthcare Address [address] [place] [address] Care Team Providers Care Service Unit Operator Oil Well Name Role Phone Dima Giles MD Primary Care Provider [phone] Encounter Details Date Type Department Care Team (Late st Contact Info) Description 04/18/2025 Results Follow-Up [facility] Medicine Specialties [address], [address] [place] [address] Brock Chilel, TOM [address] [place] [address] Social History Tobacco Use Types Packs/Day Years [...] in the past 12 m [facility], were you homeless or living [...] Description 06/30/2025 9:00 AM EDT Office Visit [facility] Medicine Specialties [address], [address] [place] [address] Alisson Zavala, TOM [address] [place] [address] documented as of this encounter [...] documented as of this encounter Care Teams Service Unit Operator Oil Well Relationship Specialty Start Date End Date Dima Giles MD [address] [place] [address] PCP - General 01/26/21 documented as of this encounter
--- OUTSIDE RECORDS SUMMARY | 2025-05-02 08:36 | XMS_ITS | Encounter Summary ---
Author Organization Healthcare Address [address] [place] [address] Care Team Providers Care Slide Forming Machine Operator Name Role Phone Dima Giles MD Primary Care Provider [phone] Encounter Details Date Type Department Care Team ([facility] st Contact Info) Description 04/13/2025 Orders Only External Location [address] [place] [address] Provider, External Social History Tobacco Use Types [...] time in the past 12 m [facility], were you homeless or living in [...] Description 06/30/2025 9:00 AM EDT Office Visit [facility] Medicine Specialties [address], [address]nd [place] [address] Alisson Zavala, TOM [address] [place] [address] documented as of this encounter [...] documented as of this encounter Care Teams Slide Forming Machine Operator Relationship Specialty Start Date End Date Dima Giles MD [address] [place] [address] PCP - General 01/26/21 documented as of this encounter
--- OUTSIDE RECORDS SUMMARY | 2025-05-02 08:36 | XMS_ITS | Encounter Summary ---
Author Organization [facility] Address [address] [place] [address] Care Team Providers Care Exhibit Carpenter Name Role Phone Dima Giles MD Primary Care Provider [phone] Reason for Visit * Reason Comments Med Refill Encounter Details Date Type Department Care Team (Late st Contact Info) Description 07/16/2021 Refill [facility] [address] [place] [address] Tarik Early MD [address] [address] Social History Tobacco Use Types [...] Description 06/30/2025 9:00 AM EDT Office Visit [place] [facility] Medicine Specialties [address], [address] [place] [address] Alisson Zavala, TOM [address] [place] [address] documented as of this encounter Visit Diagnoses Not on filedocumented in this encounter Care Teams Exhibit Carpenter Relationship Specialty Start Date End Date Dima Giles MD [address] [place], [place] [address] PCP - General 01/26/21 documented as of this encounter
--- OUTSIDE RECORDS SUMMARY | 2025-05-02 08:36 | XMS_ITS | Encounter Summary ---
Author Organization [facility] Address [address] [place] [address] Care Team Providers Care Chip Mixer Name Role Phone Dima Giles MD Primary Care Provider [phone] Reason for Referral * Consultation (Routine) - Closed Specialty Diagnoses / Procedures Referred By Contac t Referred To Contact Rheumatology Diagnoses Positive SERINA (antinuclear antibody) Elevated sed rate Elevated C-reactive protein (CRP) Ioana Browne APRN [address] [address] Phone: tel: fax: Referral ID Status Reason Start Date Expiration Date V isits Requested Visits Authorized [id number] Closed Specialty Services Required 12/07/2024 06/08/2026 1 1 Encounter Details Date Type Department Care Team (Late st Contact Info) Description 12/07/2024 [facility] [address] [place] [address] Ioana Browne APRN [address] [address] Positive SERINA (antinuclear antibody) (Primary [...] time in the past [address] [facility], were you homeless or living in [...] Description 06/30/2025 9:00 AM EDT Office Visit [facility] Medicine Specialties [address], [address] [place] [address] Alisson Zavala, TOM [address] [place] [address] Scheduled Referrals Name Type Priority Associated Diagnoses [...] documented as of this encounter Care Teams Chip Mixer Relationship Specialty Start Date End Date Dima Giles MD [address] [place] [address] PCP - General 01/26/21 documented as of this encounter
--- OUTSIDE RECORDS SUMMARY | 2025-05-02 08:36 | XMS_ITS | Encounter Summary ---
Author Organization Healthcare Address [address] [place] [address] Care Team Providers Care Transition Rn Name Role Phone Dima Giles MD Primary Care Provider [phone] Encounter Details Date Type Department Care Team (Latest Contact Info) Description 04/19/2025 Lab Requisition [facility] [address] [place] [address] Evangelina Tapia MD [address] [facility] [address] [place] [address] Calculus of gallbladder with chronic [...] any time in the past 12 m [facility], were you homeless or living in [...] Description 06/30/2025 9:00 AM EDT Office Visit [facility] Medicine Specialties [address] [place] [id number] Alisson Zavala, TOM [address] [place] [address] documented as of this encounter Procedures Procedure Name Priority Date/Time Associated Diagnosis Comments HISTORICAL SURGICAL PATHOLOGY ADDENDUM Routine 04/18/2025 Calculus of gallbladder with chronic cholecystitis without obstruction documented in this encounter Results * Historical Surgical Pathology Addendum (04/18/2025) Historical Case Information This case was collected on 11/28/2024 was originally reported as case [id number]. The entire surgical pathology report can be viewed as a scanned document attached to this report. 04/22/2025 1:17 PM EDT [facility] Case Report Historical Case Addendum/Amend ment Case: [id number] Authorizing Provider: Evangelina Tapia MD Collected: 04/18/2025 Ordering Location: [facility] Lab Received: 04/19/2025 0847 Pathologist: Macy Saucedo MD Specimen: [id number] 04/22/2025 1:17 PM EDT [facility] Addendum 04/22/2025 1:17 PM EDT [facility] Addendum 2 04/22/2025 1:17 PM EDT [facility] Addendum 3 04/22/2025 1:17 PM EDT [facility] Addendum 4 04/22/2025 1:17 PM EDT [facility] Addendum 5 04/22/2025 1:17 PM EDT [facility] Tissue 04/18/2025 04/19/2025 8:4 7 AM EDT us Evangelina Tapia MD LAB PATHOLOGY ORDERABLES F inal Result [facility] [address] [place] [address] documented in this encounter Visit Diagnoses Diagnosis [...] documented as of this encounter Care Teams Transition Rn Relationship Specialty Start Date End Date Dima Giles MD [address] [place], [place] [address] PCP - General 01/26/21 documented as of this encounter
--- OUTSIDE RECORDS SUMMARY | 2025-05-02 08:36 | XMS_ITS | Encounter Summary ---
Author Organization [facility] Address [address] [place] [address] Care Team Providers Care Crayon Grader Name Role Phone Dima Giles MD Primary Care Provider [phone] Reason for Referral * Imaging (Routine) - Pending Review Specialty Diagnoses / Procedures Referred By Contac t Referred To Contact Radiology Diagnoses Lung nodule seen on imaging study Procedures CT Chest wo IV Contrast Jane Chávez MD [address] [place] [address] Phone: tel: fax: Referral ID Status Reason Start Date Expiration Date V isits Requested Visits Authorized [id number] Pending Review 04/18/2025 10/18/2026 1 1 Encounter Details Date Type Department Care Team (Late st Contact Info) Description 04/18/2025 Orders Only [facility] [address], [address] [place] [address] Brock Chilel, TOM [address] [place] [address] Lung nodule seen on imaging study (Primary [...] the past 12 months has th e [employer], gas, oil, or water company threatened to [...] Description 06/30/2025 9:00 AM EDT Office Visit [facility] [address], [address] [place] [address] Alisson Zavala, MBBS [address] [place] [address] Scheduled Orders Name Type Priority Associated Diagnoses [...] documented as of this encounter Care Teams Crayon Grader Relationship Specialty Start Date End Date Dima Giles MD [address] [place] [address] PCP - General 01/26/21 documented as of this encounter
--- OUTSIDE RECORDS SUMMARY | 2025-05-02 08:36 | XMS_ITS | Clinical Summary ---
Author Organization [facility] Address [address] [place] [address] Care Team Providers Care Electron Microscopist Name Role Phone Dima Giles MD Primary Care Provider [phone] Allergies Active Allergy Reactions Criticality Noted Date [...] C SCREENING Completed 11/25/[address]24 [place] [address] [facility] PPO Member Subscriber Plan / Payer (Ef fective 2019-Present) Name:Brittany Hayes Relation to Subscriber:Self Name:Brittany Hayes Payer ID:[id number] (IC) Type:Not on file Address: [facility] [id number] [place] [id number] Care Teams Electron Microscopist Relationship Specialty Start Date End Date Dima Giles MD [address] [facility] [facility] [address] [place] [address] PCP - General Adolescent Medicine 05/13/16
--- OUTSIDE RECORDS SUMMARY | 2025-05-02 08:36 | XMS_ITS | Encounter Summary ---
Author Organization Healthcare Address [address] [place] [address] Care Team Providers Care Vamp Throater Name Role Phone Dima Giles MD Primary Care Provider Reason for Visit * Reason Comments Med Refill Encounter Details Date Type Department Care Team (Late st Contact Info) Description 07/10/20[address] [facility] [address] [place] [address] Tarik Early MD [address] [address] Social History Tobacco Use Types [...] Visit [facility] [address] [place] [address] Alisson Zavala, TOM [address] [place] [address] documented as of this encounter Visit Diagnoses Not on filedocumented in this encounter Care Teams Vamp Throater Relationship Specialty Start Date End Date Dima Giles MD [address] [place], [place] [address] PCP - General 01/26/21 documented as of this encounter
--- OUTSIDE RECORDS SUMMARY | 2025-05-02 08:37 | XMS_ITS | Encounter Summary ---
Author Organization Healthcare Address [address] [place] [address] Care Team Providers Care Grain Weigher Name Role Phone Dima Giles MD Primary Care Provider [phone] Encounter Details Date Type Department Care Team (Late st Contact Info) Description 04/12/2025 Telephone [facility] [address] [place] [address] Ailyn Romero RN CH-VASCULAR & [...] the past 12 months has th e [employer], gas, oil, or water company threatened to [...] Description 06/30/2025 9:00 AM EDT Office Visit [facility] Medicine Specialties [address] [place] [address] Alisson Zavala, TOM [address] [place] [address] documented as of this encounter [...] documented as of this encounter Care Teams Grain Weigher Relationship Specialty Start Date End Date Dima Giles MD [address] [place] [address] PCP - General 01/26/21 documented as of this encounter
--- OUTSIDE RECORDS SUMMARY | 2025-05-02 08:37 | XMS_ITS | Encounter Summary ---
Author Organization Healthcare Address [address] [place] [address] Care Team Providers Care Leisure Studies Professor Name Role Phone Dima Giles MD Primary Care Provider [phone] Encounter Details Date Type Department Care Team (Late st Contact Info) Description 01/10/2025 Results Follow-Up [facility] Medicine Specialties [address], [address] [place] [address] Alisson Zavala, TOM [address] [place] [id number] Social History Tobacco Use Types Packs/Day Years [...] any time in the past 12 m [facility], were you homeless or living in [...] 06/30/2025 9:00 AM EDT Office Visit [facility] Medicine Specialties [address] [place] [address] Alisson Zavala, TOM [address] [place] [address] documented as of this encounter Visit Diagnoses [...] documented as of this encounter Care Teams Leisure Studies Professor Relationship Specialty Start Date End Date Dima Giles MD [address] [place] [address] PCP - General 01/26/21 documented as of this encounter
--- OUTSIDE RECORDS SUMMARY | 2025-05-02 08:37 | XMS_ITS | Encounter Summary ---
Author Organization Healthcare Address [address] [place] [id number] Care Team Providers Care Special Service Representative Name Role Phone Dima Giles MD Primary Care Provider [phone] Encounter Details Date Type Department Care Team (Late st Contact Info) Description 04/11/2025 Telephone [facility] Medicine Specialties [address] [place] [address] Alisson Zavala, [place] [id number] Social History Tobacco Use Types Packs/Day Years [...] sooner apt. Please call. Best contact number: [phone] (mobile) Optimal time of day to reach [...] Description 06/30/2025 9:00 AM EDT Office Visit [facility] Medicine Specialties [address] [place] [address] Alisson Zavala, MBBS [address] [place] [address] documented as of this encounter [...] documented as of this encounter Care Teams Special Service Representative Relationship Specialty Start Date End Date Dima Giles MD [address] [place] [address] PCP - General 01/26/21 documented as of this encounter
--- OUTSIDE RECORDS SUMMARY | 2025-05-02 08:37 | XMS_ITS | Clinical Summary ---
Author Organization [facility] Address [address] [place] [address] Care Team Providers Care Section Forest Fire Warden Name Role Phone Dima Giles MD Primary Care Provider [phone] Allergies Active Allergy Reactions Criticality Noted Date [...] Department Care Team Description 04/19/[address] [facility] [address] [place] [address] Evangelina Tapia MD Calculus of gallbladder with chronic cholecystitis without obstruction 04/18/2025 Orders Only [facility] Medicine Specialties [address] [place] [address] Brock Chilel MBBS Lung nodule seen on imaging study (Primary Dx) 04/18/2025 Results Follow-Up [facility] Medicine Specialties [address] [place] [address] Brock Chilel MBBS 04/13/2025 12:15 PM EDT - 04/13/2025 11:59 PM EDT Hospital Encounter [facility] Radiology [address] [place] [address] Sarcoid Discharge Disposition: Home or Self Care 04/13/2025 10:10 AM EDT Office Visit [facility] Medicine Specialties [address] [place] [address] Brock Chilel MBBS Sarcoid (Primary Dx); Positive SERINA (antinuclear antibody); Inflammatory arthropathy; Therapeutic drug monitoring; High risk medication use; Arthralgia of both hands; Joint swelling 04/13/2025 Orders Only External Location [address] [place] [address] Provider, External 04/13/2025 Travel 04/12/2025 Telephone [facility] Medicine Specialties [address] [place] [address] Ailyn Romero RN 04/11/2025 Telephone [facility] Medicine Specialties [address] [place] [address] Alisson Zavala MBBS from Last [...] were you homeless or living in a nursing home (including now)? No 11/26/2024 Utilities Answer Date Recorded In the past 12 months has th e [email or web address], oil, or water company threatened to shut [...] Description 06/30/2025 9:00 AM EDT Office Visit [facility] Medicine Specialties [address] [place] [address] Alisson Zavala, [facility] [address] [place] [address] Health Maintenance Due Date Last Done Comments [...] 2 - Risk 2-dose series) 07/07/2019 01/05/2019 [id number] Vaccine ( season) 2025 07/10/2024, 05/31/2023, 07/14/2022, [...] PM EDT Sarcoid Positive SERINA (antinuclear antibody) CARDONA/TYPEWRITER ASSEMBLY AND PARTS INSPECTOR (ONEYDA) ANTIBODY, IGG (SO) Routine 04/13/2025 12:44 [...] on 11/28/2024 was originally reported as case [id number]. The entire surgical pathology report can be viewed as a scanned document attached to this report. 04/22/2025 1:17 PM EDT [facility] Case Report Historical Case Addendum/Amend ment Case: [id number] Authorizing Provider: Evangelina Tapia MD Collected: 04/18/2025 Ordering Location: [facility] Received: 04/19/2025 0847 Pathologist: Macy Saucedo MD Specimen: [id number] 04/22/2025 1:17 PM EDT [facility] Addendum 04/22/2025 1:17 PM EDT [facility] Addendum 2 04/22/2025 1:17 PM EDT [facility] Addendum 3 04/22/2025 1:17 PM EDT [facility] Addendum 4 04/22/2025 1:17 PM EDT [facility] Addendum 5 04/22/2025 1:17 PM EDT [facility] Tissue 04/18/2025 04/19/2025 8:4 7 AM EDT us Evangelina Tapia MD LAB PATHOLOGY ORDERABLES F inal Result [facility] [address] [place] [address] * Centromere Antibody, IgG (04/13/2025 12:44 PM EDT) Centromere Ab, IgG 2 0 - 40 AU/mL 04/15/2025 8:00 PM EDT [facility] ([facility]) Blood Venous blood specimen / Unknown Venipuncture / Unknown 04/13/2025 12:44 PM EDT 04/13/2025 12:44 PM EDT Narrative [facility] ([facility]) - 04/15/2025 8:00 PM EDT [...] for SSc is strong, consider testing for SERIAN by IFA along with other antibodies associated with SSc, including Scl-70, U3-TYPEWRITER ASSEMBLY AND PARTS INSPECTOR, PM/Scl, or Th/To. Performed By: [facility] [address] [place] [address] Iron Bender: Tairk Ball MD, PhD CLIA Number: [id number] us Jane Chávez MD LAB BLOOD ORDERABLES Final Re sult [facility] ([facility]) [address] [place] [address] * (ABNORMAL) SERINA Single Pattern (Reflex only) (04/13/2025 12:44 PM EDT) SERINA Pattern Homogeneou s(A) 04/16/2025 2:58 PM EDT [facility] ([facility]) SERINA Titer 1:320(A) 04/16/2025 2:58 PM EDT [facility] ([facility]) Blood Venous blood specimen / Unknown Venipuncture / Unknown 04/13/2025 12:44 PM EDT 04/13/2025 12:44 PM EDT Narrative [facility] ([facility]) - 04/16/2025 2:58 PM EDT Performed By: [facility] [address] [place] [address] Iron Bender: Tarik Ball MD, PhD CLIA Number: [id number] us Jane Chávez MD LAB BLOOD ORDERABLES Final Re sult [facility] ([facility]) [address] [place] [address] * ENAII (04/13/2025 12:44 PM EDT) Pathologist [facility] SSA-52 (RO52) (ONEYDA) Antibody, IgG 4 0 - 40 AU/mL 04/15/2025 8:00 PM EDT [facility] ([facility]) SSA-60 (RO60) (ONEYDA) Antibody, IgG 1 0 - 40 AU/mL 04/15/2025 8:00 PM EDT [facility]) SSB (LA) (ONEYDA) Antibody, IgG 1 0 - 40 AU/mL 04/15/2025 8:00 PM EDT [facility] ([facility]) Blood Venous blood specimen / Unknown Venipuncture / Unknown 04/13/2025 12:44 PM EDT 04/13/2025 12:44 PM EDT Narrative [facility] ([facility]) - 04/15/2025 8:00 PM EDT INTERPRETIVE [...] (PSS) also have this antibody. Performed By: [facility] [address] [place] [address] Iron Bender: Tarik Ball MD, PhD CLIA Number: [id number] us Jane Chávez MD LAB BLOOD ORDERABLES Final Re sult [facility]) [address] [place] [address] * ENAI (04/13/2025 12:44 PM EDT) Cardona/TYPEWRITER ASSEMBLY AND PARTS INSPECTOR (ONEYDA) Ab, IgG 13 0 - 19 Units 04/15/2025 4:55 AM EDT [facility]) Blood Venous blood specimen / Unknown Venipuncture / Unknown 04/13/2025 12:44 PM EDT 04/13/2025 12:44 PM EDT Narrative [facility]) - 04/15/2025 4:55 AM EDT INTERPRETIVE INFORMATION: Cardona/TYPEWRITER ASSEMBLY AND PARTS INSPECTOR (ONEYDA) Antibody, IgG 19 Units or Less ............. Negative 20 to 39 Units ............... Weak Positive 40 to 80 Units ............... Moderate Positive 81 Units or greater .......... Strong Positive Cardona/TYPEWRITER ASSEMBLY AND PARTS INSPECTOR antibodies are frequently seen in patients with mixed connective tissue disease (MCTD) and are also associated with other systemic autoimmune rheumatic diseases (SARDs) such as systemic lupus erythematosus (SLE), systemic sclerosis, and myositis. Antibodies targeting the Cardona/TYPEWRITER ASSEMBLY AND PARTS INSPECTOR antigenic complex also recognize Cardona antigens, therefore, the Cardona antibody response must be considered when interpreting these results. Performed By: [facility] [address] [place] [address] Iron Bender: Tarik Ball MD, PhD CLIA Number: [id number] Jane Chávez MD LAB BLOOD ORDERABLES Final Re sult Performing Organization Address City/[facility]/ZIP Co de Phone Number [facility] ([facility]) [address] [place] [address] * Cyclic Citrul Peptide Antibody IgG (04/13/2025 12:44 PM EDT) Cyclic Citrul Peptide Antibody IgG <5.0 <=5.0 U/mL 04/13/2025 4:00 PM EDT [facility] Blood Venous blood specimen / Unknown Venipuncture / Unknown 04/13/2025 12:44 PM EDT 04/13/2025 12:44 PM EDT Jane Chávez MD LAB BLOOD ORDERABLES Final Re sult [facility] [address] [place] [address] * Anti-scleroderma antibody (04/13/2025 12:44 PM EDT) SCLERODERMA (SCL-70) (ONEYDA) ANTIBODY, IGG 2 0 - 40 AU/mL 04/15/2025 8:00 PM EDT [facility] ([facility]) Blood Venous blood specimen / Unknown Venipuncture / Unknown 04/13/2025 12:44 PM EDT 04/13/2025 12:44 PM EDT Narrative [facility] ([facility]) - 04/15/2025 8:00 PM EDT INTERPRETIVE [...] testing for centromere, RNA polymerase III and U3-TYPEWRITER ASSEMBLY AND PARTS INSPECTOR, PM/Scl, or Th/To antibodies. Performed By: [facility] [address] [place] [address] Iron Bender: Tarik Ball MD, PhD CLIA Number: [id number] us Jane Chávez MD LAB BLOOD ORDERABLES Final Re sult [facility]) [address] [place] [address] * (ABNORMAL) Anti-DNA antibody, double-stranded (04/13/2025 12:44 PM EDT) Double-Strande d DNA (dsDNA) Ab IgG IFA 1:80(H) <1:10 04/15/2025 10:47 AM EDT [facility]) Blood Venous blood specimen / Unknown Venipuncture / Unknown 04/13/2025 12:44 PM EDT 04/13/2025 12:44 PM EDT Narrative [facility]) - 04/15/2025 10:47 AM EDT INTERPRETIVE [...] recommendations for testing may be found at [email or web address]. Performed By: [facility] [address] [place] [address] Iron Bender: Tarik Ball MD, PhD CLIA Number: [id number] us Jane Chávez MD LAB BLOOD ORDERABLES Final Re sult [facility] [employer] [facility]) [address] [place] [phone] * (ABNORMAL) Sedimentation Rate, Automated (04/13/2025 12:44 PM EDT) Sedimentation Rate 31(H) <30 mm/hr 07/30/ 2025 3:23 PM EDT [facility] Blood Venous blood specimen / Unknown Venipuncture / Unknown 04/13/2025 12:44 PM EDT 04/13/2025 12:44 PM EDT us Jane Chávez MD LAB BLOOD ORDERABLES Final Re sult [facility] [address] [place] [address] * (ABNORMAL) CBC and differential (04/13/2025 12:44 PM EDT) WBC Count 4.12 3.70 - 10.30 10*3/uL LAB HEMATOLOGY METHOD 04/13/2025 3:04 PM EDT [facility] RBC Count 4.38 3.90 - 5.20 10*6/uL LAB HEMATOLOGY METHOD 04/13/2025 3:04 PM EDT [facility] HGB 13.0 11.2 - 15.7 g/dL LAB HEMATOLOGY METHOD 04/13/2025 3:04 PM EDT [facility] HCT 39.6 34.0 - 45.0 % LAB HEMATOLOGY METHOD 04/13/2025 3:04 PM EDT [facility] Platelet Count 329 155 - 369 10*3/uL LAB HEMATOLOGY METHOD 04/13/2025 3:04 PM EDT [facility] MCV 90 79 - 98 fL LAB HEMATOLOGY METHOD 04/13/2025 3:04 PM EDT [facility] MCH 29.7 26.0 - 32.0 pg LAB HEMATOLOGY METHOD 04/13/2025 3:04 PM EDT [facility] MCHC 32.8 30.7 - 35.5 g/dL LAB HEMATOLOGY METHOD 04/13/2025 3:04 PM EDT [facility] RDW 15.7(H) 11.5 - 14.5 % LAB HEMATOLOGY METHOD 04/13/2025 3:04 PM EDT [facility] MPV 10.6 8.8 - 12.5 fL LAB HEMATOLOGY METHOD 04/13/2025 3:04 PM EDT [facility] nRBC 0.0 <=0.0 per 100 WBCs LAB HEMATOLOGY METHOD 04/13/2025 3:04 PM EDT [facility] Differential Type Automated LAB HEMATOLOGY METHOD 04/13/2025 3:04 PM EDT [facility] Neutrophils % 64 % LAB HEMATOLOGY METHOD 04/13/2025 3:04 PM EDT [facility] Lymphocytes % 24 % LAB HEMATOLOGY METHOD 04/13/2025 3:04 PM EDT [facility] Monocytes % 10 % LAB HEMATOLOGY METHOD 04/13/2025 3:04 PM EDT [facility] Eosinophils % 0 % LAB HEMATOLOGY METHOD 04/13/2025 3:04 PM EDT [facility] Basophils % 1 % LAB HEMATOLOGY METHOD 04/13/2025 3:04 PM EDT [facility] Immature Granulocytes % 1 % LAB HEMATOLOGY METHOD 04/13/2025 3:04 PM EDT [facility] Neutrophils Absolute 2.67 1.60 - 6.10 10*3/uL LAB HEMATOLOGY METHOD 04/13/2025 3:04 PM EDT [facility] Lymphocytes Absolute 1.00(L) 1.20 - 3.90 10*3/uL LAB HEMATOLOGY METHOD 04/13/2025 3:04 PM EDT [facility] Monocytes Absolute 0.39 0.30 - 0.90 10*3/uL LAB HEMATOLOGY METHOD 04/13/2025 3:04 PM EDT [facility] Eosinophils Absolute 0.01 0.00 - 0.50 10*3/uL LAB HEMATOLOGY METHOD 04/13/2025 3:04 PM EDT [facility] Basophils Absolute 0.02 0.00 - 0.10 10*3/uL LAB HEMATOLOGY METHOD 04/13/2025 3:04 PM EDT [facility] Immature Granulocytes Absolute 0.03 0.00 - 0.06 10*3/uL LAB HEMATOLOGY METHOD 04/13/2025 3:04 PM EDT [facility] Blood Venous blood specimen / Unknown Venipuncture / Unknown 04/13/2025 12:44 PM EDT 04/13/2025 12:44 PM EDT [facility] - 04/13/2025 3:04 PM EDT Therapeutic decision making should be based on absolute values, rather than percentages. us Jane Chávez MD LAB BLOOD ORDERABLES Final Re sult Performing Organization Address [facility]/ZIP Co de Phone Number [facility] [address] [place] [address] * (ABNORMAL) Rheumatoid Factor, Plasma (04/13/2025 12:44 PM EDT) Rheumatoid Factor, Plasma 20(H) <14 IU/mL 04/13/2025 3:06 PM EDT [facility] Blood Venous blood specimen / Unknown Venipuncture / Unknown 04/13/2025 12:44 PM EDT 04/13/2025 12:44 PM EDT us Jane Chávez MD LAB BLOOD ORDERABLES Final Re sult Performing Organization Address [facility] Co de Phone Number [facility] [address] [place] [address] * C3 complement (04/13/2025 12:44 PM EDT) C3 Complement 142 84 - 166 mg/dL 04/13/2025 3:14 PM EDT [facility] Blood Venous blood specimen / Unknown Venipuncture / Unknown 04/13/2025 12:44 PM EDT 04/13/2025 12:44 PM EDT us Jane Chávez MD LAB BLOOD ORDERABLES Final Re sult Performing Organization Address [facility]/ZIP Co de Phone Number [facility] [address] [place] [address] * C4 complement (04/13/2025 12:44 PM EDT) C4 Complement 17 13 - 36 mg/dL 04/13/2025 3:14 PM EDT [facility] Blood Venous blood specimen / Unknown Venipuncture / Unknown 04/13/2025 12:44 PM EDT 04/13/2025 12:44 PM EDT us Jane Chávez MD LAB BLOOD ORDERABLES Final Re sult Performing Organization Address City/[facility]/ZIP Co de Phone Number [facility] [address] [place] [address] * (ABNORMAL) C-reactive protein (04/13/2025 12:44 PM EDT) Pathologist [facility] CRP, Plasma 44.2(H) <=8.0 mg/L 04/13/2025 3:06 PM EDT [facility] Blood Venous blood specimen / Unknown Venipuncture / Unknown 04/13/2025 12:44 PM EDT 04/13/2025 12:44 PM EDT Narrative [facility] - 04/13/2025 3:06 PM EDT This CRP test is appropriate for assessment of infection, systemic inflammation and/or tissue injury. To assess cardiovascular disease risk order high sensitivity CRP (CRPH). us Jane Chávez MD LAB BLOOD ORDERABLES Final Re sult [facility] [address] [place] [address] * (ABNORMAL) ANTI NUCLEAR AB (04/13/2025 12:44 PM EDT) [facility] SERINA INTERPRETIVE COMMENT See Note 04/16/2025 2:58 PM EDT [facility] ([facility]) Anti Nuc Ab Screen Detected( H) <1:80 04/16/2025 2:58 PM EDT [facility] ([facility]) Blood Venous blood specimen / Unknown Venipuncture / Unknown 04/13/2025 12:44 PM EDT 04/13/2025 12:44 PM EDT Narrative [facility] ([facility]) - 04/16/2025 2:58 PM EDT Clinical Interpretation: [...] not necessarily rule out SARD. Performed By: [facility] [address] [place] [address] Iron Bender: Tarik Ball MD, PhD CLIA Number: [id number] us Jane Chávez MD LAB BLOOD ORDERABLES Final Re sult [facility] [address] [place] [address] * Comprehensive metabolic panel (04/13/2025 12:44 PM EDT) Glucose, Plasma 90 74 - 99 mg/dL 04/13/2025 3:06 PM EDT [facility] BUN, Plasma 19 8 - 23 mg/dL 04/13/2025 3:06 PM EDT [facility] Creatinine, Plasma 0.60 0.60 - 1.10 mg/dL 04/13/2025 3:06 PM EDT [facility] BUN/Creatinine Ratio 32 04/13/2025 3:06 PM EDT [facility] Sodium, Plasma 141 136 - 145 mmol/L 04/13/2025 3:06 PM EDT [facility] Potassium, Plasma 4.3 3.6 - 4.9 mmol/L 04/13/2025 3:06 PM EDT [facility] Chloride, Plasma 105 97 - 107 mmol/L 04/13/2025 3:06 PM EDT [facility] CO2, Plasma 25 22 - 29 mmol/L 04/13/2025 3:06 PM EDT [facility] Anion Gap 11 6 - 16 mmol/L 04/13/2025 3:06 PM EDT [facility] Total Calcium, Plasma 8.9 8.9 - 10.2 mg/dL 04/13/2025 3:06 PM EDT [facility] Total Protein 6.9 6.3 - 7.9 g/dL 04/13/2025 3:06 PM EDT [facility] Albumin, Plasma 3.8 3.5 - 5.2 g/dL 04/13/2025 3:06 PM EDT [facility] AST, Plasma 28 10 - 35 U/L 04/13/2025 3:06 PM EDT [facility] ALT, Plasma 27 10 - 35 U/L 04/13/2025 3:06 PM EDT [facility] Alkaline Phosphatase, Plasma 109 46 - 142 U/L 04/13/2025 3:06 PM EDT [facility] Total Bilirubin, Plasma 0.2 0.2 - 1.1 mg/dL 04/13/2025 3:06 PM EDT [facility] eGFRcr 99.8 mL/min/1.7 3m*2 04/13/2025 3:06 PM EDT [facility] Comment:Reported eGFRcr in m L/min/1.73m2 is based the CKD-EPI 2020 equation that does not use a race coefficient. Blood Venous blood specimen / Unknown Venipuncture / Unknown 04/13/2025 12:44 PM EDT 04/13/2025 12:44 PM EDT us Jane Chávez MD LAB BLOOD ORDERABLES Final Re sult [facility] [address] [place] [address] * XR Chest 2 Views (04/13/2025 12:37 [...] Antibody Negative Negative 01/05/2025 11:05 AM EDT [facility] Blood Venous blood specimen / Unknown Venipuncture / Unknown 01/05/2025 9:00 AM EDT 01/05/2025 9:01 AM EDT us Adriana Mueller MD LAB BLOOD ORDERABLES Final Re sult [facility] [address] [place] [address] from Last 3 Months or Most Recently Relevant to Health Maintenance Insurance MEDICARE [facility] Advance Directives * Full Code (Latest Code Status on File) Date Activated Date Inactivated Comments 11/25/2024 11:42 AM 11/29/2024 4:20 PM Care Teams Section Forest Fire Warden Relationship Specialty Start Date End Date Dima Giles MD [address] [place] [address] [facility] - General 01/26/21
--- OUTSIDE RECORDS SUMMARY | 2025-05-02 08:37 | XMS_ITS | Encounter Summary ---
Author Organization Healthcare Address [address] [place] [address] Care Team Providers Care Automotive Parts Specialist Name Role Phone Dima Giles MD Primary Care Provider [phone] Encounter Details Date Type Department Care Team (Late st Contact Info) Description 01/17/2025 Results Follow-Up [facility] Medicine Specialties [address] [place] [address] Alisson Zavala, TOM [address] [place] [phone] Social History Tobacco Use Types Packs/Day Years [...] were you homeless or living in a group home (including now)? No 11/26/2024 Utilities Answer [...] Description 06/30/2025 9:00 AM EDT Office Visit [facility] Medicine Specialties [address] [place] [address] Alisson Zavala, TOM [address] [place] [address] documented as of this encounter Visit Diagnoses [...] documented as of this encounter Care Teams Automotive Parts Specialist Relationship Specialty Start Date End Date Dima Giles MD [address] [place] [address] PCP - General 01/26/21 documented as of this encounter
[2025-05-02 10:11] LABS: Albumin Level 3.5 g/dl (3.5-5.0); Chloride 107 mmol/L (98-107); Potassium 4.8 mmoL/L (3.5-5.1); Sodium 139 mmol/L (136-145)
[2025-05-02 10:14] LABS: Alanine Aminotransferase 17 U/L (12-78); Albumin/Globulin Ratio 1.3 (1.1-1.8); Alkaline Phosphatase 107 U/L (38-126); Anion Gap 10.8 mEq/L (5-15); Aspartate Amino Transferase 25 U/L (14-36); Bilirubin,Total 0.3 mg/dl (0.2-1.3); Blood Urea Nitrogen 20 mg/dl (7-17); Calcium 9.1 mg/dl (8.4-10.2); Carbon Dioxide 26 mmol/L (22.0-30.0); Creatinine,Serum 0.80 mg/dl (0.52-1.04); Estimated Glomerular Filt Rate 72 ml/min (>60); GFR (African American) 87 ML/MIN (>60); Globulin 2.6 g/dL (1.3-3.2); Glucose 87 mg/dl (74-100); Phosphorous 5.2 mg/dl (2.5-4.5); Total Protein,Serum 6.1 g/dl (6.3-8.2)
[2025-05-02 16:29] LABS: 25-OH Vitamin D, Total 71.6 ng/mL (30-100)
== END 2025-05-02 23:59 | disposition home or self-care (01) ==
LOC: LAB 08:34
PROVIDERS: PCP Nurse Practitioner Family; Visit Provider Nurse Practitioner
DX: M81.0 Age-related osteoporosis without current pathological fracture (principal)
CPT/HCPCS: 36415; 80053; 80069; 82306; 84080

== ENCOUNTER 2025-05-06 13:45 | Outpatient (CLI) | payer MEDICARE, SELFPAY ==
--- OUTSIDE RECORDS SUMMARY | 2025-04-13 10:10 | XMS_ITS | Encounter Summary ---
Author Organization [facility] Address [address] [place] [address] Care Team Providers Care Clinical Assistant Name Role Phone Dima Giles MD Primary Care Provider [phone] Reason for Referral * Consultation (Routine) - Authorized Specialty Diagnoses / Procedures Referred By Contsegun t Referred To Contact Ophthalmology Diagnoses Inflammatory arthropathy High risk medication use Jane Chávez MD [address] [facility] [address] [place] [address] Phone: tel: fax: [facility] [address] [place] [address] Phone: tel: fax: Referral ID Status Reason Start Date Expiration Date Visits Requested Visits Authorized [id number] Authorized Specialty Services Required 04/13/2025 10/13/2026 1 1 Reason for Visit * Reason Comments Joint Swelling Swelling, neck hurts , jaw issues, arm hurting, Trouble sleeping due to these issues Encounter Details Date Type Department Care Team (Late st Contact Info) Description 04/13/2025 10:10 AM EDT Office Visit [facility] [address] [place] [address] Brock Chilel, MBBS [address] [place] [address] Sarcoid (Primary Dx); Positive SERINA (antinuclear antibody); [...] any time in the past 12 m [facility], were you homeless or living in a penitentiary (including now)? No 11/26/2024 Utilities Answer Date Recorded In the past 12 months has [employer] electric, gas, oil, or water company threatened [...] file Social Connections: Unknown (06/25/2023) Received from [facility] Community Support Help with Day-to-Day [...] time. 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 Grossly strength appears normal) [...] Urine: Dark Yellow Clarity, Urine: Clear Specific Raymond, Urine: >1.030 (H) pH, Urine: 5.5 Glucose, [...] COMMENT: See Note Rheumatoid Factor: 19 (H) Cardona/IS ARCHITECT (ONEYDA) Ab, Ig SSA-52 (RO52) (ONEYDA) Antibody, Ig SSA-60 (RO60) (ONEYDA) Antibody, Ig ONEYDA SSB (LA) Ab: 1 IMMUNOGLOBULIN G SUBCLASS 4: 7 Double-Stranded DNA (dsDNA) Ab IgG IFA: 1:80 (H) Cyclic Citrul Peptide Antibody IgG: <5.0 Sed Rate: 79 (H) 01/12/25 08:10 Soluble Liver Antigen Antibody, Ig.6 MITOCHONDRIA M2 AB IG.3 Ilhai-Nqfudp-Fvwgtgigq Abs, IgG by IFA: <1:20 Smooth Muscle [...] Division of Rheumatology Department of Internal Medicine [facility] Please note: This dictation was prepared using [employer] voice recognition software. As a result errors may occur. While every attempt is made to correct the mistakes during dictation, errors may still exist. When identified, these project associate errors have been updated. [1] Past Medical [...] evaluation, counseling and documentation. Jane Chávez MD. Psychiatric Social Worker Division of Rheumatology Department of Internal Medicine [facility] documented in this encounter Plan of Treatment Upcoming Encounters Date Type Department Care Team (Late st Contact Info) Description 06/30/2025 9:00 AM EDT Office Visit [facility] Medicine Specialties [address] [place] [address] Alisson Zavala, [facility] [address] [place] [address] Scheduled Referrals Name Type Priority [...] EDT 04/13/2025 12:44 PM EDT Narrative [facility] CATIA AlemanAIDAN) - 04/15/2025 8:00 PM [...] other antibodies associated with SSc, including Scl-70, U3-IS ARCHITECT, PM/Scl, or Th/To. Performed By: [employer] by [employer] [address] [place] [address] Front Office Associate: Tarik Ball MD, PhD CLIA Number: [id number] us Jane Chávez MD LAB BLOOD ORDERABLES Final Re sult [facility] OkanAIDAN) [address] [place], [place] [id number] * Anti-scleroderma antibody (04/13/2025 12:44 PM EDT) SCLERODERMA (SCL-70) (ONEYDA) ANTIBODY, IGG 2 0 - 40 AU/mL 04/15/2025 8:00 PM EDT [facility] (AIDAN) Blood Venous blood specimen / Unknown Venipuncture / Unknown 04/13/2025 12:44 PM EDT 04/13/2025 12:44 PM EDT Narrative [facility] LoveAIDAN) - 04/15/2025 8:00 PM EDT [...] testing for centromere, RNA polymerase III and U3-IS ARCHITECT, PM/Scl, or Th/To antibodies. Performed By: [employer] [address] [place], [place] [id number] Front Office Associate: Tarik Ball MD, PhD CLIA Number: [id number] us Jane Chávez MD LAB BLOOD ORDERABLES Final Re sult [facility] (AIDAN) [address] [place] [address] * Cyclic Citrul Peptide Antibody IgG (04/13/2025 12:44 PM EDT) Cyclic Citrul Peptide Antibody IgG <5.0 <=5.0 U/mL 04/13/2025 4:00 PM EDT [facility] Blood Venous blood specimen / Unknown Venipuncture / Unknown 04/13/2025 12:44 PM EDT 04/13/2025 12:44 PM EDT us Jane Chávez MD LAB BLOOD ORDERABLES Final Re sult [facility] [address] [place] [address] * ENAII (04/13/2025 12:44 PM EDT) SSA-52 (RO52) (ONEYDA) Antibody, IgG 4 0 - 40 AU/mL 04/15/2025 8:00 PM EDT [facility] ([employer]) SSA-60 (RO60) (ONEYDA) Antibody, IgG 1 0 - 40 AU/mL 04/15/2025 8:00 PM EDT [facility] ([employer]) SSB (LA) (ONEYDA) Antibody, IgG 1 0 - 40 AU/mL 04/15/2025 8:00 PM EDT [facility] ([employer]) Blood Venous blood specimen / Unknown Venipuncture [...] (PSS) also have this antibody. Performed By: [employer] [address] [place] [address] Front Office Associate: Tarik Ball MD, PhD CLIA Number: [id number] Jane Chávez MD LAB BLOOD ORDERABLES Final Re sult [facility] ([employer]) [address] [place] [address] * ENAI (04/13/2025 12:44 PM EDT) Cardona/IS ARCHITECT (ONEYDA) Ab, IgG 13 0 - 19 Units 04/15/2025 4:55 AM EDT [facility] ([employer]) Blood Venous blood specimen / Unknown Venipuncture / Unknown 04/13/2025 12:44 PM EDT 04/13/2025 12:44 PM EDT Narrative [facility] ([employer]) - 04/15/2025 4:55 AM EDT INTERPRETIVE INFORMATION: Cardona/IS ARCHITECT (ONEYDA) Antibody, IgG 19 Units or Less ............. Negative 20 to 39 Units ............... Weak Positive 40 to 80 Units ............... Moderate Positive 81 Units or greater .......... Strong Positive Cardona/IS ARCHITECT antibodies are frequently seen in patients with mixed connective tissue disease (MCTD) and are also associated with other systemic autoimmune rheumatic diseases (SARDs) such as systemic lupus erythematosus (SLE), systemic sclerosis, and myositis. Antibodies targeting the Cardona/IS ARCHITECT antigenic complex also recognize Cardona antigens, therefore, the Cardona antibody response must be considered when interpreting these results. Performed By: [employer] [address] [place] [address] Front Office Associate: Tarik Ball MD, PhD CLIA Number: [id number] Jane Chávez MD LAB BLOOD ORDERABLES Final Re sult [facility] DIONNE) [address] [place] [address] * (ABNORMAL) Anti-DNA antibody, double-stranded (04/13/2025 12:44 PM EDT) Double-Strande d DNA (dsDNA) Ab IgG IFA 1:80(H) <1:10 04/15/2025 10:47 AM EDT [facility] DIONNE) Blood Venous blood specimen / Unknown Venipuncture / Unknown 04/13/2025 12:44 PM EDT 04/13/2025 12:44 PM EDT Narrative [facility] Avnera DIONNE) - 04/15/2025 10:47 AM EDT INTERPRETIVE [...] GANESH but negative by CLAUDIA. If the CLADUIA result is negative but the patient has a positive GANESH and clinical suspicion remains, consider antinuclear antibody (SERINA) testing by IFA. Additional information and recommendations for testing may be found at [email or web address]. Performed By: [facility] [address] [place] [address] [place] [address] Front Office Associate: Tarik Ball MD, PhD CLIA Number: [id number] Jane Chávez MD LAB BLOOD ORDERABLES Final Re sult Performing Organization Address City/[facility]/ZIP Co de Phone Number [facility] (AIDAN) [address] [place] [address] * (ABNORMAL) C-reactive protein (04/13/2025 12:44 PM EDT) CRP, Plasma 44.2(H) <=8.0 mg/L 04/13/2025 3:06 PM EDT [facility] Blood Venous blood specimen / Unknown Venipuncture / Unknown 04/13/2025 12:44 PM EDT 04/13/2025 12:44 PM EDT Narrative [facility] - 04/13/2025 3:06 PM EDT This CRP test is appropriate for assessment of infection, systemic inflammation and/or tissue injury. To assess cardiovascular disease risk order high sensitivity CRP (CRPH). us Jane Chávez MD LAB BLOOD ORDERABLES Final Re sult Performing Organization Address [facility]/ZIP Co de Phone Number [facility] [address] [place] [address] * (ABNORMAL) Sedimentation Rate, Automated (04/13/2025 12:44 PM EDT) Sedimentation Rate 31(H) <30 mm/hr 2024 3:23 PM EDT [facility] Blood Venous blood specimen / Unknown Venipuncture / Unknown 04/13/2025 12:44 PM EDT 04/13/2025 12:44 PM EDT us Jane Chávez MD LAB BLOOD ORDERABLES Final Re sult [facility] [address] [place] [address] * Comprehensive metabolic panel (04/13/2025 12:44 PM EDT) Glucose, Plasma 90 74 - 99 mg/dL 04/13/2025 3:06 PM EDT [facility] BUN, Plasma 19 8 - 23 mg/dL 04/13/2025 3:06 PM EDT [facility] Creatinine, Plasma 0.60 0.60 - 1.10 mg/dL 04/13/2025 3:06 PM EDT [facility] BUN/Creatinine Ratio 32 04/13/2025 3:06 PM EDT [facility] Sodium, Plasma 141 136 - 145 mmol/L 04/13/2025 3:06 PM EDT [facility] Potassium, Plasma 4.3 3.6 - 4.9 mmol/L 04/13/2025 3:06 PM EDT [facility] Chloride, Plasma 105 97 - 107 mmol/L 04/13/2025 3:06 PM EDT [facility] CO2, Plasma 25 22 - 29 mmol/L 04/13/2025 3:06 PM EDT [facility] Anion Gap 11 6 - 16 mmol/L 04/13/2025 3:06 PM EDT [facility] Total Calcium, Plasma 8.9 8.9 - 10.2 mg/dL 04/13/2025 3:06 PM EDT [facility] Total Protein 6.9 6.3 - 7.9 g/dL 04/13/2025 3:06 PM EDT [facility] Albumin, Plasma 3.8 3.5 - 5.2 g/dL 04/13/2025 3:06 PM EDT [facility] AST, Plasma 28 10 - 35 U/L 04/13/2025 3:06 PM EDT [facility] ALT, Plasma 27 10 - 35 U/L 04/13/2025 3:06 PM EDT [facility] Alkaline Phosphatase, Plasma 109 46 - 142 U/L 04/13/2025 3:06 PM EDT [facility] Total Bilirubin, Plasma 0.2 0.2 - 1.1 mg/dL 04/13/2025 3:06 PM EDT [facility] eGFRcr 99.8 mL/min/1.7 3m*2 04/13/2025 3:06 PM EDT [facility] Comment:Reported eGFRcr in m L/min/1.73m2 is based the CKD-EPI 2020 equation that does not use a race coefficient. Blood Venous blood specimen / Unknown Venipuncture / Unknown 04/13/2025 12:44 PM EDT 04/13/2025 12:44 PM EDT us Jane Chávez MD LAB BLOOD ORDERABLES Final Re sult [facility] [address] [place] [address] * (ABNORMAL) CBC and differential (04/13/2025 12:44 PM EDT) WBC Count 4.12 3.70 - 10.30 10*3/uL LAB HEMATOLOGY METHOD 04/13/2025 3:04 PM EDT [facility] RBC Count 4.38 3.90 - 5.20 10*6/uL LAB HEMATOLOGY METHOD 04/13/2025 3:04 PM EDT [facility] HGB 13.0 11.2 - 15.7 g/dL LAB HEMATOLOGY METHOD 04/13/2025 3:04 PM EDT [facility] HCT 39.6 34.0 - 45.0 % LAB HEMATOLOGY METHOD 04/13/2025 3:04 PM EDT [facility] Platelet Count 329 155 - 369 10*3/uL LAB HEMATOLOGY METHOD 04/13/2025 3:04 PM EDT [facility] MCV 90 79 - 98 fL LAB HEMATOLOGY METHOD 04/13/2025 3:04 PM EDT [facility] MCH 29.7 26.0 - 32.0 pg LAB HEMATOLOGY METHOD 04/13/2025 3:04 PM EDT [facility] MCHC 32.8 30.7 - 35.5 g/dL LAB HEMATOLOGY METHOD 04/13/2025 3:04 PM EDT [facility] RDW 15.7(H) 11.5 - 14.5 % LAB HEMATOLOGY METHOD 04/13/2025 3:04 PM EDT [facility] MPV 10.6 8.8 - 12.5 fL LAB HEMATOLOGY METHOD 04/13/2025 3:04 PM EDT [facility] nRBC 0.0 <=0.0 per 100 WBCs LAB HEMATOLOGY METHOD 04/13/2025 3:04 PM EDT [facility] Differential Type Automated LAB HEMATOLOGY METHOD 04/13/2025 3:04 PM EDT [facility] Neutrophils % 64 % LAB HEMATOLOGY METHOD 04/13/2025 3:04 PM EDT [facility] Lymphocytes % 24 % LAB HEMATOLOGY METHOD 04/13/2025 3:04 PM EDT [facility] Monocytes % 10 % LAB HEMATOLOGY METHOD 04/13/2025 3:04 PM EDT [facility] Eosinophils % 0 % LAB HEMATOLOGY METHOD 04/13/2025 3:04 PM EDT [facility] Basophils % 1 % LAB HEMATOLOGY METHOD 04/13/2025 3:04 PM EDT [facility] Immature Granulocytes % 1 % LAB HEMATOLOGY METHOD 04/13/2025 3:04 PM EDT [facility] Neutrophils Absolute 2.67 1.60 - 6.10 10*3/uL LAB HEMATOLOGY METHOD 04/13/2025 3:04 PM EDT [facility] Lymphocytes Absolute 1.00(L) 1.20 - 3.90 10*3/uL LAB HEMATOLOGY METHOD 04/13/2025 3:04 PM EDT [facility] Monocytes Absolute 0.39 0.30 - 0.90 10*3/uL LAB HEMATOLOGY METHOD 04/13/2025 3:04 PM EDT [facility] Eosinophils Absolute 0.01 0.00 - 0.50 10*3/uL LAB HEMATOLOGY METHOD 04/13/2025 3:04 PM EDT [facility] Basophils Absolute 0.02 0.00 - 0.10 10*3/uL LAB HEMATOLOGY METHOD 04/13/2025 3:04 PM EDT [facility] Immature Granulocytes Absolute 0.03 0.00 - 0.06 10*3/uL LAB HEMATOLOGY METHOD 04/13/2025 3:04 PM EDT [facility] Blood Venous blood specimen / Unknown Venipuncture / Unknown 04/13/2025 12:44 PM EDT 04/13/2025 12:44 PM EDT Narrative [facility] - 04/13/2025 3:04 PM EDT Therapeutic decision making should be based on absolute values, rather than percentages. us Jane Chávez MD LAB BLOOD ORDERABLES Final Re sult Performing Organization Address City/[facility] [place] [address] * (ABNORMAL) Rheumatoid Factor, Plasma (04/13/2025 12:44 PM EDT) Rheumatoid Factor, Plasma 20(H) <14 IU/mL 04/13/2025 3:06 PM EDT [facility] Blood Venous blood specimen / Unknown Venipuncture / Unknown 04/13/2025 12:44 PM EDT 04/13/2025 12:44 PM EDT Result Regi Chávez MD LAB BLOOD ORDERABLES Final Re sult Performing Organization Address [facility] [place] [address] * C4 complement (04/13/2025 12:44 PM EDT) C4 Complement 17 13 - 36 mg/dL 04/13/2025 3:14 PM EDT [facility] Blood Venous blood specimen / Unknown Venipuncture / Unknown 04/13/2025 12:44 PM EDT 04/13/2025 12:44 PM EDT Result Regi Chávez MD LAB BLOOD ORDERABLES Final Re sult Performing Organization Address City/[facility] Co de Phone Number [facility] [address] [place] [address] * C3 complement (04/13/2025 12:44 PM EDT) C3 Complement 142 84 - 166 mg/dL 04/13/2025 3:14 PM EDT [facility] Blood Venous blood specimen / Unknown Venipuncture / Unknown 04/13/2025 12:44 PM EDT 04/13/2025 12:44 PM EDT us Jane Chávez MD LAB BLOOD ORDERABLES Final Re sult [facility] [address] [place] [id number] * (ABNORMAL) ANTI NUCLEAR AB (04/13/2025 12:44 [...] not necessarily rule out SARD. Performed By: [employer] [address] [place] [address] Front Office Associate: Tarik Ball MD, PhD CLIA Number: [id number] us Jane Chávez MD LAB BLOOD ORDERABLES Final Re sult [facility] ([facility]) [address] [place] [address] * XR Chest 2 Views (04/13/2025 12:37 [...] documented as of this encounter Care Teams Clinical Assistant Relationship Specialty Start Date End Date Dima Giles MD [address] [place] [address] PCP - General 01/26/21 documented as of this encounter
--- OUTSIDE RECORDS SUMMARY | 2025-04-13 12:15 | XMS_ITS | Encounter Summary ---
Author Organization Healthcare Address [address] [place] [address] Care Team Providers Care Billing And Accounting Staff Assistant Name Role Phone Dima Giles MD Primary Care Provider [phone] Encounter Details Date Type Department Care Team (Latest Contact Info) Description 04/13/2025 12:15 PM EDT - 04/13/2025 11:59 PM EDT Hospital Encounter [facility] [address], [address] [place] [address] Sarcoid Discharge Disposition: Home or Self Care [...] any time in the past 12 m [facility], were you homeless or living in a long term (including now)? No 11/26/2024 Utilities Answer Date [...] 06/30/2025 9:00 AM EDT Office Visit [facility] Medicine Specialties [address], [address] [place] [address] Alisson Zavala, TOM [address] [place] [address] documented as of this encounter [...] documented as of this encounter Care Teams Billing And Accounting Staff Assistant Relationship Specialty Start Date End Date Dima Giles MD [address] [place] [address] PCP - General 01/26/21 documented as of this encounter
--- NOTE | 2025-05-06 13:48 | XR_ITS ---
FINAL REPORT CLINICAL HISTORY: wrist pain, carpal tunnel COMPARISON: None FINDINGS: LEFT WRIST Three views demonstrate no acute fracture or dislocation. There are mild hypertrophic changes at the basilar joint. No acute soft tissue abnormality is seen. IMPRESSION: Mild hypertrophic changes without acute abnormality. Reviewed, Interpreted and Dictated by Neville Honeycutt MD Transcribed by Lindsey Huynh Authenticated and [facility]
--- NOTE | 2025-05-06 13:48 | XR_ITS ---
FINAL REPORT CLINICAL HISTORY: wrist pain, carpal tunnel COMPARISON: None FINDINGS: RIGHT WRIST Two views demonstrate no acute fracture or dislocation. The joint spaces appear normal. No acute soft tissue abnormality is seen. IMPRESSION: No acute bony abnormality. Reviewed, Interpreted and Dictated by Neville Honeycutt MD Transcribed by Lindsey Huynh Authenticated and [facility]
--- OUTSIDE RECORDS SUMMARY | 2025-05-06 13:54 | XMS_ITS | Encounter Summary ---
Author Organization [facility] Address [address] [place] [address] Care Team Providers Care Lead Data Entry Operator Name Role Phone Dima Giles MD Primary Care Provider [phone] Reason for Referral * Consultation (Routine) - Closed Specialty Diagnoses / Procedures Referred By Contac t Referred To Contact Rheumatology Diagnoses Positive SERINA (antinuclear antibody) Elevated sed rate Elevated C-reactive protein (CRP) Ioana Browne APRN [address] [address] Phone: tel: fax: Referral ID Status Reason Start Date Expiration Date V isits Requested Visits Authorized [id number] Closed Specialty Services Required 12/07/2024 06/08/2026 1 1 Encounter Details Date Type Department Care Team (Late st Contact Info) Description 12/07/2024 [facility] [address] [place] [address] Ioana Browne APRN [address] [address] Positive SERINA (antinuclear antibody) (Primary [...] Description 06/30/2025 9:00 AM EDT Office Visit [facility] Medicine Specialties [address] [place] [phone] Alisson Zavala, TOM [address] [place] [address] Scheduled Referrals Name Type Priority Associated Diagnoses [...] as of this encounter Care Teams Lead Data Entry Operator Relationship Specialty Start Date End Date Dima Giles MD [address] [place] [address] PCP - General 01/26/21 documented as of this encounter
--- OUTSIDE RECORDS SUMMARY | 2025-05-06 13:54 | XMS_ITS | Encounter Summary ---
Author Organization Healthcare Address [address] [place] [address] Care Team Providers Care Cigarette Making Examiner Name Role Phone Dima Giles MD Primary Care Provider [phone] Encounter Details Date Type Department Care Team (Late st Contact Info) Description 04/18/2025 Results Follow-Up [facility] Medicine Specialties [address] [place] [phone] Brock Chilel, TOM [address] [place] [address] Social History Tobacco Use Types Packs/Day Years [...] were you homeless or living in a mcc (including now)? No 11/26/2024 Utilities Answer Date [...] [facility] Medicine Specialties [address] [place] [phone] Alisson Zavala, TOM [address] [place] [address] documented as of this encounter [...] documented as of this encounter Care Teams Cigarette Making Examiner Relationship Specialty Start Date End Date Dima Giles MD [address] [place] [address] PCP - General 01/26/21 documented as of this encounter
--- OUTSIDE RECORDS SUMMARY | 2025-05-06 13:54 | XMS_ITS | Encounter Summary ---
Author Organization Healthcare Address [address] [place] [address] Care Team Providers Care Flash Ranging Crewmember Name Role Phone Dima Giles MD Primary Care Provider [phone] Reason for Visit * Reason Comments Med Refill Encounter Details Date Type Department Care Team (Late st Contact Info) Description 07/16/2021 Refill [facility] [address] [place] [address] Tarik Early MD [address] [address] Social History Tobacco Use Types [...] Description 06/30/2025 9:00 AM EDT Office Visit [facility] Medicine Specialties [address] [place] [address] Alisson Zavala, TOM [address] [place] [address] documented as of this encounter Visit Diagnoses Not on filedocumented in this encounter Care Teams Flash Ranging Crewmember Relationship Specialty Start Date End Date Dima Giles MD [address] [place], [place] [address] PCP - General 01/26/21 documented as of this encounter
--- OUTSIDE RECORDS SUMMARY | 2025-05-06 13:54 | XMS_ITS | Encounter Summary ---
Author Organization [facility] Address [address] [place] [address] Care Team Providers Care Arc Cutter Plasma Arc Name Role Phone Dima Giles MD Primary Care Provider [phone] Encounter Details Date Type Department Care Team (Late st Contact Info) Description 12/28/2024 Telephone [facility] Emergency Department Infusion [address] [place] [address] Milla Godfrey, PharmD Social History [...] any time in the past 12 m [facility], were you homeless or living in a prison (including now)? No 11/26/2024 Utilities Answer Date Recorded In the past 12 months has th e [employer], gas, oil, or water company threatened to [...] to receive infusion treatment at outside facility. [facility] will follow up with facility to make sure patient has been scheduled and received first dose. Specialty Medication: Prolia Filling Pharmacy/SOC: [facility] * Telephone Encounter - Milla Padilla [...] Godfrey PharmD - 12/28/2024 1:27 PM EDT [facility] has received therapy plan for medication Prolia. [facility] has contacted the patient and is initiating authorization for preferred site of care. [facility] Specialty Education Summary Patient was assessed via phone for initiation of drug therapy Prolia for diagnosis Osteoporosis. Plan for administration of therapy in infusion center and planned date of initiation: ~04/15/25. Anticipated filling pharmacy is [facility]. Education and Counseling Medication specific education [...] Description 06/30/2025 9:00 AM EDT Office Visit [facility] Medicine Specialties [address] [place] [phone] Alisson Zavala, TOM [address] [place] [address] documented as of this encounter Visit Diagnoses Not on filedocumented in this encounter Additional Health Concerns Assessment Noted Time A fall risk assessment has been complete d for the patient 11/07/2023 11:33 AM EST A Body Mass Index follow-up plan has been documented for the patient 12/10/2024 11:39 AM EDT documented as of this encounter Care Teams Arc Cutter Plasma Arc Relationship Specialty Start Date End Date Dima Giles MD [address] [place] [address] PCP - General 01/26/21 documented as of this encounter
--- OUTSIDE RECORDS SUMMARY | 2025-05-06 13:54 | XMS_ITS | Encounter Summary ---
Author Organization [facility] Address [address] [place] [address] Care Team Providers Care Drop Wire Stringer Name Role Phone Dima Giles MD Primary Care Provider [phone] Encounter Details Date Type Department Care Team [...] in the past [address] [facility], were you homeless or [...] Description 06/30/2025 9:00 AM EDT Office Visit [facility] Medicine Specialties [address], [address] [place] [phone] Alisson Zavala, TOM [address] [place] [address] documented as of this encounter Visit Diagnoses [...] documented as of this encounter Care Teams Drop Wire Stringer Relationship Specialty Start Date End Date Dima Giles MD [address] [place] [address] PCP - General 01/26/21 documented as of this encounter
--- OUTSIDE RECORDS SUMMARY | 2025-05-06 13:54 | XMS_ITS | Encounter Summary ---
Author Organization Healthcare Address [address] [place] [address] Care Team Providers Care Data Assistant Name Role Phone Dima Giles MD Primary Care Provider Reason for Visit * Reason Comments Med Refill Encounter Details Date Type Department Care Team (Late st Contact Info) Description 07/10/2021 Refill [facility] [address] [place] [address] Tarik Early MD [address] [address] Social History Tobacco Use Types [...] Description 06/30/2025 9:00 AM EDT Office Visit [place] [facility] [address], [address] [place] [address] Alisson Zavala, TOM [address] [place] [address] documented as of this encounter Visit Diagnoses Not on filedocumented in this encounter Care Teams Data Assistant Relationship Specialty Start Date End Date Dima Giles MD [address] [place], [place] [address] PCP - General 01/26/21 documented as of this encounter
--- OUTSIDE RECORDS SUMMARY | 2025-05-06 13:55 | XMS_ITS | Clinical Summary ---
Author Organization [facility] Address [address] [place] [address] Care Team Providers Care Oncology Physician Name Role Phone Dima Giles MD Primary Care Provider [phone] Allergies Active Allergy Reactions Criticality Noted Date [...] Encounters Date Type Department Care Team Description 05/02/2025 Orders Only [facility] Infusion [address] [facility] Room [address] [place] [address] Alphonso Najera RN 04/19/2025 Lab Requisition [facility] [address] [place] [address] Evangelina Tapia MD Calculus of gallbladder with chronic cholecystitis without obstruction 04/18/2025 Orders Only [facility] Medicine Specialties [address] [place] [address] Brock Chilel MBBS Lung nodule seen on imaging study (Primary Dx) 04/18/2025 Results Follow-Up [facility] Medicine Specialties [address] [place] [address] Brock Chilel MBBS 04/13/2025 12:15 PM EDT - 04/13/2025 11:59 PM EDT Hospital Encounter [facility] [address], 1st Floor [facility] [place] [address] Sarcoid Discharge Disposition: Home or Self Care 04/13/2025 10:10 AM EDT Office Visit [facility] Medicine Specialties [address] [place] [phone] Brock Chilel MBBS Sarcoid (Primary Dx); Positive SERINA (antinuclear antibody); Inflammatory arthropathy; Therapeutic drug monitoring; High risk medication use; Arthralgia of both hands; Joint swelling 04/13/2025 Orders Only External Location [address] [place] [address] Provider, External 04/13/2025 Travel 04/12/2025 Telephone [facility] Medicine Specialties [address] [place] [phone] Ailyn Romero RN 04/11/2025 Telephone [facility] Medicine Specialties [address] [place] [address], [address] [place] [address] Alisson Zavala MBBS from Last 3 [...] Maternal Grandmother Osteoporosis Maternal Grandmother Hyperlipidemia Mother Pza s[place]acruz Hypertension Mother [place] Osteoporosis Mother Paz neeta Stroke Mother Paz neeta Stroke Sister 1 Hypertension Sister 2 Lynette [...] any time in the past 12 m [facility], were you homeless or living in a [facility]p (including now)? No 11/26/2024 Utilities Answer Date Recorded In the past 12 months has e electric, gas, oil, or water company [...] Description 06/30/2025 9:00 AM EDT Office Visit [facility] Medicine Specialties [address] [place] [phone] Alisson Zavala, [facility] [address] [place] [address] Health Maintenance Due Date Last Done Comments [...] 2 - Risk 2-dose series) 07/07/2019 01/05/2019 [id number] Vaccine ( season) 2025 07/10/2024, 05/31/2023, 07/14/2022, [...] PM EDT Sarcoid Positive SERINA (antinuclear antibody) CARDONA/DIRECTOR WOMEN (ONEYDA) ANTIBODY, IGG (SO) Routine 04/13/2025 12:44 [...] on 11/28/2024 was originally reported as case [id number]. The entire surgical pathology report can be viewed as a scanned document attached to this report. 04/22/2025 1:17 PM EDT [facility] Case Report Historical Case Addendum/Amend ment Case: [id number] Authorizing Provider: Evangelina Tapia MD Collected: 04/18/2025 Ordering Location: [facility] Lab Received: 04/19/2025 0847 Pathologist: Macy Saucedo MD Specimen: [id number] 04/22/2025 1:17 PM EDT [facility] Addendum 04/22/2025 1:17 PM EDT [facility] Addendum 2 04/22/2025 1:17 PM EDT [facility] Addendum 3 04/22/2025 1:17 PM EDT [facility] Addendum 4 04/22/2025 1:17 PM EDT [facility] Addendum 5 04/22/2025 1:17 PM EDT [facility] Tissue 04/18/2025 04/19/2025 8:4 7 AM EDT us Evangelina Tapia MD LAB PATHOLOGY ORDERABLES F inal Result [facility] [address] [place] [address] * Centromere Antibody, IgG (04/13/2025 12:44 PM EDT) Centromere Ab, IgG 2 0 - 40 AU/mL 04/15/2025 8:00 PM EDT [email or web address] ([place]) Blood Venous blood specimen / Unknown Venipuncture / Unknown 04/13/2025 12:44 PM EDT 04/13/2025 12:44 PM EDT Narrative [email or web address] ([facility]) - 04/15/2025 8:00 PM EDT INTERPRETIVE [...] other antibodies associated with SSc, including Scl-70, U3-DIRECTOR WOMEN, PM/Scl, or Th/To. Performed By: [employer] [address] [place] [address] Boiling House Oiler: Tarik Ball MD, PhD CLIA Number: [id number] us Jane Chávez MD LAB BLOOD ORDERABLES Final Re sult [facility] ([facility]) [address] [place] [address] * (ABNORMAL) SERINA Single Pattern (Reflex only) (04/13/2025 12:44 PM EDT) SERINA Pattern Homogeneou s(A) 04/16/2025 2:58 PM EDT [facility] ([facility]) SERINA Titer 1:320(A) 04/16/2025 2:58 PM EDT [facility] ([facility]) Blood Venous blood specimen / Unknown Venipuncture / Unknown 04/13/2025 12:44 PM EDT 04/13/2025 12:44 PM EDT Narrative [facility] ([facility]) - 04/16/2025 2:58 PM EDT Performed By: [employer] [address] [place] [address] Boiling House Oiler: Tarik Ball MD, PhD CLIA Number: [id number] Jane Chávez MD LAB BLOOD ORDERABLES Final Re sult Performing Organization Address [facility]/State/ZIP Co de Phone Number [facility] ([facility] [place] [address] [place] [address] * ENAII (04/13/2025 12:44 PM EDT) SSA-52 (RO52) (ONEYDA) Antibody, IgG 4 0 - 40 AU/mL 04/15/2025 8:00 PM EDT [facility] ([facility]) SSA-60 (RO60) (ONEYDA) Antibody, IgG 1 0 - 40 AU/mL 04/15/2025 8:00 PM EDT [facility] ([facility]) SSB (LA) (ONEYDA) Antibody, IgG 1 0 - 40 AU/mL 04/15/2025 8:00 PM EDT [facility] ([facility]) Blood Venous blood specimen / Unknown Venipuncture / Unknown 04/13/2025 12:44 PM EDT 04/13/2025 12:44 PM EDT Narrative [facility] ([facility]) - 04/15/2025 8:00 PM EDT INTERPRETIVE INFORMATION: [...] (PSS) also have this antibody. Performed By: [employer] [address] [place] [address] Boiling House Oiler: Tarik Ball MD, PhD CLIA Number: [id number] us Jane Chávez MD LAB BLOOD ORDERABLES Final Re sult [email or web address] ([facility]) [address] [place] [address] * ENAI (04/13/2025 12:44 PM EDT) Cardona/DIRECTOR WOMEN (ONEYDA) Ab, IgG 13 0 - 19 Units 04/15/2025 4:55 AM EDT [facility] DIONNE) Blood Venous blood specimen / Unknown Venipuncture / Unknown 04/13/2025 12:44 PM EDT 04/13/2025 12:44 PM EDT Narrative [facility]) - 04/15/2025 4:55 AM EDT INTERPRETIVE INFORMATION: Cardona/DIRECTOR WOMEN (ONEYDA) Antibody, IgG 19 Units or Less ............. Negative 20 to 39 Units ............... Weak Positive 40 to 80 Units ............... Moderate Positive 81 Units or greater .......... Strong Positive Cardona/DIRECTOR WOMEN antibodies are frequently seen in patients with mixed connective tissue disease (MCTD) and are also associated with other systemic autoimmune rheumatic diseases (SARDs) such as systemic lupus erythematosus (SLE), systemic sclerosis, and myositis. Antibodies targeting the Cardona/DIRECTOR WOMEN antigenic complex also recognize Cardona antigens, therefore, the Cardona antibody response must be considered when interpreting these results. Performed By: [employer] [address] [place] [address] Boiling House Oiler: Tarik Ball MD, PhD CLIA Number: [id number] Jane Chávez MD LAB BLOOD ORDERABLES Final Re sult Performing Organization Address [facility]/State/ZIP Co de Phone Number [facility] [employer]) [address] [place] [address] * Cyclic Citrul Peptide Antibody IgG (04/13/2025 12:44 PM EDT) Cyclic Citrul Peptide Antibody IgG <5.0 <=5.0 U/mL 04/13/2025 4:00 PM EDT [facility] Blood Venous blood specimen / Unknown Venipuncture / Unknown 04/13/2025 12:44 PM EDT 04/13/2025 12:44 PM EDT Jane Chávez MD LAB BLOOD ORDERABLES Final Re sult [facility] [address] [place] [address] * Anti-scleroderma antibody (04/13/2025 12:44 PM EDT) SCLERODERMA (SCL-70) (ONEYDA) ANTIBODY, IGG 2 0 - 40 AU/mL 04/15/2025 8:00 PM EDT [facility] ([facility]) Blood Venous blood specimen / Unknown Venipuncture / Unknown 04/13/2025 12:44 PM EDT 04/13/2025 12:44 PM EDT Narrative [facility] ([facility]) - 04/15/2025 8:00 PM [...] testing for centromere, RNA polymerase III and U3-DIRECTOR WOMEN, PM/Scl, or Th/To antibodies. Performed By: [employer] [address] [place] [address] Boiling House Oiler: Tarik Ball MD, PhD CLIA Number: [id number] us Jane Chávez MD LAB BLOOD ORDERABLES Final Re sult Performing Organization Address [facility] Co de Phone Number [facility] ([facility]) [address] [place] [address] * (ABNORMAL) Anti-DNA antibody, double-stranded (04/13/2025 12:44 PM EDT) Double-Strande d DNA (dsDNA) Ab IgG IFA 1:80(H) <1:10 04/15/2025 10:47 AM EDT [facility] ([facility]) Blood Venous blood specimen / Unknown Venipuncture / Unknown 04/13/2025 12:44 PM EDT 04/13/2025 12:44 PM EDT Narrative [facility] [employer] ([place]) - 04/15/2025 10:47 AM EDT INTERPRETIVE INFORMATION: [...] recommendations for testing may be found at [email or web address]. Performed By: [employer] [address] [place] [address] Boiling House Oiler: Tarik Ball MD, PhD CLIA Number: [id number] Jane Chávez MD LAB BLOOD ORDERABLES Final Re sult Performing Organization Address [facility] Co de Phone Number [facility] ([facility]) [address] [place] [phone] * (ABNORMAL) Sedimentation Rate, Automated (04/13/2025 12:44 PM EDT) Sedimentation Rate 31(H) <30 mm/hr 2024 3:23 PM EDT [facility] Blood Venous blood specimen / Unknown Venipuncture / Unknown 04/13/2025 12:44 PM EDT 04/13/2025 12:44 PM EDT us Jane Chávez MD LAB BLOOD ORDERABLES Final Re sult [facility] [address] [place] [address] * (ABNORMAL) CBC and differential (04/13/2025 12:44 PM EDT) WBC Count 4.12 3.70 - 10.30 10*3/uL LAB HEMATOLOGY METHOD 04/13/2025 3:04 PM EDT [facility] RBC Count 4.38 3.90 - 5.20 10*6/uL LAB HEMATOLOGY METHOD 04/13/2025 3:04 PM EDT [facility] HGB 13.0 11.2 - 15.7 g/dL LAB HEMATOLOGY METHOD 04/13/2025 3:04 PM EDT [facility] HCT 39.6 34.0 - 45.0 % LAB HEMATOLOGY METHOD 04/13/2025 3:04 PM EDT [facility] Platelet Count 329 155 - 369 10*3/uL LAB HEMATOLOGY METHOD 04/13/2025 3:04 PM EDT [facility] MCV 90 79 - 98 fL LAB HEMATOLOGY METHOD 04/13/2025 3:04 PM EDT [facility] MCH 29.7 26.0 - 32.0 pg LAB HEMATOLOGY METHOD 04/13/2025 3:04 PM EDT [facility] MCHC 32.8 30.7 - 35.5 g/dL LAB HEMATOLOGY METHOD 04/13/2025 3:04 PM EDT [facility] RDW 15.7(H) 11.5 - 14.5 % LAB HEMATOLOGY METHOD 04/13/2025 3:04 PM EDT [facility] MPV 10.6 8.8 - 12.5 fL LAB HEMATOLOGY METHOD 04/13/2025 3:04 PM EDT [facility] nRBC 0.0 <=0.0 per 100 WBCs LAB HEMATOLOGY METHOD 04/13/2025 3:04 PM EDT [facility] Differential Type Automated LAB HEMATOLOGY METHOD 04/13/2025 3:04 PM EDT [facility] Neutrophils % 64 % LAB HEMATOLOGY METHOD 04/13/2025 3:04 PM EDT [facility] Lymphocytes % 24 % LAB HEMATOLOGY METHOD 04/13/2025 3:04 PM EDT [facility] Monocytes % 10 % LAB HEMATOLOGY METHOD 04/13/2025 3:04 PM EDT [facility] Eosinophils % 0 % LAB HEMATOLOGY METHOD 04/13/2025 3:04 PM EDT [facility] Basophils % 1 % LAB HEMATOLOGY METHOD 04/13/2025 3:04 PM EDT [facility] Immature Granulocytes % 1 % LAB HEMATOLOGY METHOD 04/13/2025 3:04 PM EDT [facility] Neutrophils Absolute 2.67 1.60 - 6.10 10*3/uL LAB HEMATOLOGY METHOD 04/13/2025 3:04 PM EDT [facility] Lymphocytes Absolute 1.00(L) 1.20 - 3.90 10*3/uL LAB HEMATOLOGY METHOD 04/13/2025 3:04 PM EDT [facility] Monocytes Absolute 0.39 0.30 - 0.90 10*3/uL LAB HEMATOLOGY METHOD 04/13/2025 3:04 PM EDT [facility] Eosinophils Absolute 0.01 0.00 - 0.50 10*3/uL LAB HEMATOLOGY METHOD 04/13/2025 3:04 PM EDT [facility] Basophils Absolute 0.02 0.00 - 0.10 10*3/uL LAB HEMATOLOGY METHOD 04/13/2025 3:04 PM EDT [facility] Immature Granulocytes Absolute 0.03 0.00 - 0.06 10*3/uL LAB HEMATOLOGY METHOD 04/13/2025 3:04 PM EDT [facility] Blood Venous blood specimen / Unknown Venipuncture / Unknown 04/13/2025 12:44 PM EDT 04/13/2025 12:44 PM EDT [facility] - 04/13/2025 3:04 PM EDT Therapeutic decision making should be based on absolute values, rather than percentages. us Jane Chávez MD LAB BLOOD ORDERABLES Final Re sult Performing Organization Address [facility] Co de Phone Number [facility] [address] [place] [address] * (ABNORMAL) Rheumatoid Factor, Plasma (04/13/2025 12:44 PM EDT) Rheumatoid Factor, Plasma 20(H) <14 IU/mL 04/13/2025 3:06 PM EDT [facility] Blood Venous blood specimen / Unknown Venipuncture / Unknown 04/13/2025 12:44 PM EDT 04/13/2025 12:44 PM EDT us Jane Chávez MD LAB BLOOD ORDERABLES Final Re sult Performing Organization Address [facility] [place] [address] * C3 complement (04/13/2025 12:44 PM EDT) C3 Complement 142 84 - 166 mg/dL 04/13/2025 3:14 PM EDT [facility] Blood Venous blood specimen / Unknown Venipuncture / Unknown 04/13/2025 12:44 PM EDT 04/13/2025 12:44 PM EDT us Jane Chávez MD LAB BLOOD ORDERABLES Final Re sult Performing Organization Address [facility] Co de Phone Number [facility] [address] [place] [address] * C4 complement (04/13/2025 12:44 PM EDT) C4 Complement 17 13 - 36 mg/dL 04/13/2025 3:14 PM EDT [facility] Blood Venous blood specimen / Unknown Venipuncture / Unknown 04/13/2025 12:44 PM EDT 04/13/2025 12:44 PM EDT Jane Chávez MD LAB BLOOD ORDERABLES Final Re sult Performing Organization Address [facility]/ZIP Co de Phone Number [facility] [address] [place] [address] * (ABNORMAL) C-reactive protein (04/13/2025 12:44 PM EDT) Pathologist [facility] CRP, Plasma 44.2(H) <=8.0 mg/L 04/13/2025 3:06 PM EDT [facility] Blood Venous blood specimen / Unknown Venipuncture / Unknown 04/13/2025 12:44 PM EDT 04/13/2025 12:44 PM EDT Narrative [facility] - 04/13/2025 3:06 PM EDT This CRP test is appropriate for assessment of infection, systemic inflammation and/or tissue injury. To assess cardiovascular disease risk order high sensitivity CRP (CRPH). Jane Chávez MD LAB BLOOD ORDERABLES Final Re sult Performing Organization Address [facility] Co de Phone Number [facility] [address] [place] [address] * (ABNORMAL) ANTI NUCLEAR AB (04/13/2025 12:44 PM EDT) [facility] SERINA INTERPRETIVE COMMENT See Note 04/16/2025 2:58 PM EDT [facility] ([facility]) Anti Nuc Ab Screen Detected( H) <1:80 04/16/2025 2:58 PM EDT [facility] ([facility]) Blood Venous blood specimen / Unknown Venipuncture / Unknown 04/13/2025 12:44 PM EDT 04/13/2025 12:44 PM EDT Narrative [facility] ([facility]) - 04/16/2025 2:58 PM EDT Clinical Interpretation: [...] not necessarily rule out SARD. Performed By: [employer] [address] [place] [address] Boiling House Oiler: Tarik Ball MD, PhD CLIA Number: [id number] Jane Chávez MD LAB BLOOD ORDERABLES Final Re sult [email or web address] ([facility]) [address] [place], [place] [id number] * Comprehensive metabolic panel (04/13/2025 12:44 PM EDT) Glucose, Plasma 90 74 - 99 mg/dL 04/13/2025 3:06 PM EDT [facility] BUN, Plasma 19 8 - 23 mg/dL 04/13/2025 3:06 PM EDT [facility] Creatinine, Plasma 0.60 0.60 - 1.10 mg/dL 04/13/2025 3:06 PM EDT [facility] BUN/Creatinine Ratio 32 04/13/2025 3:06 PM EDT [facility] Sodium, Plasma 141 136 - 145 mmol/L 04/13/2025 3:06 PM EDT [facility] Potassium, Plasma 4.3 3.6 - 4.9 mmol/L 04/13/2025 3:06 PM EDT [facility] Chloride, Plasma 105 97 - 107 mmol/L 04/13/2025 3:06 PM EDT [facility] CO2, Plasma 25 22 - 29 mmol/L 04/13/2025 3:06 PM EDT [facility] Anion Gap 11 6 - 16 mmol/L 04/13/2025 3:06 PM EDT [facility] Total Calcium, Plasma 8.9 8.9 - 10.2 mg/dL 04/13/2025 3:06 PM EDT [facility] Total Protein 6.9 6.3 - 7.9 g/dL 04/13/2025 3:06 PM EDT [facility] Albumin, Plasma 3.8 3.5 - 5.2 g/dL 04/13/2025 3:06 PM EDT [facility] AST, Plasma 28 10 - 35 U/L 04/13/2025 3:06 PM EDT [facility] ALT, Plasma 27 10 - 35 U/L 04/13/2025 3:06 PM EDT [facility] Alkaline Phosphatase, Plasma 109 46 - 142 U/L 04/13/2025 3:06 PM EDT [facility] Total Bilirubin, Plasma 0.2 0.2 - 1.1 mg/dL 04/13/2025 3:06 PM EDT [facility] eGFRcr 99.8 mL/min/1.7 3m*2 04/13/2025 3:06 PM EDT [facility] Comment:Reported eGFRcr in m L/min/1.73m2 is based the CKD-EPI 2020 equation that does not use a race coefficient. Blood Venous blood specimen / Unknown Venipuncture / Unknown 04/13/2025 12:44 PM EDT 04/13/2025 12:44 PM EDT us Jane Chávez MD LAB BLOOD ORDERABLES Final Re sult [facility] [address] [place] [address] * XR Chest 2 Views (04/13/2025 12:37 [...] pleural effusions. No pneumothorax. Procedure Note Denisse Eilas MD - 04/13/2025 CLINICAL INDICATION: suspecting sarcoid [...] Antibody Negative Negative 01/05/2025 11:05 AM EDT [facility] Blood Venous blood specimen / Unknown Venipuncture / Unknown 01/05/2025 9:00 AM EDT 01/05/2025 9:01 AM EDT us Adriana Mueller MD LAB BLOOD ORDERABLES Final Re sult [facility] [address] [place] [address] from Last 3 Months or Most Recently Relevant to Health Maintenance Insurance MEDICARE [facility] Advance Directives * Full Code (Latest Code Status on File) Date Activated Date Inactivated Comments 11/25/2024 11:42 AM 11/29/2024 4:20 PM Care Teams Oncology Physician Relationship Specialty Start Date End Date Dima Giles MD [address] [place] [address] PCP - General 01/26/21
--- OUTSIDE RECORDS SUMMARY | 2025-05-06 13:55 | XMS_ITS | Encounter Summary ---
Author Organization [facility] Address [address] [place] [address] Care Team Providers Care Tower Attendant Name Role Phone Dima Giles MD Primary Care Provider [phone] Encounter Details Date Type Department Care Team (Late st Contact Info) Description 05/02/2025 Orders Only [facility] G Infusion [address] [facility] Room G[address] [place] [address] Alphonso Najera RN [facility] Social History Tobacco Use Types Packs/Day Years [...] any time in the past 12 m [facility], were you homeless or living [...] Visit [facility] [address], [address] [place] [address] Alisson Zavala, EVELYNE [address] [place] [address] documented as of this encounter Visit Diagnoses [...] documented as of this encounter Care Teams Tower Attendant Relationship Specialty Start Date End Date Dima Giles MD [address] [place] [address] PCP - General 01/26/21 documented as of this encounter
--- OUTSIDE RECORDS SUMMARY | 2025-05-06 13:55 | XMS_ITS | Encounter Summary ---
Author Organization Healthcare Address [address] [place] [id number] Care Team Providers Care Trimming Operator Name Role Phone Dima Giles MD Primary Care Provider [phone] Encounter Details Date Type Department Care Team (Late st Contact Info) Description 04/11/2025 Telephone [place] [facility] [address], [address] [place] [address] Alisson Zavala, [place] [id number] Social History Tobacco Use Types Packs/Day Years [...] any time in the past 12 m [facility], were you homeless or living in [...] down Not at all 04/13/2025 10:03 AM Iaona Jaimes Trouble concentrating on things, such as [...] sooner apt. Please call. Best contact number: [phone] (mobile) Optimal time of day to reach [...] Visit [facility] Medicine Specialties [address], [address] [place] [address] Alisson Zavala, MBBS [address] [place] [address] documented as of this encounter [...] documented as of this encounter Care Teams Trimming Operator Relationship Specialty Start Date End Date Dima Giles MD [address] [place] [address] PCP - General 01/26/21 documented as of this encounter
--- OUTSIDE RECORDS SUMMARY | 2025-05-06 13:55 | XMS_ITS | Encounter Summary ---
Author Organization Healthcare Address [address] [place] [address] Care Team Providers Care Commercial Green Building Designer Name Role Phone Dima Giles MD Primary Care Provider [phone] Encounter Details Date Type Department Care Team (Late st Contact Info) Description 04/12/2025 Telephone [place] [facility] [address], [address] [place] [address] Ailyn Romero RN CH-VASCULAR & [...] the past 12 months has th e [employer], gas, oil, or water company threatened to [...] Description 06/30/2025 9:00 AM EDT Office Visit [facility] Medicine Specialties [address], [address] [place] [address] Alisson Zavala, TOM [address] [place] [address] documented as of this encounter [...] documented as of this encounter Care Teams Commercial Green Building Designer Relationship Specialty Start Date End Date Dima Giles MD [address] [place] [address] PCP - General 01/26/21 documented as of this encounter
--- OUTSIDE RECORDS SUMMARY | 2025-05-06 13:55 | XMS_ITS | Encounter Summary ---
Author Organization [facility] Address [address] [place] [address] Care Team Providers Care Perfect Binder Feeder Offbearer Name Role Phone Dima Giles MD Primary Care Provider [phone] Reason for Referral * Imaging (Routine) - Pending Review Specialty Diagnoses / Procedures Referred By Contac t Referred To Contact Radiology Diagnoses Lung nodule seen on imaging study Procedures CT Chest wo IV Contrast Jane Chávez MD [address] [place] [address] Phone: tel: fax: Referral ID Status Reason Start Date Expiration Date V isits Requested Visits Authorized [id number] Pending Review 04/18/2025 10/18/2026 1 1 Encounter Details Date Type Department Care Team (Late st Contact Info) Description 04/18/2025 Orders Only [place] [facility] [address], [address] [place] [address] Brock Chilel, TOM [address] [place] [address] Lung nodule seen on imaging study (Primary [...] any time in the past 12 m [facility], were you homeless or living in a care home (including now)? No 11/26/2024 Utilities Answer Date Recorded In the past 12 months has th e [employer], gas, oil, or water company threatened to [...] Visit [place] [facility] [address], [address] [place] [address] Alisson Zavala, MBBS [address] [place] [address] Scheduled Orders Name Type Priority Associated Diagnoses [...] documented as of this encounter Care Teams Perfect Binder Feeder Offbearer Relationship Specialty Start Date End Date Dima Giles MD [address] [place] [address] PCP - General 01/26/21 documented as of this encounter
--- OUTSIDE RECORDS SUMMARY | 2025-05-06 13:55 | XMS_ITS | Encounter Summary ---
Author Organization Healthcare Address [address] [place] [address] Care Team Providers Care Human Resource Internship Name Role Phone Dima Giles MD Primary Care Provider [phone] Encounter Details Date Type Department Care Team (Latest Contact Info) Description 04/19/2025 Lab Requisition [facility] [address] [place] [address] Evangelina Tapia MD [address] [facility] [address] [place] [address] Calculus of gallbladder with chronic [...] any time in the past 12 m [facility], were you homeless or living [...] Description 06/30/2025 9:00 AM EDT Office Visit [facility] Medicine Specialties [address], [address] [place] [address] Alisson Zavala, TOM [address] [place] [address] documented as of this encounter Procedures Procedure Name Priority Date/Time Associated Diagnosis Comments HISTORICAL SURGICAL PATHOLOGY ADDENDUM Routine 04/18/2025 Calculus of gallbladder with chronic cholecystitis without obstruction documented in this encounter Results * Historical Surgical Pathology Addendum (04/18/2025) Historical Case Information This case was collected on 11/28/2024 was originally reported as case [id number]. The entire surgical pathology report can be viewed as a scanned document attached to this report. 04/22/2025 1:17 PM EDT [facility] Case Report Historical Case Addendum/Amend ment Case: [id number] Authorizing Provider: Evangelina Tapia MD Collected: 04/18/2025 Ordering Location: [facility] Lab Received: 04/19/2025 0847 Pathologist: Macy Saucedo MD Specimen: [id number] 04/22/2025 1:17 PM EDT [facility] Addendum 04/22/2025 1:17 PM EDT [facility] Addendum 2 04/22/2025 1:17 PM EDT [facility] Addendum 3 04/22/2025 1:17 PM EDT [facility] Addendum 4 04/22/2025 1:17 PM EDT [facility] Addendum 5 04/22/2025 1:17 PM EDT [facility] Tissue 04/18/2025 04/19/2025 8:4 7 AM EDT us Evangelina Tapia MD LAB PATHOLOGY ORDERABLES F inal Result [facility] [address] [place] [address] documented in this encounter Visit Diagnoses Diagnosis [...] documented as of this encounter Care Teams Human Resource Internship Relationship Specialty Start Date End Date Dima Giles MD [address] [place], [place] [address] PCP - General 01/26/21 documented as of this encounter
--- OUTSIDE RECORDS SUMMARY | 2025-05-06 13:55 | XMS_ITS | Encounter Summary ---
Author Organization Healthcare Address [address] [place] [address] Care Team Providers Care Md Physician Dermatologist Name Role Phone Dima Giles MD Primary Care Provider [phone] Encounter Details Date Type Department Care Team (Late st Contact Info) Description 01/17/2025 Results Follow-Up [facility] [address], [address] [place] [address] Alisson Zavala, TOM [address] [place] [id number] Social History Tobacco Use Types Packs/Day Years [...] any time in the past 12 m [facility], were you homeless or living in [...] Visit [facility] [address], [address] [place] [address] Alisson Zavala, TOM [address] [place] [address] documented as of this encounter Visit Diagnoses [...] documented as of this encounter Care Teams Md Physician Dermatologist Relationship Specialty Start Date End Date Dima Giles MD [address] [place] [address] PCP - General 01/26/21 documented as of this encounter
--- OUTSIDE RECORDS SUMMARY | 2025-05-06 13:55 | XMS_ITS | Encounter Summary ---
Author Organization Healthcare Address [address] [place] [address] Care Team Providers Care Waterproof Coating Machine Tender Name Role Phone Dima Giles MD Primary Care Provider [phone] Encounter Details Date Type Department Care Team (Late st Contact Info) Description 01/10/2025 Results Follow-Up [facility] Medicine Specialties [address], [address] [place] [address] Alisson Zavala, TOM [address] [place] [id number] Social History Tobacco Use Types Packs/Day Years [...] any time in the past 12 m [facility], were you homeless or living [...] Description 06/30/2025 9:00 AM EDT Office Visit [facility] Medicine Specialties [address], [address] [place] [address] Alisson Zavala, TOM [address] [place] [address] documented as of this encounter Visit Diagnoses [...] documented as of this encounter Care Teams Waterproof Coating Machine Tender Relationship Specialty Start Date End Date Dima Giles MD [address] [place] [address] PCP - General 01/26/21 documented as of this encounter
--- OUTSIDE RECORDS SUMMARY | 2025-05-06 13:55 | XMS_ITS | Encounter Summary ---
Author Organization Healthcare Address [address] [place] [address] Care Team Providers Care Hide Buyer Name Role Phone Dima Giles MD Primary Care Provider [phone] Encounter Details Date Type Department Care Team ([facility] st Contact Info) Description 04/13/2025 Orders Only External Location [address] [place] [address] Provider, External Social History Tobacco Use Types [...] Not at all 04/13/2025 10 :03 AM Ionaa Jaimes Feeling bad about yourself - or [...] Description 06/30/2025 9:00 AM EDT Office Visit [facility] Medicine Specialties [address], 2[address] [place] [address] Alisson Zavala, TOM [address] [place] [address] documented as of this encounter [...] documented as of this encounter Care Teams Hide Buyer Relationship Specialty Start Date End Date Dima Giles MD [address] [place] [address] PCP - General 01/26/21 documented as of this encounter
--- OUTSIDE RECORDS SUMMARY | 2025-05-06 13:55 | XMS_ITS | Clinical Summary ---
Author Organization [facility] Address [address] [place] [address] Care Team Providers Care Lumber Sorter Machine Name Role Phone Dima Giles MD Primary Care Provider [phone] Allergies Active Allergy Reactions Criticality Noted Date [...] C SCREENING Completed 11/25/2024 [place] [address] [facility] PPO Member Subscriber Plan / Payer (Ef fective 2019-Present) Name:Brittany Hayes Relation to Subscriber:Self Name:Brittany Hayes Payer ID:[id number] (IC) Type:Not on file Address: [facility] [id number] [place] [id number] Care Teams Lumber Sorter Machine Relationship Specialty Start Date End Date Dima Giles MD [address] [facility] [address] [place] [address] PCP - General Adolescent Medicine 05/13/16
== END 2025-05-06 23:59 | disposition home or self-care (01) ==
LOC: RAD 13:46
PROVIDERS: PCP Nurse Practitioner Family; Visit Provider Physician Assistant
DX: M19.032 Primary osteoarthritis, left wrist (principal); G56.00 Carpal tunnel syndrome, unspecified upper limb
CPT/HCPCS: 73100; 73110

== ENCOUNTER 2025-05-23 06:33 | Outpatient (CLI) | payer MEDICARE, SELFPAY ==
--- OUTSIDE RECORDS SUMMARY | 2025-04-13 10:10 | XMS_ITS | Encounter Summary ---
Author Organization [facility] Address [address] [place] [address] Care Team Providers Care Data Entry Coordinator Name Role Phone Dima Giles MD Primary Care Provider [phone] Reason for Referral * Consultation (Routine) - Authorized Specialty Diagnoses / Procedures Referred By Contsegun t Referred To Contact Ophthalmology Diagnoses Inflammatory arthropathy High risk medication use Jane Chávez MD [address] [facility] [address] [place] [address] Phone: tel: fax: [facility] [address] [place] [address] Phone: tel: fax: Referral ID Status Reason Start Date Expiration Date Visits Requested Visits Authorized [id number] Authorized Specialty Services Required 04/13/2025 10/13/2026 1 1 Reason for Visit * Reason Comments Joint Swelling Swelling, neck hurts , jaw issues, arm hurting, Trouble sleeping due to these issues Encounter Details Date Type Department Care Team (Late st Contact Info) Description 04/13/2025 10:10 AM EDT [facility] Visit [facility] [address] [place] [address] Brock Chilel, MBBS [address] [place] [address] Sarcoid (Primary Dx); Positive SERINA (antinuclear antibody); Inflammatory arthropathy; Therapeutic drug monitoring; High risk medication use; Arthralgia of both hands; Joint swelling Social History Tobacco Use Types Packs/Day Years [...] Date Recorded Patient Health Questionnaire-2 Score 0 04/13/2025 Hunger Vital Sign Answer Date Recorded Within [...] Answer Date Recorded Patient Health Questionnaire-9 Score 6 04/13/2025 Housing Stability Vital Sign Answer Eulogio e Recorded In the last 12 months, was t here a time when you were not able to pay the mortgage or rent on time? No 11/26/2024 In the past 12 months, how m any times have you moved where you were living? 0 11/26/2024 At any time in the past 12 m [facility], were you homeless or living in a halfway (including now)? No 11/26/2024 Utilities Answer Date Recorded In the past 12 months has [employer] electric, gas, oil, or water company threatened to shut off services in your home? No 11/26/2024 Comments No Sex and Gender Information Value Date Recorded Sex Assigned at Female 11/25/2024 7:17 AM EDT Legal Sex Female 6:28 PM EDT Gender Identity Not on file Sexual Orientation Not on file documented as of this encounter Last Filed Vital Signs Vital Sign Reading Time Taken Comments Blood Pressure 118/74 04/13/2025 10:09 AM EDT Pulse 81 04/13/2025 10:09 AM EDT Temperature 36.7 C (98 F) 04/13/2025 10:09 AM EDT Respiratory Rate - - Oxygen Saturation 100% 04/13/2025 10:09 AM EDT Inhaled Oxygen Concentration - - Weight 75 kg (165 lb 5.5 oz) 04/13/2025 10:09 AM EDT Height 167.6 cm (5' 6 ) 04/13/2025 10:09 AM EDT Body Mass Index 26.69 04/13/2025 10:09 AM EDT documented in this encounter Functional Status * Over the past 2 weeks, how often have you been bothered by any of the following problems? Question Answer Date of Assessment Author Little interest or pleasure in doing things Not at all 04/13/2025 10:03 AM EDT Ioana Rubio Feeling down, depressed, or hopeless Not at all 04/13/2025 10:03 AM EDT Ioana Rubio Patient Health Questionnaire -2 Score 0 04/13/2025 10:03 AM EDT Ioana Rubio * Question Answer Date of Assessment Author Trouble falling or staying asleep, or sleeping too much Nearly every day 04/13/2025 10:03 AM MCKAYT Ioana Rubio Feeling tired or having little energy Nearly every day 04/13/2025 10:03 AM EDT Ioana Rubio Poor appetite or overeating Not at all 04/13/2025 10 :03 AM EDT Ioana Rubio Feeling bad about yourself - or that you are a failure or have let yourself or your family down Not at all 04/13/2025 10:03 AM EDT Ioana Rubio Trouble concentrating on things, such as reading the newspaper or watching television Not at all 04/13/2025 10:03 AM Ioana Jaimes Moving or speaking so slowly that other people could have noticed? Or the opposite - being so fidgety or restless that you have been moving around a lot more than usual. Not at all 04/13/2025 10:03 AM Ioana Jaimes Thoughts that you would be better off or hurting yourself in some way Not at all 04/13/2025 10:03 AM Ioana Jaimes Patient Health Questionnaire-9 Score 6 04/13/2025 10:03 AM Ioana Jaimes * If you checked off any problems on this questionnaire so far, Question Answer Date of Assessment Author How difficult have these problems made it for you to do your work, take care of things at home, or get along with other people? Somewhat difficult 04/13/2025 10:03 AM EDT Ioana Rubio * How difficult have these problems made it for you to do your work, take care of things at home, or get along with other people? Answer Date of Assessment Author Somewhat difficult 04/13/2025 10:03 AM EDT Ioana Cat documented as of this encounter Miscellaneous Notes * Patient Instructions - Brock Chilel MBBS - 04/13/2025 10:10 AM EDT F/u in 3 months Labs today Starting HCQ * Progress Notes - Brock Chilel MBBS - 04/13/2025 10:10 AM EDT Rheumatology follow up office visit note Chief complaint: Brittany Hayes is a 64 y.o. female who is here for a follow up of her concerns for inflammatory arthritis. HPI: 64-year-old lady with a past medical history significant for SVT (AVNRT) status post ablation (2016), mood disorder, osteoporosis was recently admitted to the hospital in November for pancreatitis . Pancreatitis was noted to be secondary to gallstone and subsequently underwent a cholecystectomy. During the hospital stay patient reported to having bilateral knee and wrist pain. ESR and CRP were noted to being elevated at the time and thus there was a question for inflammatory arthritis. Patient hence started following Rheumatology and established care with us in December of 2024. At that time, notedto having morning stiffness lasting for more than 1 hour and typically involving the knees and wrists. History of the disease Established care with Rheumatology in December of 2024 with concerns for inflammatory arthritis. Notedto having pain and morning stiffness (lasting more than 1 hour) mostly involving the wrists and knees. Also noted to having Raynaud's but denied any symptoms of rashes, chest pain, shortness of breath, oral/genital ulcers, signs of inflammatory eye disease, urinary or bowel symptoms. On physical examination, noted to having synovitis in bilateral 1st 2 MCPs and PIPs of right and left hand. Due toconcerns for inflammatory arthritis, a panel of SERINA with sub serologies, RF, CCP, anti double-stranded DNA, ESR, CRP, QuantiFERON gold, hepatitis panel and x-rays of hands, wrists and feet were ordered. CRP was noted to being elevated to 33.5, ESR elevated to 79, SERINA titer 1:80, double-stranded DNA1:80, rheumatoid factor 19. X-rays did not reveal any erosive changes. Current visit: At this visit, she notes to having swelling and pain in bilateral hands, wrists, shoulders, neck and knees which have been ongoing for the last month. She also endorses weakness in bilateral hands and symptoms suggestive of paresthesia in bilateral upper extremities, predominantly in in the right upper extremity. She states that since she last saw his in December, her symptoms which at the time included pain, morning stiffness involving wrists and knees had improved significantly on prednisone andsymptoms stayed in remission for about a month post stopping prednisone and have since returned. She denies any recurrent fevers, rash, oral/genital ulcers, chest pain, breathing difficulty, urinary or bowel symptoms. She denies any symptoms suggestive of inflammatory eye disease but does note to having Raynaud's stating that her fingers turn white on exposure to cold. She states that she was having significant pain in bilateral shoulders and her neck and as she was unsure of when she will be able to see Rheumatology, she had followed up with her PCP who had ordered an x-ray of bilateral shoulders and cervical spine. X-rays of predominantly normal apart from a 1.3 cm nodule noted in the left mid lung. Medication history - Currently not on any immunosuppressive medications PMH: Past Medical History[1] FHX: Family History[2] SocHx: Social History Socioeconomic History Marital status: Spouse name: Not on file Number of children: Not on file Years of education: Not on file Highest education level: Not on file Occupational History Not on file Tobacco Use Smoking status: Never Smokeless tobacco: Never Vaping Use Vaping status: Never Used Substance and Sexual Activity Alcohol use: No Drug use: Never Comment: Drug use: No drug use Sexual activity: Not on file Other Topics Concern Not on file Social History Narrative Marital Status: Social Drivers of Health Financial Resource Strain: Not on file Food Insecurity: No Food Insecurity (11/26/2024) Hunger Vital Sign Worried About Running Out of Food in the Last Year: Never true Ran Out of Food in the Last Year: Never true Transportation Needs: No Transportation Needs (11/26/2024) PRAPARE - Transportation Lack of Transportation (Medical): No Lack of Transportation (Non-Medical): No Physical Activity: Not on file Stress: Not on file Social Connections: Unknown (06/25/2023) Received from [facility] Family and Community Support Help with Day-to-Day Activities: Not on file Lonely or Isolated: Not on file Intimate Partner Violence: Not At Risk (11/26/2024) Humiliation, Afraid, Rape, and Kick questionnaire Fear of Current or Ex-Partner: No Emotionally Abused: No Physically Abused: No Sexually Abused: No Housing Stability: Low Risk (11/26/2024) Housing Stability Vital Sign Unable to Pay for Housing in the Last Year: No Number of Times Moved in the Last Year: 0 Homeless in the Last Year: No ROS: Patient denies fever/chills, night sweats, weight loss, photosensitivity, rash, nasal/oral/genital ulcers, alopecia, epistaxis, inflammatory eye disease, dry eye, dry mouth, chest pain/palpitations, h/o pericarditis, h/o pleuritis, hemoptysis, abdominal pain, n/v/d/c, hematochezia/melena, dysuria, hematuria. No h/o DVT/PE. OBJECTIVE Visit Vitals BP 118/74 (BP Location: Left arm, Patient Position: Sitting) Pulse 81 Temp 36.7 ??C (98 ??F) (Oral) Ht 1.676 m (5' 6 ) Wt 75 kg (165 lb 5.5 oz) SpO2 100% BMI 26.69 kg/m?? Home medications: Current Outpatient Medications Medication Instructions alendronate (FOSAMAX) 70 mg, Oral, Every 7 days, Take in the morning with a full glass of water, miguel empty stomach, and do not take anything else by mouth or lie down for the next 30 min. busPIRone (BUSPAR) 10 mg, 2 times daily CALCIUM-VITAMIN D-VITAMIN K PO Take 1 tablet by mouth daily. Cholecalciferol 25 MCG (1000 UT) chewable tablet 1 tablet, Daily fexofenadine (MARTÍN) 60 mg, Daily hydroxychloroquine (PLAQUENIL) 400 mg, Oral, Daily Multiple Vitamin (MULTI-VITAMIN DAILY PO) omeprazole (PriLOSEC) [address] capsule Take 1 capsule (20 mg) by mouth in the morning and 1 capsule(20 mg) before bedtime. ondansetron ODT (ZOFRAN-ODT) 4 mg, Oral, Every 8 hours PRN polyethylene glycol (MIRALAX) 17 g, Daily predniSONE (Deltasone) 10 MG tablet Take 2 tablets by mouth daily for 5 days, THEN 1 tablet daily for 5 days. senna-docusate (Maddie-Colace) 8.6-50 MG tablet 1 tablet, Oral, 2 times daily Physical Exam Constitutional: Appearance: Normal appearance. HENT: Head: Normocephalic and atraumatic. Right Ear: Tympanic membrane normal. Left Ear: Tympanic membrane normal. Nose: Nose normal. Mouth/Throat: Mouth: Mucous membranes are moist. Eyes: Extraocular Movements: Extraocular movements intact. Conjunctiva/sclera: Conjunctivae normal. Pupils: Pupils are equal, round, and reactive to light. Neck: Comments: Spurling sign appears to be positive on the right Cardiovascular: Rate and Rhythm: Normal rate and regular rhythm. Pulses: Normal pulses. Heart sounds: Normal heart sounds. Pulmonary: Effort: Pulmonary effort is normal. Breath sounds: Normal breath sounds. Abdominal: Palpations: Abdomen is soft. Musculoskeletal: General: Swelling (b/l digits noted to being swollen and synovial thickening noted in the 2nd and 3rd MCP of b/l hands.) and tenderness (Tenderness elicited in the wrists and shoulders (R>L), MCP squeeze test is positive, tenderness noted at th b/l AC joints) present. Skin: General: Skin is warm. Neurological: Mental Status: She is alert and oriented to person, place, and time. Motor: Weakness (difficult to assess hand welfare case worker due to pain. Grossly strength appears normal) present. Results: Lab Results Component Value Date WBC 4.12 04/13/2025 HGB 13.0 04/13/2025 HCT 39.6 04/13/2025 MCV 90 04/13/2025 PLT 329 04/13/2025 Lab Results Component Value Date GLUCOSE 90 04/13/2025 CALCIUM 8.9 04/13/2025 NA 141 04/13/2025 K 4.3 04/13/2025 CO2 25 04/13/2025 CL 105 04/13/2025 BUN 19 04/13/2025 CREATININE 0.60 04/13/2025 01/04/25 19:38 WBC: 5.83 RBC: 4.23 Hemoglobin: 12.0 Hematocrit: 36.2 Platelet Count: 517 (H) MCV: 86 MCH: 28.4 MCHC: 33.1 RDW: 13.5 MPV: 10.0 nRBC: 0.0 Differential Type: Automated Neutrophils %: 57 Lymphocytes %: 33 Monocytes %: 9 Eosinophils %: 0 Basophils %: 1 Immature Granulocytes %: 0 Neutrophils Absolute: 3.32 Lymphocytes Absolute: 1.94 Monocytes Absolute: 0.50 Eosinophils Absolute: 0.02 Basophils Absolute: 0.03 Immature Granulocyte Absolute: 0.02 Glucose: 100 (H) Sodium: 140 Potassium: 4.3 Chloride: 103 CO2: 24 Creatinine: 0.62 Anion Gap: 13 BUN: 15 BUN/Creatinine Ratio: 24 EGFR: 99.0 Calcium: 9.4 Albumin: 3.9 Total Protein: 7.4 ALT, Plasma: 14 AST, Plasma: 19 Total Bilirubin, Plasma: 0.2 Alkaline Phosphatase: 110 Lipase: 28 01/04/25 21:25 Color, Urine: Dark Yellow Clarity, Urine: Clear Specific [place], Urine: >1.030 (H) pH, Urine: 5.5 Glucose, Urine: Negative Bilirubin, Urine: Negative Ketones, Urine: Trace ! Protein, Ur: Trace ! Blood, Urine: Negative Urobilinogen, UA: 1.0 Leukocytes, Urine: Trace ! Nitrite, Urine: Negative RBC, Urine: 2 WBC, Urine: 0 - 5 Squamous Epithelial Cells: 0 - 2 Bacteria, Urine: Negative Hyaline Casts: 0 - 2 01/05/25 09:00 Quantiferon TB Gold Plus Result: Negative Quantiferon Nil: 0.0673 TB Antigen 1: -0.0178 TB Antigen 2: -0.0088 TB Mitogen: 9.9327 Hepatitis B Surface Ag: Negative Hep B Core Total Ab: Negative Hepatitis C Antibody: Negative CRP, Plasma: 33.5 (H) SERINA: Detected (H) SERINA Pattern: Homogeneous ! SERINA Titer: 1:80 ! SERINA INTERPRETIVE COMMENT: See Note Rheumatoid Factor: 19 (H) Cardona/CONTENT DEVELOPER (ONEYDA) Ab, Ig SSA-52 (RO52) (ONEYDA) Antibody, Ig SSA-60 (RO60) (ONEYDA) Antibody, Ig ONEYDA SSB (LA) Ab: 1 IMMUNOGLOBULIN G SUBCLASS 4: 7 Double-Stranded DNA (dsDNA) Ab IgG IFA: 1:80 (H) Cyclic Citrul Peptide Antibody IgG: <5.0 Sed Rate: 79 (H) 01/12/25 08:10 Soluble Liver Antigen Antibody, Ig.6 MITOCHONDRIA M2 AB IG.3 Thqiz-Cdcphh-Kdekkipzb Abs, IgG by IFA: <1:20 Smooth Muscle Ab: <1:20 Images: Cervical spine xray done on 04/12/2025: -No acute process, disc space well preserved B/l shoulder x-ray: done on 04/12/2025: -Normal XR HAND WRIST BILATERAL 2 VIEWS, XR FOOT LEFT 3+ VIEWS, XR FOOT RIGHT 3+ VIEWS done on 01/05/2025: -Right hand and wrist: Distal radius and ulna and the carpal bones are unremarkable. No metacarpal erosions. No erosive changes involving the phalanges. -Left hand and wrist: No fracture or dislocation. Distal radius and ulna are intact. No carpal or metacarpal bone erosions. No phalangeal erosions. -Right foot: Small calcaneal enthesophytes. Osseous mineralization of the foot is appropriate. Os peroneum. Fifth metatarsal base enthesopathy. No acute fracture or dislocation. Mild degenerative changes of the first MTP joint. Accessory navicular. No erosive changes. -Left foot: Calcaneal enthesopathy. Accessory navicular. Mild first MTP joint space narrowing with osteophytosis. No erosive changes. Os peroneum. Summary of last visit on 01/05/2025: - Came in for a consult of possible inflammatory arthritis. At the visit noted to having morning stiffness and on physical examination noted to having active synovitis. - Was placed on a prednisone taper and labs were obtained (10 mg tapered over 20 days) Interval summary since last visit: - Labs revealed an elevated SERINA titer (1:80) and a double-stranded DNA (1:80) with elevated ESR andCRP - X-rays did not reveal any signs of erosion - Was on prednisone for about a month from December to january and noted that symptoms had been better, however when she completed prednisone taper, she had significant symptoms mentioned above. - Currently not on any immunosuppression Assessment/Plan Ms. Hayes, 64-year-old lady with a past medical history significant for SVT (AVNRT) status post ablation (2016), mood disorder, osteoporosis who is coming into the clinic for a follow-up of possible inflammatory arthropathy. Her symptoms began in November of 2024 with pain swelling and stiffness inbilateral hands and wrists. At the same time, she was also hospitalized and managed for gallstone pancreatitis. At the time, due to presence of pancreatitis, there is suspicion for IgG 4 related disease, however serological testing for the same came back negative. SERINA was noted to being 1:80 and double-stranded DNA 1:80, ESR and CRP were noted to being mildly elevated at 79 and 33.5 respectively.X- rays of bilateral hands, wrists, feet were obtained which did not show any erosive changes. Therehowever continued to be a suspicion for inflammatory arthropathy during her last visit and therefore was placed on a short taper of prednisone. She completed the prednisone taper in January and stated that her symptoms namely pain, stiffness and swelling were notably absent while on prednisone for about 1 month after the same. She notes that for about 1 month now she has had worsening symptoms with pain stiffness and swelling in bilateral hands, wrists, shoulders and knees. She denies any inflammatory eye changes, oral/genital ulcers, photosensitive rash, sicca symptoms, chest pain, breathing difficulty, urinary or bowel symptoms. She does however endorse Raynaud's but denies any swallowing difficulty. At this time, with the positive serology and symptomatology, it is clear that she has an inflammatory arthropathy, however it is difficult to have a definitive nomenclature at this point. Rheumatoid factor anti CCP antibody have been negative along with no erosive findings noted on x-rays. She doeshowever have notable synovial thickening on physical examination. We also performed a musculoskeletal ultrasound which was notable for tenosynovitis of the 2nd and 3rd digit bilaterally. Although serological testing for IgG 4 disease was noted to being negative, in order to definitively rule out the same we have reached out to pathology to obtain immunohistochemical staining of the gallbladder spe cimen that was obtained in November. Sarcoidosis can also present with inflammatory joint pain, however there is low suspicion for the same at this time given that we have a positive double-stranded DNAand no obvious symptomatology pointing towards the same. Plan: - We will start the patient on a short prednisone taper in order to help with her acute symptoms. We will also start her on Plaquenil in order to treat underlying inflammatory arthropathy, starting at 200 mg twice daily. - In view of starting Plaquenil, advised ophthalmology referral to establish baseline - Will repeat SERINA, double-stranded DNA, anti Scl, anticentromere, complements, rheumatoid factor, anti CCP, ONEYDA, ESR, CRP - Due to the left mid lung nodule identified on shoulder x-ray, will obtain a chest x-ray to look for any other nodules - Follow-up in 3 months or earlier if that is inadequate symptom control on Plaquenil. Advised to inform if she has any new or worsening of symptoms. Update on 04/18/2025: -Followed up with pathology regarding IgG4 staining of the cholecystectomy sample and noted to being negative Counseling: Prior notes, results, and imaging were reviewed by me with independent interpretation of labs. The patient was counseled regarding diagnosis (testing/results), prognosis, risk factor reduction, management options (risks/benefits), and adherence (visits/treatment). The above plan was discussed with Dr. Kyler Soto was seen today for joint swelling. Diagnoses and all orders for this visit: Sarcoid (Primary) - XR Chest 2 Views; Future - Cancel: Chitotriosidase Assay (IVY); Future - Cancel: Angiotensin converting enzyme; Future - Cancel: Vitamin D 1,25 dihydroxy; Future - Cancel: Interleukin 2 Receptor, Soluble, Serum (SO); Future - ANTI NUCLEAR AB; Future - C3 complement; Future - C4 complement; Future - Rheumatoid Factor, Plasma; Future - CBC and differential; Future - Comprehensive metabolic panel; Future - Sedimentation Rate, Automated; Future - C-reactive protein; Future - Anti-DNA antibody, double-stranded; Future - ENAI; Future - ENAII; Future - Cyclic Citrul Peptide Antibody IgG; Future Positive SERINA (antinuclear antibody) - ANTI NUCLEAR AB; Future - C3 complement; Future - C4 complement; Future - Rheumatoid Factor, Plasma; Future - CBC and differential; Future - Comprehensive metabolic panel; Future - Sedimentation Rate, Automated; Future - C-reactive protein; Future - Anti-DNA antibody, double-stranded; Future - ENAI; Future - ENAII; Future - Cyclic Citrul Peptide Antibody IgG; Future - hydroxychloroquine (Plaquenil) 200 MG tablet; Take 2 tablets by mouth daily. - Anti-scleroderma antibody; Future - Centromere Antibody, IgG; Future Inflammatory arthropathy - hydroxychloroquine (Plaquenil) 200 MG tablet; Take 2 tablets by mouth daily. - Ophthalmology; Future - Anti-scleroderma antibody; Future - Centromere Antibody, IgG; Future Therapeutic drug monitoring High risk medication use - Ophthalmology; Future Other orders - predniSONE (Deltasone) 10 MG tablet; Take 2 tablets by mouth daily for 5 days, THEN 1 tablet daily for 5 days. No follow-ups on file. Information regarding activities, treatments, and follow-up recommendations was provided to the patient/family member(s) present today who have shown recognition and demonstration of understanding ofthis information. Beth Alicia MD PGY4, Rheumatology Fellow Division of Rheumatology Department of Internal Medicine [facility] Please note: This dictation was prepared using [employer] Direct voice recognition software. As a result errors may occur. While every attempt is made to correct the mistakes during dictation, errors may still exist. When identified, these exhaust emissions automotive technician errors have been updated. [1] Past Medical History: Diagnosis Date Pancreatitis Personal history of other diseases of the musculoskeletal system and connective tissue History of osteopenia Personal history of other diseases of the musculoskeletal system and connective tissue Personal history of osteoporosis PONV (postoperative nausea and vomiting) [2] Family History Problem Relation Name Age of Onset Cardiac disorder Father Stroke Father Hip fracture Father Osteoporosis Father Stroke Mother Paz s[place]ruz Hyperlipidemia Mother [place] Hypertension Mother [place]ruz Osteoporosis Mother [place] Stroke Sister Stroke Brother Hip fracture Maternal Grandmother Osteoporosis Maternal Grandmother Hypertension Sister Lynette cronejo Hypertension Brother Chester santacruz Cosigned by Jane Chávez MD at 04/25/2025 11:35 AM EDT Associated attestation - Jane Chávez MD - 04/25/2025 11:35 AM EDT I saw and evaluated the patient with the resident/fellow. I discussed the case with the resident/fellow and agree with the findings and plan as documented. Pmhx SVT s/p ablation 2016, OP on fosamax since 2015. Here as follow up for inflammatory arthritis.She was hospitalized in november, abdominal pain, had pancreatitis 2/2 gallstones s/p cholecystectomy,she strated having painswelling in her hand and wrists . Had elevated SERINA and dsDNA 1:80 while hospitalzied. Continues to have swelling and pain in her hands knees, wrists, shoulders and wrists. She has been on prednisone taper over a month, she improved. March started having symptoms again. She also has tingling and weakness. Repeat dsDNA. Cardona AB, c4, c4, inflammatory markers. Do US. Eval for sarcoid . On MSKUS she has synovitis and synovial hypertrophy. Ddx : seronegative ra, sle, sarcoid. St art hcq 400 mg daily for now, optho refertral , Musculoskeletal ultrasound procedure note j Clinical indication /history joint pain Joint examined Right 2nd and 3rd MCP and PIP Machine/Probe ME series 8/l20 Findings Right 2nd MCP dorsal long there is irregular bony contour of the metacarpals side, there was also anechoic area within the joint spacethat has bulging towards the extensor tendon but within the joint capsule when sliding slightly laterally/angling the probe at 45?? , Right 2nd PIP there is bone discontinuation of the head of the proximal phalanx, anechoic in the hypoechogenicity distending beyond the joint capsule, evidence of Doppler signal, oval hypo echogenic mass just inferior to the skin surface, Positive Doppler signal, hypoechogenicity around the extensor tendon and transverse view we Dopplersignal Right 3rd MCP there was hypoechogenicity within the joint capsule with positive Doppler signal Impression Right 2nd and 3rd MCV synovial thickening with synovial hypertrophy with at least 1+ Doppler signal Possible osteophyte on the 2nd MCP dorsal long, only visualized in 1 view though Possible nodule on the PIP, Synovial hypertrophy and synovitis on the 2nd PIP I spent 70 minutes in this patient encounter which includes reviewing records from the referring provider, gathering history, reviewing images, labs, evaluation, counseling and documentation. Jane Chávez MD. Take Down Inspector Division of Rheumatology Department of Internal Medicine [facility] documented in this encounter Plan of Treatment Upcoming Encounters Date Type Department Care Team (Late st Contact Info) Description 06/30/2025 9:00 AM EDT Office Visit [facility] Medicine Specialties [address] [place] [address] Alisson Zavala, [facility] [address] [place] [address] Scheduled Referrals Name Type Priority Associated Diagnoses Orde r Schedule Ophthalmology Outpatient Referral Routine Inflammatory arthropathy High risk medication use 1 Occurrences starting 04/13/2025 until 10/15/2026 documented as of this encounter Results * Centromere Antibody, IgG (04/13/2025 12:44 PM EDT) Centromere Ab, IgG 2 0 - 40 AU/mL 04/15/2025 8:00 PM EDT [facility] (A[facility]AN) Blood Venous blood specimen / Unknown Venipuncture / Unknown 04/13/2025 12:44 PM EDT 04/13/2025 12:44 PM EDT Narrative [facility] CATIA AlemanAIDAN) - 04/15/2025 8:00 PM EDT INTERPRETIVE INFORMATION: Centromere Ab, IgG 29 AU/mL or Less ............. Negative 30 - 40 AU/mL ................ Equivocal 41 AU/mL or Greater .......... Positive When detected by this multiplex bead assay, the presence of centromere antibodies is mainly associated with CREST syndrome, a variant of systemic sclerosis (SSc). These antibodies target the centromere B, a dominant antigen of the centromeric complex associated with the centromere pattern observed in antinuclear antibody (SERINA) testing by IFA. Centromere antibodies may also be seen in a varying percentage of patients with other autoimmune diseases, including diffuse cutaneous SSc, Raynaud syndrome, interstitial pulmonary fibrosis, autoimmune liver disease, systemic lupus erythematosus (SLE) and rheumatoid arthritis (RA). A negative result indicates no detectable IgG antibodies to centromere B. If the result is negative but clinical suspicion for SSc is strong, consider testing for SERINA by IFA along with other antibodies associated with SSc, including Scl-70, U3-CONTENT DEVELOPER, PM/Scl, or Th/To. Performed By: [facility] [address] [place] [address] Online Merchandising Manager: Tarik Ball MD, PhD CLIA Number: [id number] us Jane Chávez MD LAB BLOOD ORDERABLES Final Re sult [facility] [employer]AN) [address] [place], [place] [id number] * Anti-scleroderma antibody (04/13/2025 12:44 PM EDT) SCLERODERMA (SCL-70) (ONEYDA) ANTIBODY, IGG 2 0 - 40 AU/mL 04/15/2025 8:00 PM EDT [facility] (AIDAN) Blood Venous blood specimen / Unknown Venipuncture / Unknown 04/13/2025 12:44 PM EDT 04/13/2025 12:44 PM EDT Narrative [facility] LoveAIDAN) - 04/15/2025 8:00 PM EDT INTERPRETIVE INFORMATION: Scleroderma (Scl-70) (ONEYDA) Ab, IgG 29 AU/mL or Less ............. Negative 30 - 40 AU/mL ................ Equivocal 41 AU/mL or Greater .......... Positive The presence of Scl-70 antibodies (also referred to as topoisomerase I, kayode-I or TOM) is considered diagnostic for systemic sclerosis (SSc). Scl-70 antibodies alone are detected in about 20 percent of SSc patients and are associated with the diffuse form of the disease, which may include specific organ involvement and poor prognosis. Scl-70 antibodies have also been reported in a varying percentage of patients with systemic lupus erythematosus (SLE). Scl-70 (kayode-1) is a DNA binding protein and anti-DNA/DNA complexes in the sera of SLE patients may bind to kayode-I, leading to a false-positive result. The presence of Scl-70 antibody in sera may also be due to contamination of recombinant Scl-70 with DNA derived from cellular material used in immunoassays. Strong clinical correlation is recommended if both Scl-70 and dsDNA antibodies are detected. Negative results do not necessarily rule out the presence of SSc. If clinical suspicion remains, consider further testing for centromere, RNA polymerase III and U3-CONTENT DEVELOPER, PM/Scl, or Th/To antibodies. Performed By: [facility] [address] [place], [place] [id number] Online Merchandising Manager: Tarik Ball MD, PhD CLIA Number: [id number] us Jane Chávez MD LAB BLOOD ORDERABLES Final Re sult [facility] (AIDAN) [address] [place] [address] * Cyclic Citrul Peptide Antibody IgG (04/13/2025 12:44 PM EDT) Cyclic Citrul Peptide Antibody IgG <5.0 <=5.0 U/mL 04/13/2025 4:00 PM EDT [facility] Blood Venous blood specimen / Unknown Venipuncture / Unknown 04/13/2025 12:44 PM EDT 04/13/2025 12:44 PM EDT us Jane Chávez MD LAB BLOOD ORDERABLES Final Re sult [facility] [address] [place] [address] * ENAII (04/13/2025 12:44 PM EDT) SSA-52 (RO52) (ONEYDA) Antibody, IgG 4 0 - 40 AU/mL 04/15/2025 8:00 PM EDT [facility] ([employer]) SSA-60 (RO60) (ONEYDA) Antibody, IgG 1 0 - 40 AU/mL 04/15/2025 8:00 PM EDT [facility] ([facility]) SSB ([place]) (ONEYDA) Antibody, IgG 1 0 - 40 AU/mL 04/15/2025 8:00 PM EDT [facility] ([facility]) Blood Venous blood specimen / Unknown Venipuncture / Unknown 04/13/2025 12:44 PM EDT 04/13/2025 12:44 PM EDT Narrative [facility] (BEAKER) - 04/15/2025 8:00 PM EDT INTERPRETIVE INFORMATION: SSA-52 (Ro52) (ONEYDA) [...] (PSS) also have this antibody. Performed By: [facility] [address] [place] [address] Online Merchandising Manager: Tarik Ball MD, PhD CLIA Number: [id number] Jane Chávez MD LAB BLOOD ORDERABLES Final Re sult [employer] [facility] ([facility]) [address] [place] [id number] * ENAI (04/13/2025 12:44 PM EDT) Cardona/CONTENT DEVELOPER (ONEYDA) Ab, IgG 13 0 - 19 Units 04/15/2025 4:55 AM EDT [facility] ([facility]) Blood Venous blood specimen / Unknown Venipuncture / Unknown 04/13/2025 12:44 PM EDT 04/13/2025 12:44 PM EDT Narrative [facility] ([facility]) - 04/15/2025 4:55 AM EDT INTERPRETIVE INFORMATION: Cardona/CONTENT DEVELOPER (ONEYDA) Antibody, IgG 19 Units or Less ............. Negative 20 to 39 Units ............... Weak Positive 40 to 80 Units ............... Moderate Positive 81 Units or greater .......... Strong Positive Cardona/CONTENT DEVELOPER antibodies are frequently seen in patients with mixed connective tissue disease (MCTD) and are also associated with other systemic autoimmune rheumatic diseases (SARDs) such as systemic lupus erythematosus (SLE), systemic sclerosis, and myositis. Antibodies targeting the Cardona/CONTENT DEVELOPER antigenic complex also recognize Cardona antigens, therefore, the Cardona antibody response must be considered when interpreting these results. Performed By: [facility] [address] [place] [id number] Online Merchandising Manager: Tarik Ball MD, PhD CLIA Number: [id number] Jane Chávez MD LAB BLOOD ORDERABLES Final Re sult [facility] DIONNE) [address] [place] [id number] * (ABNORMAL) Anti-DNA antibody, double-stranded (04/13/2025 12:44 PM EDT) Double-Strande d DNA (dsDNA) Ab IgG IFA 1:80(H) <1:10 04/15/2025 10:47 AM EDT [facility] DIONNE) Blood Venous blood specimen / Unknown Venipuncture / Unknown 04/13/2025 12:44 PM EDT 04/13/2025 12:44 PM EDT Narrative [facility] [employer] DIONNE) - 04/15/2025 10:47 AM EDT INTERPRETIVE INFORMATION: Double-Stranded DNA (dsDNA) Antibody, [...] recommendations for testing may be found at [email or web address]. Performed By: [facility] [address] [place] [address] [place] [address] Online Merchandising Manager: Tarik Ball MD, PhD CLIA Number: [id number] Jane Chávez MD LAB BLOOD ORDERABLES Final Re sult Performing Organization Address City/[facility]/ZIP Co de Phone Number [facility] ([facility]) [address] [place] [address] * (ABNORMAL) C-reactive protein (04/13/2025 12:44 PM EDT) CRP, Plasma 44.2(H) <=8.0 mg/L 04/13/2025 3:06 PM EDT [facility] Blood Venous blood specimen / Unknown Venipuncture / Unknown 04/13/2025 12:44 PM EDT 04/13/2025 12:44 PM EDT Narrative [facility] - 04/13/2025 3:06 PM EDT This CRP test is appropriate for assessment of infection, systemic inflammation and/or tissue injury. To assess cardiovascular disease risk order high sensitivity CRP (CRPH). us Jane Chávez MD LAB BLOOD ORDERABLES Final Re sult Performing Organization Address [facility]/ZIP Co de Phone Number [facility] [address] [place] [address] * (ABNORMAL) Sedimentation Rate, Automated (04/13/2025 12:44 PM EDT) Sedimentation Rate 31(H) <30 mm/hr 2024 3:23 PM EDT [facility] Blood Venous blood specimen / Unknown Venipuncture / Unknown 04/13/2025 12:44 PM EDT 04/13/2025 12:44 PM EDT us Jane Chávez MD LAB BLOOD ORDERABLES Final Re sult [facility] [address] [place] [address] * Comprehensive metabolic panel (04/13/2025 12:44 PM EDT) Glucose, Plasma 90 74 - 99 mg/dL 04/13/2025 3:06 PM EDT [facility] BUN, Plasma 19 8 - 23 mg/dL 04/13/2025 3:06 PM EDT [facility] Creatinine, Plasma 0.60 0.60 - 1.10 mg/dL 04/13/2025 3:06 PM EDT [facility] BUN/Creatinine Ratio 32 04/13/2025 3:06 PM EDT [facility] Sodium, Plasma 141 136 - 145 mmol/L 04/13/2025 3:06 PM EDT [facility] Potassium, Plasma 4.3 3.6 - 4.9 mmol/L 04/13/2025 3:06 PM EDT [facility] Chloride, Plasma 105 97 - 107 mmol/L 04/13/2025 3:06 PM EDT [facility] CO2, Plasma 25 22 - 29 mmol/L 04/13/2025 3:06 PM EDT [facility] Anion Gap 11 6 - 16 mmol/L 04/13/2025 3:06 PM EDT [facility] Total Calcium, Plasma 8.9 8.9 - 10.2 mg/dL 04/13/2025 3:06 PM EDT [facility] Total Protein 6.9 6.3 - 7.9 g/dL 04/13/2025 3:06 PM EDT [facility] Albumin, Plasma 3.8 3.5 - 5.2 g/dL 04/13/2025 3:06 PM EDT [facility] AST, Plasma 28 10 - 35 U/L 04/13/2025 3:06 PM EDT [facility] ALT, Plasma 27 10 - 35 U/L 04/13/2025 3:06 PM EDT [facility] Alkaline Phosphatase, Plasma 109 46 - 142 U/L 04/13/2025 3:06 PM EDT [facility] Total Bilirubin, Plasma 0.2 0.2 - 1.1 mg/dL 04/13/2025 3:06 PM EDT [facility] eGFRcr 99.8 mL/min/1.7 3m*2 04/13/2025 3:06 PM EDT [facility] Comment:Reported eGFRcr in m L/min/1.73m2 is based the CKD-EPI 2020 equation that does not use a race coefficient. Blood Venous blood specimen / Unknown Venipuncture / Unknown 04/13/2025 12:44 PM EDT 04/13/2025 12:44 PM EDT us Jane Chávez MD LAB BLOOD ORDERABLES Final Re sult [facility] [address] [place] [address] * (ABNORMAL) CBC and differential (04/13/2025 12:44 PM EDT) WBC Count 4.12 3.70 - 10.30 10*3/uL LAB HEMATOLOGY METHOD 04/13/2025 3:04 PM EDT [facility] RBC Count 4.38 3.90 - 5.20 10*6/uL LAB HEMATOLOGY METHOD 04/13/2025 3:04 PM EDT [facility] HGB 13.0 11.2 - 15.7 g/dL LAB HEMATOLOGY METHOD 04/13/2025 3:04 PM EDT [facility] HCT 39.6 34.0 - 45.0 % LAB HEMATOLOGY METHOD 04/13/2025 3:04 PM EDT [facility] Platelet Count 329 155 - 369 10*3/uL LAB HEMATOLOGY METHOD 04/13/2025 3:04 PM EDT [facility] MCV 90 79 - 98 fL LAB HEMATOLOGY METHOD 04/13/2025 3:04 PM EDT [facility] MCH 29.7 26.0 - 32.0 pg LAB HEMATOLOGY METHOD 04/13/2025 3:04 PM EDT [facility] MCHC 32.8 30.7 - 35.5 g/dL LAB HEMATOLOGY METHOD 04/13/2025 3:04 PM EDT [facility] RDW 15.7(H) 11.5 - 14.5 % LAB HEMATOLOGY METHOD 04/13/2025 3:04 PM EDT [facility] MPV 10.6 8.8 - 12.5 fL LAB HEMATOLOGY METHOD 04/13/2025 3:04 PM EDT [facility] nRBC 0.0 <=0.0 per 100 WBCs LAB HEMATOLOGY METHOD 04/13/2025 3:04 PM EDT [facility] Differential Type Automated LAB HEMATOLOGY METHOD 04/13/2025 3:04 PM EDT [facility] Neutrophils % 64 % LAB HEMATOLOGY METHOD 04/13/2025 3:04 PM EDT [facility] Lymphocytes % 24 % LAB HEMATOLOGY METHOD 04/13/2025 3:04 PM EDT [facility] Monocytes % 10 % LAB HEMATOLOGY METHOD 04/13/2025 3:04 PM EDT [facility] Eosinophils % 0 % LAB HEMATOLOGY METHOD 04/13/2025 3:04 PM EDT [facility] Basophils % 1 % LAB HEMATOLOGY METHOD 04/13/2025 3:04 PM EDT [facility] Immature Granulocytes % 1 % LAB HEMATOLOGY METHOD 04/13/2025 3:04 PM EDT [facility] Neutrophils Absolute 2.67 1.60 - 6.10 10*3/uL LAB HEMATOLOGY METHOD 04/13/2025 3:04 PM EDT [facility] Lymphocytes Absolute 1.00(L) 1.20 - 3.90 10*3/uL LAB HEMATOLOGY METHOD 04/13/2025 3:04 PM EDT [facility] Monocytes Absolute 0.39 0.30 - 0.90 10*3/uL LAB HEMATOLOGY METHOD 04/13/2025 3:04 PM EDT [facility] Eosinophils Absolute 0.01 0.00 - 0.50 10*3/uL LAB HEMATOLOGY METHOD 04/13/2025 3:04 PM EDT [facility] Basophils Absolute 0.02 0.00 - 0.10 10*3/uL LAB HEMATOLOGY METHOD 04/13/2025 3:04 PM EDT [facility] Immature Granulocytes Absolute 0.03 0.00 - 0.06 10*3/uL LAB HEMATOLOGY METHOD 04/13/2025 3:04 PM EDT [facility] Blood Venous blood specimen / Unknown Venipuncture / Unknown 04/13/2025 12:44 PM EDT 04/13/2025 12:44 PM EDT Narrative [facility] - 04/13/2025 3:04 PM EDT Therapeutic decision making should be based on absolute values, rather than percentages. us Jane Chávez MD LAB BLOOD ORDERABLES Final Re sult Performing Organization Address City/[facility] [place] [address] * (ABNORMAL) Rheumatoid Factor, Plasma (04/13/2025 12:44 PM EDT) Rheumatoid Factor, Plasma 20(H) <14 IU/mL 04/13/2025 3:06 PM EDT [facility] Blood Venous blood specimen / Unknown Venipuncture / Unknown 04/13/2025 12:44 PM EDT 04/13/2025 12:44 PM EDT Result Regi Chávez MD LAB BLOOD ORDERABLES Final Re sult Performing Organization Address [facility] [place] [address] * C4 complement (04/13/2025 12:44 PM EDT) C4 Complement 17 13 - 36 mg/dL 04/13/2025 3:14 PM EDT [facility] Blood Venous blood specimen / Unknown Venipuncture / Unknown 04/13/2025 12:44 PM EDT 04/13/2025 12:44 PM EDT Result Regi Chávez MD LAB BLOOD ORDERABLES Final Re sult Performing Organization Address City/[facility] Co de Phone Number [facility] [address] [place] [address] * C3 complement (04/13/2025 12:44 PM EDT) C3 Complement 142 84 - 166 mg/dL 04/13/2025 3:14 PM EDT [facility] Blood Venous blood specimen / Unknown Venipuncture / Unknown 04/13/2025 12:44 PM EDT 04/13/2025 12:44 PM EDT us Jane Chávez MD LAB BLOOD ORDERABLES Final Re sult [facility] [address] [place] [id number] * (ABNORMAL) ANTI NUCLEAR AB (04/13/2025 12:44 PM EDT) SERINA INTERPRETIVE COMMENT See Note 04/16/2025 2:58 PM EDT [facility] ([facility]) Anti Nuc Ab Screen Detected( H) <1:80 04/16/2025 2:58 PM EDT [facility] ([facility]) Blood Venous blood specimen / Unknown Venipuncture / Unknown 04/13/2025 12:44 PM EDT 04/13/2025 12:44 PM EDT Narrative [facility] ([facility]) - 04/16/2025 2:58 PM EDT Clinical Interpretation: Homogeneous Pattern Clinical associations: SLE, drug-induced SLE [...] not necessarily rule out SARD. Performed By: [facility] [address] [place] [address] Online Merchandising Manager: Tarik Ball MD, PhD CLIA Number: [id number] us Jane Chávez MD LAB BLOOD ORDERABLES Final Re sult [facility] ([facility]) [address] [place] [address] * XR Chest 2 Views (04/13/2025 12:37 PM EDT) Anatomical Region Laterality Modality Chest Digital Radiogra phy Impressions 04/13/2025 12:44 PM EDT Suspected subtle nodule in left midlung. This could be further evaluated with CT chest. CRITICAL RESULT: No. COMMUNICATION: Per this written report. Drafted by Denisse Elias MD on 04/13/2025 12:43 PM Final report signed by Denisse Elias MD on 04/13/2025 12:44 PM Narrative 04/13/2025 12:44 PM EDT CLINICAL INDICATION: suspecting sarcoid TECHNIQUE: XR CHEST 2 VIEWS COMPARISON: September 21, 2013 FINDINGS: Suspected subtle nodule within the left midlung. No suspicious opacities in the remaining lines. Lung volumes are preserved. No mediastinal or hilar calcifications. No cardiac enlargement. No pleural effusions. No pneumothorax. Procedure Note Denisse Elias MD - 04/13/2025 CLINICAL INDICATION: suspecting sarcoid TECHNIQUE: XR CHEST 2 VIEWS COMPARISON: September 21, 2013 FINDINGS: Suspected subtle nodule within the left midlung. No suspicious opacitiesin the remaining lines. Lung volumes are preserved. No mediastinal orhilar calcifications. No cardiac enlargement. No pleural effusions. Nopneumothorax. IMPRESSION: Suspected subtle nodule in left midlung. This could be further evaluatedwith CT chest. CRITICAL RESULT: No. COMMUNICATION: Per this written report. Drafted by Denisse Elias MD on 04/13/2025 12:43 PM Final report signed by Denisse Elias MD on 04/13/2025 12:44 PM us Jane Chávez MD IMG XR PROCEDURES Final Resul t documented in this encounter Visit Diagnoses Diagnosis Sarcoid- Primary Sarcoidosis Positive SERINA (antinuclear antibody) Other and unspecified nonspecific immunological findings Inflammatory arthropathy Therapeutic drug monitoring Encounter for therapeutic drug monitoring High risk medication use Arthralgia of both hands Joint swelling Effusion of joint, site unspecified Sarcoid Sarcoidosis documented in this encounter Additional Health Concerns Assessment Noted Time PHQ-9 Depression Total Score: 6 04/13/20 25 10:03 AM EDT A fall risk assessment has been complete d for the patient 04/13/2025 10:02 AM EDT A Body Mass Index follow-up plan has been documented for the patient 04/13/2025 12:14 PM EDT documented as of this encounter Care Teams Data Entry Coordinator Relationship Specialty Start Date End Date Dima Giles MD [address] [place] [address] PCP - General 01/26/21 documented as of this encounter
--- OUTSIDE RECORDS SUMMARY | 2025-04-13 12:15 | XMS_ITS | Encounter Summary ---
Author Organization Healthcare Address [address] [place] [address] Care Team Providers Care Hotbed Transfer Operator Name Role Phone Dima Giles MD Primary Care Provider [phone] Encounter Details Date Type Department Care Team (Latest Contact Info) Description 04/13/2025 12:15 PM EDT - 04/13/2025 11:59 PM EDT Hospital Encounter [facility] [address] [place] [phone] Sarcoid Discharge Disposition: Home or Self Care [...] any time in the past 12 m [facility], were you homeless or [...] [facility] Medicine Specialties [address] [place] [address] Alisson Zavala, TOM [address] [place] [address] documented as of this encounter [...] documented as of this encounter Care Teams Hotbed Transfer Operator Relationship Specialty Start Date End Date Dima Giles MD [address] [place] [address] PCP - General 01/26/21 documented as of this encounter
--- OUTSIDE RECORDS SUMMARY | 2025-05-23 06:36 | XMS_ITS | Encounter Summary ---
Author Organization [facility] Address [address] [place] [address] Care Team Providers Care Art Instructor Name Role Phone Dima Giles MD Primary Care Provider [phone] Reason for Referral * Consultation (Routine) - Closed Specialty Diagnoses / Procedures Referred By Contac t Referred To Contact Rheumatology Diagnoses Positive SERINA (antinuclear antibody) Elevated sed rate Elevated C-reactive protein (CRP) Ioana Browne APRN [address] [address] Phone: tel: fax: Referral ID Status Reason Start Date Expiration Date V isits Requested Visits Authorized [id number] Closed Specialty Services Required 12/07/2024 06/08/2026 1 1 Encounter Details Date Type Department Care Team (Late st Contact Info) Description 12/07/2024 Community [facility] [address] [place] [address] Ioana Browne APRN [address] [address] Positive SERINA (antinuclear antibody) (Primary [...] the past 12 m [facility], were you homeless or living in [...] Description 06/30/2025 9:00 AM EDT Office Visit [facility] Medicine Specialties [address], [address] [place] [address] Alisson Zavala, TOM [address] [place] [address] Scheduled Referrals Name Type Priority Associated Diagnoses [...] documented as of this encounter Care Teams Art Instructor Relationship Specialty Start Date End Date Dima Giles MD [address] [place] [address] PCP - General 01/26/21 documented as of this encounter
--- OUTSIDE RECORDS SUMMARY | 2025-05-23 06:36 | XMS_ITS | Encounter Summary ---
Author Organization Healthcare Address [address] [place] [address] Care Team Providers Care Special Warfare Operator Name Role Phone Dima Giles MD Primary Care Provider Reason for Visit * Reason Comments Med Refill Encounter Details Date Type Department Care Team (Late st Contact Info) Description 07/10/2021 Refill [facility] [address] [place] [address] Tarik Early MD [address] [address] Social History Tobacco Use Types [...] Visit [place] [facility] [address], [address] [place] [address] Alisson Zavala, TOM [address] [place] [address] documented as of this encounter Visit Diagnoses Not on filedocumented in this encounter Care Teams Special Warfare Operator Relationship Specialty Start Date End Date Dima Giles MD [address] [place], [place] [address] PCP - General 01/26/21 documented as of this encounter
--- OUTSIDE RECORDS SUMMARY | 2025-05-23 06:36 | XMS_ITS | Encounter Summary ---
Author Organization Healthcare Address [address] [place] [address] Care Team Providers Care Assistant Family Teacher Name Role Phone Dima Giles MD Primary Care Provider Reason for Visit * Reason Comments Med Refill Encounter Details Date Type Department Care Team (Late st Contact Info) Description 07/16/2021 Refill [facility] [address] [place] [address] Tarik Early MD [address] [address] Social History Tobacco Use Types [...] Description 06/30/2025 9:00 AM EDT Office Visit [facility] [address], [address] [place] [address] Alisson Zavala, TOM [address] [place] [address] documented as of this encounter Visit Diagnoses Not on filedocumented in this encounter Care Teams Assistant Family Teacher Relationship Specialty Start Date End Date Dima Giles MD [address] [place], [place] [address] PCP - General 01/26/21 documented as of this encounter
--- OUTSIDE RECORDS SUMMARY | 2025-05-23 06:37 | XMS_ITS | Encounter Summary ---
Author Organization Healthcare Address [address] [place] [address] Care Team Providers Care Heading Pinner Name Role Phone Dima Giles MD Primary Care Provider [phone] Encounter Details Date Type Department Care Team (Late st Contact Info) Description 04/12/2025 Telephone [place] [facility] [address], [address] [place] [address] Ailyn Romero RN CH-VASCULAR & [...] time in the past 12 m [facility], were you homeless or living in a fdc (including now)? No 11/26/2024 Utilities Answer Date Recorded In the past 12 months has th e [employer], gas, oil, or water company threatened to [...] 06/30/2025 9:00 AM EDT Office Visit [facility] Medicine Specialties [address], [address] [place] [address] Alisson Zavala, TOM [address] [place] [address] documented as of this encounter [...] documented as of this encounter Care Teams Heading Pinner Relationship Specialty Start Date End Date Dima Giles MD [address] [place] [address] PCP - General 01/26/21 documented as of this encounter
--- OUTSIDE RECORDS SUMMARY | 2025-05-23 06:37 | XMS_ITS | Encounter Summary ---
Author Organization Healthcare Address [address] [place] [id number] Care Team Providers Care Ultrasound Tech Name Role Phone Dima Giles MD Primary Care Provider [phone] Encounter Details Date Type Department Care Team (Late st Contact Info) Description 04/11/2025 Telephone [place] [facility] Specialties [address], [address] [place] [address] Alisson Zavala, [place] [id number] Social History Tobacco Use Types Packs/Day Years [...] sooner apt. Please call. Best contact number: [phone] (mobile) Optimal time of day to reach [...] of [place] [facility] Special[facility] [address], [address] [place] [address] Alisson Zavala, MBBS [address] [place] [address] documented as of this encounter [...] documented as of this encounter Care Teams Ultrasound Tech Relationship Specialty Start Date End Date Dima Giles MD [address] [place] [address] PCP - General 01/26/21 documented as of this encounter
--- OUTSIDE RECORDS SUMMARY | 2025-05-23 06:37 | XMS_ITS | Clinical Summary ---
Author Organization [facility] Address [address] [place] [address] Care Team Providers Care Hem Inspector Name Role Phone Dima Giles MD Primary Care Provider [phone] Allergies Active Allergy Reactions Criticality Noted Date [...] 05/02/2025 Orders Only [facility] [address] [facility] [address] [place] [address] Alphonso Najera RN 04/19/2025 Lab Requisition [facility] [address] [place] [address] Evangelina Tapia MD Calculus of gallbladder with chronic cholecystitis without obstruction 04/18/2025 Orders Only [facility] [address], [address] [place] [address] Brock Chilel MBBS Lung nodule seen on imaging study (Primary Dx) 04/18/2025 Results Follow-Up [facility] [address], [address] [place] [address] Brock Chilel MBBS 04/13/2025 12:15 PM EDT - 04/13/2025 11:59 PM EDT [facility] [address], 1[address] Floor [facility] [place] [address] Sarcoid Discharge Disposition: Home or Self Care 04/13/2025 10:10 AM EDT Office Visit [facility] [address] [place] [phone] Brock Chilel MBBS Sarcoid (Primary Dx); Positive SERINA (antinuclear antibody); Inflammatory arthropathy; Therapeutic drug monitoring; High risk medication use; Arthralgia of both hands; Joint swelling 04/13/2025 Orders Only External Location [address] [place] [address] Provider, External 04/13/2025 Travel 04/12/2025 Telephone [facility] [address] [place] [phone] Ailyn Romero RN 04/11/2025 Telephone [facility] [address] [place] [address], [address] [place] [phone] Alisson Zavala MBBS from Last 3 [...] Grandmother Hyperlipidemia Mother [place]ruz Hypertension Mother [place]ruz Osteoporosis Mother [...] in the past 12 m [facility], were you homeless or living [...] [facility] [address], [address] [place] [phone] Alisson Zavala, JD [facility] [address] [place] [address] Health Maintenance Due Date Last Done Comments [...] 2 - Risk 2-dose series) 07/07/2019 01/05/2019 [id number] Vaccine ( season) 2025 07/10/2024, 05/31/2023, 07/14/2022, [...] PM EDT Sarcoid Positive SERINA (antinuclear antibody) CARDONA/HULL BUILDER (ONEYDA) ANTIBODY, IGG (SO) Routine 04/13/2025 12:44 [...] on 11/28/2024 was originally reported as case [id number]. The entire surgical pathology report can be viewed as a scanned document attached to this report. 04/22/2025 1:17 PM EDT [facility] Case Report Historical Case Addendum/Amend ment Case: [id number] Authorizing Provider: Evangelina Tapia MD Collected: 04/18/2025 Ordering Location: [facility] Received: 04/19/2025 0847 Pathologist: Macy Saucedo MD Specimen: [id number] 04/22/2025 1:17 PM EDT [facility] Addendum 04/22/2025 1:17 PM EDT [facility] Addendum 2 04/22/2025 1:17 PM EDT [facility] Addendum 3 04/22/2025 1:17 PM EDT [facility] Addendum 4 04/22/2025 1:17 PM EDT [facility] Addendum 5 04/22/2025 1:17 PM EDT [facility] Tissue 04/18/2025 04/19/2025 8:4 7 AM EDT us Evangelina Tapia MD LAB PATHOLOGY ORDERABLES F inal Result [facility] [address] [place] [address] * Centromere Antibody, IgG (04/13/2025 12:44 PM EDT) Centromere Ab, IgG 2 0 - 40 AU/mL 04/15/2025 8:00 PM EDT [facility] (AIDAN) Blood Venous blood specimen / Unknown Venipuncture / Unknown 04/13/2025 12:44 PM EDT 04/13/2025 12:44 PM EDT Narrative [facility] (AIDAN) - 04/15/2025 8:00 PM EDT INTERPRETIVE [...] other antibodies associated with SSc, including Scl-70, U3-HULL BUILDER, PM/Scl, or Th/To. Performed By: Delivered [address] [place] [address] Geophysical Data Technician: Tarik Ball MD, PhD CLIA Number: [id number] us Jane Chávez MD LAB BLOOD ORDERABLES Final Re sult [facility] ([employer]) [address] [place] [address] * (ABNORMAL) SERINA Single Pattern (Reflex only) (04/13/2025 12:44 PM EDT) SERINA Pattern Homogeneou s(A) 04/16/2025 2:58 PM EDT [facility] ([employer]) SERINA Titer 1:320(A) 04/16/2025 2:58 PM EDT [facility] ([employer]) Blood Venous blood specimen / Unknown Venipuncture / Unknown 04/13/2025 12:44 PM EDT 04/13/2025 12:44 PM EDT Narrative [facility] ([employer]) - 04/16/2025 2:58 PM EDT Performed By: Delivered [address] [place] [address] Geophysical Data Technician: Tarik Ball MD, PhD CLIA Number: [id number] Jane Chávez MD LAB BLOOD ORDERABLES Final Re sult Performing Organization Address [facility]/State/ZIP Co de Phone Number [facility] ([employer] [facility]) [address] [place] [address] * ENAII (04/13/2025 12:44 PM EDT) SSA-52 (RO52) (ONEYDA) Antibody, IgG 4 0 - 40 AU/mL 04/15/2025 8:00 PM EDT [facility] ([employer]) SSA-60 (RO60) (ONEYDA) Antibody, IgG 1 0 - 40 AU/mL 04/15/2025 8:00 PM EDT [facility] ([employer]) SSB ([place]) (ONEYDA) Antibody, IgG 1 0 - 40 AU/mL 04/15/2025 8:00 PM EDT [facility] ([employer]) Blood Venous blood specimen / Unknown Venipuncture / Unknown 04/13/2025 12:44 PM EDT 04/13/2025 12:44 PM EDT Narrative [facility] ([employer]) - 04/15/2025 8:00 PM EDT INTERPRETIVE INFORMATION: [...] (PSS) also have this antibody. Performed By: Delivered [address] [place] [address] Geophysical Data Technician: Tarik Ball MD, PhD CLIA Number: [id number] us Jane Chávez MD LAB BLOOD ORDERABLES Final Re sult [facility] ([employer]) [address] [place] [address] * ENAI (04/13/2025 12:44 PM EDT) Cardona/HULL BUILDER (ONEYDA) Ab, IgG 13 0 - 19 Units 04/15/2025 4:55 AM EDT [facility] DIONNE) Blood Venous blood specimen / Unknown Venipuncture / Unknown 04/13/2025 12:44 PM EDT 04/13/2025 12:44 PM EDT Narrative ANSHUL TRUONG) - 04/15/2025 4:55 AM EDT INTERPRETIVE INFORMATION: Cardona/HULL BUILDER (ONEYDA) Antibody, IgG 19 Units or Less ............. Negative 20 to 39 Units ............... Weak Positive 40 to 80 Units ............... Moderate Positive 81 Units or greater .......... Strong Positive Cardona/HULL BUILDER antibodies are frequently seen in patients with mixed connective tissue disease (MCTD) and are also associated with other systemic autoimmune rheumatic diseases (SARDs) such as systemic lupus erythematosus (SLE), systemic sclerosis, and myositis. Antibodies targeting the Cardona/HULL BUILDER antigenic complex also recognize Cardona antigens, therefore, the Cardona antibody response must be considered when interpreting these results. Performed By: Delivered [address] [place] [address] Geophysical Data Technician: Tarik Ball MD, PhD CLIA Number: [id number] Jane Chávez MD LAB BLOOD ORDERABLES Final Re sult Performing Organization Address [facility]/State/ZIP Co de Phone Number [facility] [employer]) [address] [place] [address] * Cyclic Citrul Peptide Antibody IgG (04/13/2025 12:44 PM EDT) Cyclic Citrul Peptide Antibody IgG <5.0 <=5.0 U/mL 04/13/2025 4:00 PM EDT [facility] Blood Venous blood specimen / Unknown Venipuncture / Unknown 04/13/2025 12:44 PM EDT 04/13/2025 12:44 PM EDT Jane Chávez MD LAB BLOOD ORDERABLES Final Re sult [facility] [address] [place] [address] * Anti-scleroderma antibody (04/13/2025 12:44 PM EDT) SCLERODERMA (SCL-70) (ONEYDA) ANTIBODY, IGG 2 0 - 40 AU/mL 04/15/2025 8:00 PM EDT [facility] (AIDAN) Blood Venous blood specimen / Unknown Venipuncture / Unknown 04/13/2025 12:44 PM EDT 04/13/2025 12:44 PM EDT Narrative [facility] (AIDAN) - 04/15/2025 8:00 PM [...] testing for centromere, RNA polymerase III and U3-HULL BUILDER, PM/Scl, or Th/To antibodies. Performed By: Delivered [address] [place] [address] Geophysical Data Technician: Tarik Ball MD, PhD CLIA Number: [id number] us Jane Chávez MD LAB BLOOD ORDERABLES Final Re sult Performing Organization Address [facility] Co de Phone Number [facility] (AIDAN) [address] [place] [address] * (ABNORMAL) Anti-DNA antibody, double-stranded (04/13/2025 12:44 PM EDT) Double-Strande d DNA (dsDNA) Ab IgG IFA 1:80(H) <1:10 04/15/2025 10:47 AM EDT [facility] (AIDAN) Blood Venous blood specimen / Unknown Venipuncture / Unknown 04/13/2025 12:44 PM EDT 04/13/2025 12:44 PM EDT Narrative [facility] [employer] (AIDAN) - 04/15/2025 10:47 AM EDT INTERPRETIVE [...] recommendations for testing may be found at https://Exakis.com/content/dhigdhfyoc-[email or web address]-[email or web address]. Performed By: Delivered [address] [place] [address] Geophysical Data Technician: Tarik Ball MD, PhD CLIA Number: [id number] Jane Chávez MD LAB BLOOD ORDERABLES Final Re sult Performing Organization Address [facility] Co de Phone Number [facility] (AIDAN) [address] [place] [phone] * (ABNORMAL) Sedimentation Rate, Automated (04/13/2025 12:44 PM EDT) Sedimentation Rate 31(H) <30 mm/hr 2024 3:23 PM EDT [facility] Blood Venous blood specimen / Unknown Venipuncture / Unknown 04/13/2025 12:44 PM EDT 04/13/2025 12:44 PM EDT us Jane Chávez MD LAB BLOOD ORDERABLES Final Re sult [facility] [address] [place] [address] * (ABNORMAL) CBC and differential (04/13/2025 12:44 PM EDT) WBC Count 4.12 3.70 - 10.30 10*3/uL LAB HEMATOLOGY METHOD 04/13/2025 3:04 PM EDT [facility] RBC Count 4.38 3.90 - 5.20 10*6/uL LAB HEMATOLOGY METHOD 04/13/2025 3:04 PM EDT [facility] HGB 13.0 11.2 - 15.7 g/dL LAB HEMATOLOGY METHOD 04/13/2025 3:04 PM EDT [facility] HCT 39.6 34.0 - 45.0 % LAB HEMATOLOGY METHOD 04/13/2025 3:04 PM EDT [facility] Platelet Count 329 155 - 369 10*3/uL LAB HEMATOLOGY METHOD 04/13/2025 3:04 PM EDT [facility] MCV 90 79 - 98 fL LAB HEMATOLOGY METHOD 04/13/2025 3:04 PM EDT [facility] MCH 29.7 26.0 - 32.0 pg LAB HEMATOLOGY METHOD 04/13/2025 3:04 PM EDT [facility] MCHC 32.8 30.7 - 35.5 g/dL LAB HEMATOLOGY METHOD 04/13/2025 3:04 PM EDT [facility] RDW 15.7(H) 11.5 - 14.5 % LAB HEMATOLOGY METHOD 04/13/2025 3:04 PM EDT [facility] MPV 10.6 8.8 - 12.5 fL LAB HEMATOLOGY METHOD 04/13/2025 3:04 PM EDT [facility] nRBC 0.0 <=0.0 per 100 WBCs LAB HEMATOLOGY METHOD 04/13/2025 3:04 PM EDT [facility] Differential Type Automated LAB HEMATOLOGY METHOD 04/13/2025 3:04 PM EDT [facility] Neutrophils % 64 % LAB HEMATOLOGY METHOD 04/13/2025 3:04 PM EDT [facility] Lymphocytes % 24 % LAB HEMATOLOGY METHOD 04/13/2025 3:04 PM EDT [facility] Monocytes % 10 % LAB HEMATOLOGY METHOD 04/13/2025 3:04 PM EDT [facility] Eosinophils % 0 % LAB HEMATOLOGY METHOD 04/13/2025 3:04 PM EDT [facility] Basophils % 1 % LAB HEMATOLOGY METHOD 04/13/2025 3:04 PM EDT [facility] Immature Granulocytes % 1 % LAB HEMATOLOGY METHOD 04/13/2025 3:04 PM EDT [facility] Neutrophils Absolute 2.67 1.60 - 6.10 10*3/uL LAB HEMATOLOGY METHOD 04/13/2025 3:04 PM EDT [facility] Lymphocytes Absolute 1.00(L) 1.20 - 3.90 10*3/uL LAB HEMATOLOGY METHOD 04/13/2025 3:04 PM EDT [facility] Monocytes Absolute 0.39 0.30 - 0.90 10*3/uL LAB HEMATOLOGY METHOD 04/13/2025 3:04 PM EDT [facility] Eosinophils Absolute 0.01 0.00 - 0.50 10*3/uL LAB HEMATOLOGY METHOD 04/13/2025 3:04 PM EDT [facility] Basophils Absolute 0.02 0.00 - 0.10 10*3/uL LAB HEMATOLOGY METHOD 04/13/2025 3:04 PM EDT [facility] Immature Granulocytes Absolute 0.03 0.00 - 0.06 10*3/uL LAB HEMATOLOGY METHOD 04/13/2025 3:04 PM EDT [facility] Blood Venous blood specimen / Unknown Venipuncture / Unknown 04/13/2025 12:44 PM EDT 04/13/2025 12:44 PM EDT [facility] - 04/13/2025 3:04 PM EDT Therapeutic decision making should be based on absolute values, rather than percentages. us Jane Chávez MD LAB BLOOD ORDERABLES Final Re sult Performing Organization Address [facility] Co de Phone Number [facility] [address] [place] [address] * (ABNORMAL) Rheumatoid Factor, Plasma (04/13/2025 12:44 PM EDT) Rheumatoid Factor, Plasma 20(H) <14 IU/mL 04/13/2025 3:06 PM EDT [facility] Blood Venous blood specimen / Unknown Venipuncture / Unknown 04/13/2025 12:44 PM EDT 04/13/2025 12:44 PM EDT us Jane Chávez MD LAB BLOOD ORDERABLES Final Re sult Performing Organization Address [facility] [place] [address] * C3 complement (04/13/2025 12:44 PM EDT) C3 Complement 142 84 - 166 mg/dL 04/13/2025 3:14 PM EDT [facility] Blood Venous blood specimen / Unknown Venipuncture / Unknown 04/13/2025 12:44 PM EDT 04/13/2025 12:44 PM EDT us Jane Chávez MD LAB BLOOD ORDERABLES Final Re sult Performing Organization Address [facility] Co de Phone Number [facility] [address] [place] [address] * C4 complement (04/13/2025 12:44 PM EDT) C4 Complement 17 13 - 36 mg/dL 04/13/2025 3:14 PM EDT [facility] Blood Venous blood specimen / Unknown Venipuncture / Unknown 04/13/2025 12:44 PM EDT 04/13/2025 12:44 PM EDT Jane Chávez MD LAB BLOOD ORDERABLES Final Re sult Performing Organization Address [facility]/ZIP Co de Phone Number [facility] [address] [place] [address] * (ABNORMAL) C-reactive protein (04/13/2025 12:44 PM EDT) Pathologist [facility] CRP, Plasma 44.2(H) <=8.0 mg/L 04/13/2025 3:06 PM EDT [facility] Blood Venous blood specimen / Unknown Venipuncture / Unknown 04/13/2025 12:44 PM EDT 04/13/2025 12:44 PM EDT Narrative [facility] - 04/13/2025 3:06 PM EDT This CRP test is appropriate for assessment of infection, systemic inflammation and/or tissue injury. To assess cardiovascular disease risk order high sensitivity CRP (CRPH). Jane Chávez MD LAB BLOOD ORDERABLES Final Re sult Performing Organization Address [facility] Co de Phone Number [facility] [address] [place] [address] * (ABNORMAL) ANTI NUCLEAR AB (04/13/2025 12:44 PM EDT) [facility] SERINA INTERPRETIVE COMMENT See Note 04/16/2025 2:58 PM EDT [facility] ([employer]) Anti Nuc Ab Screen Detected( H) <1:80 04/16/2025 2:58 PM EDT [facility] ([employer]) Blood Venous blood specimen / Unknown Venipuncture / Unknown 04/13/2025 12:44 PM EDT 04/13/2025 12:44 PM EDT Narrative [facility] ([employer]) - 04/16/2025 2:58 PM EDT Clinical Interpretation: [...] of diagnostic specificity requires confirmation of positive SEIRNA by more specific serologic tests. SERINA (nuclear [...] not necessarily rule out SARD. Performed By: Delivered [address] [place] [address] Geophysical Data Technician: Tarik Ball MD, PhD CLIA Number: [id number] Jane Chávez MD LAB BLOOD ORDERABLES Final Re sult [facility] ([employer]) [address] [place], [place] [id number] * Comprehensive metabolic panel (04/13/2025 12:44 PM EDT) Glucose, Plasma 90 74 - 99 mg/dL 04/13/2025 3:06 PM EDT [facility] BUN, Plasma 19 8 - 23 mg/dL 04/13/2025 3:06 PM EDT [facility] Creatinine, Plasma 0.60 0.60 - 1.10 mg/dL 04/13/2025 3:06 PM EDT [facility] BUN/Creatinine Ratio 32 04/13/2025 3:06 PM EDT [facility] Sodium, Plasma 141 136 - 145 mmol/L 04/13/2025 3:06 PM EDT [facility] Potassium, Plasma 4.3 3.6 - 4.9 mmol/L 04/13/2025 3:06 PM EDT [facility] Chloride, Plasma 105 97 - 107 mmol/L 04/13/2025 3:06 PM EDT [facility] CO2, Plasma 25 22 - 29 mmol/L 04/13/2025 3:06 PM EDT [facility] Anion Gap 11 6 - 16 mmol/L 04/13/2025 3:06 PM EDT [facility] Total Calcium, Plasma 8.9 8.9 - 10.2 mg/dL 04/13/2025 3:06 PM EDT [facility] Total Protein 6.9 6.3 - 7.9 g/dL 04/13/2025 3:06 PM EDT [facility] Albumin, Plasma 3.8 3.5 - 5.2 g/dL 04/13/2025 3:06 PM EDT [facility] AST, Plasma 28 10 - 35 U/L 04/13/2025 3:06 PM EDT [facility] ALT, Plasma 27 10 - 35 U/L 04/13/2025 3:06 PM EDT [facility] Alkaline Phosphatase, Plasma 109 46 - 142 U/L 04/13/2025 3:06 PM EDT [facility] Total Bilirubin, Plasma 0.2 0.2 - 1.1 mg/dL 04/13/2025 3:06 PM EDT [facility] eGFRcr 99.8 mL/min/1.7 3m*2 04/13/2025 3:06 PM EDT [facility] Comment:Reported eGFRcr in m L/min/1.73m2 is based the CKD-EPI 2020 equation that does not use a race coefficient. Blood Venous blood specimen / Unknown Venipuncture / Unknown 04/13/2025 12:44 PM EDT 04/13/2025 12:44 PM EDT us Jane Chávez MD LAB BLOOD ORDERABLES Final Re sult [facility] [address] [place] [address] * XR Chest 2 Views (04/13/2025 12:37 [...] Antibody Negative Negative 01/05/2025 11:05 AM EDT [facility] Blood Venous blood specimen / Unknown Venipuncture / Unknown 01/05/2025 9:00 AM EDT 01/05/2025 9:01 AM EDT us Adriana Mueller MD LAB BLOOD ORDERABLES Final Re sult [facility] [address] [place] [address] from Last 3 Months or Most Recently Relevant to Health Maintenance Insurance MEDICARE [facility] Advance Directives * Full Code (Latest Code Status on File) Date Activated Date Inactivated Comments 11/25/2024 11:42 AM 11/29/2024 4:20 PM Care Teams Hem Inspector Relationship Specialty Start Date End Date Dima Giles MD [address] [place] [address] PCP - General 01/26/21
--- OUTSIDE RECORDS SUMMARY | 2025-05-23 06:37 | XMS_ITS | Encounter Summary ---
Author Organization [facility] Address [address] [place] [address] Care Team Providers Care Counter Manager Name Role Phone Dima Giles MD Primary Care Provider [phone] Encounter Details Date Type Department Care Team [...] Questionnaire-9 Score 6 04/13/2025 10:03 AM EDT Iaona Rubio * If you checked off any [...] 06/30/2025 9:00 AM EDT Office Visit [facility] Medicine Specialties [address] [place] [phone] Alisson Zavala, TOM [address] [place] [address] documented as of this encounter Visit Diagnoses [...] documented as of this encounter Care Teams Counter Manager Relationship Specialty Start Date End Date Dima Giles MD [address] [place] [address] PCP - General 01/26/21 documented as of this encounter
--- OUTSIDE RECORDS SUMMARY | 2025-05-23 06:37 | XMS_ITS | Encounter Summary ---
Author Organization [facility] Address [address] [place] [address] Care Team Providers Care Laboratory Geneticist Name Role Phone Dima Giles MD Primary Care Provider [phone] Encounter Details Date Type Department Care Team (Late st Contact Info) Description 05/02/2025 Orders Only [facility] Infusion [address] [facility] [address] [place] [address] Alphonso Najera RN [facility] Social History [...] any time in the past 12 m [facility], were you homeless or living [...] 06/30/2025 9:00 AM EDT Office Visit [facility] Medicine Specialties [address], [address] [place] [phone] Alisson Zavala, EVELYNE [address] [place] [address] documented as of this encounter Visit Diagnoses [...] documented as of this encounter Care Teams Laboratory Geneticist Relationship Specialty Start Date End Date Dima Giles MD [address] [place] [address] PCP - General 01/26/21 documented as of this encounter
--- OUTSIDE RECORDS SUMMARY | 2025-05-23 06:37 | XMS_ITS | Encounter Summary ---
Author Organization Healthcare Address [address] [place] [address] Care Team Providers Care Refinery Operator Visbreaking Name Role Phone Dima Giles MD Primary Care Provider [phone] Encounter Details Date Type Department Care Team ([facility] st Contact Info) Description 04/13/2025 Orders Only External Location [address] [place] [address] Provider, External Social History Tobacco Use Types [...] Visit [facility] Medicine Specialties [address], [address] [place] [phone] Alisson Zavala, TOM [address] [place] [address] documented as of this encounter [...] documented as of this encounter Care Teams Refinery Operator Visbreaking Relationship Specialty Start Date End Date Dima Giles MD [address] [place] [address] PCP - General 01/26/21 documented as of this encounter
--- OUTSIDE RECORDS SUMMARY | 2025-05-23 06:37 | XMS_ITS | Clinical Summary ---
Author Organization [facility] Address [address] [place] [address] Care Team Providers Care Graduate Assistant Name Role Phone Dima Giles MD Primary Care Provider [phone] Allergies Active Allergy Reactions Criticality Noted Date [...] ANNUAL PHYSICAL 01/27/2017 COVID-19 Vaccine ( season) 2025, 09/18/2020 INFLUENZA VACCINE 06/15/2025 ZOSTER VACCINE Completed 05/21/2019, 01/05/2019 HEPATITIS C SCREENING Completed 11/25/2024 [place] [address] [facility] PPO Member Subscriber Plan / Payer (Ef fective 2019-Present) Name:Brittany Hayes Relation to Subscriber:Self Name:Brittany Hayes Payer ID:[id number] (IC) Type:Not on file Address: [facility] [id number] [place] [id number] Care Teams Graduate Assistant Relationship Specialty Start Date End Date Dmia Giles MD [address] [facility] [address] [place] [address] PCP - General Adolescent Medicine 05/13/16
--- OUTSIDE RECORDS SUMMARY | 2025-05-23 06:37 | XMS_ITS | Encounter Summary ---
Author Organization Healthcare Address [address] [place] [address] Care Team Providers Care College Teacher Name Role Phone Dima Giles MD Primary Care Provider [phone] Encounter Details Date Type Department Care Team (Late st Contact Info) Description 04/18/2025 Results Follow-Up [facility] Medicine Specialties [address] [place] [phone] Brock Chilel, TOM [address] [place] [address] Social History Tobacco Use Types Packs/Day Years [...] time in the past 12 m [facility], were you homeless or living in a [...] [facility] [address] [place] [phone] Alisson Zavala, TOM [address] [place] [address] documented as of this encounter [...] documented as of this encounter Care Teams College Teacher Relationship Specialty Start Date End Date Dima Giles MD [address] [place] [address] PCP - General 01/26/21 documented as of this encounter
--- OUTSIDE RECORDS SUMMARY | 2025-05-23 06:37 | XMS_ITS | Encounter Summary ---
Author Organization [facility] Address [address] [place] [address] Care Team Providers Care Gas Engine Operator Generators Name Role Phone Dima Giles MD Primary Care Provider [phone] Reason for Referral * Imaging (Routine) - Pending Review Specialty Diagnoses / Procedures Referred By Contac t Referred To Contact Radiology Diagnoses Lung nodule seen on imaging study Procedures CT Chest wo IV Contrast Jane Chávez MD [address] [place] [address] Phone: tel: fax: Referral ID Status Reason Start Date Expiration Date V isits Requested Visits Authorized [id number] Pending Review 04/18/2025 10/18/2026 1 1 Encounter Details Date Type Department Care Team (Late st Contact Info) Description 04/18/2025 Orders Only [facility] [address] [place] [address] Brock Chilel, TOM [address] [place] [address] Lung nodule seen on imaging study (Primary [...] the past 12 months has th e [employer], gas, oil, or water company threatened to [...] Visit [facility] [address] [place] [address] Alisson Zavala, MBBS [address] [place] [address] Scheduled Orders Name Type Priority Associated Diagnoses [...] documented as of this encounter Care Teams Gas Engine Operator Generators Relationship Specialty Start Date End Date Dima Giles MD [address] [place] [address] PCP - General 01/26/21 documented as of this encounter
--- OUTSIDE RECORDS SUMMARY | 2025-05-23 06:37 | XMS_ITS | Encounter Summary ---
Author Organization [facility] Address [address] [place] [address] Care Team Providers Care Sanitation Manager Name Role Phone Dima Giles MD Primary Care Provider [phone] Encounter Details Date Type Department Care Team (Latest Contact Info) Description 04/19/2025 Lab Requisition [facility] [address] [place] [address] Evangelina Tapia MD [address] [facility] [address] [place] [id number] Calculus of gallbladder with chronic cholecystitis without [...] any time in the past 12 m [facility], were you homeless or living in a [...] Description 06/30/2025 9:00 AM EDT Office Visit [facility] [address] [place] [phone] Alisson Zavala, TOM [address] [place] [address] documented as of this encounter Procedures Procedure Name Priority Date/Time Associated Diagnosis Comments HISTORICAL SURGICAL PATHOLOGY ADDENDUM Routine 04/18/2025 Calculus of gallbladder with chronic cholecystitis without obstruction documented in this encounter Results * Historical Surgical Pathology Addendum (04/18/2025) Historical Case Information This case was collected on 11/28/2024 was originally reported as case [id number]. The entire surgical pathology report can be viewed as a scanned document attached to this report. 04/22/2025 1:17 PM EDT [facility] Case Report Historical Case Addendum/Amend ment Case: [id number] Authorizing Provider: Evangelina Tapia MD Collected: 04/18/2025 Ordering Location: [facility] Received: 04/19/2025 0847 Pathologist: Macy Saucedo MD Specimen: [id number] 04/22/2025 1:17 PM EDT [facility] Addendum 04/22/2025 1:17 PM EDT [facility] Addendum 2 04/22/2025 1:17 PM EDT [facility] Addendum 3 04/22/2025 1:17 PM EDT [facility] Addendum 4 04/22/2025 1:17 PM EDT [facility] Addendum 5 04/22/2025 1:17 PM EDT [facility] Tissue 04/18/2025 04/19/2025 8:4 7 AM EDT us Evangelina Tapia MD LAB PATHOLOGY ORDERABLES F inal Result [facility] [address] [place] [address] documented in this encounter Visit Diagnoses Diagnosis [...] documented as of this encounter Care Teams Sanitation Manager Relationship Specialty Start Date End Date Dima Giles MD [address] [place], [place] [address] PCP - General 01/26/21 documented as of this encounter
--- NOTE | 2025-05-23 07:00 | MR_ITS ---
FINAL REPORT TECHNIQUE: Multiplanar and multisequence imaging of the cervical spine was obtained. CLINICAL HISTORY: pain. bilateral arm pain, numbness and tingling. worse on right side. COMPARISON: None FINDINGS: Alignment is normal. Vertebral body height is preserved. Signal intensity within the substance of the spinal cord is normal. No acute bone marrow edema. No acute paraspinal abnormality. C2/3: No focal disc herniation, central canal stenosis, or neural foraminal narrowing. C3/4: No focal disc herniation, central canal stenosis, or neural foraminal narrowing. C4/5: No focal disc herniation, central canal stenosis, or neural foraminal narrowing. C5/6: An annular bulge is present. No focal disc herniation, central canal stenosis, or neural foraminal narrowing. C6/7: A central disc protrusion is present. No central canal stenosis, or neural foraminal narrowing. C7/T1: No focal disc herniation, central canal stenosis, or neural foraminal narrowing. IMPRESSION: Mild degenerative change at the C5-6 and C6-7 levels as described. Reviewed, Interpreted and Dictated by Odessa Campbell MD Transcribed by Daniela Tobar Authenticated and [facility]
== END 2025-05-23 23:59 | disposition home or self-care (01) ==
LOC: RAD 06:34
PROVIDERS: PCP Nurse Practitioner Family; Visit Provider Orthopaedic Surgery
DX: M47.22 Other spondylosis with radiculopathy, cervical region (principal)
CPT/HCPCS: 72141

== ENCOUNTER 2025-06-14 08:29 | Outpatient (RCR) | payer MEDICARE, SELFPAY ==
--- NOTE | 2025-06-14 09:41 | HMH.PTOPEV ---
PT Evaluation Rehab PT Outpatient Evaluation Start: 06/14/25 08:48 Freq: Status: Active Protocol: Document 06/14/25 08:48 THEO (Rec: 06/14/25 09:39 THEO [id number]) E-signed By Luis Eduardo Robles, PT Outpatient Therapy Subjective History Subjective History Pt is a 64 yof who is referred to [facility] outpatient PT with complaints of neck pain. Pt reports that her symptoms began in November when she had gallbladder attack that caused her to be hospitalized. Pt reports that after this, she began to have some intense swelling in her shoulders and arms which led to having some numbness and tingling into her R arms. Pt reports that her doctors believe this was a rheumatic flare up, but she has not received a formal diagnosis of RA. Pt reports that she has recently changed medications, and she is no longer having the numbness and tingling. However, she reports that she continues to have tightness and pain into her neck and shoulder blade. Pt reports that these symptoms are worsened with lifting. Pt reports that she will have some days with no pain, but she reports that overdoing it can cause her neck symptoms to flare up. PMH: Osteoporosis, awaiting formal RA diagnosis New diagnosis of No cancer in past 12 months? Chief Complaint Pain,Stiff,Paresthesia Symptom Type Ache Symptoms Relieved By Ice Symptoms Aggravated Bending/Stooping,Twisting,Lifting By Prior Functional None Limitations Current Functional Lifting,Housework,Standing,Recreation Activity Limitations Symptom Description Intermittent,Activity Dependent Level of pain today 0 (0-10) Pain scale - at its 0 best (0-10) Pain scale - at its 4 worst (0-10) Cervical Eval Palpation Cervical Muscles R Cervical Paraspinal,L Cervical Paraspinal,R CT Junction,L CT Junction,R Upper Trapezius,L Upper Trapezius,R Thoracic Paraspinals,L Thoracic Paraspinals Cervical/Thoracic Tenderness,Trigger Point Palpation Findings Flexibility Deficits Upper Trapezius (R) Moderate Tightness,(L) Moderate Tightness Muscle Length Pectoralis Minor (R) Moderate Tightness,(L) Moderate Tightness Muscle Length Passive Joint Mobility Cervical PIVM Dec: R C5/6 L C5/6 R C6/7 L C6/7 R C7/T1 L C7/T1 AROM Cervical Spine 30 Extension Active Range of Motion ( degrees) Cervical Spine 35 Flexion Active Range of Motion (degrees) Cervical Spine Right 20 Lateral Flexion Active Range of Motion (degrees) Cervical Spine Left 15 Lateral Flexion Active Range of Motion (degrees) Cervical Spine Right 50 Rotation Active Range of Motion ( degrees) Cervical Spine Left 45 Rotation Active Range of Motion ( degrees) DTR Rt Biceps 2+ Lt Biceps 2+ Rt Brachioradialis 2+ Lt Brachioradialis 2+ Rt Triceps 2+ Lt Triceps 2+ Altered Sensation Bilateral Comment Intact to LT globally and symmetrically Special Test C-Spine Foraminal Negative Left,Negative Right Compression ( [place]) Test C-spine Verterbral Central P/A [place],Right P/A [place] Accessory Movements that Elicit Symptoms C-Spine Foraminal Negative Distraction Test C-Spine Compression Negative Left,Negative Right Test Shoulder Abduction Negative Left,Negative Right Relief Test Shoulder Brachial Negative Left,Negative Right Plexus Stretch Test Neck Disability Index Neck Disability Index Section 1: Pain The pain is very mild at moment Intensity Section 2: Personal I can look after myself normally without causing extra Care (washing, pain dressing, etc.) Section 3: Lifting I can only lift very light weights Section 4: Reading I can read as much as I want with moderate pain in my neck Section 5: Headaches I have moderate headaches, which come infrequently Section 6: I can concentrate fully when I want to with no Concentration difficulty Section 7: Work I can do as much work as I want to Section 8: Driving I can drive my car without any neck pain Section 9: Sleeping I have no trouble sleeping Section 10: I am able to engage in most, but not all of my usual Recreation recreation NDI Score 11 Miscellaneous Dx PT Eval Objective Objective DCNF Flexor Endurance Test: 35s MMT: B Rhomboids 3/5 Outpatient Therapy Assessment Impairments Problems/ Palpation Tenderness,Impaired Range of Motion,Impaired Impairmments Strength,Impaired Lifting,Impaired Household Care, Impaired Desk/Computer Activities,Impaired Balance, Subjective C/O Pain,Impaired Self Care/Self Management Prognosis Rehab Potential Good Comment w HEP compliance Clinical Impression Consistent with Yes Diagnosis Consistent with Neck pain with mob. deficits. Additional details: Pt presents with hypomobility in her lower C spine and upper thoracic spine, impaired cervical ROM and weakness in her scapulothoracic msk. Skilled PT is indicated to address these deficits. PT Patient Goals PT Patient Goals PT Short Term 1. Patient will report a 48 hour average pain of 2/10 Patient Goals on the numeric pain rating scale to demonstrate improvement in quality of life and increased functional capacity. 2. Patient will improve rhomboid strength upon manual muscle testing to 4/5 facilitate increased spinal stabilization, cervical support and improved functional capabilities. 3. Patient will demonstrate a reduction in trigger point sensitivity to Grade 2 with manual palpation to improve comfort during activity and soft tissue mobility. 4. Patient will improve cervical ROM by 5 degrees without pain in all planes to demonstrate improved movement patterns with functional mobility and ADLs. 5. Pt will demonstrate HEP compliance by completing prescribed HEP 4-5x/week. 6. Pt will improve NDI score to 8 to demonstrate improvement functional capabilities and improved QOL. 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 Patient will report a 48 hour average pain of 0-1/10 on the numeric pain rating scale to demonstrate improvement in quality of life and increased functional capacity. 2. Patient will improve rhomboid strength upon manual muscle testing to 4+/5 facilitate increased spinal stabilization and improved functional capabilities. 3. Patient will demonstrate a reduction in trigger point sensitivity to Grade 0-1 with manual palpation to improve comfort during activity and soft tissue mobility. 4. Patient will improve cervical ROM by 10-15 degrees, without pain, in all planes to demonstrate improved movement patterns with functional mobility and ADLs. 5. Pt will improve NDI score to 12 to demonstrate improvement functional capabilities and improved QOL. 6. Pt will be able to complete 5 overhead lifts with a 8# weight with proper SH Rhythm, no compensatory movement patterns and no increase in pain in order to demonstrate improved ability for OH activity. Outpatient Therapy Plan of Care Treatment Plan May Include Therapeutic Exercise Yes Including Home Exercise Program Manual Therapy Yes Techniques Neuromuscular Re- Yes education Therapeutic Yes Activities to Return to Previous Functional/Work Level Gait Training Yes ADL/Self Care Yes Education Thermal Modalities Yes Electrical Yes Stimulation Ultrasound/ Yes Phonophoresis Iontophoresis Yes Massage Yes Manual Lymphatic Yes Drainage Eval/Re-Eval Yes Frequency Times per week 2 Duration Number of Weeks 8 Addendums This patient is a No candidate for social or vocational rehab ? Patient/Guardian Yes verbally acknowledges understanding of treatment program and consents to further treatment? Patient/Guardian Yes verbally acknowledges understanding of diagnosis, prognosis and goals for treatment? Eval Complexity PT Charges 03254 - Moderate Complexity Shoulder/Elbow Eval Shoulder Objective Measurements Elbow Objective Measurements PHYSICIAN CERTIFICATION: I certify the specified therapy services for Brittany Elizabet Hayes are required, authorized, and reviewed every 30 days.
== END 2025-06-14 23:59 | disposition home or self-care (01) ==
LOC: PT 08:29
PROVIDERS: Visit Provider Orthopaedic Surgery
DX: M54.12 Radiculopathy, cervical region (principal)
CPT/HCPCS: 97162; 97530

== ENCOUNTER 2025-07-15 15:00 | Outpatient (RCR) | payer MEDICARE, SELFPAY | END 2025-07-15 23:59 | disposition home or self-care (01) | LOC: PT 15:00 | PROVIDERS: Visit Provider Orthopaedic Surgery | DX: M54.2 Cervicalgia (principal) | CPT/HCPCS: 97110; 97530 ==